=== PATIENT | female | born 1970 | race Caucasian/White ===

== ENCOUNTER 2018-05-22 19:35 | Inpatient (IN) | payer OTHER ==
--- NOTE | 2018-05-22 20:33 | ER ---
Nurse's Notes [facility] Name: Sherly Babb Age: 48 yrs Sex: Female : 1970 Arrival Date: 05/22/2018 Time: 19:36 Bed 14 Private MD: Diagnosis: Abdominal tenderness;Vomiting;Fever, unspecified;Obesity, unspecified;Type 2 diabetes mellitus;Hypomagnesemia;Cystitis Presentation: 05/22 20:05 Presenting complaint: Patient states: Family found her in her room and she was in bed tl2 shivering and had a fever of 104. Family gave 1000 mg of Tylenol at 1900. Pt reports abdominal pain and vomiting. Started at 1800 tonight. Transition of care: patient was not received from another setting of care. Onset of symptoms was May 22, 2018 at 18:00. Risk Assessment: Do you want to hurt yourself or someone else? Patient reports no desire to harm self or others. Initial Sepsis Screen: Does the patient meet any 2 criteria? No. Patient's initial sepsis screen is negative. Does the patient have a suspected source of infection? No. Patient's initial sepsis screen is negative. Care prior to arrival: None. 20:05 Method Of Arrival: Wheelchair tl2 20:05 Acuity: BRITTANY 3 tl2 Triage Assessment: 20:08 General: Appears in no apparent distress. uncomfortable, Behavior is cooperative, tl2 appropriate for age, drowsy. General: Reports fever for feeling ill for. Pain: Complains of pain in abdomen. Neuro: Level of Consciousness is awake, alert, obeys commands, Reports dizziness. GI: Reports lower abdominal pain, upper abdominal pain, nausea, vomiting. 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 - Irregular menses tl2 Historical: - Allergies: 20:08 Morphine; tl2 - Home Meds: 20:08 amitriptyline 25 mg Oral tab 1 tab nightly [Active]; lisinopril 20 mg Oral tab 1 tab tl2 BID [Active]; metformin 1,000 mg Oral tab 1 tab 2 times per day [Active]; Prozac 40 mg Oral cap 1 cap once daily [Active]; Victoza 2-Alessandro 0.6 mg/0.1 mL (18 mg/3 mL) subcutaneous pnij 0.2 mL once daily [Active]; gabapentin oral oral [Active]; - PMHx: 20:08 Migraines; Hypertension; Diabetes - NIDDM; Depression; Anxiety; small bowel obstruction;tl2 - PSHx: 20:08 Cholecystectomy; ; Tubal ligation; Hernia repair; tl2 - Immunization history:: Adult Immunizations up to date. - Social history:: Smoking status: Patient/guardian denies using tobacco. - Ebola Screening: : No symptoms or risks identified at this time. - Family history:: not pertinent. Screenin:58 Abuse screen: Denies threats or abuse. Denies injuries from another. Nutritional ao screening: No deficits noted. Tuberculosis screening: No symptoms or risk factors identified. Fall Risk None identified. Assessment: 20:20 General: Appears in no apparent distress. comfortable, Behavior is calm, cooperative, ao appropriate for age. Pain: Complains of pain in abdomen Pain currently is 8 out of 10 on a pain scale. Neuro: Level of Consciousness is awake, alert, obeys commands, Oriented to person, place, time, situation, Appropriate for age Moves all extremities. Full function Speech is normal. Cardiovascular: Heart tones S1 S2 Capillary refill < 3 seconds Patient's skin is warm and dry. Respiratory: Airway is patent Respiratory effort is even, unlabored, Respiratory pattern is regular, symmetrical, Breath sounds are diminished. GI: Abdomen is round obese, Bowel sounds present X 4 quads. Abd is soft and non tender Abd is soft. : No signs and/or symptoms were reported regarding the genitourinary system. EENT: No signs and/or symptoms were reported regarding the EENT system. Derm: No signs and/or symptoms reported regarding the dermatologic system. Musculoskeletal: 21:30 Reassessment: Patient appears in no apparent distress at this time. Patient and/or ao family updated on plan of care and expected duration. Pain level reassessed. Patient is alert, oriented x 3, equal unlabored respirations, skin warm/dry/pink. Patient to be admitted to the hospital. Patient aware of admission and agree with the POC. waiting on CT scan at this moment. Patient was done with contrasts at [address] was notified. 22:30 Reassessment: Patient appears in no apparent distress at this time. Patient and/or ao family updated on plan of care and expected duration. Pain level reassessed. Patient is alert, oriented x 3, equal unlabored respirations, skin warm/dry/pink. Waiting on CT scan. 23:38 Reassessment: Patient appears in no apparent distress at this time. Patient and/or ao family updated on plan of care and expected duration. Pain level reassessed. Patient is alert, oriented x 3, equal unlabored respirations, skin warm/dry/pink. Waiting on DR orders. 05/23 00:11 Reassessment: Received an verbal order from Dr Owusu to medicate patient with what ao she was previous medicated. Patient had Fentanyl 50 Mcg. 00:15 Reassessment: DR Bazan at bedside assessing patient. ao 00:26 Reassessment: Patient appears in no apparent distress at this time. Patient and/or ao family updated on plan of care and expected duration. Pain level reassessed. Patient is alert, oriented x 3, equal unlabored respirations, skin warm/dry/pink. Waiting for admitting Dr orders. Patient has been medicated with fentanyl IV. 01:20 Reassessment: Report given to BORIS Neal. ao Vital Signs: 05/22 20:08 BP 92 / 78; Pulse 121; Resp 20; Temp 99.7(O); Pulse Ox 97% on R/A; Weight 154.22 kg; tl2 Height 5 ft. 8 in. (172.72 cm); Pain 9/10; 21:30 BP 106 / 63; Pulse 99; Resp 23; Pulse Ox 99% on R/A; ao 22:30 BP 114 / 60; Pulse 94; Resp 20; Pulse Ox 96% on R/A; ao 23:42 BP 100 / 61; Pulse 88; Resp 18; Pulse Ox 96% on R/A; Pain 0/10; ao 05/23 00:26 BP 98 / 64; Pulse 80; Resp 14; Pulse Ox 98% on R/A; Pain 0/10; ao 01:20 BP 114 / 64; Pulse 87; Resp 18; Pulse Ox 86% on R/A; Pain 0/10; ao 05/22 20:08 Body Mass Index 51.70 (154.22 kg, 172.72 cm) tl2 ED Course: 05/22 19:36 Patient arrived in ED. es 20:06 Triage completed. tl2 20:08 Arm band placed on right wrist. tl2 20:13 Bryant Owusu MD is Attending Physician. [facility] 20:16 Rizvi, Bryson, RN is Primary Nurse. ao 20:30 Inserted saline lock: 22 gauge in right wrist, using aseptic technique. Blood collected.ao 20:31 Yusuf Valencia MD is Hospitalizing Provider. eloisa 20:45 X-ray completed. Portable x-ray completed in exam room. Patient tolerated procedure sw well. 21:58 Patient has correct armband on for positive identification. Pulse ox on. NIBP on. ao 22:52 Note: iv not working in right ac, only access available was hand iv, nurse notified, ct vr tech started new iv in left wrist for ct w contrast study. 22:55 Inserted saline lock: 22 gauge in left forearm, using aseptic technique. ao 05/23 01:21 No provider procedures requiring assistance completed. Patient admitted, IV remains in ao place. Administered Medications: 05/22 21:14 Drug: NS 0.9% 1000 ml Route: IV; Rate: 1 bolus; Site: left antecubital; ao 21:30 Follow up: IV Status: Completed infusion; IV Intake: 1000ml ao 21:14 Drug: Pepcid 20 mg Route: IVP; Site: right hand; ao 21:30 Follow up: Response: No adverse reaction ao 21:14 Drug: Zofran 4 mg Route: IVP; Site: right hand; ao 21:30 Follow up: Response: No adverse reaction ao 21:15 Drug: fentaNYL (PF) 50 mcg Route: IVP; Site: right antecubital; ao 21:30 Follow up: Response: No adverse reaction ao 21:16 Drug: Cipro 400 mg Volume: 200 ml; Route: IVPB; Infused Over: 60 mins; Site: right ao antecubital; 21:55 Follow up: IV Status: Completed infusion ao 21:16 Drug: Flagyl 500 mg Volume: 100 ml; Route: IVPB; Rate: 200 ml/hr; Infused Over: 30 ao mins; Site: right antecubital; 21:45 Follow up: IV Status: Completed infusion; IV Intake: 50ml ao 22:23 Drug: Magnesium Sulfate 2 grams Route: IVPB; Infused Over: 2 hrs; Site: right wrist; ao 23:51 Follow up: IV Status: Completed infusion ao 22:30 Drug: NS 0.9% 1000 ml Route: IV; Rate: 1 bolus; Site: right hand; ao 23:51 Follow up: IV Status: Completed infusion ao 22:49 Drug: Rocephin - (cefTRIAXone) 1 grams Route: IVPB; Infused Over: 30 mins; Site: left ao wrist; 23:51 Follow up: IV Status: Completed infusion; IV Intake: 10ml ao 23:19 Drug: Insulin Regular Human 10 units {Co-Signature: [email or web address] (Brian Batista RN).} Route: ao Sub-Q; Site: right upper arm; 05/23 00:00 Follow up: Response: No adverse reaction; Blood sugar is lowered ao 05/22 23:22 Drug: Zofran 2 mg Route: IVP; Site: left hand; ao 23:52 Follow up: Response: No adverse reaction ao 05/23 00:22 Drug: fentaNYL (PF) 50 mcg Route: IVP; Site: right wrist; ao 01:20 Follow up: Response: No adverse reaction; Pain is decreased ao Point of Care Testing: Blood Glucose: 01:27 Blood Glucose: 300 mg/dL; ao 01:27 Receiving nurse was notified ao Ranges: Intake: 05/22 21:30 IV: 1000ml; Total: 1000ml. ao 21:45 IV: 50ml; Total: 1050ml. ao 23:51 IV: 10ml; Total: 1060ml. ao Outcome: 20:32 Decision to Hospitalize by Provider. [facility] 05/23 01:21 Admitted to Med/surg accompanied by nurse, room 202, Other Bed side report given to kirk Neal RN Condition: stable Instructed on the need for admit. 02:04 Patient left the ED. ao Signatures: Bryant Owusu MD MD cha Salyer, Edna es Davis, Victoria vr Warren, Shannon sw Ortiz, Alex, RN RN Soila Ham RN RN tl2 Brian Batista RN sr5 Corrections: (The following items were deleted from the chart) 05/22 23:42 22:30 BP 100 / 61; Pulse 88bpm; Resp 18bpm; Pulse Ox 96% RA; Pain 0/10; ao ao
--- NOTE | 2018-05-22 20:33 | EDPHYS ---
Physician Documentation [facility] Name: Sehrly Babb Age: 48 yrs Sex: Female : 1970 Arrival Date: 05/22/2018 Time: 19:36 Bed 14 Private MD: ED Physician Bryant Owusu HPI: 05/22 20:27 This 48 yrs old Female presents to ER via Wheelchair with complaints of eloisa Fever, Abdominal Pain. 20:27 The patient reports fever, that was measured at 102 degrees Fahrenheit. Onset: The eloisa symptoms/episode began/occurred today. Modifying factors: there are no obvious modifying factors. Associated signs and symptoms: Pertinent positives:. Severity of symptoms: in the emergency department the symptoms are unchanged. The patient has not experienced similar symptoms in the past. 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 - Irregular menses tl2 Historical: - Allergies: 20:08 Morphine; tl2 - Home Meds: 20:08 amitriptyline 25 mg Oral tab 1 tab nightly [Active]; lisinopril 20 mg Oral tab 1 tab tl2 BID [Active]; metformin 1,000 mg Oral tab 1 tab 2 times per day [Active]; Prozac 40 mg Oral cap 1 cap once daily [Active]; Victoza 2-Alessandro 0.6 mg/0.1 mL (18 mg/3 mL) subcutaneous pnij 0.2 mL once daily [Active]; gabapentin oral oral [Active]; - PMHx: 20:08 Migraines; Hypertension; Diabetes - NIDDM; Depression; Anxiety; small bowel obstruction;tl2 - PSHx: 20:08 Cholecystectomy; ; Tubal ligation; Hernia repair; tl2 - Immunization history:: Adult Immunizations up to date. - Social history:: Smoking status: Patient/guardian denies using tobacco. - Ebola Screening: : No symptoms or risks identified at this time. - Family history:: not pertinent. ROS: 20:27 Constitutional: Negative for fever, chills, and weight loss, Eyes: Negative for injury, eloisa pain, redness, and discharge, ENT: Negative for injury, pain, and discharge, Neck: Negative for injury, pain, and swelling, Cardiovascular: Negative for chest pain, palpitations, and edema, Respiratory: Negative for shortness of breath, cough, wheezing, and pleuritic chest pain, Back: Negative for injury and pain, : Negative for injury, bleeding, discharge, and swelling, MS/Extremity: Negative for injury and deformity, Skin: Negative for injury, rash, and discoloration, Neuro: Negative for headache, weakness, numbness, tingling, and seizure, Psych: Negative for depression, anxiety, suicide ideation, homicidal ideation, and hallucinations, Allergy/Immunology: Negative for hives, rash, and allergies, Endocrine: Negative for neck swelling, polydipsia, polyuria, polyphagia, and marked weight changes, Hematologic/Lymphatic: Negative for swollen nodes, abnormal bleeding, and unusual bruising. 20:27 Abdomen/GI: Positive for abdominal pain, nausea and vomiting, of the umbilical area, right upper quadrant, left upper quadrant, right lower quadrant and left lower quadrant. Exam: 20:27 Constitutional: This is a well developed, well nourished patient who is awake, alert, eloisa and in no acute distress. Head/Face: Normocephalic, atraumatic. Eyes: Pupils equal round and reactive to light, extra-ocular motions intact. Lids and lashes normal. Conjunctiva and sclera are non-icteric and not injected. Cornea within normal limits. Periorbital areas with no swelling, redness, or edema. ENT: Nares patent. No nasal discharge, no septal abnormalities noted. Tympanic membranes are normal and external auditory canals are clear. Oropharynx with no redness, swelling, or masses, exudates, or evidence of obstruction, uvula midline. Mucous membranes moist. Neck: Trachea midline, no thyromegaly or masses palpated, and no cervical lymphadenopathy. Supple, full range of motion without nuchal rigidity, or vertebral point tenderness. No Meningismus. Chest/axilla: Normal chest wall appearance and motion. Nontender with no deformity. No lesions are appreciated. Respiratory: Lungs have equal breath sounds bilaterally, clear to auscultation and percussion. No rales, rhonchi or wheezes noted. No increased work of breathing, no retractions or nasal flaring. Back: No spinal tenderness. No costovertebral tenderness. Full range of motion. Skin: Warm, dry with normal turgor. Normal color with no rashes, no lesions, and no evidence of cellulitis. MS/ Extremity: Pulses equal, no cyanosis. Neurovascular intact. Full, normal range of motion. Neuro: Awake and alert, GCS 15, oriented to person, place, time, and situation. Cranial nerves II-XII grossly intact. Motor strength 5/5 in all extremities. Sensory grossly intact. Cerebellar exam normal. Normal gait. Psych: Awake, alert, with orientation to person, place and time. Behavior, mood, and affect are within normal limits. 20:27 Cardiovascular: Rate: tachycardic, Rhythm: regular, Pulses: Pulses are 4+ in bilateral radial, brachial, femoral, popliteal, posterior tibial and and dorsalis pedis arteries.. Heart sounds: normal, Edema: is not appreciated, JVD: is not appreciated. Vital Signs: 20:08 BP 92 / 78; Pulse 121; Resp 20; Temp 99.7(O); Pulse Ox 97% on R/A; Weight 154.22 kg; tl2 Height 5 ft. 8 in. (172.72 cm); Pain 9/10; 21:30 BP 106 / 63; Pulse 99; Resp 23; Pulse Ox 99% on R/A; ao 22:30 BP 114 / 60; Pulse 94; Resp 20; Pulse Ox 96% on R/A; ao 23:42 BP 100 / 61; Pulse 88; Resp 18; Pulse Ox 96% on R/A; Pain 0/10; ao 05/23 00:26 BP 98 / 64; Pulse 80; Resp 14; Pulse Ox 98% on R/A; Pain 0/10; ao 01:20 BP 114 / 64; Pulse 87; Resp 18; Pulse Ox 86% on R/A; Pain 0/10; ao 05/22 20:08 Body Mass Index 51.70 (154.22 kg, 172.72 cm) tl2 MDM: 05/22 20:13 Patient medically screened. [facility] 20:30 Data reviewed: vital signs, nurses notes, lab test result(s), EKG, radiologic studies, [facility] CT scan, plain films. 05/22 19:39 Order name: Urine Culture [facility] 05/22 19:39 Order name: Urine Microscopic Only [facility] 05/22 19:39 Order name: Urine Culture [facility] [place] 05/22 19:39 Order name: Urine Microscopic Only; Complete Time: 21:42 [facility] 05/22 20:26 Order name: Basic Metabolic Panel; Complete Time: 21:42 [facility] 05/22 20:26 Order name: CBC with Diff; Complete Time: 23:12 [facility] 05/22 20:26 Order name: Ckmb; Complete Time: 21:42 [facility] 05/22 20:26 Order name: CPK; Complete Time: 21:42 [facility] 05/22 20:26 Order name: LFT's; Complete Time: 21:42 [facility] 05/22 20:26 Order name: Magnesium; Complete Time: 21:42 [facility] 05/22 20:26 Order name: NT PRO-BNP; Complete Time: 21:42 [facility] 05/22 20:26 Order name: PT-INR; Complete Time: 21:42 [facility] 05/22 20:26 Order name: Ptt, Activated; Complete Time: 21:42 [facility] 05/22 20:26 Order name: Troponin (emerg Dept Use Only); Complete Time: 21:42 [facility] 05/22 20:26 Order name: XRAY Chest (1 view) [facility] 05/22 20:26 Order name: Lipase; Complete Time: 21:42 [facility] 05/22 20:33 Order name: CT Abd/Pelvis - W/Contrast [facility] 05/22 21:20 Order name: Urine Dipstick--Ancillary (enter results) [facility] 05/22 21:20 Order name: Urine --Ancillary (enter results) [facility] 05/22 21:33 Order name: Urine --Ancillary; Complete Time: 21:42 [facility] 05/22 21:33 Order name: Urine Dipstick-Ancillary; Complete Time: 21:42 [facility] 05/22 21:37 Order name: RAD; Complete Time: 21:42 [facility] 05/22 21:53 Order name: Manual Differential; Complete Time: 23:12 [facility] [place] 05/22 19:39 Order name: Urine Dipstick-Ancillary (obtain specimen); Complete Time: 21:47 snw 05/22 20:26 Order name: EKG; Complete Time: 20:27 [facility] 05/22 20:26 Order name: Cardiac monitoring; Complete Time: 21:01 [facility] 05/22 20:26 Order name: EKG - Nurse/Tech; Complete Time: 21:00 [facility] 05/22 20:26 Order name: IV Saline Lock; Complete Time: 21:22 [facility] 05/22 20:26 Order name: Labs collected and sent; Complete Time: 21:22 [facility] 05/22 20:26 Order name: O2 Per Protocol; Complete Time: 21:01 [facility] 05/22 20:26 Order name: O2 Sat Monitoring; Complete Time: : [facility] 05/23 00:00 Order name: NPO; Complete Time: 00:00 [facility] Administered Medications: 21:14 Drug: NS 0.9% 1000 ml Route: IV; Rate: 1 bolus; Site: left antecubital; ao 21:30 Follow up: IV Status: Completed infusion; IV Intake: 1000ml ao 21:14 Drug: Pepcid 20 mg Route: IVP; Site: right hand; ao 21:30 Follow up: Response: No adverse reaction ao 21:14 Drug: Zofran 4 mg Route: IVP; Site: right hand; ao 21:30 Follow up: Response: No adverse reaction ao 21:15 Drug: fentaNYL (PF) 50 mcg Route: IVP; Site: right antecubital; ao 21:30 Follow up: Response: No adverse reaction ao 21:16 Drug: Cipro 400 mg Volume: 200 ml; Route: IVPB; Infused Over: 60 mins; Site: right ao antecubital; 21:55 Follow up: IV Status: Completed infusion ao 21:16 Drug: Flagyl 500 mg Volume: 100 ml; Route: IVPB; Rate: 200 ml/hr; Infused Over: 30 ao mins; Site: right antecubital; 21:45 Follow up: IV Status: Completed infusion; IV Intake: 50ml ao 22:23 Drug: Magnesium Sulfate 2 grams Route: IVPB; Infused Over: 2 hrs; Site: right wrist; ao 23:51 Follow up: IV Status: Completed infusion ao 22:30 Drug: NS 0.9% 1000 ml Route: IV; Rate: 1 bolus; Site: right hand; ao 23:51 Follow up: IV Status: Completed infusion ao 22:49 Drug: Rocephin - (cefTRIAXone) 1 grams Route: IVPB; Infused Over: 30 mins; Site: left ao wrist; 23:51 Follow up: IV Status: Completed infusion; IV Intake: 10ml ao 23:19 Drug: Insulin Regular Human 10 units {Co-Signature: [email or web address] (Brian Batista RN).} Route: ao Sub-Q; Site: right upper arm; 05/23 00:00 Follow up: Response: No adverse reaction; Blood sugar is lowered ao 05/22 23:22 Drug: Zofran 2 mg Route: IVP; Site: left hand; ao 23:52 Follow up: Response: No adverse reaction ao 05/23 00:22 Drug: fentaNYL (PF) 50 mcg Route: IVP; Site: right wrist; ao 01:20 Follow up: Response: No adverse reaction; Pain is decreased ao Point of Care Testing: Blood Glucose: 01:27 Blood Glucose: 300 mg/dL; ao 01:27 Receiving nurse was notified ao Ranges: Critical Glucose Levels:Adult <50 mg/dl or >400 mg/dl <40 mg/dl or >180 mg/dl Disposition: 05/22/18 20:32 Hospitalization ordered by Yusuf Valencia for Inpatient Admission. Preliminary diagnosis are Abdominal tenderness, Vomiting, Fever, unspecified, Obesity, unspecified, Type 2 diabetes mellitus, Hypomagnesemia, Cystitis. - Bed requested for Telemetry/MedSurg (Inpatient). - Status is Inpatient Admission. ao - Condition is Fair. - Problem is new. - Symptoms have improved. UTI on Admission? Yes Signatures: Dispatcher [facility] Onelia Fairchild RN RN kl Anderson, Corey, MD MD cha Therrien, Shelly, ACTION INSTALLER-C ACTION INSTALLER-Csnw Bryson Rizvi RN RN ao Knox, Taylor, RN RN tl2 Brian Batista RN sr5 Corrections: (The following items were deleted from the chart) 05/22 21:44 20:32 Hospitalization Ordered by Yusuf Valencia MD for Inpatient Admission. Preliminary [facility] diagnosis is Abdominal tenderness; Vomiting; Fever, unspecified; Obesity, unspecified; Type 2 diabetes mellitus. Bed requested for Telemetry/MedSurg (Inpatient). Status is Inpatient Admission. Condition is Fair. Problem is new. Symptoms have improved. UTI on Admission? No. eloisa 05/23 01:12 05/22 21:44 05/22/2018 20:32 Hospitalization Ordered by Yusuf Valencia MD for Inpatient kl Admission. Preliminary diagnosis is Abdominal tenderness; Vomiting; Fever, unspecified; Obesity, unspecified; Type 2 diabetes mellitus; Hypomagnesemia; Cystitis. Bed requested for Telemetry/MedSurg (Inpatient). Status is Inpatient Admission. Condition is Fair. Problem is new. Symptoms have improved. UTI on Admission? Yes. [facility] 05/23 02:04 01:12 05/22/2018 20:32 Hospitalization Ordered by Yusuf Valencia MD for Inpatient ao Admission. Preliminary diagnosis is Abdominal tenderness; Vomiting; Fever, unspecified; Obesity, unspecified; Type 2 diabetes mellitus; Hypomagnesemia; Cystitis. Bed requested for Telemetry/MedSurg (Inpatient). Status is Inpatient Admission. Condition is Fair. Problem is new. Symptoms have improved. UTI on Admission? Yes. kl
[2018-05-22] MEDS ORDERED: ONDANSETRON 4 MG/2 ML VIAL ONE ×2 (20:48→23:23)
[2018-05-22] MEDS ORDERED: FENTANYL CITR 100 MCG/2 ML ONE (20:48)
[2018-05-22] MEDS ORDERED: FAMOTIDINE 20 MG/2 ML VIAL IV ONE (20:48)
[2018-05-22] MEDS ORDERED: NA CHLORIDE 0.9% 1,000 ML ONE ×2 (20:49→22:30)
[2018-05-22] MEDS ORDERED: METRONIDAZOLE 500mg IVPB 500 MG/100 ML BAG IV ONE (20:49)
[2018-05-22] MEDS ORDERED: CIPROFLOXACIN 400mg IV 400 MG/200 ML BAG IV ONE (20:49)
[2018-05-22 21:06] LABS: Absolute Lymphocytes (CBC) 0.4 K/uL (0.7-4.9); Absolute Monocytes 0.6 K/uL (0.1-1.3); Absolute Neutrophil 7.6 K/uL (1.8-8.0); Basophils % 0.3 % (0-1.3); Eosinophils % 0.7 % (0-4.4); Hematocrit 39.4 % (36.0-45.0); Lymphocytes % 4.7 % (15.3-44.8); MCH 29.4 pg (27.0-35.0); MCV 88.1 fL (80-100); MPV 8.4 fL (7.6-11.3); Monocytes % 7.4 % (3.3-12.3); RBC Red Blood Cell Count 4.47 M/uL (3.86-4.86)
[2018-05-22 21:13] LABS: Protime INR 1.21
[2018-05-22 21:24] LABS: ALT/SGPT 16 U/L (12-78); AST/SGOT 12 U/L (15-37); Albumin 2.6 g/dL (3.4-5.0); Alkaline Phosphatase 69 U/L (45-117); BUN Blood Urea Nitrogen 8 mg/dL (7-18); Bicarbonate 28 mmol/L (21-32); Bilirubin Direct 0.2 mg/dL (0-0.2); Bilirubin Total 0.4 mg/dL (0.2-1.0); CKMB Creatine Kinase MB < 1.0 ng/mL (0.3-3.6); Creatine Phosphokinase 42 U/L (26-192); Glucose Level 324 mg/dL (74-106); Lipase 71 U/L (73-393); Magnesium 1.5 mg/dL (1.8-2.4); NT PRO-BNP 170 pg/mL (<125); Potassium 3.7 mmol/L (3.5-5.1); Protein, Total 7.4 g/dL (6.4-8.2); Sodium Level 137 mmol/L (136-145)
[2018-05-22 21:33] LABS: Urine Blood 2+ (NEG); Urine Glucose NEGATIVE (NEG); Urine Protein 2+ (NEG); Urine Specific Gravity 1.025 (1.005-1.030); Urine pH 5.5 (5.0-7.0)
[2018-05-22 21:36] LABS: Urine Bacteria <20 /HPF (<20); Urine Culture Reflex Order NOT NEEDED; Urine Mucus 1+ /HPF (NONE SEEN); Urine RBC <5 /HPF (NONE SEEN)
--- NOTE | 2018-05-22 21:37 | RAD REPORT ---
EXAM DESCRIPTION: RAD - Chest Single View - 05/22/2018 8:45 pm CLINICAL HISTORY: ABDOMINAL DISTENTION Chest pain. COMPARISON: Chest Single View dated 09/01/2016; CHEST SINGLE VIEW dated 03/11/2012 FINDINGS: Portable technique limits examination quality. The lungs are grossly clear. The heart is normal in size. No displaced fractures. IMPRESSION: No acute intrathoracic process suspected.
[2018-05-22 21:53] LABS: Blood Morphology Comment NOT SEEN (NOT SEEN); Platelet Estimate ADEQ
[2018-05-22 22:10] LABS: Urine White Blood Cell Casts OK
[2018-05-22] MEDS ORDERED: CEFTRIAXONE/SWI 1gm 1 GM/10 ML SYR ONE (22:30)
[2018-05-22] MEDS ORDERED: Magnesium Sulfate 2gm IVPB 2 G/50 ML BAG IV ONE (22:30)
[2018-05-22] MEDS ORDERED: INSULIN -REGULAR HUMAN 50 UNIT/0.5 ML ML ONE (23:23)
--- NOTE | 2018-05-23 01:15 | P.HP ---
Certification for Inpatient Patient admitted to: Inpatient With expected LOS: >2 Midnights Practitioner: I am a practitioner with admitting privileges, knowledge of patient current condition, hospital course, and medical plan of care. Services: Services provided to patient in accordance with Admission requirements found in Title 42 Section 412.3 of the Code of Federal Regulations Patient History Date of Service: 05/22/18 Reason for admission: UTI, right ventral hernia History of Present Illness: Ms Babb is a 48-year-old woman with history of and diabetes mellitus types 2, hypertension, morbid obesity status post lap band, she also had history of right ventral hernia repair. Today she start with diffuse abdominal pain, associated with nausea, vomiting and fever. Family member found her of her room shivering, her temp was 104 F. Last time patient had bowel movement was 2 days ago, she is passing gas. Lab work shows normal WBC count, lactate and procalcitonin are pending. CT abdomen and pelvis remarkable for right ventral hernia with fluid collection. No sign of bowel obstruction. Allergies morphine Allergy (Unverified 06/16/15 14:33) Unknown No Known Allergies Allergy (Uncoded 12/08/15 00:41) Unknown Home medications list reviewed: Yes Home Medications: Amitriptyline [Elavil*] 10 mg PO BEDTIME 03/11/12 Cyclobenzaprine [Flexeril*] 10 mg PO BEDTIME PRN PRN 03/11/12 Eletriptan HBr [Relpax] 40 mg PO DAILYPRN PRN 03/11/12 Fluoxetine HCl [Prozac] 40 mg PO DAILY 03/11/12 Liraglutide [Victoza 2-Alessandro] 1.5 mg SQ DAILY 03/11/12 Lisinopril [Prinivil] 20 mg PO BID 03/11/12 Metformin HCl [Glucophage XR OR ER] 1,000 mg PO BID 03/11/12 Nystatin Powder [Mycostatin (Powder)*] 15 appl TOP DAILY 03/11/12 PROMETHAZINE TAB *er disp* [Ebyfvynso60plVBS(4/BOX)*forerdispense] 25 mg PO BIDP PRN 03/11/12 Pioglitazone HCl [Actos] 30 mg PO DAILY 03/11/12 Mag Hydroxide 8% [Milk Of Magnesia*] 1 mg PO UD PRN #0 ucup 03/12/12 Ciprofloxacin HCl [Cipro*] 500 mg PO BID #20 tab 07/20/13 Promethazine Tab [Phenergan -Tab] 25 mg PO Q6HP PRN #15 tab 07/20/13 Hydrocodone 7.5/APAP 325 [[place] 7.5/325 mg*] 1 tab PO Q12HP PRN #30 tab - Past Medical/Surgical History Diabetic: Yes -: NIDDM -: HTN -: Obesity -: X3 -: TUBAL LIGATION -: CHOLECYSTECTOMY -: HERNIA RX -: LAP BAND - Family History Family History: Reviewed- Non-Contributory - Social History Smoking Status: Never smoker Alcohol use: No CD- Drugs: No Caffeine use: Yes Place of Residence: Home Review of Systems 10-point ROS is otherwise unremarkable Physical Examination - Physical Exam General: Alert, In no apparent distress HEENT: Atraumatic, PERRLA, Mucous membr. moist/pink, EOMI, Sclerae nonicteric Neck: Supple, 2+ carotid pulse no bruit, No LAD, Without JVD or thyroid abnormality Respiratory: Normal air movement, Diminished Cardiovascular: Regular rate/rhythm, Normal S1 S2 Gastrointestinal: Hypoactive, Other (Prior ventral hernia ), Distended, Tenderness Musculoskeletal: No tenderness Integumentary: No rashes Neurological: Normal speech, Normal strength at 5/5 x4 extr, Normal tone, Normal affect Lymphatics: No axilla or inguinal lymphadenopathy - Studies Laboratory Data (last 24 hrs) 05/22/18 20:30: PT 14.3 H, INR 1.21, APTT 29.1 05/22/18 20:30: WBC 8.7, Hgb 13.2, Hct 39.4, Plt Count 278 05/22/18 20:30: Sodium 137, Potassium 3.7, BUN 8, Creatinine 0.90, Glucose 324 H , Magnesium 1.5 L, Total Bilirubin 0.4, AST 12 L, ALT 16, Alkaline Phosphatase 69, Lipase 71 L Assessment and Plan - Problems (Diagnosis) (1) UTI (urinary tract infection) Current Visit: Yes Status: Acute Qualifiers: Urinary tract infection type: acute cystitis Hematuria presence: without hematuria Qualified Code(s): N30.00 - Acute cystitis without hematuria (2) Ventral hernia Current Visit: Yes Status: Acute Qualifiers: Obstruction and gangrene presence: without obstruction or gangrene Qualified Code(s): K43.9 - Ventral hernia without obstruction or gangrene (3) Morbid obesity Current Visit: Yes Status: Acute (4) Diabetes mellitus Current Visit: Yes Status: Acute Qualifiers: Diabetes mellitus type: type 2 Diabetes mellitus jail insulin use: without jail use Diabetes mellitus complication status: with unspecified complications Qualified Code(s): E11.8 - Type 2 diabetes mellitus with unspecified complications - Plan The patient will be admitted to the hospital due to fever in context of UTI, and possible right and chart hernia complication. The patient was evaluated by Dr. Bazan who recommend to continue empiric treatment with antibiotics, keep her NPO, IV fluids, and evaluate the progress of her symptoms in the morning. - Advance Directives Does patient have a Living Will: No Does patient have a Durable POA for Healthcare: No - Code Status/Comfort Care Code Status Assessed: Yes Code Status: Full Code
[2018-05-23] MEDS ORDERED: ACETAMINOPHEN 500 MG TAB PO PRN (01:38)
[2018-05-23] MEDS: NA CHLORIDE 0.9% 1,000 ML IV SCH ×3 (02:05→20:14)
[2018-05-23] MEDS: METRONIDAZOLE 500mg IVPB 500 MG/100 ML BAG IV SCH ×3 (02:05→16:48)
[2018-05-23] MEDS ORDERED: TRAMADOL HCL 50 MG TAB PO PRN (02:31)
[2018-05-23] MEDS: ONDANSETRON 4 MG/2 ML VIAL IV PRN ×4 (04:22→20:36)
[2018-05-23] MEDS ORDERED: PROMETHAZINE 25 MG/ML VIAL IV ONE (05:01)
[2018-05-23 05:17] LABS: Magnesium 1.9 mg/dL (1.8-2.4); Potassium 3.1 mmol/L (3.5-5.1)
[2018-05-23] MEDS: INSULIN -REGULAR HUMAN 50 UNIT/0.5 ML ML SQ SCH ×4 (06:48→20:14)
[2018-05-23] MEDS: KCL 20 MEQ/100 mL IVPB 20 MEQ/100 ML BAG IV SCH ×4 (07:23→23:00)
[2018-05-23] MEDS ORDERED: HYDRALAZINE HCL 20 MG/ML VIAL IV PRN (07:39)
[2018-05-23] MEDS ORDERED: SODIUM CHLORIDE 0.9% 10ML INJ IV PRN (07:39)
--- NOTE | 2018-05-23 07:45 | P.PN ---
Subjective Date of Service: 05/23/18 Primary Care Provider: Jennyfer Long NP Chief Complaint: UTI, right ventral hernia Subjective: Other (Patient still with abdominal pain.) Physical Examination - Vital Signs Temperature: 98.0 F Blood Pressure: 124/70 Pulse: 79 Respirations: 18 Pulse Ox (%): 95 - Physical Exam General: Alert, Oriented x3, Cooperative, Mild distress HEENT: Atraumatic Neck: Supple Respiratory: Clear to auscultation bilaterally, Normal air movement Cardiovascular: Normal pulses, Regular rate/rhythm Gastrointestinal: Hypoactive (Throughout), Non-distended, No masses, No rebound , No guarding, Tenderness (Tender to the right quadrant near the periumbilical region.) Musculoskeletal: No erythema, No tenderness, No warmth Integumentary: No tenderness/swelling, No erythema, No warmth, No cyanosis Neurological: Normal speech, Normal strength at 5/5 x4 extr, Normal tone, Normal affect - Studies Laboratory Data (last 24 hrs) 05/22/18 20:30: PT 14.3 H, INR 1.21, APTT 29.1 05/22/18 20:30: WBC 8.7, Hgb 13.2, Hct 39.4, Plt Count 278 05/22/18 20:30: Sodium 137, Potassium 3.7, BUN 8, Creatinine 0.90, Glucose 324 H , Magnesium 1.5 L, Total Bilirubin 0.4, AST 12 L, ALT 16, Alkaline Phosphatase 69, Lipase 71 L Medications List Reviewed: Yes Assessment & Plan - Problems (Diagnosis) (1) Abdominal pain Current Visit: Yes Status: Acute Plan: Abdominal pain secondary to right ventral hernia with fluid collection. Suspect infectious cause. Will review CT scan. Will continue with IV antibiotic therapy and IV fluids. Surgery has evaluated patient. Patient may require surgical intervention if pain continues. Await further recommendations. Qualifiers: Abdominal location: right lower quadrant Qualified Code(s): R10.31 - Right lower quadrant pain (2) Hypertension Current Visit: Yes Status: Chronic Plan: Patient with history of hypertension. Will provide medication IV if elevated. Qualifiers: Hypertension type: essential hypertension Qualified Code(s): I10 - Essential (primary) hypertension (3) Ventral hernia Current Visit: Yes Status: Acute Plan: Right ventral hernia with fluid collection noted. Await CT findings. Patient evaluated by surgery. Patient will need to be reassessed. If continues with pain patient will likely need intervention. Continue IV antibiotic therapy. Qualifiers: Obstruction and gangrene presence: without obstruction or gangrene Qualified Code(s): K43.9 - Ventral hernia without obstruction or gangrene (4) Morbid obesity Current Visit: Yes Status: Chronic Plan: Will need to address lifestyle modification education at discharge. Patient with history of lap band. (5) Diabetes mellitus Current Visit: Yes Status: Chronic Plan: Continue sliding scale. Will monitor closely. Will check A1c. Qualifiers: Diabetes mellitus type: type 2 Diabetes mellitus half-way insulin use: without oysterman use Diabetes mellitus complication status: with unspecified complications Qualified Code(s): E11.8 - Type 2 diabetes mellitus with unspecified complications (6) Hypokalemia Current Visit: Yes Status: Acute Plan: Will monitor and replace appropriately. Replacement protocol in place. (7) Abdominal fluid collection Current Visit: Yes Status: Acute Plan: Await final results of CT. Yarn Dumper reported CT showed right ventral hernia with fluid collection. Continue as above. Patient will likely need surgical intervention if pain continues. Continue as above. (8) GERD (gastroesophageal reflux disease) Current Visit: Yes Status: Suspected Plan: Will provide PPI. Qualifiers: Esophagitis presence: esophagitis presence not specified Qualified Code(s) : K21.9 - Gastro-esophageal reflux disease without esophagitis (9) Diabetic neuropathy Current Visit: Yes Status: Chronic Plan: Will hold her medication at this time. Qualifiers: Diabetes mellitus type: type 2 Diabetes mellitus complication detail: diabetic polyneuropathy Qualified Code(s): E11.42 - Type 2 diabetes mellitus with diabetic polyneuropathy Discharge Plan: Home Plan to discharge in: Greater than 2 days Time Spent Managing Pts Care (In Minutes): 55
[2018-05-23] MEDS: FENTANYL CITR 100 MCG/2 ML IV PRN ×4 (07:54→20:36)
[2018-05-23] MEDS ORDERED: PNEUMOCOCCAL VACCINE 0.5 ML IMVAC ONE (08:00)
[2018-05-23] MEDS: CIPROFLOXACIN 400mg IV 400 MG/200 ML BAG IV SCH ×2 (08:01→20:12)
[2018-05-23] MEDS: PANTOPRAZOLE 40 MG INJ IVP SCH (08:02)
--- NOTE | 2018-05-23 08:31 | EKG ---
Test Date: 2018-05-22 Test Time: 20:52:40 Candle Wrapper: CORKY MEASUREMENT RESULTS: Intervals: Rate: 116 GA: 152 QRSD: 100 QT: 334 QTc: 464 [place]: P: 31 GA: 152 QRS: -26 T: 4 INTERPRETIVE STATEMENTS: Sinus tachycardia Possible Left atrial enlargement Incomplete right bundle branch block cannot rule out Anterolateral infarct, age undetermined Abnormal ECG Compared to ECG 09/01/2016 20:16:42 Incomplete right bundle-branch block now present possible myocardial infarct finding now present Sinus rhythm no longer present Electronically Signed On 05-23-18 08:30:34 CDT by Jerad Rodriguez
[2018-05-23 09:03] VITALS: O2SAT 97
--- NOTE | 2018-05-23 10:02 | RAD REPORT ---
EXAM DESCRIPTION: CT - Abdomen Pelvis W Contrast - 05/22/2018 10:40 pm CLINICAL HISTORY: Abdominal pain. Vomiting COMPARISON: 2016 TECHNIQUE: Computed axial tomography of the abdomen and pelvis was obtained. 100 cc Isovue-300 is ad ministered intravenously. Oral contrast was given. Preliminary report was generated by virtual radiologic and reviewed prior to this dictation All CT scans are performed using dose optimization technique as appropriate and may include automated exposure control or mA/KV adjustment according to patient size. FINDINGS: A gastric band is in place. The esophagus is patulous and contains contrast indicative of reflux. The liver, spleen, pancreas, and adrenals appear unremarkable. Right renal cyst is unchanged. Mild ma lrotation of the right kidney is noted. The left kidney is unremarkable. A right ventral hernia within the upper abdomen contains nondilated colon. The neck measures 6 centim eters. An 8 x 3 centimeter fluid collection has developed within a ventral mesh within the anterior pelvis There is no evidence of diverticulitis IMPRESSION: Right ventral hernia containing nondilated colon 8 x 3 centimeter fluid collection within a ventral mesh within the anterior pelvis may be a chronic h ematoma or seroma
[2018-05-23] MEDS: ENOXAPARIN 40 MG/0.4 ML SQ SCH (16:48)
--- NOTE | 2018-05-23 18:15 | CON ---
Date of Consultation: 05/22/2018 This patient was seen in the ER. Date of consult 05/22/2018 at 11:30 at night. History Of Present Illness: This is the case of a 48-year-old patient, morbidly obese, with multiple medical problems. She had history of ventral hernias in the past. She says about 10 years ago, les s and that, somebody went there and put a large piece of mesh because she had a large hernia. About 3 years ago, the right side of abdomen became a large hernia, and she has been dealing with that for the last 3 years on and off with chronic abdominal pain. She has been gaining some weight, even thou gh she has also a Lap-Band placed before to trying to control her weight to be able to fix this herni a since lose the right abdomen. She has not been able to lose any weight, but last night she came wi th some malaise, she felt a fever, and she decided to come to the ER now. She has not been followed by the primary doctors or the surgeons. She denies any dysuria, hematuria, hematochezia, or melena. Denies any recent traveling out of the country. Denies any family member sick at home. The patient states some burning sensation on urination. Past Medical History: Shows morbid obesity, [id number] diabetes, and hypertension. Past Surgical History: Include a Lap-Band, a large midline hernia surgery with a large piece of mesh placed in, 3 C-sections, cholecystectomy, tubal ligation. Family History: Noncontributory. Social History: She does not smoke. She does not drink alcohol. Allergies: MORPHINE. Review of Systems: Constitutional: The patient denies any current fever, but she states before she thought she felt dory e fever. Respiratory: Denies any shortness of breath. Gastrointestinal: Denies any melena, any hematochezia. The patient states passing flatus. Chronic abdominal pain. Genitourinary: The patient states some burning sensation on urination. No hematuria. No vaginal di scharge. Physical Examination: General: The patient is awake, morbidly obese. HEENT: Pupils are equal and reactive, anicteric. Neck: Supple. Chest: Clear. Abdomen: Soft and depressible. No guarding or rebound. The patient has a large gigantic hernia on the right side. The patient stated that left that was fixed through a midline incision. There is no peritonitis. No guarding or rebound. There is no redness over the area of the skin either. No francisco lulitis present. Pelvic/Rectal: Deferred. Extremities: Good capillary refill. Laboratory Data: Blood work shows WBC count of 8.7 with a hemoglobin of 13.2. INR is 1.21. Sodium is 137, chloride is 100, glucose 324, and magnesium is 1.5 cm. Albumin is 2.6, lipase 71. UA shows a urine wbc count of more than 50. Diagnostic Data: Cat scan of the abdomen and pelvis read by Dr. Carlos as right ventral hernia con taining nondilated colon. An 8.3 cm fluid collection within the previous ventral mesh, the patient h ad done several years ago, that could be a chronic hematoma or seroma per radiologist. The patient h as a gastric band in place. Assessment: A 48-year-old patient, with on and off history of 10 years of abdominal pain, ventral he rnias in the past requiring a large amount of repair with hernias with mesh as per patient. We do no t have the documentation on that 1. She stated was done in this institution. I noticed year patient had cholecystectomy done several years ago, but I do not see the surgical intervention itself. The patient is status several years after that hernia repair she develop a large hernia in the right side now that she has been living with since then. There has been chronic abdominal pain and apparently what she states no one has been able to fix that yet. She was asked to lose some weight, but even th ough she has a Lap-Band, she has not been able to do so. She has a fever and that is what she came t o the hospital. She has been eating well, is passing flatus. When she comes to us, it is difficult to say the etiology of that is fever. We noticed that when we compare a CT scan with the years ago, there is a fluid collection in the anterior abdominal wall, although the hernia has been there before and that is what the radiologist believed it could be hematoma or seroma, with a fever involved from that one even though she has a urine infection we still cannot rule out as also that part of the eff ects, but still we working on that at this moment, trying to make the difference between the 2. We a re giving her antibiotics at this moment. This patient will need abdominal wall reconstruction. She is morbidly obese and she had previous large reconstruction before, may even need a component separa tion therapy and it will be a time-consuming surgery that may require tertiary center to be fixed. O nce again, it will be better if she has no infections in the area because it may require most likely mesh placement, may even require previous mesh removal, and leaving you with a new defect and the pre vious defect that was repaired in the past making an abdominal wall reconstruction case. We going to see in the next 24-48 hours, and see if the fever subsides once we treat the urine infection. If it does not subside and then this have to be done, then we will proceed accordingly. I will keep you u pdated and give you more recommendations as the case develops. MANOJ Voice ID: [id number] Report ID: [id number]
[2018-05-23] MEDS ORDERED: POTASSIUM 25 MEQ EFFERV TAB PO ONE (23:46)
[2018-05-24] MEDS: ONDANSETRON 4 MG/2 ML VIAL IV PRN ×4 (00:42→19:23)
[2018-05-24] MEDS: FENTANYL CITR 100 MCG/2 ML IV PRN ×5 (00:42→19:23)
[2018-05-24] MEDS: METRONIDAZOLE 500mg IVPB 500 MG/100 ML BAG IV SCH ×3 (00:47→16:43)
[2018-05-24 05:16] LABS: Absolute Lymphocytes (CBC) 0.9 K/uL (0.7-4.9); Absolute Monocytes 0.7 K/uL (0.1-1.3); Absolute Neutrophil 3.5 K/uL (1.8-8.0); Basophils % 0.2 % (0-1.3); Eosinophils % 0.2 % (0-4.4); Hematocrit 33.6 % (36.0-45.0); Lymphocytes % 17.4 % (15.3-44.8); MCH 29.6 pg (27.0-35.0); MCV 87.2 fL (80-100); MPV 8.1 fL (7.6-11.3); Monocytes % 12.9 % (3.3-12.3); RBC Red Blood Cell Count 3.85 M/uL (3.86-4.86)
[2018-05-24 05:40] LABS: BUN Blood Urea Nitrogen 4 mg/dL (7-18); Bicarbonate 29 mmol/L (21-32); Glucose Level 149 mg/dL (74-106); Magnesium 1.9 mg/dL (1.8-2.4); Potassium 3.4 mmol/L (3.5-5.1); Sodium Level 138 mmol/L (136-145)
[2018-05-24] MEDS: INSULIN -REGULAR HUMAN 50 UNIT/0.5 ML ML SQ SCH ×4 (07:30→20:25)
--- NOTE | 2018-05-24 07:52 | P.PN ---
Subjective Date of Service: 05/24/18 Primary Care Provider: Jennyfer Long NP Chief Complaint: UTI, right ventral hernia Subjective: Other (Patient feeling better. Patient able to ambulate. She is tolerating her current diet. Less pain noted.) Physical Examination - Vital Signs Temperature: 98.4 F Blood Pressure: 119/75 Pulse: 98 Respirations: 20 Pulse Ox (%): 97 - Physical Exam General: Alert, In no apparent distress, Oriented x3, Cooperative HEENT: Atraumatic Neck: Supple Respiratory: Clear to auscultation bilaterally, Normal air movement Cardiovascular: Normal pulses, Regular rate/rhythm Gastrointestinal: Normal bowel sounds, Soft and benign, Non-distended, No masses , No rebound, No guarding, Tenderness (Less pain to the abdomen noted.) Musculoskeletal: No erythema, No tenderness, No warmth Integumentary: No tenderness/swelling, No erythema, No warmth, No cyanosis Neurological: Normal speech, Normal strength at 5/5 x4 extr, Normal tone, Normal affect - Studies Medications List Reviewed: Yes Assessment & Plan - Problems (Diagnosis) (1) Abdominal pain Current Visit: Yes Status: Acute Plan: Acute on chronic abdominal pain secondary to right ventral hernia with fluid collection. Both appear chronic. Case discussed at length with surgery. Will need to determine whether fever and infection related to UTI only or is there component of her hernia with fluid collection. Urine culture positive for E coli. Sensitive to Cipro. Will continue with current IV antibiotic therapy. Will consider advancing her diet. If infection is only related to UTI then will plan to discharge once she is able to ambulate and pain well controlled. If her abdominal pain is related to a ventral hernia with fluid collection and this worsen then she may need surgical intervention. Patient will need extensive surgery likely at a tertiary care center if all possible if intervention is needed to repair ventral hernia and address fluid collection. Continue to monitor closely. Will discuss with surgery. Qualifiers: Abdominal location: right lower quadrant Qualified Code(s): R10.31 - Right lower quadrant pain (2) Hypertension Current Visit: Yes Status: Chronic Plan: Patient with history of hypertension. Will provide medication IV if elevated. Qualifiers: Hypertension type: essential hypertension Qualified Code(s): I10 - Essential (primary) hypertension (3) Ventral hernia Current Visit: Yes Status: Acute Plan: Right ventral hernia with fluid collection noted. Continue as above. Will monitor closely. This appears chronic. Patient will likely need tertiary care center surgery in the future to further address. Qualifiers: Obstruction and gangrene presence: without obstruction or gangrene Qualified Code(s): K43.9 - Ventral hernia without obstruction or gangrene (4) Morbid obesity Current Visit: Yes Status: Chronic Plan: Will need to address lifestyle modification education at discharge. Patient with history of lap band. (5) Diabetes mellitus Current Visit: Yes Status: Chronic Plan: Continue sliding scale. Will monitor closely. Will check A1c. Qualifiers: Diabetes mellitus type: type 2 Diabetes mellitus chcf insulin use: without chcf use Diabetes mellitus complication status: with unspecified complications Qualified Code(s): E11.8 - Type 2 diabetes mellitus with unspecified complications (6) Hypokalemia Current Visit: Yes Status: Acute Plan: Will monitor and replace appropriately. Replacement protocol in place. (7) Abdominal fluid collection Current Visit: Yes Status: Acute Plan: This appears chronic. Continue as above. (8) GERD (gastroesophageal reflux disease) Current Visit: Yes Status: Suspected Plan: Will provide PPI. Qualifiers: Esophagitis presence: esophagitis presence not specified Qualified Code(s) : K21.9 - Gastro-esophageal reflux disease without esophagitis (9) Diabetic neuropathy Current Visit: Yes Status: Chronic Plan: Will provide medication Qualifiers: Diabetes mellitus type: type 2 Diabetes mellitus complication detail: diabetic polyneuropathy Qualified Code(s): E11.42 - Type 2 diabetes mellitus with diabetic polyneuropathy (10) UTI (urinary tract infection) Current Visit: Yes Status: Acute Plan: Continue with IV antibiotic therapy. Will transition to oral once able to take oral intake well. Qualifiers: Urinary tract infection type: acute cystitis Hematuria presence: without hematuria Qualified Code(s): N30.00 - Acute cystitis without hematuria Discharge Plan: Home Plan to discharge in: 48 Hours Time Spent Managing Pts Care (In Minutes): 55
[2018-05-24] MEDS: NA CHLORIDE 0.9% 1,000 ML IV SCH ×2 (09:04→19:02)
[2018-05-24] MEDS: GABAPENTIN 300 MG CAP PO SCH ×3 (09:05→20:24)
[2018-05-24] MEDS: PANTOPRAZOLE 40 MG INJ IVP SCH (09:05)
[2018-05-24] MEDS: CIPROFLOXACIN 400mg IV 400 MG/200 ML BAG IV SCH ×2 (09:13→20:22)
[2018-05-24] MEDS ORDERED: POTASSIUM 25 MEQ EFFERV TAB PO ONE (10:00)
[2018-05-24] MEDS: ENOXAPARIN 40 MG/0.4 ML SQ SCH (16:43)
[2018-05-24] MEDS ORDERED: AMITRIPTYLINE 10 MG TAB PO SCH (21:00)
[2018-05-25] MEDS: METRONIDAZOLE 500mg IVPB 500 MG/100 ML BAG IV SCH ×2 (00:02→09:02)
[2018-05-25] MEDS: ONDANSETRON 4 MG/2 ML VIAL IV PRN (02:39)
[2018-05-25] MEDS: FENTANYL CITR 100 MCG/2 ML IV PRN ×2 (02:39→09:50)
[2018-05-25] MEDS: NA CHLORIDE 0.9% 1,000 ML IV SCH (02:39)
[2018-05-25 05:16] LABS: Absolute Monocytes 0.7 K/uL (0.1-1.3); Absolute Neutrophil 2.2 K/uL (1.8-8.0); Basophils % 0.5 % (0-1.3); Eosinophils % 2.1 % (0-4.4); Hematocrit 34.7 % (36.0-45.0); Lymphocytes % 24.2 % (15.3-44.8); MCH 29.2 pg (27.0-35.0); MCV 86.8 fL (80-100); MPV 8.5 fL (7.6-11.3); Monocytes % 17.4 % (3.3-12.3)
[2018-05-25 05:37] LABS: BUN Blood Urea Nitrogen 4 mg/dL (7-18); Bicarbonate 30 mmol/L (21-32); Glucose Level 146 mg/dL (74-106); Magnesium 1.8 mg/dL (1.8-2.4); Potassium 4.2 mmol/L (3.5-5.1); Sodium Level 141 mmol/L (136-145)
[2018-05-25] MEDS ORDERED: MAGNESIUM SULFATE 1 gm IVPB 1 GM/100 ML BAG IV ONE (05:41)
[2018-05-25 05:57] VITALS: BMI 39.4
[2018-05-25] MEDS: INSULIN -REGULAR HUMAN 50 UNIT/0.5 ML ML SQ SCH ×2 (07:30→11:30)
[2018-05-25 08:23] LABS: Blood Morphology Comment NOT SEEN (NOT SEEN); Platelet Estimate ADEQ; Urine White Blood Cell Casts OK
[2018-05-25] MEDS: CIPROFLOXACIN 400mg IV 400 MG/200 ML BAG IV SCH (09:02)
[2018-05-25] MEDS: PANTOPRAZOLE 40 MG INJ IVP SCH (09:03)
[2018-05-25] MEDS: GABAPENTIN 300 MG CAP PO SCH (09:03)
[2018-05-25 13:09] VITALS: BP 111/68; TEMP 97
--- NOTE | 2018-05-25 14:55 | P.DS ---
Admission Date: 05/22/18 Discharge Date: 05/25/18 Primary Care Provider: Jennyfer Porter NP Disposition: ROUTINE DISCHARGE Discharge Condition: GOOD Reason for Admission: UTI, right ventral hernia Consultations: Surgery-Dr. Bazan Procedures: CT scan: COMPARISON: 2015 TECHNIQUE: Computed axial tomography of the abdomen and pelvis was obtained. 100 cc Isovue-300 is administered intravenously. Oral contrast was given. Preliminary report was generated by Magazino and reviewed prior to this dictation All CT scans are performed using dose optimization technique as appropriate and may include automated exposure control or mA/KV adjustment according to patient size. FINDINGS: A gastric band is in place. The esophagus is patulous and contains contrast indicative of reflux. The liver, spleen, pancreas, and adrenals appear unremarkable. Right renal cyst is unchanged. Mild malrotation of the right kidney is noted. The left kidney is unremarkable. A right ventral hernia within the upper abdomen contains nondilated colon. The neck measures 6 centimeters. An 8 x 3 centimeter fluid collection has developed within a ventral mesh within the anterior pelvis There is no evidence of diverticulitis IMPRESSION: Right ventral hernia containing nondilated colon 8 x 3 centimeter fluid collection within a ventral mesh within the anterior pelvis may be a chronic hematoma or seroma - Problems (1) Abdominal pain Onset Date: 05/25/18 Status: Acute Qualifiers: Abdominal location: right lower quadrant Qualified Code(s): R10.31 - Right lower quadrant pain (2) Hypertension Onset Date: 05/25/18 Status: Chronic Qualifiers: Hypertension type: essential hypertension Qualified Code(s): I10 - Essential (primary) hypertension (3) Ventral hernia Onset Date: 05/25/18 Status: Acute Qualifiers: Obstruction and gangrene presence: without obstruction or gangrene Qualified Code(s): K43.9 - Ventral hernia without obstruction or gangrene (4) Morbid obesity Onset Date: 05/25/18 Status: Chronic (5) Diabetes mellitus Onset Date: 05/25/18 Status: Chronic Qualifiers: Diabetes mellitus type: type 2 Diabetes mellitus nursing home insulin use: without nursing home use Diabetes mellitus complication status: with unspecified complications Qualified Code(s): E11.8 - Type 2 diabetes mellitus with unspecified complications (6) Hypokalemia Onset Date: 05/25/18 Status: Acute (7) Abdominal fluid collection Onset Date: 05/25/18 Status: Acute (8) GERD (gastroesophageal reflux disease) Onset Date: 05/25/18 Status: Suspected Qualifiers: Esophagitis presence: esophagitis presence not specified Qualified Code(s) : K21.9 - Gastro-esophageal reflux disease without esophagitis (9) Diabetic neuropathy Onset Date: 05/25/18 Status: Chronic Qualifiers: Diabetes mellitus type: type 2 Diabetes mellitus complication detail: diabetic polyneuropathy Qualified Code(s): E11.42 - Type 2 diabetes mellitus with diabetic polyneuropathy (10) UTI (urinary tract infection) Onset Date: 05/25/18 Status: Acute Qualifiers: Urinary tract infection type: acute cystitis Hematuria presence: without hematuria Qualified Code(s): N30.00 - Acute cystitis without hematuria (11) Seroma Status: Chronic Brief History of Present Illness: 48-year-old female presented emergency room with abdominal pain. Patient admitted for further evaluation. Hospital Course: Patient presented with abdominal pain. Patient with history of ventral hernia. CT scan shows right ventral hernia with fluid collection. CT scan revealed a right ventral hernia containing nondilated colon. 8 x 3 cm fluid collection within the ventral mash noted. This appears to be a chronic seroma. Patient seen and evaluated by surgery. No surgical intervention recommended at this time. Patient also found to have a UTI. Urine culture positive for E coli. At discharge she will continue with Cipro 500 mg 1 pill twice daily for 7 days. At discharge Flagyl 500 mg 1 pill 3 times a day for 7 days will also be added due to her abdominal complaints. Recommendations for the patient follow up with surgery in 1 week. Surgery plans to refer her to a colorectal surgeon to further address her complicated hernia and fluid collection. Patient will likely require surgery for the hernia in a tertiary level care center. UTI precautions will be provided. Recommendation on UTI prevention. No heavy lifting, pushing or pulling is recommended. Patient has diabetes. Hemoglobin A1c 9.8. At discharge she will continue with Victoza once daily and metformin 1000 mg 1 pill twice daily. At discharge Amaryl 1 mg 1 pill daily has been added. Better control of diabetes is recommended. Recommendation is to maintain blood sugars less 140 fasting and less than 200 after meals. Further adjustment can be done by her PCP. Patient has hypertension. At discharge she will continue with lisinopril 20 mg 1 pill once daily. Further adjustment can be done by her PCP. Patient has diabetic neuropathy. Patient will continue with Elavil 10 mg at bedtime and Neurontin 300 mg 1 pill 3 times a day. At discharge she will be given a limited supply of tramadol 50 mg 1 pill 3 times a day as needed for pain. Patient likely has GERD. Patient at discharge will continue with Protonix 40 mg 1 pill once daily. Patient may benefit with GI evaluation as an outpatient. This can be further addressed as an outpatient. Vital Signs/Physical Exam: Temp Pulse Resp BP Pulse Ox 97.0 F 89 18 111/68 98 05/25/18 12:00 05/25/18 12:00 05/25/18 12:00 05/25/18 12:00 05/25/18 12:00 General: Alert, In no apparent distress, Oriented x3, Cooperative HEENT: Atraumatic Neck: Supple Respiratory: Clear to auscultation bilaterally, Normal air movement Cardiovascular: Normal pulses, Regular rate/rhythm Gastrointestinal: Normal bowel sounds, Soft and benign, Non-distended, No tenderness, No masses, No rebound, No guarding Musculoskeletal: No erythema, No tenderness, No warmth Integumentary: No tenderness/swelling, No erythema, No warmth, No cyanosis Neurological: Normal speech, Normal strength at 5/5 x4 extr, Normal tone, Normal affect Laboratory Data at Discharge: WBC 3.9 K/uL (4.3-10.9) L D 05/25/18 04:36 Hgb 11.7 g/dL (12.0-15.0) L 05/25/18 04:36 Hct 34.7 % (36.0-45.0) L 05/25/18 04:36 Plt Count 243 K/uL (152-406) 05/25/18 04:36 PT 14.3 SECONDS (9.5-12.5) H 05/22/18 20:30 INR 1.21 05/22/18 20:30 APTT 29.1 SECONDS (24.3-36.9) 05/22/18 20:30 Sodium 141 mmol/L (136-145) 05/25/18 04:36 Potassium 4.2 mmol/L (3.5-5.1) 05/25/18 04:36 BUN 4 mg/dL (7-18) L 05/25/18 04:36 Creatinine 0.60 mg/dL (0.55-1.3) 05/25/18 04:36 Glucose 146 mg/dL (74-106) H 05/25/18 04:36 Magnesium 1.8 mg/dL (1.8-2.4) 05/25/18 04:36 Total Bilirubin 0.4 mg/dL (0.2-1.0) 05/22/18 20:30 AST 12 U/L (15-37) L 05/22/18 20:30 ALT 16 U/L (12-78) 05/22/18 20:30 Alkaline Phosphatase 69 U/L (45-117) 05/22/18 20:30 Lipase 71 U/L (73-393) L 05/22/18 20:30 Home Medications: Amitriptyline [Elavil*] 10 mg PO BEDTIME 03/11/12 Liraglutide [Victoza 2-Alessandro] 1.9 mg SQ DAILY 03/11/12 Lisinopril [Prinivil] 20 mg PO DAILY 03/11/12 Metformin HCl [Glucophage XR OR ER] 1,000 mg PO BID 03/11/12 Gabapentin [Neurontin*] 300 mg PO TID 05/23/18 Melatonin 10 mg PO BEDTIME 05/23/18 Ciprofloxacin HCl [Cipro 500 MG Tablet] 500 mg PO BID #14 tab 05/25/18 Glimepiride [Amaryl] 1 mg PO DAILY #30 tablet 05/25/18 Pantoprazole [Protonix Tab] 40 mg PO DAILY #30 tab 05/25/18 metroNIDAZOLE [Flagyl] 500 mg PO Q8H #21 tablet 05/25/18 traMADol HCL [Ultram*] 50 mg PO TID PRN #10 tab 05/25/18 New Medications: Ciprofloxacin HCl [Cipro 500 MG Tablet] 500 mg PO BID #14 tab Glimepiride [Amaryl] 1 mg PO DAILY #30 tablet metroNIDAZOLE [Flagyl] 500 mg PO Q8H #21 tablet Pantoprazole [Protonix Tab] 40 mg PO DAILY #30 tab traMADol HCL [Ultram*] 50 mg PO TID PRN #10 tab PRN Reason: Pain Patient Discharge Instructions: 1. Patient will need to follow up with a PCP in 1 week to follow up this hospitalization. 2. Patient presented with abdominal pain. Patient with history of ventral hernia. CT scan shows right ventral hernia with fluid collection. This appears chronic. Patient seen and evaluated by surgery. No surgical intervention recommended at this time. Patient also found to have a UTI. Urine culture positive for E coli. At discharge she will continue with Cipro 500 mg 1 pill twice daily for 7 days. At discharge Flagyl 500 mg 1 pill 3 times a day for 7 days will also be added due to her abdominal complaints. Recommendations for the patient follow up with surgery in 1 week. Surgery plans to refer her to a colorectal surgeon to further address her complicated hernia and fluid collection. Patient will likely require surgery for the hernia in a tertiary level care center. UTI precautions will be provided. Recommendation on UTI prevention. No heavy lifting, pushing or pulling is recommended. 3. Patient has diabetes. Hemoglobin A1c 9.8. At discharge she will continue with Victoza once daily and metformin 1000 mg 1 pill twice daily. At discharge Amaryl 1 mg 1 pill daily has been added. Better control of diabetes is recommended. Recommendation is to maintain blood sugars less 140 fasting and less than 200 after meals. Further adjustment can be done by her PCP. 4. Patient has hypertension. At discharge she will continue with lisinopril 20 mg 1 pill once daily. Further adjustment can be done by her PCP. 5. Patient has diabetic neuropathy. Patient will continue with Elavil 10 mg at bedtime and Neurontin 300 mg 1 pill 3 times a day. At discharge she will be given a limited supply of tramadol 50 mg 1 pill 3 times a day as needed for pain. 6. Patient likely has GERD. Patient at discharge will continue with Protonix 40 mg 1 pill once daily. Patient may benefit with GI evaluation as an outpatient. This can be further addressed as an outpatient. Diet: ADA Activity: No lifting more than 10 lbs Followup: LAILA PORTER [Primary Care Provider] - Time spent managing pt's care (in minutes): 55
== END 2018-05-25 14:03 | disposition home or self-care (01) | DRG 394 ==
LOC: ER 19:35 → ERHOLD 20:34 → 2ND 05-23 01:20
PROVIDERS: ADMIT Internal Medicine; ATTEND Family Medicine
DX: K43.9 Ventral hernia without obstruction or gangrene (principal); N30.00 Acute cystitis without hematuria; K91.872 Postprocedural seroma of a digestive system organ or structure following a digestive system procedure; Z68.43 Body mass index [BMI] 50.0-59.9, adult; I10 Essential (primary) hypertension; E66.01 Morbid (severe) obesity due to excess calories; E87.6 Hypokalemia; K21.9 Gastro-esophageal reflux disease without esophagitis; E11.42 Type 2 diabetes mellitus with diabetic polyneuropathy; B96.20 Unspecified Escherichia coli [E. coli] as the cause of diseases classified elsewhere; Z79.84 Long term (current) use of oral hypoglycemic drugs; Z98.84 Bariatric surgery status; Z88.5 Allergy status to narcotic agent; E83.42 Hypomagnesemia
CPT/HCPCS: 36415; 71045; 74177; 80048; 80076; 81003; 81015; 81025; 82550; 82553; 82962; 83036; 83605; 83690; 83735; 83880; 84132; 84145; 84484; 85025; 85610; 85730; 87077; 87086; 87088; 87186; 93005; 96372; 99285; C9113; J0696; J0744; J1650; J2405; J2550; J3010; J3475; J7030; Q9967

== ENCOUNTER 2020-05-29 13:28 | Emergency (ER) | payer OTHER ==
[2012-03-12 12:12] VITALS: BP 120/68
--- OUTSIDE RECORDS SUMMARY | 2020-05-29 13:29 | XMS REPORT | Continuity of Care Document ---
:1970 Author Organization [facility] t Address [address] [place] [address] Dr. Tang [address] [place] [id number] Care Team Providers Name Role Phone Unavailable Unavailable Unavailable Problems This patient has no known problems. Allergies, Adverse Reactions, Alerts This patient has no known allergies or adverse reactions. Medications This patient has no known medications. Procedures This patient has no known procedures. Results This patient has no known results.
--- NOTE | 2020-05-29 15:15 | EDPHYS ---
Physician Documentation [facility] Name: Sherly Babb Age: 50 yrs Sex: Female : 1970 Arrival Date: 05/29/2020 Time: 13:31 Bed 14 Private MD: ED Physician Jose Gallagher HPI: 05/29 15:10 This 50 yrs old Female presents to ER via Ambulatory with complaints of rn Urinary Frequency, Pain With Urination. 15:10 The patient presents with urinary symptoms, dysuria, frequency. rn 15:11 Onset: The symptoms/episode began/occurred 2 day(s) ago. Modifying factors: The rn symptoms are alleviated by nothing, the symptoms are aggravated by urinating. Severity of symptoms: At their worst the symptoms were mild, in the emergency department the symptoms are unchanged. The patient has experienced similar episodes in the past. The patient has not recently seen a physician. Historical: - Allergies: 13:49 Morphine; iw - Home Meds: 13:49 lisinopril 20 mg Oral tab 1 tab BID [Active]; gabapentin 800 mg oral tab 3 times per iw day [Active]; Prozac 40 mg Oral cap 1 cap once daily [Active]; metformin 1,000 mg Oral tab 1 tab 2 times per day [Active]; amitriptyline 25 mg Oral tab 1 tab nightly [Active]; - PMHx: 13:49 Anxiety; Depression; Diabetes - NIDDM; Hyperlipidemia; Hypertension; Migraines; SMALL iw BOWEL OBSTRUCTION; - PSHx: 13:49 Cholecystectomy; ; Tubal ligation; Hernia repair; iw - Immunization history:: Adult Immunizations. - Social history:: Smoking status: Patient denies any tobacco usage or history of. - Family history:: not pertinent. - Hospitalizations: : No recent hospitalization is reported. ROS: 15:11 Constitutional: Negative for fever, chills, and weight loss, Eyes: Negative for injury, rn pain, redness, and discharge, Cardiovascular: Negative for chest pain, palpitations, and edema, Respiratory: Negative for shortness of breath, cough, wheezing, and pleuritic chest pain, Abdomen/GI: Negative for abdominal pain, nausea, vomiting, diarrhea, and constipation, Back: + low back pain : + dysuria and increased frequency MS/Extremity: Negative for injury and deformity, Skin: Negative for injury, rash, and discoloration, Neuro: Negative for headache, weakness, numbness, tingling, and seizure. Exam: 15:11 Constitutional: This is a well developed, well nourished patient who is awake, alert, rn and in no acute distress. Abdomen/GI: soft, non-tender Skin: Warm, dry Vital Signs: 13:47 BP 124 / 71; Pulse 94; Resp 16; Temp 97.1; Pulse Ox 99% on R/A; Weight 164.2 kg; Height iw 5 ft. 8 in. (172.72 cm); Pain 9/10; 15:51 BP 145 / 90; Pulse 90; Resp 18; Pulse Ox 96% on R/A; jr10 13:47 Body Mass Index 55.04 (164.20 kg, 172.72 cm) iw MDM: 14:57 Patient medically screened. rn 15:14 Differential diagnosis: urinary tract infection. Data reviewed: vital signs, nurses rn notes, lab test result(s), and as a result, I will discharge patient. Counseling: I had a detailed discussion with the patient and/or guardian regarding: the historical points, exam findings, and any diagnostic results supporting the discharge/admit diagnosis, lab results, the need for outpatient follow up, to return to the emergency department if symptoms worsen or persist or if there are any questions or concerns that arise at home. Special discussion: I discussed with the patient/guardian in detail that at this point there is no indication for admission to the hospital. It is understood, however, that if the symptoms persist or worsen the patient needs to return immediately for re-evaluation. 05/29 13:45 Order name: Urine Culture [facility] 05/29 13:45 Order name: Urine Microscopic Only [facility] 05/29 13:45 Order name: Urine Dipstick-Ancillary (obtain specimen); Complete Time: 15:14 [facility] 05/29 15:14 Order name: Urine Dipstick--Ancillary (enter results) bd Administered Medications: 15:35 Drug: Bactrim (160 mg-800 mg (DS) 1 tablet Route: PO; jr10 15:35 Drug: Pyridium 200 mg Route: PO; jr10 Disposition: 05/29/20 15:14 Discharged to Home. Impression: Urinary tract infection, site not specified. - Condition is Stable. - Discharge Instructions: Urinary Tract Infection, Adult. - Prescriptions for Pyridium 200 mg Oral Tablet - take 1 tablet by ORAL route every 8 hours for 3 days; 9 tablet. Bactrim DS 800- 160 mg Oral Tablet - take 1 tablet by ORAL route every 12 hours for 7 days; 14 tablet. - Work release form, Medication Reconciliation Form, Thank You Letter, Antibiotic Education, Prescription Opioid Use form. - Follow up: Private Physician; When: As needed; Reason: Recheck today's complaints, Re-evaluation by your physician. - Problem is new. - Symptoms are unchanged. Signatures: Dispatcher [employer] EDMS Jane Peralta, PARTS ORDER AND STOCK CLERK-C PARTS ORDER AND STOCK CLERK-Csnw Tamiko Rocha, RN RN Jose Dawkins MD MD rn Rivera, Jessica, RN RN jr10 Corrections: (The following items were deleted from the chart) 15:51 15:14 05/29/2020 15:14 Discharged to Home. Impression: Urinary tract infection, site jr10 not specified. Condition is Stable. Forms are Medication Reconciliation Form, Thank You Letter, Antibiotic Education, Prescription Opioid Use. Follow up: Private Physician; When: As needed; Reason: Recheck today's complaints, Re-evaluation by your physician. Problem is new. Symptoms are unchanged. rn
--- NOTE | 2020-05-29 15:15 | ER ---
Nurse's Notes [facility] Name: Sherly Babb Age: 50 yrs Sex: Female : 1970 Arrival Date: 05/29/2020 Time: : Bed 14 Private MD: Diagnosis: Urinary tract infection, site not specified Presentation: 05/29 13:47 Chief complaint: Patient states: all weekend has been having frequent urination, pain iw started yesterday, c/o low back pain, no fever. Coronavirus screen: At this time, the client does not indicate any symptoms associated with coronavirus-19. Ebola Screen: Patient negative for fever greater than or equal to 101.5 degrees Fahrenheit, and additional compatible Ebola Virus Disease symptoms Patient denies exposure to infectious person. Patient denies travel to an Ebola-affected area in the 21 days before illness onset. No symptoms or risks identified at this time. Initial Sepsis Screen: Does the patient meet any 2 criteria? No. Patient's initial sepsis screen is negative. Does the patient have a suspected source of infection? No. Patient's initial sepsis screen is negative. Risk Assessment: Do you want to hurt yourself or someone else? Patient reports no desire to harm self or others. Onset of symptoms was May 27, 2020. 13:47 Method Of Arrival: Ambulatory iw 13:47 Acuity: BRITTANY 3 iw Historical: - Allergies: 13:49 Morphine; iw - Home Meds: 13:49 lisinopril 20 mg Oral tab 1 tab BID [Active]; gabapentin 800 mg oral tab 3 times per iw day [Active]; Prozac 40 mg Oral cap 1 cap once daily [Active]; metformin 1,000 mg Oral tab 1 tab 2 times per day [Active]; amitriptyline 25 mg Oral tab 1 tab nightly [Active]; - PMHx: 13:49 Anxiety; Depression; Diabetes - NIDDM; Hyperlipidemia; Hypertension; Migraines; SMALL iw BOWEL OBSTRUCTION; - PSHx: 13:49 Cholecystectomy; ; Tubal ligation; Hernia repair; iw - Immunization history:: Adult Immunizations. - Social history:: Smoking status: Patient denies any tobacco usage or history of. - Family history:: not pertinent. - Hospitalizations: : No recent hospitalization is reported. Screenin:15 Abuse screen: Denies threats or abuse. Denies injuries from another. Nutritional jr10 screening: No deficits noted. Tuberculosis screening: No symptoms or risk factors identified. Fall Risk None identified. Assessment: 15:15 General: Appears in no apparent distress. Behavior is calm, cooperative, appropriate jr10 for age. Pain: Denies pain. Respiratory: Airway is patent Respiratory effort is even, unlabored, Respiratory pattern is regular, symmetrical. : Urine is cloudy, Reports burning with urination, discharge, from vagina that is yellow, 3 weeks ago, reports d/c has since resolved pain in lower back since 3 days ago with urination, urgency, since 3 days ago urinary frequency, since 3 days ago Denies inability to void, incontinence. Vital Signs: 13:47 BP 124 / 71; Pulse 94; Resp 16; Temp 97.1; Pulse Ox 99% on R/A; Weight 164.2 kg; Height iw 5 ft. 8 in. (172.72 cm); Pain 9/10; 15:51 BP 145 / 90; Pulse 90; Resp 18; Pulse Ox 96% on R/A; jr10 13:47 Body Mass Index 55.04 (164.20 kg, 172.72 cm) iw ED Course: 13:31 Patient arrived in ED. as 13:48 Triage completed. iw 13:49 Arm band placed on. iw 14:57 Jose Gallagher MD is Attending Physician. rn 14:57 Zora Lara, BORIS is Primary Nurse. jr10 15:15 Patient has correct armband on for positive identification. Bed in low position. Call jr10 light in reach. Side rails up X 1. Cardiac monitoring not applicable on this patient. 15:50 No provider procedures requiring assistance completed. Patient did not have IV access jr10 during this emergency room visit. Administered Medications: 15:35 Drug: Bactrim (160 mg-800 mg (DS) 1 tablet Route: PO; jr10 15:35 Drug: Pyridium 200 mg Route: PO; jr10 Outcome: 15:14 Discharge ordered by . rn 15:50 Discharged to home ambulatory. jr10 15:50 Condition: good 15:50 Discharge instructions given to patient, Instructed on discharge instructions, follow up and referral plans. Demonstrated understanding of instructions, follow-up care, medications, Prescriptions given X 2. 15:51 Patient left the ED. jr10 Signatures: Shereen Bazan Irene, RN RN iw Jose Gallagher MD MD rn Zora Lara RN RN jr10
[2020-05-29 15:23] LABS: Urine Blood 1+ (NEG); Urine Glucose 3+ (NEG); Urine Protein NEGATIVE (NEG); Urine Specific Gravity 1.025 (1.005-1.030); Urine pH 5.5 (5.0-7.0)
[2020-05-29 15:32] LABS: Urine Bacteria 20-50 /HPF (<20); Urine Culture Reflex Order NOT NEEDED; Urine Mucus 1+ /HPF (NONE SEEN)
[2020-05-29] MEDS ORDERED: PHENAZOPYRIDINE 100MG TAB PO ONE ×2 (15:32→15:49)
[2020-05-29] MEDS ORDERED: SMZ./TMP. 800/160 MG TABLET ONE (15:32)
== END 2020-05-29 15:51 | disposition home or self-care (01) ==
LOC: ER 13:28
DX: N39.0 Urinary tract infection, site not specified (principal); I10 Essential (primary) hypertension; E11.9 Type 2 diabetes mellitus without complications; F41.8 Other specified anxiety disorders
CPT/HCPCS: 81003; 81015; 87077; 87086; 87088; 87186; 99283

== ENCOUNTER 2020-08-08 20:04 | Emergency (ER) | payer OTHER, SELFPAY ==
--- OUTSIDE RECORDS SUMMARY | 2020-08-08 20:05 | XMS REPORT | Continuity of Care Document ---
:1970 Author Organization [facility] t Address [address] [place] [address] Dr. Tang [address] [place] [id number] Care Team Providers Name Role Phone Unavailable Unavailable Unavailable Problems This patient has no known problems. Allergies, Adverse Reactions, Alerts This patient has no known allergies or adverse reactions. Medications This patient has no known medications. Procedures This patient has no known procedures. Results This patient has no known results.
[2020-08-08] MEDS ORDERED: MEPERIDINE HCL 25 MG/ML SYR ONE (20:32)
--- NOTE | 2020-08-08 20:47 | RAD REPORT ---
EXAM DESCRIPTION: CT - Thorax Wo Con - 08/08/2020 8:29 pm CLINICAL HISTORY: Chest pain status post fall COMPARISON: none TECHNIQUE: Computed axial tomography of the chest was obtained. Contrast was not requested. All CT scans are performed using dose optimization technique as appropriate and may include automated exposure control or mA/KV adjustment according to patient size. FINDINGS: The evaluation of mediastinum, patricia and vessels is limited secondary to lack of IV contras t administration. A pulmonary contusion is not present. No mediastinal hematoma. A pleural effusion is not present. No pericardial effusion A gastric lap band is present. The esophagus is dilated A sternal fracture is not seen IMPRESSION: No acute traumatic injury visualized The esophagus is dilated. This may be secondary to the gastric band being to tight. An esophagram may be helpful for further evaluation if clinically indicated
--- NOTE | 2020-08-08 21:09 | RAD REPORT ---
EXAM DESCRIPTION: Marley Single View08/08/2020 9:02 pm CLINICAL HISTORY: Chest pain COMPARISON: 2017 FINDINGS: The lungs appear clear of acute infiltrate. The heart is borderline enlarged IMPRESSION: No acute abnormalities displayed
--- NOTE | 2020-08-08 21:11 | RAD REPORT ---
EXAM DESCRIPTION: RAD - Pelvis - 08/08/2020 8:59 pm CLINICAL HISTORY: Pelvic pain status post injury FINDINGS: No fracture or dislocation is seen. If the patient continues to have symptoms to suggest an occult fracture then MRI would be recommended
--- NOTE | 2020-08-08 21:12 | RAD REPORT ---
EXAM DESCRIPTION: RAD - Femur Right - 08/08/2020 9:03 pm CLINICAL HISTORY: Right leg pain FINDINGS: No fracture is seen. No dislocation noted
--- NOTE | 2020-08-08 21:29 | EDPHYS ---
Physician Documentation [facility] Name: Sherly Babb Age: 50 yrs Sex: Female : 1970 Arrival Date: 08/08/2020 Time: 20:05 Bed 6 Private MD: Rishabh Brown E ED Physician Jose Gallagher HPI: 08/08 20:21 This 50 yrs old Female presents to ER via Unassigned with complaints of Fall rn Injury, Leg Pain. 20:21 Details of fall: The patient fell from an upright position, while walking. Onset: The rn symptoms/episode began/occurred just prior to arrival. Associated injuries: The patient sustained injury to the chest, right leg. Severity of symptoms: At their worst the symptoms were moderate, in the emergency department the symptoms are unchanged. The patient has not experienced similar symptoms in the past. Reports walking in socks, turned on tile floor, fell forward, chest hit chair, then fell to ground, reports isolated chest/sternal pain and right proximal thigh pain. No head injury/LOC, no neck or back pain. No abd pain. . 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 not obtained rr5 Historical: - Allergies: 21:09 Morphine; rr5 - Home Meds: 21:08 amitriptyline 25 mg Oral tab 1 tab nightly [Active]; gabapentin 800 mg Oral tab 3 times rr5 per day [Active]; metformin 1,000 mg Oral tab 1 tab 2 times per day [Active]; lisinopril 20 mg Oral tab 1 tab BID [Active]; Prozac 40 mg Oral cap 1 cap once daily [Active]; Victoza 2-Alessandro 0.6 mg/0.1 mL (18 mg/3 mL) subcutaneous pnij 0.2 mL once daily [Active]; - PMHx: 21:09 Anxiety; Depression; Diabetes - NIDDM; Hyperlipidemia; Hypertension; Migraines; SMALL rr5 BOWEL OBSTRUCTION; - PSHx: 21:09 ; Hernia repair; Cholecystectomy; rr5 - Immunization history:: Adult Immunizations not up to date. - Immunization history: Last tetanus immunization: unknown. - Family history:: not pertinent. - Social history:: Smoking status: unknown. - Hospitalizations: : No recent hospitalization is reported. ROS: 20:21 Constitutional: Negative for fever, chills, and weight loss, Eyes: Negative for injury, rn pain, redness, and discharge, Neck: Negative for injury, pain, and swelling, Cardiovascular: Negative for palpitations, and edema, Respiratory: Negative for shortness of breath, cough, wheezing, and pleuritic chest pain, Abdomen/GI: Negative for abdominal pain, nausea, vomiting, diarrhea, and constipation, Back: Negative for injury and pain, MS/Extremity: + right leg pain Skin: Negative for injury, rash, and discoloration, Neuro: Negative for headache, weakness, numbness, tingling, and seizure. Exam: 20:21 Constitutional: This is a well developed, well nourished patient who is awake, alert, rn appears in pain Head/Face: Normocephalic, atraumatic. Eyes: Pupils equal round and reactive to light, extra-ocular motions intact. Lids and lashes normal. Conjunctiva and sclera are non-icteric and not injected. Cornea within normal limits. Periorbital areas with no swelling, redness, or edema. Neck: NO midline tenderness Chest/axilla: Normal chest wall appearance and motion. No crepitus, + anterior sternal tenderness Cardiovascular: Regular rate and rhythm. No pulse deficits. Respiratory: No increased work of breathing, no retractions or nasal flaring. Abdomen/GI: soft, non-tender, no ecchymosis Back: No spinal tenderness. No costovertebral tenderness. Full range of motion. MS/ Extremity: Pulses equal, no cyanosis. Neurovascular intact. Able to slowly flex and extend right hip, + mild tenderness proximal right femur without gross deformity. Neuro: Awake and alert, GCS 15, oriented to person, place, time, and situation. Cranial nerves II-XII grossly intact. Motor strength 5/5 in all extremities. Sensory grossly intact. Vital Signs: 21:08 BP 126 / 85; Pulse 90; Resp 16; Pulse Ox 99% ; Pain 10/10; rr5 21:09 BP 131 / 81; Pulse 98; Resp 19; Temp 98; Pulse Ox 96% ; Weight 163.29 kg; Height 5 ft. rr5 8 in. (172.72 cm); Pain 10/10; 21:50 BP 122 / 75; Pulse 85; Resp 17; Pulse Ox 98% on R/A; rr5 21:09 Body Mass Index 54.74 (163.29 kg, 172.72 cm) rr5 [place] Coma Score: 21:08 Eye Response: spontaneous(4). Verbal Response: oriented(5). Motor Response: obeys rr5 commands(6). Total: 15. 21:08 Eye Response: spontaneous(4). Verbal Response: oriented(5). Motor Response: obeys rr5 commands(6). Total: 15. 21:50 Eye Response: spontaneous(4). Verbal Response: oriented(5). Motor Response: obeys rr5 commands(6). Total: 15. Trauma Score (Adult): 21:08 Eye Response: spontaneous(1); Verbal Response: oriented(1); Motor Response: obeys rr5 commands(2); Systolic BP: > 89 mm Hg(4); Respiratory Rate: 10 to 29 per min(4); Denys Score: 15; Trauma Score: 12 21:08 Eye Response: spontaneous(1); Verbal Response: oriented(1); Motor Response: obeys rr5 commands(2); Systolic BP: > 89 mm Hg(4); Respiratory Rate: 10 to 29 per min(4); Denys Score: 15; Trauma Score: 12 21:50 Eye Response: spontaneous(1); Verbal Response: oriented(1); Motor Response: obeys rr5 commands(2); Systolic BP: > 89 mm Hg(4); Respiratory Rate: 10 to 29 per min(4); Denys Score: 15; Trauma Score: 12 MDM: 20:08 Patient medically screened. rn 21:25 Differential diagnosis: contusion, fracture, multiple trauma, sprain, strain. Data rn reviewed: vital signs, nurses notes, radiologic studies, CT scan, plain films, and as a result, I will discharge patient. Counseling: I had a detailed discussion with the patient and/or guardian regarding: the historical points, exam findings, and any diagnostic results supporting the discharge/admit diagnosis, radiology results, the need for outpatient follow up, to return to the emergency department if symptoms worsen or persist or if there are any questions or concerns that arise at home. Response to treatment: the patient's symptoms have mildly improved after treatment, and as a result, I will discharge patient. Special discussion: I discussed with the patient/guardian in detail that at this point there is no indication for admission to the hospital. It is understood, however, that if the symptoms persist or worsen the patient needs to return immediately for re-evaluation. ED course: No acute findings on CT chest/xray pelvis/femur. Will dc home with return precautions. . 08/08 20:09 Order name: XRAY Femur RIGHT; Complete Time: 21:23 rn 08/08 20: Order name: XRAY Pelvis; Complete Time: 21: rn 08/08 20: Order name: XRAY Chest (1 view); Complete Time: 21: rn 08/08 20: Order name: CT Chest Wo Con; Complete Time: 21: rn 08/08 20: Order name: IV Start; Complete Time: : rn Administered Medications: : Drug: Demerol - Meperidine 12.5 mg {Note: rass 0.} Route: IVP; Site: right antecubital; rr5 21:50 Follow up: Response: No adverse reaction; Pain is decreased; RASS: Alert and Calm (0) rr5 Disposition: 08/08/20 21:28 Discharged to Home. Impression: Contusion of right hip, Contusion of chest wall. - Condition is Stable. - Discharge Instructions: Contusion, Chest Contusion, Adult. - Medication Reconciliation Form, Thank You Letter, Antibiotic Education, Prescription Opioid Use form. - Follow up: Private Physician; When: As needed; Reason: Recheck today's complaints, Re-evaluation by your physician. - Problem is new. - Symptoms have improved. Signatures: Dispatcher [employer] EDMS Jose Gallagher MD MD rn Roque, Raymond RN RN rr5 Angela Macdonald RN RN ca1 Corrections: (The following items were deleted from the chart) 21:55 21:28 08/08/2020 21:28 Discharged to Home. Impression: Contusion of right hip; ca1 Contusion of chest wall. Condition is Stable. Forms are Medication Reconciliation Form, Thank You Letter, Antibiotic Education, Prescription Opioid Use. Follow up: Private Physician; When: As needed; Reason: Recheck today's complaints, Re-evaluation by your physician. Problem is new. Symptoms have improved. rn
--- NOTE | 2020-08-08 21:29 | ER ---
Nurse's Notes [facility] Name: Sherly Babb Age: 50 yrs Sex: Female : 1970 Arrival Date: 08/08/2020 Time: 20:05 Bed 6 Private MD: Rishabh Brown E Diagnosis: Contusion of right hip;Contusion of chest wall Presentation: 08/08 21:08 Care prior to arrival: None. Mechanism of Injury: Fall from standing position. Trauma rr5 event details: Injury occurred in the [facility], Injury occurred: at home. Injury occurred: August 08, 2020. 21:09 Chief complaint: Patient states: fell down from standing position wearing a socks hit rr5 my chest on my comfy chair. denies hitting her head. LOC. Coronavirus screen: Client denies travel out of the [place] in the last 14 days. At this time, the client does not indicate any symptoms associated with coronavirus-19. Ebola Screen: Patient negative for fever greater than or equal to 101.5 degrees Fahrenheit, and additional compatible Ebola Virus Disease symptoms Patient denies exposure to infectious person. Patient denies travel to an Ebola-affected area in the 21 days before illness onset. Initial Sepsis Screen: Does the patient meet any 2 criteria? No. Patient's initial sepsis screen is negative. Does the patient have a suspected source of infection? No. Patient's initial sepsis screen is negative. Risk Assessment: Do you want to hurt yourself or someone else? Patient reports no desire to harm self or others. Onset of symptoms was August 08, 2020. 21:09 Method Of Arrival: Stretcher rr5 21:09 Acuity: BRITTANY 3 rr5 Triage Assessment: 21:08 General: Appears in no apparent distress. uncomfortable, Behavior is calm, cooperative. rr5 21:08 Pain: Complains of pain in chest. 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 information not obtained rr5 Trauma Activation: Not Applicable Physician: ED Physician; Name: ; Notified At: ; Arrived At: Physician: General Surgeon; Name: ; Notified At: ; Arrived At: Physician: Radiology; Name: ; Notified At: ; Arrived At: Physician: Respiratory; Name: ; Notified At: ; Arrived At: Physician: Lab; Name: ; Notified At: ; Arrived At: Historical: - Allergies: 21:09 Morphine; rr5 - Home Meds: 21:08 amitriptyline 25 mg Oral tab 1 tab nightly [Active]; gabapentin 800 mg Oral tab 3 times rr5 per day [Active]; metformin 1,000 mg Oral tab 1 tab 2 times per day [Active]; lisinopril 20 mg Oral tab 1 tab BID [Active]; Prozac 40 mg Oral cap 1 cap once daily [Active]; Victoza 2-Alessandro 0.6 mg/0.1 mL (18 mg/3 mL) subcutaneous pnij 0.2 mL once daily [Active]; - PMHx: 21:09 Anxiety; Depression; Diabetes - NIDDM; Hyperlipidemia; Hypertension; Migraines; SMALL rr5 BOWEL OBSTRUCTION; - PSHx: 21:09 ; Hernia repair; Cholecystectomy; rr5 - Immunization history:: Adult Immunizations not up to date. - Immunization history: Last tetanus immunization: unknown. - Family history:: not pertinent. - Social history:: Smoking status: unknown. - Hospitalizations: : No recent hospitalization is reported. Screenin:09 Abuse screen: Denies threats or abuse. Denies injuries from another. Nutritional rr5 screening: No deficits noted. Tuberculosis screening: No symptoms or risk factors identified. Fall Risk Fall in past 12 months (25 points). IV access (20 points). Total Smith Fall Scale indicates No Risk (0-24 pts). Primary Survey: 21:08 NO uncontrolled hemorrhage observed. A: The patient is alert. Airway: patent, No rr5 supplemental oxygen in use on arrival. Oral cavity: clear, gag reflex present, Trachea midline. Breathing/Chest: Respiratory pattern: regular, Respiratory effort: spontaneous, unlabored, Breath sounds: clear, Chest inspection: symmetrical rise and fall of the chest. Circulation: Pulses: palpable right radial artery and left radial artery. Disability Alert. 21:08 Exposure/Environment: There is no evidence of uncontrolled external bleeding. No rr5 obvious injuries are noted at this time. A warming method has been applied: A warm blanket has been provided to the patient. 21:08 NO uncontrolled hemorrhage observed. A: The patient is alert. Airway: patent, No rr5 supplemental oxygen in use on arrival. Oral cavity: clear, gag reflex present, Trachea midline. Breathing/Chest: Respiratory pattern: regular. Circulation: Pulses: palpable right radial artery and left radial artery. Disability Alert. Exposure/Environment: There is no evidence of uncontrolled external bleeding. No obvious injuries are noted at this time. A warming method has been applied: A warm blanket has been provided to the patient. 21:50 Reassessment Airway Airway Patent Breathing/Chest Respiratory pattern Regular rr5 Respiratory effort Spontaneous Unlabored Chest inspection Symmetrical Circulation Pulses Palpable Disability Alert. 21:50 Reassessment Airway Airway Breathing/Chest Respiratory pattern Regular Circulation rr5 Pulses Palpable Disability Alert. Secondary Survey: 21:08 Gastrointestinal: Abdomen is obese. rr5 21:08 HEENT: Head No injury/deformity Face No injury/deformity. : No signs and/or symptoms rr5 were reported regarding the genitourinary system. Musculoskeletal: Reports pain in chest. Assessment: 21:08 Reassessment: back from CT and xray. rr5 21:08 General: Appears in no apparent distress. uncomfortable, obese, Behavior is calm, rr5 cooperative, appropriate for age, received patient while she is on CT and xray. Pain: Complains of pain in chest Pain currently is 10 out of 10 on a pain scale. Quality of pain is described as aching, Pain began suddenly, Is intermittent. Neuro: Level of Consciousness is awake, alert, obeys commands, Oriented to person, place, time. Cardiovascular: Reports chest pain, Capillary refill < 3 seconds Patient's skin is warm and dry. Respiratory: Airway is patent Respiratory effort is even, unlabored, Respiratory pattern is regular, symmetrical. GI: No signs and/or symptoms were reported involving the gastrointestinal system. : No signs and/or symptoms were reported regarding the genitourinary system. EENT: No signs and/or symptoms were reported regarding the EENT system. Derm: Skin is intact, is healthy with good turgor, Skin temperature is warm. Musculoskeletal: Circulation, motion, and sensation intact. Capillary refill < 3 seconds. 21:55 Reassessment: Patient appears in no apparent distress at this time. Patient is alert, rr5 oriented x 3, equal unlabored respirations, skin warm/dry/pink. discharge instruction given and explained without complaints made Patient states symptoms have improved. Vital Signs: 21:08 BP 126 / 85; Pulse 90; Resp 16; Pulse Ox 99% ; Pain 10/10; rr5 21:09 BP 131 / 81; Pulse 98; Resp 19; Temp 98; Pulse Ox 96% ; Weight 163.29 kg; Height 5 ft. rr5 8 in. (172.72 cm); Pain 10/10; 21:50 BP 122 / 75; Pulse 85; Resp 17; Pulse Ox 98% on R/A; rr5 21:09 Body Mass Index 54.74 (163.29 kg, 172.72 cm) rr5 [place] Coma Score: 21:08 Eye Response: spontaneous(4). Verbal Response: oriented(5). Motor Response: obeys rr5 commands(6). Total: 15. 21:08 Eye Response: spontaneous(4). Verbal Response: oriented(5). Motor Response: obeys rr5 commands(6). Total: 15. 21:50 Eye Response: spontaneous(4). Verbal Response: oriented(5). Motor Response: obeys rr5 commands(6). Total: 15. Trauma Score (Adult): 21:08 Eye Response: spontaneous(1); Verbal Response: oriented(1); Motor Response: obeys rr5 commands(2); Systolic BP: > 89 mm Hg(4); Respiratory Rate: 10 to 29 per min(4); Denys Score: 15; Trauma Score: 12 21:08 Eye Response: spontaneous(1); Verbal Response: oriented(1); Motor Response: obeys rr5 commands(2); Systolic BP: > 89 mm Hg(4); Respiratory Rate: 10 to 29 per min(4); Denys Score: 15; Trauma Score: 12 21:50 Eye Response: spontaneous(1); Verbal Response: oriented(1); Motor Response: obeys rr5 commands(2); Systolic BP: > 89 mm Hg(4); Respiratory Rate: 10 to 29 per min(4); Denys Score: 15; Trauma Score: 12 ED Course: 20:05 Patient arrived in ED. am2 20:05 Rishabh Brown MD is Private Physician. am2 20:08 Jose Gallagher MD is Attending Physician. rn 20:15 Carlos Lion RN is Primary Nurse. rr5 20:29 CT Chest Wo Con In Process Unspecified. EDMS 20:59 XRAY Femur RIGHT In Process Unspecified. EDMS 20:59 XRAY Pelvis In Process Unspecified. EDMS 20:59 XRAY Chest (1 view) In Process Unspecified. EDMS 21:08 Patient has correct armband on for positive identification. Bed in low position. Call rr5 light in reach. 21:08 Arm band placed on right wrist. rr5 21:09 Patient maintains SpO2 saturation greater than 95% on room air. rr5 21:10 Triage completed. rr5 21:10 Thermoregulation: warm blanket given to patient. rr5 21:25 Inserted saline lock: 20 gauge in right antecubital area, using aseptic technique. rr5 21:50 No provider procedures requiring assistance completed. IV discontinued, intact, rr5 bleeding controlled, No redness/swelling at site. Pressure dressing applied. Administered Medications: 21:26 Drug: Demerol - Meperidine 12.5 mg {Note: rass 0.} Route: IVP; Site: right antecubital; rr5 21:50 Follow up: Response: No adverse reaction; Pain is decreased; RASS: Alert and Calm (0) rr5 Intake: 21:50 PO: 0ml; Total: 0ml. rr5 Outcome: 21:28 Discharge ordered by . rn 21:54 Discharged to home via wheelchair. rr5 21:54 Condition: stable 21:54 Discharge instructions given to patient, Instructed on discharge instructions, follow up and referral plans. Demonstrated understanding of instructions, follow-up care. 21:54 Patient's length of stay was not longer than 2 hours. rr5 21:55 Patient left the ED. ca1 Signatures: Dispatcher [employer] EDMS Jose Gallagher MD MD rn Moreno, Amanda am2 Carlos Lion RN RN rr5 Angela Macdonald RN RN ca1 Corrections: (The following items were deleted from the chart) 08/09 02:08/08 20:15 General: Appears in no apparent distress. uncomfortable, obese, Behavior is rr5 calm, cooperative, appropriate for age, received patient while she is on CT and xray. rr5 08/09 02:08/08 20:15 Pain: Complains of pain in chest Pain currently is 10 out of 10 on a pain rr5 scale. Quality of pain is described as aching, Pain began suddenly, Is intermittent, rr5 08/09 02:08/08 20:15 Neuro: Level of Consciousness is awake, alert, obeys commands, Oriented to rr5 person, place, time, rr5 08/09 02:08/08 20:15 Cardiovascular: Reports chest pain, Capillary refill < 3 seconds Patient's rr5 skin is warm and dry. rr5 08/09 02:08/08 20:15 Respiratory: Airway is patent Respiratory effort is even, unlabored, rr5 Respiratory pattern is regular, symmetrical, rr5 08/09 02:08/08 20:15 GI: No signs and/or symptoms were reported involving the gastrointestinal rr5 system. rr5 08/09 02:08/08 20:15 EENT: No signs and/or symptoms were reported regarding the EENT system. rr5 rr5 08/09 02:08/08 20:15 : No signs and/or symptoms were reported regarding the genitourinary rr5 system. rr5 08/09 02:08/08 20:15 Derm: Skin is intact, is healthy with good turgor, Skin temperature is warm rr5 rr5 08/09 20:15 Musculoskeletal: Circulation, motion, and sensation intact. Capillary rr5 refill < 3 seconds, rr5 08/09 02:08/08 21:08 Reassessment: Patient appears in no apparent distress at this time. Patient rr5 is alert, oriented x 3, equal unlabored respirations, skin warm/dry/pink. rr5
[2020-08-08] MEDS ORDERED: ONDANSETRON 4 MG/2 ML VIAL ONE (21:31)
[2020-08-09 04:28] VITALS: BP 131/81; TEMP 98; O2SAT 96
== END 2020-08-08 21:55 | disposition home or self-care (01) ==
LOC: ER 20:04
DX: S20.219A Contusion of unspecified front wall of thorax, initial encounter (principal); S70.01XA Contusion of right hip, initial encounter; W01.190A Fall on same level from slipping, tripping and stumbling with subsequent striking against furniture, initial encounter; Y93.01 Activity, walking, marching and hiking; Y92.9 Unspecified place or not applicable; Z88.5 Allergy status to narcotic agent; I10 Essential (primary) hypertension; E11.9 Type 2 diabetes mellitus without complications; E78.5 Hyperlipidemia, unspecified; F41.8 Other specified anxiety disorders
CPT/HCPCS: 71045; 71250; 72170; 96374; 99284; J2175; J2405

== ENCOUNTER 2021-08-07 00:53 | Emergency (ER) | payer OTHER ==
[2021-08-07] MEDS ORDERED: METOCLOPRAMIDE 10 MG/2mL INJ ONE (01:18)
[2021-08-07] MEDS ORDERED: INSULIN -REGULAR HUMAN 50 UNIT/0.5 ML ML ONE ×2 (01:19→02:45)
[2021-08-07 01:39] LABS: Arterial Blood Carboxyhemoglob 1.8 % (0-1.5); Blood Gas Oxyhemoglobin 92.9 % (94-97); Blood O2 Saturation 95.5 % (92-98.5)
[2021-08-07 01:39] LABS: Absolute Lymphocytes (CBC) 2.3 K/uL (0.7-4.9); Basophils % 0.5 % (0-1.3); Hematocrit 38.9 % (36.0-45.0); Lymphocytes % 29.5 % (15.3-44.8); MPV 8.1 fL (7.6-11.3); RBC Red Blood Cell Count 4.51 M/uL (3.86-4.86)
[2021-08-07 01:47] LABS: Urine Blood Negative (Negative); Urine Glucose 2+ (Negative); Urine Protein Negative (Negative); Urine pH 5.5 (5.0-7.0)
[2021-08-07 01:49] LABS: Albumin 2.8 g/dL (3.4-5.0); Bilirubin Total 0.3 mg/dL (0.2-1.0); Potassium 4.1 mmol/L (3.5-5.1); Protein, Total 7.1 g/dL (6.4-8.2)
--- NOTE | 2021-08-07 02:11 | EDPHYS ---
Physician Documentation [facility] Name: Sherly Babb Age: 51 yrs Sex: Female : 1970 Arrival Date: 08/07/2021 Time: 00:57 Bed 15 Private MD: ED Physician Jose Gallagher HPI: 08/07 02:05 This 51 yrs old Female presents to ER via EMS with complaints of nausea, hlp. jmm 02:05 The patient presents to the emergency department with nausea. Onset: The jmm symptoms/episode began/occurred gradually, 3 day(s) ago. Possible causes: hyperglycemia. The symptoms are aggravated by nothing. The symptoms are alleviated by nothing. Associated signs and symptoms: Pertinent negatives: vomiting. The patient has experienced similar episodes in the past. 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 LMP N/A - Post-menopause dc2 Historical: - Allergies: 01:00 Morphine; dc2 - Home Meds: 01:00 gabapentin 800 mg Oral tab 3 times per day [Active]; metformin 1,000 mg Oral tab 1 tab dc2 2 times per day [Active]; atorvastatin 10 mg oral tab 1 tab once daily [Active]; tramadol 50 mg Oral tab 1 tab every 4-6 hours for neuropathic pain, pain [Active]; hydroxyzine pamoate 50 mg Oral cap 1 cap for anxiety [Active]; trazodone 50 mg Oral tab 1 tab once daily [Active]; glipizide 5 mg Oral tab 1 tab once daily for type 2 diabetes mellitus [Active]; 01:00 Zestoretic 10-12.5 mg oral tab once daily [Active]; dc2 - PMHx: 01:00 Anxiety; Depression; Diabetes - NIDDM; Hyperlipidemia; Hypertension; Migraines; SMALL dc2 BOWEL OBSTRUCTION; - Immunization history:: Adult Immunizations up to date, Client reports receiving the 2nd dose of the Covid vaccine. - Social history:: Smoking status: Patient/guardian denies using alcohol, street drugs, IV drugs, tobacco products. ROS: 02:05 Constitutional: Negative for fever, chills, and weight loss, Cardiovascular: Negative jmm for chest pain, palpitations, and edema, Respiratory: Negative for shortness of breath, cough, wheezing, and pleuritic chest pain. 02:05 Abdomen/GI: Positive for nausea. 02:05 Neuro: Positive for headache. 02:05 All other systems are negative. Exam: 02:05 Constitutional: This is a well developed, well nourished patient who is awake, alert, jmm and in no acute distress. Head/Face: atraumatic. Eyes: EOMI, no conjunctival erythema appreciated ENT: Moist Mucus Membranes Neck: Trachea midline, Supple Chest/axilla: Normal chest wall appearance and motion. Cardiovascular: Regular rate and rhythm. No edema appreciated Respiratory: Normal respirations, no respiratory distress appreciated 02:05 Back: Normal ROM Skin: General appearance color normal MS/ Extremity: Moves all extremities, no obvious deformities appreciated, no edema noted to the lower extremities Neuro: Awake and alert, normal gait Psych: Behavior is normal, Mood is normal, Patient is cooperative and pleasant 02:05 Abdomen/GI: Inspection: obese Bowel sounds: normal, Palpation: abdomen is soft and non-tender, in all quadrants. Vital Signs: 00:58 BP 123 / 76; Pulse 98; Resp 20; Temp 97.4; Pulse Ox 100% on R/A; Weight 154.22 kg; Pain dc2 8/10; 01:00 BP 123 / 76; Pulse 98; Resp 18; Temp 97.4; Pulse Ox 100% on R/A; Pain 8/10; dc2 02:11 BP 134 / 71; Pulse 7; Resp 18; Pulse Ox 99% ; Pain 4/10; dc2 02:45 BP 113 / 64; Pulse 69; Resp 18; Temp 97.9; Pulse Ox 100% on R/A; Pain 2/10; dc2 MDM: 01:13 Patient medically screened. [facility] 02:08 Data reviewed: vital signs, nurses notes. Counseling: I had a detailed discussion with dick the patient and/or guardian regarding: the historical points, exam findings, and any diagnostic results supporting the discharge/admit diagnosis. 02:09 ED course: Patient is alert and non toxic in appearance in the ED. Patient states jmm feeling much better. I do not suspect DKA. Patient advised to resume home medication and otherwise given strict return precautions. Patient understood and agrees with the plan of care. . 08/07 00:58 Order name: CBC with Diff; Complete Time: 01:47 [facility] 08/07 00:58 Order name: CMP; Complete Time: 01:49 [facility] 08/07 00:58 Order name: ABG; Complete Time: 01:47 m 08/07 01:46 Order name: Urine Dipstick-Ancillary; Complete Time: 01:48 EDMS 08/07 01:47 Order name: Urine --Ancillary (enter results); Complete Time: 21:44 2 08/07 02:54 Order name: Glucose, Ancillary Testing; Complete Time: 21:44 EDMS 08/07 00:58 Order name: Saline Lock; Complete Time: 01:16 [facility] 08/07 00:58 Order name: Urine Dipstick-Ancillary (obtain specimen); Complete Time: 01:47 [facility] Administered Medications: 01:24 Drug: Insulin Regular Human 10 units {Co-Signature: cc4 (Tricia Navarro RN).} Route: dc2 IVP; Site: left hand; 02:43 Follow up: Response: Blood sugar is lowered dc2 01:24 Drug: Reglan (metoCLOPramide) 20 mg Route: IVP; Site: left hand; dc2 02:15 Follow up: Response: Pain is decreased dc2 02:42 Drug: Insulin Regular Human 10 units {Co-Signature: cc4 (Tricia Navarro RN).} Route: dc2 IVP; Site: left hand; 02:50 Follow up: Response: Medication administered at discharge. dc2 Disposition: 02:25 Co-signature as Attending Physician, Jose Gallagher MD I agree with the assessment and rn plan of care. Attestation: The patient's history, exam findings, diagnostics, and a summary of any interventions or procedures was reviewed in detail with Surinder HILARIO. Disposition Summary: 08/07/21 02:10 Discharge Ordered Location: Home [facility] Condition: Stable [facility] Diagnosis - Hyperglycemia, unspecified jmm Followup: jmm - With: Private Physician - When: 2 - 3 days - Reason: Recheck today's complaints, Continuance of care, Re-evaluation by your physician Discharge Instructions: - Discharge Summary Sheet jm - Hyperglycemia [facility] Forms: - Medication Reconciliation Form [facility] - Thank You Letter jmm - Antibiotic Education jmm - Prescription Opioid Use jmm - Work release form bb Signatures: Dispatcher MedHo Surinder Arenas PA PA jmm Nieto, Roman, MD MD rn TrentSaadia RN RN dc2 Tricia Ramon RN cc4
--- NOTE | 2021-08-07 02:11 | ER ---
Nurse's Notes [facility] Name: Sherly Babb Age: 51 yrs Sex: Female : 1970 Arrival Date: 08/07/2021 Time: 00:57 Bed 15 Private MD: Diagnosis: Hyperglycemia, unspecified Presentation: 08/07 00:58 Chief complaint: Patient states: Haven't been feeling well for the past few days , co dc2 headache and nausea and hasn't take Metformin today. Accucheck in EMS 426. Coronavirus screen: Vaccine status: Patient reports receiving the 2nd dose of the covid vaccine. Client denies travel out of the [place] in the last 14 days. At this time, the client does not indicate any symptoms associated with coronavirus-19. Ebola Screen: Patient negative for fever greater than or equal to 101.5 degrees Fahrenheit, and additional compatible Ebola Virus Disease symptoms Patient denies exposure to infectious person. Patient denies travel to an Ebola-affected area in the 21 days before illness onset. No symptoms or risks identified at this time. Initial Sepsis Screen: Does the patient meet any 2 criteria? No. Patient's initial sepsis screen is negative. Does the patient have a suspected source of infection? No. Patient's initial sepsis screen is negative. Risk Assessment: Do you want to hurt yourself or someone else? Patient reports no desire to harm self or others. Onset of symptoms was August 04, 2021. Care prior to arrival: Medication(s) given: Normal saline infusion, 1000 mL, Glucose check: 426. 00:58 Acuity: BRITTANY 3 dc2 00:58 Method Of Arrival: EMS dc2 Triage Assessment: 01:00 Pain: Complains of pain in headache. 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 LMP N/A - Post-menopause dc2 Historical: - Allergies: 01:00 Morphine; dc2 - Home Meds: 01:00 gabapentin 800 mg Oral tab 3 times per day [Active]; metformin 1,000 mg Oral tab 1 tab dc2 2 times per day [Active]; atorvastatin 10 mg oral tab 1 tab once daily [Active]; tramadol 50 mg Oral tab 1 tab every 4-6 hours for neuropathic pain, pain [Active]; hydroxyzine pamoate 50 mg Oral cap 1 cap for anxiety [Active]; trazodone 50 mg Oral tab 1 tab once daily [Active]; glipizide 5 mg Oral tab 1 tab once daily for type 2 diabetes mellitus [Active]; 01:00 Zestoretic 10-12.5 mg oral tab once daily [Active]; dc2 - PMHx: 01:00 Anxiety; Depression; Diabetes - NIDDM; Hyperlipidemia; Hypertension; Migraines; SMALL dc2 BOWEL OBSTRUCTION; - Immunization history:: Adult Immunizations up to date, Client reports receiving the 2nd dose of the Covid vaccine. - Social history:: Smoking status: Patient/guardian denies using alcohol, street drugs, IV drugs, tobacco products. Screenin:00 Abuse screen: Denies threats or abuse. Denies injuries from another. Nutritional dc2 screening: No deficits noted. Tuberculosis screening: No symptoms or risk factors identified. Never had TB. Fall Risk None identified. No fall in past 12 months (0 pts). Secondary diagnosis (15 points) No IV (0 pts). Ambulatory Aid- None/Bed Rest/Nurse Assist (0 pts). Gait- Normal/Bed Rest/Wheelchair (0 pts) Mental Status- Oriented to own ability (0 pts). Total Smith Fall Scale indicates No Risk (0-24 pts). Assessment: 01:00 General: Appears in no apparent distress. uncomfortable, obese, well groomed, well dc2 developed, Behavior is calm, cooperative. 01:15 Reassessment: Pt up and ambulate to bathroom, hat placed in toilet to be able to dc2 collect urine sample. Pain: Complains of pain in head. Neuro: No deficits noted. Level of Consciousness is awake, alert, obeys commands, confused, Oriented to person, place, time. Respiratory: No deficits noted. Breath sounds are clear bilaterally. Denies shortness of breath pain with cough. GI: No deficits noted. No signs and/or symptoms were reported involving the gastrointestinal system. Abdomen is non-distended, obese, Bowel sounds present X 4 quads. Patient currently denies abdominal pain, diarrhea, nausea, pain, vomiting. : No signs and/or symptoms were reported regarding the genitourinary system. Derm: No deficits noted. No signs and/or symptoms reported regarding the dermatologic system. Skin is intact, is healthy with good turgor. Musculoskeletal: No deficits noted. No signs and/or symptoms reported regarding the musculoskeletal system. Circulation, motion, and sensation intact. Swelling present in bilateral lower legs and feet, right swelling > left. States does get swollen from time to time. Vital Signs: 00:58 BP 123 / 76; Pulse 98; Resp 20; Temp 97.4; Pulse Ox 100% on R/A; Weight 154.22 kg; Pain dc2 8/10; 01:00 BP 123 / 76; Pulse 98; Resp 18; Temp 97.4; Pulse Ox 100% on R/A; Pain 8/10; dc2 02:11 BP 134 / 71; Pulse 7; Resp 18; Pulse Ox 99% ; Pain 4/10; dc2 02:45 BP 113 / 64; Pulse 69; Resp 18; Temp 97.9; Pulse Ox 100% on R/A; Pain 2/10; dc2 ED Course: 00:57 Patient arrived in ED. dc2 00:57 Saadia Newman RN is Primary Nurse. dc2 00:57 Surinder Bowman PA is PHCP. [facility] 00:57 Jose Gallagher MD is Attending Physician. [facility] 01:00 Arm band placed on right wrist. dc2 01:03 Triage completed. dc2 01:10 Patient has correct armband on for positive identification. Placed in gown. Bed in low dc2 position. Call light in reach. Side rails up X 1. site monitor on. Pulse ox on. NIBP on. Door closed. Lights dimmed. Head of bed elevated. 01:16 CMP Sent. dc2 01:16 CBC with Diff Sent. dc2 01:16 ABG Sent. dc2 01:26 Assist provider with bone marrow aspiration. dc2 01:47 Urine Dipstick-Ancillary Sent. dc2 02:45 IV discontinued, intact, bleeding controlled, No redness/swelling at site. Pressure dc2 dressing applied. Administered Medications: 01:24 Drug: Insulin Regular Human 10 units {Co-Signature: cc4 (Tricia Navarro RN).} Route: dc2 IVP; Site: left hand; 02:43 Follow up: Response: Blood sugar is lowered dc2 01:24 Drug: Reglan (metoCLOPramide) 20 mg Route: IVP; Site: left hand; dc2 02:15 Follow up: Response: Pain is decreased dc2 02:42 Drug: Insulin Regular Human 10 units {Co-Signature: cc4 (Tricia Navarro RN).} Route: dc2 IVP; Site: left hand; 02:50 Follow up: Response: Medication administered at discharge. dc2 Outcome: 02:10 Discharge ordered by . dick 02:50 Discharged to home ambulatory. dc2 02:50 Condition: stable 02:50 Condition: stable 02:50 Discharge instructions given to patient, Instructed on discharge instructions, follow up and referral plans. Demonstrated understanding of instructions, follow-up care. 03:16 Patient left the ED. dc2 Signatures: Surinder Bowman PA PA jmm Charters, Denise, RN RN dc2 Tricia Navarro RN cc4 Corrections: (The following items were deleted from the chart) 01:04 00:58 Method Of Arrival: Carried dc2 dc2 03:13 03:11 BP 134 / 71; Pulse 77bpm; Resp 18bpm; Pulse Ox 99%; Temp 98.0F; Pain 6/10; dc2 dc2
[2021-08-07 03:43] VITALS: BP 113/64; TEMP 97.9; O2SAT 100
--- OUTSIDE RECORDS SUMMARY | 2021-08-11 17:36 | XMS REPORT | Continuity of Care Document ---
:1970 Author Organization [facility] t Address [address] [place] [address] Care Team Providers Name Role Phone Humphrey WASHINGTON Primary Care Physician Humphrey WASHINGTON Attending Clinician HUMPHREY Attending Clinician Unavailable LUIS Attending Clinician Unavailable Mal Vila MD Attending Clinician Doctor Unassigned, Name Attending Clinician Unavailable 2, Lab Attending Clinician Unavailable Tonya BARNES Attending Clinician Unavailable Payers Payer Name Policy Type Policy Number Effective Date Expiration Date S porsche [employer] [id number] 2020 00:00:00 [employer] CHOICE POS [id number] 2020 00:00:00 II Problems Condition Condition Condition Status Onset Resolution Last Treating Co mments Source Name Details Category Date Date Treatment Clinician Date Vitamin D Vitamin D Disease Active Uni vers deficiency deficiency 9-17 it y of 00:00: [place] 00 Medical Branch Adjustment Adjustment Disease Active U nivers insomnia insomnia 9-17 ity of 00:00: [place] 00 Medical Branch 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 00:00: [place] depression depression 00 De dical Branch Adjustment Adjustment Disease Active U nivers insomnia insomnia 9-17 ity of 00:00: [place] 00 Medical Branch Current Current Disease Active [facility] moderate moderate 6-18 ity of episode of [place] 00 Medical depressive depressive Br anch disorder, disorder, unspecifie unspecifie d whether d whether recurrent recurrent Dyslipidem Dyslipidem Disease Active U nivers ia ia 6-18 ity of 00:00: Medical Branch Insomnia, Insomnia, Disease Active Uni vers unspecifie unspecifie 3-18 it y of d type d type 00:00: Medical Branch Anxiety, Anxiety, Disease Active Unive rs generalize generalize 3-18 it y of d d 00:00: Medical Branch Erythema Erythema Disease Active Unive rs intertrigo intertrigo 3-18 it y of 00:00: Medical [place] Disease Active [facility] albicans albicans 318 it[place] 00:[place] Need for Need for Disease Active Unive rs immunizati immunizati 3-18 it y of on against on against [place] influenza [address] [facility] Branch Breast Breast Disease Active [facility] cancer cancer 318 it[place] of screening screening 00:[place] 00 [place] mammogram mammogram Bran ch Essential Essential Disease Active Uni vers hypertensi hypertensi 27 it y of on on 00:00: Medical Branch Depression Depression Disease Active U gregory , , 3-27 ity of unspecifie unspecifie 00:[place] d d 00 Medical depression depression Br anch type type Type 2 Type 2 Disease Active [facility] diabetes diabetes 12-23 ity of mellitus mellitus 00:00: [place] with with 00 Medical diabetic diabetic Branch polyneurop polyneurop athy, athy, without without long-term long-term current current use of use of insulin insulin Mild Mild Disease Active [facility] intermitte intermitte 3 it y of nt asthma nt asthma 00:[place] without without 00 Medical complicati complicati Br anch on on Type 2 Type 2 Disease Active [facility] diabetes diabetes 12-23 ity of mellitus mellitus 00:00: [place] without without 00 Medical complicati complicati Br anch on, on, without without long-term long-term current current use of use of insulin insulin Morbid Morbid Disease Active [facility] obesity obesity 8-14 ity of with BMI with BMI 00:00: [place] of of 00 Medical 60.0-69.9, 60.0-69.9, Br anch adult adult Allergies, Adverse Reactions, Alerts Allergy Allergy Status Severity Reaction(s) Onset Inactive Treating Comm ents Source Name Type Date Date Clinician NO KNOWN Drug Active [facility] ALLERGIE Class ity of S [place] [facility] Social History Social Habit Start Date Stop Date Quantity Comments Source Exposure to Not sure [facility] SARS-CoV-2 (event) Medica l Branch Alcohol intake 2021-06-21 2021-06-21 0 /d [facility] 00:00:00 00:00:00 Medical Branch Sex [birth year] [facility] 00:00:00 00:00:00 Medical Branch Smoking Status Start Date Stop Date Source Never smoker [facility] Medical Branch Medications Ordered Filled Start Stop Current Ordering Indication Dosage Frequency Signature Comments Components Source Medication Medication Date Date Medication? Clinician (SIG) Name Name nystatin 2020-09 Yes [id number] Apply to [facility] (NYSTOP) 1-12 area(s) ity of 100,000 00:00: daily. [place] unit/gram 00 Medical powder Branch GLIPIZIDE 2020-09 Yes TAKE ONE Univ ers XL 10 mg 24 0-04 TABLET BY ity of hr tablet 00:00: MOUTH [place] 00 DAILY WITH Medical BREAKFAST Branch GLIPIZIDE 2020-09 Yes TAKE ONE Univ ers XL 10 mg 24 0-04 TABLET BY ity of hr tablet 00:00: MOUTH [place] 00 DAILY WITH Medical BREAKFAST Branch hydrOXYzine Yes [id number] 50mg Take 1 Univers 50 mg 9-17 tablet by ity of tablet 00:00: mouth [place] 00 every 8 Medical (eight) Branch hours as needed for Anxiety. ergocalcife Yes [id number] Take 1 Univers rol, 9-17 capsule by ity of vitamin d2, 00:00: mouth [place] 1,250 mcg 00 weekly. Medical (50,000 Branch unit) capsule atorvastati Yes [id number] 10mg Take 1 Univers n 10 mg 9-17 tablet by ity of tablet 00:00: mouth at [place] 00 bedtime. Medical Branch metformin Yes [id number] 1000mg Take 2 Univers ER 500 mg 9-17 tablets by ity of 24 hr 00:00: mouth 2 [place] tablet 00 (two) Medical times Branch daily. Melatonin 5 Yes [id number] 5mg Take 1 [facility] mg tablet 9-17 tablet by ity o f 00:00: mouth [place] 00 daily. Medical Branch gabapentin Yes [id number] 800mg Take 1 [facility] 800 mg 9-17 tablet by ity of tablet 00:00: mouth 3 [place] 00 (three) Medical times Branch daily. FLUoxetine Yes [id number] 40mg Take 1 [facility] 40 mg 9-17 capsule by ity of capsule 00:00: mouth [place] 00 daily. Medical Branch albuterol Yes [id number] 2{puff} Inhale 2 Univers 90 9-17 Puffs ity of mcg/actuati 00:00: every 6 [place] on inhaler 00 (six) Medical hours as Branch needed for Wheezing or Shortness of Breath. traZODone Yes [id number] 50mg Take 1 U nivers 50 mg 9-17 tablet by ity of tablet 00:00: mouth at [place] 00 bedtime. Medical Branch traMADoL 50 Yes [id number] 50mg Take 1 Univ ers mg tablet 9-17 tablet by ity o f 00:00: mouth [place] 00 every 8 Medical (eight) Branch hours as needed for Pain (scale 7-10). Indication s: chronic pain hydrOXYzine Yes [id number] 50mg Take 1 [facility] 50 mg 9-17 tablet by ity of tablet 00:00: mouth [place] 00 every 8 Medical (eight) Branch hours as needed for Anxiety. ergocalcife Yes [id number] Take 1 Univers rol, 9-17 capsule by ity of vitamin d2, 00:00: mouth [place] 1,250 mcg 00 weekly. Medical (50,000 Branch unit) capsule atorvastati Yes [id number] 10mg Take 1 Univers n 10 mg 9-17 tablet by ity of tablet 00:00: mouth at [place] 00 bedtime. Medical Branch metformin Yes [id number] 1000mg Take 2 Univers ER 500 mg 9-17 tablets by ity of 24 hr 00:00: mouth 2 [place] tablet 00 (two) Medical times Branch daily. Melatonin 5 Yes [id number] 5mg Take 1 Univers mg tablet 9-17 tablet by ity o f 00:00: mouth [place] 00 daily. Medical Branch gabapentin Yes [id number] 800mg Take 1 [facility] 800 mg 9-17 tablet by ity of tablet 00:00: mouth 3 [place] 00 (three) Medical times Branch daily. FLUoxetine Yes [id number] 40mg Take 1 [facility] 40 mg 9-17 capsule by ity of capsule 00:00: mouth [place] 00 daily. Medical Branch albuterol Yes [id number] 2{puff} Inhale 2 Univers 90 9-17 Puffs ity of mcg/actuati 00:00: every 6 [place] on inhaler 00 (six) Medical hours as Branch needed for Wheezing or Shortness of Breath. traZODone Yes [id number] 50mg Take 1 U nivers 50 mg 9-17 tablet by ity of tablet 00:00: mouth at [place] 00 bedtime. Medical Branch traMADoL 50 Yes [id number] 50mg Take 1 Univ ers mg tablet 9-17 tablet by ity o f 00:00: mouth [place] 00 every 8 Medical (eight) Branch hours as needed for Pain (scale 7-10). Indication s: chronic pain hydrOXYzine Yes [id number] 50mg Take 1 [facility] 50 mg 9-17 tablet by ity of tablet 00:00: mouth [place] 00 every 8 Medical (eight) Branch hours as needed for Anxiety. ergocalcife Yes [id number] Take 1 [facility] rol, 9-17 capsule by ity of vitamin d2, 00:00: mouth [place] 1,250 mcg 00 weekly. Medical (50,000 Branch unit) capsule atorvastati Yes [id number] 10mg Take 1 Univers n 10 mg 9-17 tablet by ity of tablet 00:00: mouth at [place] 00 bedtime. Medical Branch metformin Yes [id number] 1000mg Take 2 Univers ER 500 mg 9-17 tablets by ity of 24 hr 00:00: mouth 2 [place] tablet 00 (two) Medical times Branch daily. Melatonin 5 Yes [id number] 5mg Take 1 [facility] mg tablet 9-17 tablet by ity o f 00:00: mouth [place] 00 daily. Medical Branch gabapentin Yes [id number] 800mg Take 1 [facility] 800 mg 9-17 tablet by ity of tablet 00:00: mouth 3 [place] 00 (three) Medical times Branch daily. FLUoxetine Yes [id number] 40mg Take 1 [facility] 40 mg 9-17 capsule by ity of capsule 00:00: mouth [place] 00 daily. Medical Branch albuterol Yes [id number] 2{puff} Inhale 2 Univers 90 9-17 Puffs ity of mcg/actuati 00:00: every 6 [place] on inhaler 00 (six) Medical hours as Branch needed for Wheezing or Shortness of Breath. traZODone Yes [id number] 50mg Take 1 U nivers 50 mg 9-17 tablet by ity of tablet 00:00: mouth at [place] 00 bedtime. Medical Branch traMADoL 50 Yes [id number] 50mg Take 1 Univ ers mg tablet 9-17 tablet by ity o f 00:00: mouth [place] 00 every 8 Medical (eight) Branch hours as needed for Pain (scale 7-10). Indication s: chronic pain hydrOXYzine Yes [id number] 50mg Take 1 [facility] 50 mg 9-17 tablet by ity of tablet 00:00: mouth [place] 00 every 8 Medical (eight) Branch hours as needed for Anxiety. ergocalcife Yes [id number] Take 1 Univers rol, 9-17 capsule by ity of vitamin d2, 00:00: mouth [place] 1,250 mcg 00 weekly. Medical (50,000 Branch unit) capsule atorvastati Yes [id number] 10mg Take 1 Univers n 10 mg 9-17 tablet by ity of tablet 00:00: mouth at [place] 00 bedtime. Medical Branch metformin Yes [id number] 1000mg Take 2 Univers ER 500 mg 9-17 tablets by ity of 24 hr 00:00: mouth 2 [place] tablet 00 (two) Medical times Branch daily. Melatonin 5 Yes [id number] 5mg Take 1 [facility] mg tablet 9-17 tablet by ity o f 00:00: mouth [place] 00 daily. Medical Branch gabapentin Yes [id number] 800mg Take 1 Univers 800 mg 9-17 tablet by ity of tablet 00:00: mouth 3 [place] 00 (three) Medical times Branch daily. FLUoxetine Yes [id number] 40mg Take 1 Univers 40 mg 9-17 capsule by ity of capsule 00:00: mouth [place] 00 daily. Medical Branch albuterol Yes [id number] 2{puff} Inhale 2 Univers 90 9-17 Puffs ity of mcg/actuati 00:00: every 6 [place] on inhaler 00 (six) Medical hours as Branch needed for Wheezing or Shortness of Breath. traZODone Yes [id number] 50mg Take 1 U nivers 50 mg 9-17 tablet by ity of tablet 00:00: mouth at [place] 00 bedtime. Medical Branch traMADoL 50 Yes [id number] 50mg Take 1 Univ ers mg tablet 9-17 tablet by ity o f 00:00: mouth [place] 00 every 8 Medical (eight) Branch hours as needed for Pain (scale 7-10). Indication s: chronic pain hydrOXYzine Yes [id number] 50mg Take 1 Univers 50 mg 9-17 tablet by ity of tablet 00:00: mouth [place] 00 every 8 Medical (eight) Branch hours as needed for Anxiety. ergocalcife Yes [id number] Take 1 [facility] rol, 9-17 capsule by ity of vitamin d2, 00:00: mouth [place] 1,250 mcg 00 weekly. Medical (50,000 Branch unit) capsule atorvastati Yes [id number] 10mg Take 1 Univers n 10 mg 9-17 tablet by ity of tablet 00:00: mouth at [place] 00 bedtime. Medical Branch metformin Yes [id number] 1000mg Take 2 Univers ER 500 mg 9-17 tablets by ity of 24 hr 00:00: mouth 2 [place] tablet 00 (two) Medical times Branch daily. Melatonin 5 Yes [id number] 5mg Take 1 Univers mg tablet 9-17 tablet by ity o f 00:00: mouth [place] 00 daily. Medical Branch gabapentin Yes [id number] 800mg Take 1 [facility] 800 mg 9-17 tablet by ity of tablet 00:00: mouth 3 [place] 00 (three) Medical times Branch daily. FLUoxetine Yes [id number] 40mg Take 1 Univers 40 mg 9-17 capsule by ity of capsule 00:00: mouth [place] 00 daily. Medical Branch albuterol Yes [id number] 2{puff} Inhale 2 Univers 90 9-17 Puffs ity of mcg/actuati 00:00: every 6 [place] on inhaler 00 (six) Medical hours as Branch needed for Wheezing or Shortness of Breath. traZODone Yes [id number] 50mg Take 1 U nivers 50 mg 9-17 tablet by ity of tablet 00:00: mouth at [place] 00 bedtime. Medical Branch traMADoL 50 Yes [id number] 50mg Take 1 Univ ers mg tablet 9-17 tablet by ity o f 00:00: mouth [place] 00 every 8 Medical (eight) Branch hours as needed for Pain (scale 7-10). Indication s: chronic pain hydrOXYzine Yes [id number] 50mg Take 1 Univers 50 mg 9-17 tablet by ity of tablet 00:00: mouth [place] 00 every 8 Medical (eight) Branch hours as needed for Anxiety. ergocalcife Yes [id number] Take 1 Univers rol, 9-17 capsule by ity of vitamin d2, 00:00: mouth [place] 1,250 mcg 00 weekly. Medical (50,000 Branch unit) capsule atorvastati Yes [id number] 10mg Take 1 Univers n 10 mg 9-17 tablet by ity of tablet 00:00: mouth at [place] 00 bedtime. Medical Branch metformin Yes [id number] 1000mg Take 2 Univers ER 500 mg 9-17 tablets by ity of 24 hr 00:00: mouth 2 [place] tablet 00 (two) Medical times Branch daily. Melatonin 5 Yes [id number] 5mg Take 1 Univers mg tablet 9-17 tablet by ity o f 00:00: mouth [place] 00 daily. Medical Branch gabapentin Yes [id number] 800mg Take 1 [facility] 800 mg 9-17 tablet by ity of tablet 00:00: mouth 3 [place] 00 (three) Medical times Branch daily. FLUoxetine Yes [id number] 40mg Take 1 [facility] 40 mg 9-17 capsule by ity of capsule 00:00: mouth [place] 00 daily. Medical Branch albuterol Yes [id number] 2{puff} Inhale 2 Univers 90 9-17 Puffs ity of mcg/actuati 00:00: every 6 [place] on inhaler 00 (six) Medical hours as Branch needed for Wheezing or Shortness of Breath. traZODone Yes [id number] 50mg Take 1 U nivers 50 mg 9-17 tablet by ity of tablet 00:00: mouth at [place] 00 bedtime. Medical Branch traMADoL 50 Yes [id number] 50mg Take 1 Univ ers mg tablet 9-17 tablet by ity o f 00:00: mouth [place] 00 every 8 Medical (eight) Branch hours as needed for Pain (scale 7-10). Indication s: chronic pain losartan-hy Yes [id number] 1{tbl} Take 1 Univers drochloroth 6-18 tablet by ity of iazide 00:00: mouth [place] 100-12.5 mg 00 daily. Medica l per tablet Branch traMADoL 50 Yes [id number] 50mg Take 1 Univ ers mg tablet 6-18 tablet by ity o f 00:00: mouth [place] 00 every 8 Medical (eight) Branch hours as needed for Pain (scale 7-10). Indication s: chronic pain losartan-hy Yes [id number] 1{tbl} Take 1 Univers drochloroth 6-18 tablet by ity of iazide 00:00: mouth [place] 100-12.5 mg 00 daily. Medica l per tablet Branch ALPRAZolam Yes [id number] 1mg Take 1 Univers 1 mg tablet 6-18 tablet by ity of 00:00: mouth 2 [place] 00 (two) Medical times Branch daily as needed (Anxiety/P anic Disorder). fluconazole Yes [id number] Take 1 Tab Univers 150 mg 6-18 PO x 1 for ity of tablet 00:00: [place] 00 infection. Medical Refill 10 Branch losartan-hy Yes [id number] 1{tbl} Take 1 Univers drochloroth 6-18 tablet by ity of iazide 00:00: mouth [place] 100-12.5 mg 00 daily. Medica l per tablet Branch traMADoL 50 Yes [id number] 50mg Take 1 Univ ers mg tablet 6-18 tablet by ity o f 00:00: mouth [place] 00 every 8 Medical (eight) Branch hours as needed for Pain (scale 7-10). Indication s: chronic pain losartan-hy Yes [id number] 1{tbl} Take 1 Univers drochloroth 6-18 tablet by ity of iazide 00:00: mouth [place] 100-12.5 mg 00 daily. Medica l per tablet Branch traMADoL 50 Yes [id number] 50mg Take 1 Univ ers mg tablet 6-18 tablet by ity o f 00:00: mouth [place] 00 every 8 Medical (eight) Branch hours as needed for Pain (scale 7-10). Indication s: chronic pain losartan-hy Yes [id number] 1{tbl} Take 1 Univers drochloroth 6-18 tablet by ity of iazide 00:00: mouth [place] 100-12.5 mg 00 daily. Medica l per tablet Branch losartan-hy Yes [id number] 1{tbl} Take 1 Univers drochloroth 6-18 tablet by ity of iazide 00:00: mouth [place] 100-12.5 mg 00 daily. Medica l per tablet Branch losartan-hy Yes [id number] 1{tbl} Take 1 Univers drochloroth 6-18 tablet by ity of iazide 00:00: mouth [place] 100-12.5 mg 00 daily. Medica l per tablet Branch losartan-hy Yes [id number] 1{tbl} Take 1 Univers drochloroth 6-18 tablet by ity of iazide 00:00: mouth [place] 100-12.5 mg 00 daily. Medica l per tablet Branch losartan-hy Yes [id number] 1{tbl} Take 1 Univers drochloroth 6-18 tablet by ity of iazide 00:00: mouth [place] 100-12.5 mg 00 daily. Medica l per tablet Branch ALPRAZolam 2020- No [id number] 1mg Take 1 Univers 1 mg tablet 6-18 09-17 tablet by it y of 00:00: 00:00 mouth 2 [place] 00 :00 (two) Medical times Branch daily as needed (Anxiety/P anic Disorder). fluconazole 2020- No [id number] Take 1 Tab Univers 150 mg 03-16 PO x 1 for ity of tablet 00:00: 00:00 [place] 00 :00 infection. Medical Refill 10 Branch traMADoL 50 2020- No [id number] 50mg Take 1 Uni vers mg tablet 03-16 tablet by ity of 00:00: 00:00 mouth [place] 00 :00 every 8 Medical (eight) Branch hours as needed for Pain (scale 7-10). Indication s: chronic pain nystatin 0 Yes [id number] Apply to Univers (NYSTOP) 5-04 area(s) ity of 100,000 00:00: daily. [place] unit/gram 00 Medical powder Branch nystatin 0 Yes [id number] Apply to Univers (NYSTOP) 5-04 area(s) ity of 100,000 00:00: daily. [place] unit/gram 00 Medical powder Branch nystatin 0 Yes [id number] Apply to Univers (NYSTOP) 5-04 area(s) ity of 100,000 00:00: daily. [place] unit/gram 00 Medical powder Branch nystatin 0 Yes [id number] Apply to Univers (NYSTOP) 5-04 area(s) ity of 100,000 00:00: daily. [place] unit/gram 00 Medical powder Branch nystatin 0 Yes [id number] Apply to Univers (NYSTOP) 5-04 area(s) ity of 100,000 00:00: daily. [place] unit/gram 00 Medical powder Branch nystatin 2020-0 Yes [id number] Apply to Univers (NYSTOP) 5-04 area(s) ity of 100,000 00:00: daily. [place] unit/gram 00 Medical powder Branch nystatin 0 Yes [id number] Apply to Univers (NYSTOP) 5-04 area(s) ity of 100,000 00:00: daily. [place] unit/gram 00 Medical powder Branch nystatin 0 Yes [id number] Apply to Univers (NYSTOP) 5-04 area(s) ity of 100,000 00:00: daily. [place] unit/gram 00 Medical powder Branch nystatin 2020-0 Yes [id number] Apply to Univers (NYSTOP) 5-04 area(s) ity of 100,000 00:00: daily. [place] unit/gram 00 Medical powder Branch nystatin 0 Yes [id number] Apply to Univers (NYSTOP) 5-04 area(s) ity of 100,000 00:00: daily. [place] unit/gram 00 Medical powder Branch nystatin 0 202- No [id number] Apply to Univers (NYSTOP) 5-04 11-12 area(s) ity of 100,000 00:00: 00:00 daily. [place] unit/gram 00 :00 Medical powder Branch glipiZIDE 0 Yes 10mg Take 1 Univer s XL 10 mg 24 3-31 tablet by ity of hr tablet 00:00: mouth [place] 00 daily with Medical breakfast. Branch calcium Yes [id number] 500mg Take 1 Uni vers carbonate 3-31 tablet by ity o f (CALCIUM 00:00: mouth [place] 500) 500 mg 00 daily. Medica l calcium Branch (1,250 mg) tablet glipiZIDE Yes 10mg Take 1 Univer s XL 10 mg 24 3-31 tablet by ity of hr tablet 00:00: mouth [place] 00 daily with Medical breakfast. Branch calcium Yes [id number] 500mg Take 1 Uni vers carbonate 3-31 tablet by ity o f (CALCIUM 00:00: mouth [place] 500) 500 mg 00 daily. Medica l calcium Branch (1,250 mg) tablet glipiZIDE Yes 10mg Take 1 Univer s XL 10 mg 24 3-31 tablet by ity of hr tablet 00:00: mouth [place] 00 daily with Medical breakfast. Branch gabapentin 0 Yes [id number] 800mg Take 1 [facility] 800 mg 3-31 tablet by ity of tablet 00:00: mouth 3 [place] 00 (three) Medical times Branch daily. atorvastati 0 Yes [id number] 10mg Take 1 Univers n 10 mg 3-31 tablet by ity of tablet 00:00: mouth at [place] 00 bedtime. Medical Branch metformin 2020-0 Yes [id number] 1000mg Take 2 Univers ER 500 mg 3-31 tablets by ity of 24 hr 00:00: mouth 2 [place] tablet 00 (two) Medical times Branch daily. Cholecalcif 0 Yes [id number] 5000U Take 1 Univers jayde, 3-31 tablet by ity of Vitamin D3, 00:00: mouth [place] (VITAMIN 00 daily. Medical D3) 125 mcg Branch (5,000 unit) tablet calcium Yes [id number] 500mg Take 1 Uni vers carbonate 3-31 tablet by ity o f (CALCIUM 00:00: mouth [place] 500) 500 mg 00 daily. Medica l calcium Branch (1,250 mg) tablet glipiZIDE Yes 10mg Take 1 Univer s XL 10 mg 24 3-31 tablet by ity of hr tablet 00:00: mouth [place] 00 daily with Medical breakfast. Branch gabapentin Yes [id number] 800mg Take 1 [facility] 800 mg 3-31 tablet by ity of tablet 00:00: mouth 3 [place] 00 (three) Medical times Branch daily. atorvastati Yes [id number] 10mg Take 1 Univers n 10 mg 3-31 tablet by ity of tablet 00:00: mouth at [place] 00 bedtime. Medical Branch metformin Yes [id number] 1000mg Take 2 Univers ER 500 mg 3-31 tablets by ity of 24 hr 00:00: mouth 2 [place] tablet 00 (two) Medical times Branch daily. Cholecalcif Yes [id number] 5000U Take 1 [facility] jayde, 3-31 tablet by ity of Vitamin D3, 00:00: mouth [place] (VITAMIN 00 daily. Medical D3) 125 mcg Branch (5,000 unit) tablet calcium Yes [id number] 500mg Take 1 Uni vers carbonate 3-31 tablet by ity o f (CALCIUM 00:00: mouth [place] 500) 500 mg 00 daily. Medica l calcium Branch (1,250 mg) tablet glipiZIDE Yes 10mg Take 1 Univer s XL 10 mg 24 3-31 tablet by ity of hr tablet 00:00: mouth [place] 00 daily with Medical breakfast. Branch gabapentin 2020- Yes [id number] 800mg Take 1 [facility] 800 mg 3-31 tablet by ity of tablet 00:00: mouth 3 [place] 00 (three) Medical times Branch daily. atorvastati Yes [id number] 10mg Take 1 Univers n 10 mg 3-31 tablet by ity of tablet 00:00: mouth at [place] 00 bedtime. Medical Branch metformin 2020- Yes [id number] 1000mg Take 2 Univers ER 500 mg 3-31 tablets by ity of 24 hr 00:00: mouth 2 [place] tablet 00 (two) Medical times Branch daily. Cholecalcif 2020-0 Yes [id number] 5000U Take 1 Univers jayde, 3-31 tablet by ity of Vitamin D3, 00:00: mouth [place] (VITAMIN 00 daily. Medical D3) 125 mcg Branch (5,000 unit) tablet calcium 2020-0 Yes [id number] 500mg Take 1 Uni vers carbonate 3-31 tablet by ity o f (CALCIUM 00:00: mouth [place] 500) 500 mg 00 daily. Medica l calcium Branch (1,250 mg) tablet glipiZIDE 2020-0 Yes 10mg Take 1 Univer s XL 10 mg 24 3-31 tablet by ity of hr tablet 00:00: mouth [place] 00 daily with Medical breakfast. Branch gabapentin 2020-0 Yes [id number] 800mg Take 1 [facility] 800 mg 3-31 tablet by ity of tablet 00:00: mouth 3 [place] 00 (three) Medical times Branch daily. atorvastati Yes [id number] 10mg Take 1 Univers n 10 mg 3-31 tablet by ity of tablet 00:00: mouth at [place] 00 bedtime. Medical Branch metformin 2020-0 Yes [id number] 1000mg Take 2 Univers ER 500 mg 3-31 tablets by ity of 24 hr 00:00: mouth 2 [place] tablet 00 (two) Medical times Branch daily. Cholecalcif 0 Yes [id number] 5000U Take 1 [facility] jayde, 3-31 tablet by ity of Vitamin D3, 00:00: mouth [place] (VITAMIN 00 daily. Medical D3) 125 mcg Branch (5,000 unit) tablet calcium 2020- Yes [id number] 500mg Take 1 Uni vers carbonate 3-31 tablet by ity o f (CALCIUM 00:00: mouth [place] 500) 500 mg 00 daily. Medica l calcium Branch (1,250 mg) tablet glipiZIDE 2020-0 Yes 10mg Take 1 Univer s XL 10 mg 24 3-31 tablet by ity of hr tablet 00:00: mouth [place] 00 daily with Medical breakfast. Branch gabapentin 2020-0 Yes [id number] 800mg Take 1 [facility] 800 mg 3-31 tablet by ity of tablet 00:00: mouth 3 [place] 00 (three) Medical times Branch daily. atorvastati 2020-0 Yes [id number] 10mg Take 1 Univers n 10 mg 3-31 tablet by ity of tablet 00:00: mouth at [place] 00 bedtime. Medical Branch metformin 2020-0 Yes [id number] 1000mg Take 2 Univers ER 500 mg 3-31 tablets by ity of 24 hr 00:00: mouth 2 [place] tablet 00 (two) Medical times Branch daily. Cholecalcif 2020-0 Yes [id number] 5000U Take 1 [facility] jayde, 3-31 tablet by ity of Vitamin D3, 00:00: mouth [place] (VITAMIN 00 daily. Medical D3) 125 mcg Branch (5,000 unit) tablet calcium 2020-0 Yes [id number] 500mg Take 1 Uni vers carbonate 3-31 tablet by ity o f (CALCIUM 00:00: mouth [place] 500) 500 mg 00 daily. Medica l calcium Branch (1,250 mg) tablet glipiZIDE 0 Yes 10mg Take 1 Univer s XL 10 mg 24 3-31 tablet by ity of hr tablet 00:00: mouth [place] 00 daily with Medical breakfast. Branch gabapentin 0 Yes [id number] 800mg Take 1 [facility] 800 mg 3-31 tablet by ity of tablet 00:00: mouth 3 [place] 00 (three) Medical times Branch daily. atorvastati 0 Yes [id number] 10mg Take 1 Univers n 10 mg 3-31 tablet by [facility] of tablet 00:00: mouth at [place] 00 bedtime. Medical Branch metformin 2020-0 Yes [id number] 1000mg Take 2 [facility] ER 500 mg 3-31 tablets by ity of 24 hr 00:00: mouth 2 [place] tablet 00 (two) Medical times Branch daily. Cholecalcif 2020-0 Yes [id number] 5000U Take 1 [facility] jayde, 3-31 tablet by ity of Vitamin D3, 00:00: mouth [place] (VITAMIN 00 daily. Medical D3) 125 mcg Branch (5,000 unit) tablet calcium 2020-0 Yes [id number] 500mg Take 1 [facility] vers carbonate 3-31 tablet by ity o f (CALCIUM 00:00: mouth [place] 500) 500 mg 00 daily. Medica l calcium Branch (1,250 mg) tablet glipiZIDE 2020-0 Yes 10mg Take 1 [facility] XL 10 mg 24 3-31 tablet by ity of hr tablet 00:00: mouth [place] 00 daily with Medical breakfast. Branch calcium Yes [id number] 500mg Take 1 [facility] vers carbonate 3-31 tablet by ity o f (CALCIUM 00:00: mouth [place] 500) 500 mg 00 daily. Medica l calcium Branch (1,250 mg) tablet glipiZIDE Yes 10mg Take 1 [facility] XL 10 mg 24 3-31 tablet by ity of hr tablet 00:00: mouth [place] 00 daily with Medical breakfast. Branch calcium Yes [id number] 500mg Take 1 [facility] vers carbonate 3-31 tablet by ity o f (CALCIUM 00:00: mouth [place] 500) 500 mg 00 daily. Medica l calcium Branch (1,250 mg) tablet glipiZIDE Yes 10mg Take 1 [facility] XL 10 mg 24 3-31 tablet by ity of hr tablet 00:00: mouth [place] 00 daily with Medical breakfast. Branch calcium Yes [id number] 500mg Take 1 [facility] vers carbonate 3-31 tablet by ity o f (CALCIUM 00:00: mouth [place] 500) 500 mg 00 daily. Medica l calcium Branch (1,250 mg) tablet glipiZIDE Yes 10mg Take 1 [facility] XL 10 mg 24 3-31 tablet by ity of hr tablet 00:00: mouth [place] 00 daily with Medical breakfast. Branch calcium Yes [id number] 500mg Take 1 [facility] vers carbonate 3-31 tablet by ity o f (CALCIUM 00:00: mouth [place] 500) 500 mg 00 daily. Medica l calcium Branch (1,250 mg) tablet calcium Yes [id number] 500mg Take 1 [facility] vers carbonate 3-31 tablet by ity o f (CALCIUM 00:00: mouth [place] 500) 500 mg 00 daily. Medica l calcium Branch (1,250 mg) tablet calcium Yes [id number] 500mg Take 1 [facility] vers carbonate 3-31 tablet by ity o f (CALCIUM 00:00: mouth [place] 500) 500 mg 00 daily. Medica l calcium Branch (1,250 mg) tablet glipiZIDE 2020- No 10mg Take 1 [facility] XL 10 mg 24 3-31 10-04 tablet by it y of hr tablet 00:00: 00:00 mouth [place] 00 :00 daily with Medical breakfast. Branch gabapentin 2020- No [id number] 800mg Take 1 [facility] 800 mg 12-27 tablet by ity of tablet 00:00: 00:00 mouth 3 [place] 00 :00 (three) Medical times Branch daily. atorvastati 2020- No [id number] 10mg Take 1 [facility] n 10 mg 12-27 tablet by ity of tablet 00:00: 00:00 mouth at [place] 00 :00 bedtime. Medical Branch metformin 2020- No [id number] 1000mg Take 2 [facility] ER 500 mg 12-27 tablets by ity of 24 hr 00:00: 00:00 mouth 2 [place] tablet 00 :00 (two) Medical times Branch daily. Cholecalcif 2020- No [id number] 5000U Take 1 [facility] jayde, 12-27 tablet by [facility] of Vitamin D3, 00:00: 00:00 [place] (VITAMIN 00 :00 daily. Medical D3) 125 mcg Branch (5,000 unit) tablet traMADoL 50 2020- No [id number] 50mg Take 50 mg [facility] mg tablet 12-18 by mouth 3 ity of 14:23: 00:00 (three) [place] 07 :00 times Medical daily. Branch traMADoL 50 2020- No [id number] 50mg Take 50 mg [facility] mg tablet 12-18 by mouth 3 ity of 14:23: 00:00 (three) [place] 07 :00 times Medical daily. Branch traMADoL 50 Yes [id number] 50mg Take 1 [facility] ers mg tablet 3-22 tablet by ity o f 00:00: mouth [place] 00 every 8 Medical (eight) Branch hours as needed for Pain (scale 7-10). Indication s: chronic pain ALPRAZolam Yes [id number] 1mg Take 1 [facility] n[facility] 1 mg tablet 3-22 tablet by ity of 00:00: mouth 2 [place] 00 (two) Medical times Branch daily as needed (Anxiety/P anic Disorder). fluconazole Yes [id number] Take 1 Tab [facility] 150 mg 3-22 PO x 1 for ity of tablet 00:00: [place] 00 infection. Medical Refill 10 Branch traMADoL 50 Yes [id number] 50mg Take 1 [facility] ers mg tablet 3-22 tablet by ity o f 00:00: mouth [place] 00 every 8 Medical (eight) Branch hours as needed for Pain (scale 7-10). Indication s: chronic pain ALPRAZolam Yes [id number] 1mg Take 1 [facility] n[facility] 1 mg tablet 3-22 tablet by ity of 00:00: mouth 2 [place] 00 (two) Medical times Branch daily as needed (Anxiety/P anic Disorder). fluconazole Yes [id number] Take 1 Tab [facility] 150 mg 3-22 PO x 1 for ity of tablet 00:00: [place] 00 infection. Medical Refill 10 Branch traMADoL 50 Yes [id number] 50mg Take 1 [facility] ers mg tablet 3-22 tablet by ity o f 00:00: mouth [place] 00 every 8 Medical (eight) Branch hours as needed for Pain (scale 7-10). Indication s: chronic pain ALPRAZolam Yes [id number] 1mg Take 1 [facility] nivers 1 mg tablet 3-22 tablet by ity of 00:00: mouth 2 00 (two) Medical times Branch daily as needed (Anxiety/P anic Disorder). fluconazole Yes [id number] Take 1 Tab [facility] 150 mg 3-22 PO x 1 for ity of tablet 00:00: [place] 00 infection. Medical Refill 10 Branch traMADoL 50 0 Yes [id number] 50mg Take 1 [facility] ers mg tablet 3-22 tablet by ity o f 00:00: mouth [place] 00 every 8 Medical (eight) Branch hours as needed for Pain (scale 7-10). Indication s: chronic pain ALPRAZolam Yes [id number] 1mg Take 1 [facility] n[facility] 1 mg tablet 3-22 tablet by ity of 00:00: mouth 2 [place] 00 (two) Medical times Branch daily as needed (Anxiety/P anic Disorder). fluconazole Yes [id number] Take 1 Tab [facility] 150 mg 3-22 PO x 1 for ity of tablet 00:00: [place] 00 infection. Medical Refill 10 Branch traMADoL 50 0 Yes [id number] 50mg Take 1 [facility] ers mg tablet 3-22 tablet by ity o f 00:00: mouth [place] 00 every 8 Medical (eight) Branch hours as needed for Pain (scale 7-10). Indication s: chronic pain ALPRAZolam 0 Yes [id number] 1mg Take 1 [facility] n[facility] 1 mg tablet 3-22 tablet by ity of 00:00: mouth 2 (two) Medical times Branch daily as needed (Anxiety/P anic Disorder). fluconazole 0 Yes [id number] Take 1 Tab [facility] 150 mg 3-22 PO x 1 for ity of tablet 00:00: [place] 00 infection. Medical Refill 10 Branch traMADoL 50 0 Yes [id number] 50mg Take 1 [facility] ers mg tablet 3-22 tablet by ity o f 00:00: mouth [place] 00 every 8 Medical (eight) Branch hours as needed for Pain (scale 7-10). Indication s: chronic pain ALPRAZolam Yes [id number] 1mg Take 1 [facility] n[facility] 1 mg tablet 3-22 tablet by ity of 00:00: mouth 2 (two) Medical times Branch daily as needed (Anxiety/P anic Disorder). fluconazole Yes [id number] Take 1 Tab [facility] 150 mg 3-22 PO x 1 for ity of tablet 00:00: [place] 00 infection. Medical Refill 10 Branch traMADoL 50 0 Yes [id number] 50mg Take 1 [facility] ers mg tablet 3-22 tablet by ity o f 00:00: mouth [place] 00 every 8 Medical (eight) Branch hours as needed for Pain (scale 7-10). Indication s: chronic pain ALPRAZolam Yes [id number] 1mg Take 1 [facility] n[facility] 1 mg tablet 3-22 tablet by ity of 00:00: mouth 2 (two) Medical times Branch daily as needed (Anxiety/P anic Disorder). fluconazole Yes [id number] Take 1 Tab [facility] 150 mg 3-22 PO x 1 for ity of tablet 00:00: [place] 00 infection. Medical Refill 10 Branch traMADoL 50 0 2020- No [id number] 50mg Take 1 [facility] vers mg tablet 3-22 06-18 tablet by ity of 00:00: 00:00 mouth [place] 00 :00 every 8 Medical (eight) Branch hours as needed for Pain (scale 7-10). Indication s: chronic pain ALPRAZolam 0 2020- No [id number] 1mg Take 1 [facility] 1 mg tablet 3-22 06-18 tablet by it y of 00:00: 00:00 mouth 2 [place] 00 :00 (two) Medical times Branch daily as needed (Anxiety/P anic Disorder). fluconazole 2020- No [id number] Take 1 Tab [facility] 150 mg 12-18-18 PO x 1 for ity of tablet 00:00: 00:00 [place] 00 :00 infection. Medical Refill 10 Branch traMADoL 50 2020- No [id number] 50mg Take 1 [facility] vers mg tablet 12-1818 tablet by ity of 00:00: 00:00 mouth [place] 00 :00 every 8 Medical (eight) Branch hours as needed for Pain (scale 7-10). Indication s: chronic pain ALPRAZolam 2020- No [id number] 1mg Take 1 [facility] 1 mg tablet 12-18 tablet by it y of 00:00: 00:00 mouth 2 [place] 00 :00 (two) Medical times Branch daily as needed (Anxiety/P anic Disorder). fluconazole 2020- No [id number] Take 1 Tab [facility] 150 mg 12-18-18 PO x 1 for ity of tablet 00:00: 00:00 [place] 00 :00 infection. Medical Refill 10 Branch Melatonin 5 2020- No Take by [facility] n[facility] mg Tab 3-18 -18 mouth ity of 20:30: 00:00 daily. [place] 15 :00 Medical Branch Melatonin 5 2020- No Take by [facility] n[facility] mg Tab 3-18 -18 mouth ity of 20:30: 00:00 daily. [place] 15 :00 Medical Branch traMADoL 50 Yes 50mg Take 50 mg [facility] mg tablet -18 by mouth 3 ity of 19:49: (three) [place] 11 times Medical daily. Branch amitriptyli Yes [id number] 25mg Take 1 [facility] ne 25 mg 3-18 tablet by ity of tablet 00:00: mouth at [place] 00 bedtime. Medical Branch FLUoxetine Yes [id number] 40mg Take 1 [facility] nivers 40 mg 3-18 capsule by ity of capsule 00:00: mouth [place] 00 daily. Medical Branch amitriptyli Yes [id number] 25mg Take 1 [facility] ne 25 mg 3-18 tablet by ity of tablet 00:00: mouth at [place] 00 bedtime. Medical Branch Melatonin 5 0 Yes [id number] 5mg Take 1 [facility] mg tablet 3-18 tablet by ity o f 00:00: mouth [place] 00 daily. Medical Branch metformin Yes [id number] 1000mg Take 2 [facility] ER 500 mg 3-18 tablets by ity of 24 hr 00:00: mouth [place] tablet 00 daily with Medical breakfast. Branch fluconazole 0 Yes [id number] TAKE 1 [facility] 150 mg 3-18 TABLET BY ity of tablet 00:00: MOUTH [place] 00 NEEDED FOR Medical RASH Branch nystatin Yes [id number] Apply to [facility] (NYSTOP) 3-18 area(s) ity of 100,000 00:00: daily. [place] unit/gram 00 Medical powder Branch FLUoxetine Yes [id number] 40mg Take 1 [facility] nivers 40 mg 3-18 capsule by ity of capsule 00:00: mouth [place] 00 daily. Medical Branch amitriptyli Yes [id number] 25mg Take 1 [facility] ne 25 mg 3-18 tablet by ity of tablet 00:00: mouth at [place] 00 bedtime. Medical Branch Melatonin 5 Yes [id number] 5mg Take 1 [facility] mg tablet 3-18 tablet by ity o f 00:00: mouth [place] 00 daily. Medical Branch metformin Yes [id number] 1000mg Take 2 [facility] ER 500 mg 3-18 tablets by ity of 24 hr 00:00: mouth [place] tablet 00 daily with Medical breakfast. Branch nystatin Yes [id number] Apply to [facility] (NYSTOP) 3-18 area(s) ity of 100,000 00:00: daily. [place] unit/gram 00 Medical powder Branch FLUoxetine Yes [id number] 40mg Take 1 [facility] nivers 40 mg 3-18 capsule by ity of capsule 00:00: mouth [place] 00 daily. Medical Branch amitriptyli Yes [id number] 25mg Take 1 [facility] ne 25 mg 3-18 tablet by ity of tablet 00:00: mouth at [place] 00 bedtime. Medical Branch Melatonin 5 Yes [id number] 5mg Take 1 [facility] mg tablet 3-18 tablet by ity o f 00:00: mouth [place] 00 daily. Medical Branch metformin Yes [id number] 1000mg Take 2 [facility] ER 500 mg 3-18 tablets by ity of 24 hr 00:00: mouth [place] tablet 00 daily with Medical breakfast. Branch nystatin Yes [id number] Apply to [facility] (NYSTOP) 3-18 area(s) ity of 100,000 00:00: daily. [place] unit/gram 00 Medical powder Branch FLUoxetine Yes [id number] 40mg Take 1 [facility] nivers 40 mg 3-18 capsule by ity of capsule 00:00: mouth [place] 00 daily. Medical Branch amitriptyli Yes [id number] 25mg Take 1 [facility] ne 25 mg 3-18 tablet by ity of tablet 00:00: mouth at [place] 00 bedtime. Medical Branch Melatonin 5 0 Yes [id number] 5mg Take 1 [facility] mg tablet 3-18 tablet by ity o f 00:00: mouth [place] 00 daily. Medical Branch metformin Yes [id number] 1000mg Take 2 [facility] ER 500 mg 3-18 tablets by ity of 24 hr 00:00: mouth [place] tablet 00 daily with Medical breakfast. Branch nystatin Yes [id number] Apply to [facility] (NYSTOP) 3-18 area(s) ity of 100,000 00:00: daily. [place] unit/gram 00 Medical powder Branch FLUoxetine Yes [id number] 40mg Take 1 [facility] nivers 40 mg 3-18 capsule by ity of capsule 00:00: mouth [place] 00 daily. Medical Branch amitriptyli Yes [id number] 25mg Take 1 [facility] ne 25 mg 3-18 tablet by ity of tablet 00:00: mouth at [place] 00 bedtime. Medical Branch Melatonin 5 2020-0 Yes [id number] 5mg Take 1 [facility] mg tablet 3-18 tablet by ity o f 00:00: mouth [place] 00 daily. Medical Branch metformin Yes [id number] 1000mg Take 2 [facility] ER 500 mg 3-18 tablets by ity of 24 hr 00:00: mouth [place] tablet 00 daily with Medical breakfast. Branch nystatin Yes [id number] Apply to [facility] (NYSTOP) 3-18 area(s) ity of 100,000 00:00: daily. [place] unit/gram 00 Medical powder Branch FLUoxetine Yes [id number] 40mg Take 1 [facility] nivers 40 mg 3-18 capsule by ity of capsule 00:00: mouth [place] 00 daily. Medical Branch amitriptyli Yes [id number] 25mg Take 1 [facility] ne 25 mg 3-18 tablet by ity of tablet 00:00: mouth at [place] 00 bedtime. Medical Branch Melatonin 5 Yes [id number] 5mg Take 1 [facility] mg tablet 3-18 tablet by ity o f 00:00: mouth [place] 00 daily. Medical Branch metformin Yes [id number] 1000mg Take 2 [facility] ER 500 mg 3-18 tablets by ity of 24 hr 00:00: mouth [place] tablet 00 daily with Medical breakfast. Branch nystatin Yes [id number] Apply to [facility] (NYSTOP) 3-18 area(s) ity of 100,000 00:00: daily. [place] unit/gram 00 Medical powder Branch FLUoxetine Yes [id number] 40mg Take 1 [facility] nivers 40 mg 3-18 capsule by ity of capsule 00:00: mouth [place] 00 daily. Medical Branch amitriptyli Yes [id number] 25mg Take 1 [facility] ne 25 mg 3-18 tablet by ity of tablet 00:00: mouth at [place] 00 bedtime. Medical Branch Melatonin 5 Yes [id number] 5mg Take 1 [facility] mg tablet 3-18 tablet by ity o f 00:00: mouth [place] 00 daily. Medical Branch metformin 2020-0 Yes [id number] 1000mg Take 2 [facility] ER 500 mg 3-18 tablets by ity of 24 hr 00:00: mouth [place] tablet 00 daily with Medical breakfast. Branch nystatin Yes [id number] Apply to [facility] (NYSTOP) 3-18 area(s) ity of 100,000 00:00: daily. [place] unit/gram 00 Medical powder Branch FLUoxetine Yes [id number] 40mg Take 1 [facility] nivers 40 mg 3-18 capsule by ity of capsule 00:00: mouth [place] 00 daily. Medical Branch amitriptyli Yes [id number] 25mg Take 1 [facility] ne 25 mg 3-18 tablet by ity of tablet 00:00: mouth at [place] 00 bedtime. Medical Branch Melatonin 5 0 Yes [id number] 5mg Take 1 [facility] mg tablet 3-18 tablet by ity o f 00:00: mouth [place] 00 daily. Medical Branch metformin 0 Yes [id number] 1000mg Take 2 [facility] ER 500 mg 3-18 tablets by ity of 24 hr 00:00: mouth [place] tablet 00 daily with Medical breakfast. Branch nystatin Yes [id number] Apply to [facility] (NYSTOP) 3-18 area(s) ity of 100,000 00:00: daily. [place] unit/gram 00 Medical powder Branch FLUoxetine Yes [id number] 40mg Take 1 [facility] nivers 40 mg 3-18 capsule by ity of capsule 00:00: mouth [place] 00 daily. Medical Branch amitriptyli Yes [id number] 25mg Take 1 [facility] ne 25 mg 3-18 tablet by ity of tablet 00:00: mouth at [place] 00 bedtime. Medical Branch Melatonin 5 Yes [id number] 5mg Take 1 [facility] mg tablet 3-18 tablet by ity o f 00:00: mouth [place] 00 daily. Medical Branch nystatin Yes [id number] Apply to [facility] (NYSTOP) 3-18 area(s) ity of 100,000 00:00: daily. [place] unit/gram 00 Medical powder Branch FLUoxetine Yes [id number] 40mg Take 1 [facility] nivers 40 mg 3-18 capsule by ity of capsule 00:00: mouth [place] 00 daily. Medical Branch amitriptyli Yes [id number] 25mg Take 1 [facility] ne 25 mg 3-18 tablet by ity of tablet 00:00: mouth at [place] 00 bedtime. Medical Branch Melatonin 5 Yes [id number] 5mg Take 1 [facility] mg tablet 3-18 tablet by ity o f 00:00: mouth [place] 00 daily. Medical Branch nystatin Yes [id number] Apply to [facility] (NYSTOP) 3-18 area(s) ity of 100,000 00:00: daily. [place] unit/gram 00 Medical powder Branch FLUoxetine Yes [id number] 40mg Take 1 [facility] nivers 40 mg 3-18 capsule by ity of capsule 00:00: mouth [place] 00 daily. Medical Branch amitriptyli Yes [id number] 25mg Take 1 [facility] ne 25 mg 3-18 tablet by ity of tablet 00:00: mouth at [place] 00 bedtime. Medical Branch Melatonin 5 Yes [id number] 5mg Take 1 [facility] mg tablet 3-18 tablet by ity o f 00:00: mouth [place] 00 daily. Medical Branch nystatin Yes [id number] Apply to [facility] (NYSTOP) 3-18 area(s) ity of 100,000 00:00: daily. [place] unit/gram 00 Medical powder Branch FLUoxetine Yes [id number] 40mg Take 1 [facility] nivers 40 mg 3-18 capsule by ity of capsule 00:00: mouth [place] 00 daily. Medical Branch amitriptyli Yes [id number] 25mg Take 1 [facility] ne 25 mg 3-18 tablet by ity of tablet 00:00: mouth at [place] 00 bedtime. Medical Branch Melatonin 5 Yes [id number] 5mg Take 1 [facility] mg tablet 3-18 tablet by ity o f 00:00: mouth [place] 00 daily. Medical Branch FLUoxetine Yes [id number] 40mg Take 1 [facility] nivers 40 mg 3-18 capsule by ity of capsule 00:00: mouth [place] 00 daily. Medical Branch amitriptyli Yes [id number] 25mg Take 1 [facility] ne 25 mg 3-18 tablet by ity of tablet 00:00: mouth at [place] 00 bedtime. Medical Branch Melatonin 5 Yes [id number] 5mg Take 1 [facility] mg tablet 3-18 tablet by ity o f 00:00: mouth [place] 00 daily. Medical Branch FLUoxetine Yes [id number] 40mg Take 1 [facility] nivers 40 mg 3-18 capsule by ity of capsule 00:00: mouth [place] 00 daily. Medical Branch amitriptyli Yes [id number] 25mg Take 1 [facility] ne 25 mg 3-18 tablet by ity of tablet 00:00: mouth at [place] 00 bedtime. Medical Branch Melatonin 5 Yes [id number] 5mg Take 1 [facility] mg tablet 3-18 tablet by ity o f 00:00: mouth [place] 00 daily. Medical Branch amitriptyli Yes [id number] 25mg Take 1 [facility] ne 25 mg 3-18 tablet by ity of tablet 00:00: mouth at [place] 00 bedtime. Medical Branch FLUoxetine 2020- No [id number] 40mg Take 1 [facility] 40 mg 12-14 capsule by ity of capsule 00:00: 00:00 mouth [place] 00 :00 daily. Medical Branch amitriptyli 2020- No [id number] 25mg Take 1 [facility] ne 25 mg 12-14 tablet by ity o f tablet 00:00: 00:00 mouth at [place] 00 :00 bedtime. Medical Branch Melatonin 5 2020- No [id number] 5mg Take 1 [facility] mg tablet 12-14 tablet by ity of 00:00: 00:00 mouth [place] 00 :00 daily. Medical Branch nystatin 2020- No [id number] Apply to [facility] (NYSTOP) 12-14 area(s) ity of 100,000 00:00: 00:00 daily. [place] unit/gram 00 :00 Medical powder Branch metformin 2020- No [id number] 1000mg Take 2 [facility] ER 500 mg 12-14- tablets by ity of 24 hr 00:00: 00:00 mouth [place] tablet 00 :00 daily with Medical breakfast. Branch metformin 2020- No [id number] 1000mg Take 2 [facility] ER 500 mg 12-14- tablets by ity of 24 hr 00:00: 00:00 mouth [place] tablet 00 :00 daily with Medical breakfast. Branch fluconazole 2020- No [id number] TAKE 1 [facility] 150 mg -14 12- TABLET BY ity of tablet 00:00: 00:00 MOUTH [place] 00 :00 NEEDED FOR Medical RASH Branch fluconazole 2020- No [id number] TAKE 1 [facility] 150 mg -18 - TABLET BY ity of tablet 00:00: 00:00 MOUTH [place] 00 :00 NEEDED FOR Medical RASH Branch ALPRAZolam Yes 1mg Take 1 mg [facility] 1 mg tablet 02-01 by mouth 2 it y of 00:00: (two) [place] 00 times Medical daily. Branch ALPRAZolam 2020- No [id number] 1mg Take 1 mg [facility] 1 mg tablet 02-01 by mouth 2 i ty of 00:00: 00:00 (two) [place] 00 :00 times Medical daily. Branch ALPRAZolam 2020-0 2020- No [id number] 1mg Take 1 mg [facility] 1 mg tablet 02-01 by mouth 2 i ty of 00:00: 00:00 (two) [place] 00 :00 times Medical daily. Branch gabapentin 2020-0 Yes 800mg Take 800 [facility] 800 mg 3-11 mg by ity of tablet 00:00: mouth 3 (three) Medical times Branch daily. gabapentin 2020-0 Yes [id number] 800mg Take 800 [facility] 800 mg 3-11 mg by ity of tablet 00:00: mouth 3 (three) Medical times Branch daily. gabapentin 2020-0 Yes [id number] 800mg Take 800 [facility] 800 mg 3-11 mg by ity of tablet 00:00: mouth (three) Medical times Branch daily. gabapentin 2020-0 Yes [id number] 800mg Take 800 [facility] 800 mg 3-11 mg by ity of tablet 00:00: mouth (three) Medical times Branch daily. gabapentin 2020-0 Yes [id number] 800mg Take 800 [facility] 800 mg 3-11 mg by ity of tablet 00:00: mouth (three) Medical times Branch daily. gabapentin 2020-0 Yes [id number] 800mg Take 800 [facility] 800 mg 3-11 mg by ity of tablet 00:00: mouth 3 (three) Medical times Branch daily. gabapentin 2020-0 Yes [id number] 800mg Take 800 [facility] 800 mg 3-11 mg by ity of tablet 00:00: mouth (three) Medical times Branch daily. gabapentin 2020-0 Yes [id number] 800mg Take 800 [facility] 800 mg 3-11 mg by ity of tablet 00:00: mouth 3 (three) Medical times Branch daily. gabapentin 2020-0 2020- No [id number] 800mg Take 800 [facility] 800 mg 3-11 03-31 mg by ity of tablet 00:00: 00:00 mouth 3 00 : (three) Medical times Branch daily. gabapentin 2020-0 2020- No [id number] 800mg Take 800 [facility] 800 mg 3-11 03-31 mg by ity of tablet 00:00: 00:00 mouth 3 [place] 00 : (three) Medical times Branch daily. losartan-hy 2019-0 Yes Take by [facility] drochloroth 4-18 mouth ity of iazide 00:00: daily. [place] 100-12.5 mg 00 Medical per tablet Branch losartan-hy 2019-0 Yes [id number] Take by [facility] drochloroth 4-18 mouth ity of iazide 00:00: daily. [place] 100-12.5 mg 00 Medical per tablet Branch losartan-hy 2019-0 Yes [id number] Take by [facility] drochloroth 4-18 mouth ity of iazide 00:00: daily. [place] 100-12.5 mg 00 Medical per tablet Branch losartan-hy 2019-0 Yes [id number] Take by [facility] drochloroth 4-18 mouth ity of iazide 00:00: daily. [place] 100-12.5 mg 00 Medical per tablet Branch losartan-hy 2019-0 Yes [id number] Take by [facility] drochloroth 4-18 mouth ity of iazide 00:00: daily. [place] 100-12.5 mg 00 Medical per tablet Branch losartan-hy 2019-0 Yes [id number] Take by [facility] drochloroth 4-18 mouth ity of iazide 00:00: daily. [place] 100-12.5 mg 00 Medical per tablet Branch losartan-hy 2019-0 Yes [id number] Take by [facility] drochloroth 4-18 mouth ity of iazide 00:00: daily. [place] 100-12.5 mg 00 Medical per tablet Branch losartan-hy 2019-0 Yes [id number] Take by [facility] drochloroth 4-18 mouth ity of iazide 00:00: daily. [place] 100-12.5 mg 00 Medical per tablet Branch losartan-hy 2019-0 Yes [id number] Take by [facility] drochloroth 4-18 mouth ity of iazide 00:00: daily. [place] 100-12.5 mg 00 Medical per tablet Branch losartan-hy 2019-0 Yes [id number] Take by [facility] drochloroth 4-18 mouth ity of iazide 00:00: daily. [place] 100-12.5 mg 00 Medical per tablet Branch losartan-hy 2019-0 Yes [id number] Take by [facility] drochloroth 4-18 mouth ity of iazide 00:00: daily. [place] 100-12.5 mg 00 Medical per tablet Branch losartan-hy 2019-0 Yes [id number] Take by [facility] drochloroth 4-18 mouth ity of iazide 00:00: daily. [place] 100-12.5 mg 00 Medical per tablet Branch losartan-hy 2018-0 2020- No [id number] Take by [facility] drochloroth 4-18 06-18 mouth ity of iazide 00:00: 00:00 daily. [place] 100-12.5 mg 00 :00 Medical per tablet Branch losartan-hy 2018-2020- No [id number] Take by [facility] drochloroth 4-18 06-18 mouth ity of iazide 00:00: 00:00 daily. [place] 100-12.5 mg 00 :00 Medical per tablet Branch albuterol Yes [id number] 2{puff} Inhale 2 [facility] 90 5-14 Puffs ity of mcg/actuati 00:00: every 6 [place] as on inhaler 00 (six) Medical hours as Branch needed for Wheezing or Shortness of Breath. albuterol Yes [id number] 2{puff} Inhale 2 [facility] 90 5-14 Puffs ity of mcg/actuati 00:00: every 6 [place] as on inhaler 00 (six) Medical hours as Branch needed for Wheezing or Shortness of Breath. albuterol Yes [id number] 2{puff} Inhale 2 [facility] 90 5-14 Puffs ity of mcg/actuati 00:00: every 6 [place] as on inhaler 00 (six) Medical hours as Branch needed for Wheezing or Shortness of Breath. albuterol Yes [id number] 2{puff} Inhale 2 [facility] 90 5-14 Puffs ity of mcg/actuati 00:00: every 6 [place] as on inhaler 00 (six) Medical hours as Branch needed for Wheezing or Shortness of Breath. albuterol Yes [id number] 2{puff} Inhale 2 [facility] 90 5-14 Puffs ity of mcg/actuati 00:00: every 6 [place] as on inhaler 00 (six) Medical hours as Branch needed for Wheezing or Shortness of Breath. albuterol Yes [id number] 2{puff} Inhale 2 [facility] 90 5-14 Puffs ity of mcg/actuati 00:00: every 6 [place] as on inhaler 00 (six) Medical hours as Branch needed for Wheezing or Shortness of Breath. albuterol Yes [id number] 2{puff} Inhale 2 [facility] 90 5-14 Puffs ity of mcg/actuati 00:00: every 6 [place] on inhaler 00 (six) Medical hours as Branch needed for Wheezing or Shortness of Breath. albuterol Yes [id number] 2{puff} Inhale 2 [facility] 90 5-14 Puffs ity of mcg/actuati 00:00: every 6 [place] on inhaler 00 (six) Medical hours as Branch needed for Wheezing or Shortness of Breath. albuterol Yes [id number] 2{puff} Inhale 2 [facility] 90 5-14 Puffs ity of mcg/actuati 00:00: every 6 [place] as on inhaler 00 (six) Medical hours as Branch needed for Wheezing or Shortness of Breath. albuterol Yes [id number] 2{puff} Inhale 2 [facility] 90 5-14 Puffs ity of mcg/actuati 00:00: every 6 [place] as on inhaler 00 (six) Medical hours as Branch needed for Wheezing or Shortness of Breath. albuterol Yes [id number] 2{puff} Inhale 2 [facility] 90 5-14 Puffs ity of mcg/actuati 00:00: every 6 [place] as on inhaler 00 (six) Medical hours as Branch needed for Wheezing or Shortness of Breath. albuterol Yes [id number] 2{puff} Inhale 2 Univers 90 5-14 Puffs ity of mcg/actuati 00:00: every 6 [place] on inhaler 00 (six) Medical hours as Branch needed for Wheezing or Shortness of Breath. albuterol Yes [id number] 2{puff} Inhale 2 Univers 90 5-14 Puffs ity of mcg/actuati 00:00: every 6 [place] on inhaler 00 (six) Medical hours as Branch needed for Wheezing or Shortness of Breath. albuterol Yes [id number] 2{puff} Inhale 2 Univers 90 5-14 Puffs ity of mcg/actuati 00:00: every 6 [place] on inhaler 00 (six) Medical hours as Branch needed for Wheezing or Shortness of Breath. albuterol Yes [id number] 2{puff} Inhale 2 Univers 90 5-14 Puffs ity of mcg/actuati 00:00: every 6 [place] on inhaler 00 (six) Medical hours as Branch needed for Wheezing or Shortness of Breath. albuterol Yes [id number] 2{puff} Inhale 2 Univers 90 5-14 Puffs ity of mcg/actuati 00:00: every 6 [place] on inhaler 00 (six) Medical hours as Branch needed for Wheezing or Shortness of Breath. albuterol 2020- No [id number] 2{puff} Inhale 2 Univers 90 5-14 09-17 Puffs ity of mcg/actuati 00:00: 00:00 [place] 6 [place] inhaler 00 :00 (six) Medical hours as Branch needed for Wheezing or Shortness of Breath. LORATADINE 0 Yes TAKE 1 Unive rs 10 mg 3-19 TABLET BY ity of tablet 00:00: MOUTH [place] 00 EVERY DAY Medical Branch LORATADINE 0 Yes TAKE 1 Unive rs 10 mg 3-19 TABLET BY ity of tablet 00:00: MOUTH [place] 00 EVERY DAY Medical Branch LORATADINE 0 Yes TAKE 1 Unive rs 10 mg 3-19 TABLET BY ity of tablet 00:00: MOUTH [place] 00 EVERY DAY Medical Branch LORATADINE 0 Yes TAKE 1 Unive rs 10 mg 3-19 TABLET BY ity of tablet 00:00: MOUTH [place] 00 EVERY DAY Medical Branch LORATADINE 0 Yes TAKE 1 Unive rs 10 mg 3-19 TABLET BY ity of tablet 00:00: MOUTH [place] 00 EVERY DAY Medical Branch LORATADINE 0 Yes TAKE 1 Unive rs 10 mg 3-19 TABLET BY ity of tablet 00:00: MOUTH [place] 00 EVERY DAY Medical Branch LORATADINE 0 Yes TAKE 1 Unive rs 10 mg 3-19 TABLET BY ity of tablet 00:00: MOUTH [place] 00 EVERY DAY Medical Branch LORATADINE 0 Yes TAKE 1 Unive rs 10 mg 3-19 TABLET BY ity of tablet 00:00: MOUTH [place] 00 EVERY DAY Medical Branch LORATADINE 0 Yes TAKE 1 Unive rs 10 mg 3-19 TABLET BY ity of tablet 00:00: MOUTH [place] 00 EVERY DAY Medical Branch LORATADINE 0 Yes TAKE 1 Unive rs 10 mg 3-19 TABLET BY ity of tablet 00:00: MOUTH [place] 00 EVERY DAY Medical Branch LORATADINE 0 Yes TAKE 1 Unive rs 10 mg 3-19 TABLET BY ity of tablet 00:00: MOUTH [place] 00 EVERY DAY Medical Branch LORATADINE 0 Yes TAKE 1 Unive rs 10 mg 3-19 TABLET BY ity of tablet 00:00: MOUTH [place] 00 EVERY DAY Medical Branch LORATADINE 0 Yes TAKE 1 Unive rs 10 mg 3-19 TABLET BY ity of tablet 00:00: MOUTH [place] 00 EVERY DAY Medical Branch LORATADINE 0 Yes TAKE 1 Unive rs 10 mg 3-19 TABLET BY ity of tablet 00:00: MOUTH [place] 00 EVERY DAY Medical Branch LORATADINE 0 Yes TAKE 1 Unive rs 10 mg 3-19 TABLET BY ity of tablet 00:00: MOUTH [place] 00 EVERY DAY Medical Branch LORATADINE 0 Yes TAKE 1 Unive rs 10 mg 3-19 TABLET BY ity of tablet 00:00: MOUTH [place] 00 EVERY DAY Medical Branch LORATADINE 0 2021- No TAKE 1 Univ ers 10 mg 3-19 09-17 TABLET BY ity of tablet 00:00: 00:00 MOUTH [place] 00 :00 EVERY DAY Medical Branch MELOXICAM 0 Yes TAKE 1 Univer s 15 mg 3-12 TABLET BY ity of tablet 00:00: MOUTH [place] 00 DAILY Medical Branch MELOXICAM 0 Yes TAKE 1 Univer s 15 mg 3-12 TABLET BY ity of tablet 00:00: MOUTH 00 DAILY Medical Branch MELOXICAM 2017-0 2021- No TAKE 1 Unive rs 15 mg 3-12 03-18 TABLET BY ity of tablet 00:00: 00:00 MOUTH [place] 00 :00 DAILY Medical Branch MELOXICAM 2018-0 1- No TAKE 1 Unive rs 15 mg 3-12 03-18 TABLET BY ity of tablet 00:00: 00:00 MOUTH [place] 00 :00 DAILY Medical Branch FLUOXETINE 2018-0 Yes [id number] TAKE 1 U nivers 40 mg 2-25 CAPSULE BY ity of capsule 00:00: MOUTH [place] 00 DAILY Medical Branch FLUOXETINE 2018-0 Yes [id number] TAKE 1 U nivers 40 mg 2-25 CAPSULE BY ity of capsule 00:00: MOUTH [place] 00 DAILY Medical Branch FLUOXETINE 2018-0 2021- No [id number] TAKE 1 Univers 40 mg 2-25 -18 CAPSULE BY ity of capsule 00:00: 00:00 MOUTH [place] 00 :00 DAILY Medical Branch FLUOXETINE 2017-2020- No [id number] TAKE 1 [facility] 40 mg 2-25 -18 CAPSULE BY ity of capsule 00:00: 00:00 MOUTH [place] 00 :00 DAILY Medical Branch nystatin Yes [id number] Apply to Univers (NYSTOP) 1-24 area(s) ity of 100,000 00:00: daily. [place] unit/gram 00 Medical powder Branch liraglutide Yes [id number] 0.3 ml Univers 0.6 mg/0.1 -24 under skin ity of mL (18 mg/3 00:00: daily [place] mL) 00 Medical injection Branch nystatin Yes [id number] Apply to Univers (NYSTOP) 1-24 area(s) ity of 100,000 00:00: daily. [place] unit/gram 00 Medical powder Branch liraglutide Yes [id number] 0.3 ml Univers 0.6 mg/0.1 -24 under skin ity of mL (18 mg/3 00:00: daily [place] mL) 00 Medical injection Branch nystatin 2020- No [id number] Apply to Univers (NYSTOP) 1-24 03-18 area(s) ity of 100,000 00:00: 00:00 daily. [place] unit/gram 00 :00 Medical powder Branch liraglutide 2020- No [id number] 0.3 ml Univers 0.6 mg/0.1 -24 -18 under skin it y of mL (18 mg/3 00:00: 00:00 [place] mL) 00 :00 Medical injection Branch nystatin 2020- No [id number] Apply to Univers (NYSTOP) 1-24 03-18 area(s) ity of 100,000 00:00: 00:00 daily. [place] unit/gram 00 :00 Medical powder Branch liraglutide 2020- No [id number] 0.3 ml Univers 0.6 mg/0.1 -24 03-18 under skin it y of mL (18 mg/3 00:00: 00:00 [place] mL) 00 :00 Medical injection Branch GABAPENTIN Yes [id number] TAKE 1 [facility] 300 mg 1-16 CAPSULE BY ity of capsule 00:00: MOUTH [place] 00 THREE Medical TIMES Branch DAILY AMITRIPTYLI 2018-0 Yes [id number] TAKE 1 Univers [place] 25 mg 1-16 TABLET BY ity of tablet 00:00: MOUTH AT [place] 00 BEDTIME Medical Branch GABAPENTIN 2018-0 Yes [id number] TAKE 1 [facility] 300 mg 1-16 CAPSULE BY ity of capsule 00:00: MOUTH [place] 00 THREE Medical TIMES Branch DAILY AMITRIPTYLI 2018-0 Yes [id number] TAKE 1 Univers [place] 25 mg 1-16 TABLET BY ity of tablet 00:00: MOUTH AT [place] 00 BEDTIME Medical Branch GABAPENTIN 2017-0 2021- No [id number] TAKE 1 [facility] 300 mg 1-16 03-18 CAPSULE BY ity of capsule 00:00: 00:00 MOUTH [place] 00 :00 THREE Medical TIMES Branch DAILY AMITRIPTYLI 2018-0 2021- No [id number] TAKE 1 Univers [place] 25 mg 1-16 03-18 TABLET BY ity o f tablet 00:00: 00:00 MOUTH AT [place] 00 :00 BEDTIME Medical Branch GABAPENTIN 2018-0 2021- No [id number] TAKE 1 [facility] 300 mg 1-16 03-18 CAPSULE BY ity of capsule 00:00: 00:00 MOUTH [place] 00 :00 THREE Medical TIMES Branch DAILY AMITRIPTYLI 2018-0 2021- No [id number] TAKE 1 [facility] [place] 25 mg 1-16 03-18 TABLET BY ity o f tablet 00:00: 00:00 MOUTH AT [place] 00 :00 BEDTIME Medical Branch FLUCONAZOLE 2017-0 Yes [id number] TAKE 1 Univers 150 mg 7-05 TABLET BY ity of tablet 00:00: MOUTH [place] 00 NEEDED FOR Medical RASH Branch FLUCONAZOLE 2017-0 Yes [id number] TAKE 1 [facility] 150 mg 7-05 TABLET BY ity of tablet 00:00: MOUTH [place] 00 NEEDED FOR Medical RASH Branch FLUCONAZOLE 2017-0 2021- No [id number] TAKE 1 [facility] 150 mg 7-05 03-18 TABLET BY ity of tablet 00:00: 00:00 MOUTH [place] 00 :00 NEEDED FOR Medical RASH Branch FLUCONAZOLE 2017-0 2021- No [id number] TAKE 1 [facility] 150 mg 7-05 03-18 TABLET BY ity of tablet 00:00: 00:00 MOUTH [place] 00 :00 NEEDED FOR Medical RASH Branch Melatonin 5 2017-0 Yes Take by Un mary mg Tab 4-12 mouth ity of 16:29: daily. [place] [address] Medical Branch Melatonin 5 2017-0 Yes Take by Un mary mg Tab 4-12 mouth ity of 16:29: daily. [place] [address] Medical Branch Immunizations Ordered Filled Immunization Date Status Comments [facility] e Immunization Name Name SARS-COV-2 COVID-19 2020-11-29 Completed Unive rsity of PFIZER VACCINE 00:00:00 [facility] Branch SARS-COV-2 COVID-19 2020-11-29 Completed Unive rsity of PFIZER VACCINE 00:00:00 [facility] Branch SARS-COV-2 COVID-19 2020-11-29 Completed Unive rsity of PFIZER VACCINE 00:00:00 [facility] [place] [facility] SARS-COV-2 COVID-19 2020-11-29 Completed Unive rsity of PFIZER VACCINE 00:00:00 [facility] [place] [facility] SARS-COV-2 COVID-19 2020-11-29 Completed Unive rsity of PFIZER VACCINE 00:00:00 [facility] [place] [facility] SARS-COV-2 COVID-19 2020-11-29 Completed Unive rsity of PFIZER VACCINE 00:00:00 [facility] [place] [facility] SARS-COV-2 COVID-19 2020-11-29 Completed Unive rsity of PFIZER VACCINE 00:00:00 [facility] [place] [facility] SARS-COV-2 COVID-19 2020-11-29 Completed Unive rsity of PFIZER VACCINE 00:00:00 [facility] [place] [facility] SARS-COV-2 COVID-19 2020-11-29 Completed Unive rsity of PFIZER VACCINE 00:00:00 [facility] [place] [facility] SARS-COV-2 COVID-19 2020-11-29 Completed Unive rsity of PFIZER VACCINE 00:00:00 [facility] [place] [facility] SARS-COV-2 COVID-19 2020-11-29 Completed Unive rsity of PFIZER VACCINE 00:00:00 [facility] [place] [facility] SARS-COV-2 COVID-19 2020-11-29 Completed Unive rsity of PFIZER VACCINE 00:00:00 [facility] [place] [facility] SARS-COV-2 COVID-19 2020-11-29 Completed Unive rsity of PFIZER VACCINE 00:00:00 [place] [facility] SARS-COV-2 COVID-19 2020-11-29 Completed Unive rsity of PFIZER VACCINE 00:00:00 [facility] Branch SARS-COV-2 COVID-19 2020-11-29 Completed Unive rsity of PFIZER VACCINE 00:00:00 [facility] Branch SARS-COV-2 COVID-19 2020-11-29 Completed Unive rsity of PFIZER VACCINE 00:00:00 [facility] Branch SARS-COV-2 COVID-19 2020-11-29 Completed Unive rsity of PFIZER VACCINE 00:00:00 [facility] Branch SARS-COV-2 COVID-19 2020-11-29 Completed Unive rsity of PFIZER VACCINE 00:00:00 [facility] Branch SARS-COV-2 COVID-19 2020-11-29 Completed Unive rsity of PFIZER VACCINE 00:00:00 [facility] SARS-COV-2 COVID-19 2020-11-29 Completed Unive rsity of PFIZER VACCINE 00:00:00 [facility] SARS-COV-2 COVID-19 2020-11-29 Completed Unive rsity of PFIZER VACCINE 00:00:00 [facility] SARS-COV-2 COVID-19 2020-11-29 Completed Unive rsity of PFIZER VACCINE 00:00:00 [facility] Branch SARS-COV-2 COVID-19 2020-11-29 Completed Unive rsity of PFIZER VACCINE 00:00:00 [facility] [place] [facility] SARS-COV-2 COVID-19 2020-11-29 Completed Unive rsity of PFIZER VACCINE 00:00:00 [facility] Branch SARS-COV-2 COVID-19 2020-11-08 Completed Unive rsity of PFIZER VACCINE 00:00:00 [facility] SARS-COV-2 COVID-19 2020-11-08 Completed Unive rsity of PFIZER VACCINE 00:00:00 [facility] Branch SARS-COV-2 COVID-19 2020-11-08 Completed Unive rsity of PFIZER VACCINE 00:00:00 [facility] [place] [facility] SARS-COV-2 COVID-19 2020-11-08 Completed Unive rsity of PFIZER VACCINE 00:00:00 [facility] [place] [facility] SARS-COV-2 COVID-19 2020-11-08 Completed Unive rsity of PFIZER VACCINE 00:00:00 [facility] Branch SARS-COV-2 COVID-19 2020-11-08 Completed Unive rsity of PFIZER VACCINE 00:00:[address] [place] [facility] Branch SARS-COV-2 COVID-19 2020-11-08 Completed Unive rsity of PFIZER VACCINE 00:00:00 [facility] SARS-COV-2 COVID-19 2020-11-08 Completed Unive rsity of PFIZER VACCINE 00:00:00 [facility] SARS-COV-2 COVID-19 2020-11-08 Completed Unive rsity of PFIZER VACCINE 00:00:00 [facility] SARS-COV-2 COVID-19 2020-11-08 Completed Unive rsity of PFIZER VACCINE 00:00:00 [facility] SARS-COV-2 COVID-19 2020-11-08 Completed Unive rsity of PFIZER VACCINE 00:00:00 [facility] SARS-COV-2 COVID-19 2020-11-08 Completed Unive rsity of PFIZER VACCINE 00:00:00 [facility] SARS-COV-2 COVID-19 2020-11-08 Completed Unive rsity of PFIZER VACCINE 00:00:00 [facility] Branch SARS-COV-2 COVID-19 2020-11-08 Completed Unive rsity of PFIZER VACCINE 00:00:00 [facility] Branch SARS-COV-2 COVID-19 2020-11-08 Completed Unive rsity of PFIZER VACCINE 00:00:00 [facility] Branch SARS-COV-2 COVID-19 2020-11-08 Completed Unive rsity of PFIZER VACCINE 00:00:00 [facility] SARS-COV-2 COVID-19 2020-11-08 Completed Unive rsity of PFIZER VACCINE 00:00:00 [facility] Branch SARS-COV-2 COVID-19 2020-11-08 Completed Unive rsity of PFIZER VACCINE 00:00:00 [facility] Branch SARS-COV-2 COVID-19 2020-11-08 Completed Unive rsity of PFIZER VACCINE 00:00:00 [facility] SARS-COV-2 COVID-19 2020-11-08 Completed Unive rsity of PFIZER VACCINE 00:00:00 [facility] SARS-COV-2 COVID-19 2020-11-08 Completed Unive rsity of PFIZER VACCINE 00:00:00 [facility] [place] [facility] SARS-COV-2 COVID-19 2020-11-08 Completed Unive rsity of PFIZER VACCINE 00:00:00 [facility] [place] [facility] SARS-COV-2 COVID-19 2020-11-08 Completed Unive rsity of PFIZER VACCINE 00:00:00 [facility] [place] [facility] SARS-COV-2 COVID-19 2020-11-08 Completed Unive rsity of PFIZER VACCINE 00:00:00 [facility] [place] [facility] Vital Signs Vital Name Observation Time Observation Value Comments Source Systolic blood 2020-12-14 19:47:00 140 mm[Hg] Univer sity of pressure [facility] Diastolic blood 2020-12-14 19:47:00 98 mm[Hg] Unive rsity of pressure [facility] Heart rate 2020-12-14 19:47:00 80 /min [facility] Body temperature 2020-12-14 19:47:00 36.22 [facility] Res[facility] rate 2020-12-14 19:47:00 20 /min [facility] Body weight 2020-12-14 19:47:00 158.759 kg [facility] BMI 2020-12-14 19:47:00 53.22 kg/m2 [facility] Oxygen saturation in 2020-12-14 19:47:00 97 /min [facility] blood by [facility] Pulse oximetry [place] Procedures Procedure Date / Time Performed Performing Clinician [facility] e PAIN MANAGEMENT 2021-06-15 05:01:00 [facility] Unassigned, [facility]FORMED Name Medical [facility] CONSENT Encounters Start End Encounter Admission Attending Care Care Encounter Source Date/Time Date/Time Type Type Clinicians Facility Department ID 2021-08-10 2021-08-10 STEPHY Cardoso [id number] Univers 00:00:00 00:00:00 Jamin HUGHES [id number] i [facility] [id number] Dariusz reese PROFESSIO [phone] De dical NAL [address] [place] [address] 2021-07-13 2021-07-13 Outpatient [facility] [id number] Univers 10:00:00 10:00:00 JAMIN [id number] [place] [facility] 2021-07-13 2021-07-13 [facility] [id number] Univers 10:00:00 10:00:00 JAMIN [facility] 2021-07-12 2021-07-12 [facility] [id number] Univers 14:00:00 14:00:00 DORI [id number] [facility] 2021-07-12 2021-07-12 [facility] [id number] Univers 14:00:00 14:00:00 DORI [facility] 2021-07-01 2021-07-[address] [facility] [id number] Univers 00:00:00 00:00:00 Jamin Hughes [id number] i [id number] Profess[place] [phone] De dical nal 044 [facility] 2021-06-22 2021-06-22 [facility] [id number] Univers 00:00:00 00:00:00 Pacheco Hughes [id number] i ty [place] [id number] [phone] De dical nal 188 [facility] 2021-06-15 2021-06-[address] [facility] 1.2.840.114 [id number] Univers 07:46:12 13:56:22 ne Visit Jamin Hughes [id number] [place] [id number] [phone] De dical nal 044 [facility] 2021-06-15 2021-06-15 Outpatient [facility] [id number] Univers 09:40:00 09:40:00 JAMIN [id number] [facility] 2021-06-15 2021-06-15 [facility] [id number] Univers 09:40:00 09:40:00 JAMIN [facility] 2021-06-15 2021-06-15 Orders Doctor DOWD [id number] Univers 00:00:00 00:00:00 Only Unassigned, NIGEL [id number] ity [facility] [id number] [place] as [phone] [address] 2021-06-14 2021-06-14 [facility] [id number] Univers 11:20:00 11:20:00 JAMIN [id number] [facility] 2021-06-14 2021-06-14 [facility] [id number] Univers 11:20:00 11:20:00 JAMIN [facility] 2021-06-11 2021-06-11 [facility] [id number] Univers 00:00:00 00:00:00 Jamin Hughes [id number] i ty [facility] [id number] Dariusz Hedrick [phone] De dical [address] 2021-05-02 2021-05-02 [facility] [id number] Univers 15:40:00 15:40:00 JAMIN [id number] [facility] 2021-05-02 2021-05-02 [facility] [id number] Univers 00:00:00 00:00:00 JAMIN [facility] 2021-04-13 2021-04-13 [facility] [id number] Univers 11:00:00 11:00:00 JAMIN [id number] [facility] 2021-03-30 2021-03-30 [facility] [id number] Univers 10:00:00 10:00:00 JAMIN [id number] [facility] 2021-03-302021-03-30 Outpatient [facility] [id number] Univers 10:00:00 10:00:00 JAMIN gasper [facility] 2021-03-29 2021-03-29 Outpatient R [facility] [id number] Univers 11:20:00 11:20:00 JAMIN [id number] [facility] 2021-03-29 2021-03-29 Outpatient [facility] [id number] Univers 00:00:00 00:00:00 JAMIN [facility] 2021-03-21 2021-03-21 Outpatient [facility] [id number] Univers 15:00:00 15:00:00 JAMIN [id number] [facility] 2021-03-21 2021-03-21 Outpatient [facility] [id number] Univers 15:00:00 15:00:00 JAMIN [facility] 2021-03-16 2021-03-16 [facility]ici [facility] [id number] Univers 09:10:41 11:21:47 ne Visit Jamin Hughes [id number] [facility] [id number] Dariusz Hedrick [phone] De dical [address] 2021-03-16 2021-03-16 Outpatient R [facility] [id number] Univers 11:00:00 11:00:00 JAMIN [id number] [facility] 2021-03-16 2021-03-16 Outpatient [facility] [id number] Univers 11:00:00 11:00:00 JAMIN [facility] 2021-03-16 2021-03-16 Outpatient [facility] [id number] Univers 09:00:00 09:00:00 JAMIN [facility] 2021-03-10 2021-03-10 [facility] [id number] Univers 00:00:00 00:00:00 Jamin [place] [id number] i [id number] [phone] De dical nal [address] [place] [address] 2021-03-08 2021-03-08 [place] [id number] Univers 14:00:00 14:00:00 JAMIN [id number] [facility] 2021-03-08 2021-03-08 [facility] [id number] Univers 00:00:00 00:00:00 JAMIN [facility] 2021-02-01 2021-02-01 Outpatient [place] [id number] Univers 12:00:00 12:00:00 JAMIN [id number] [facility] 2021-01-29 2021-01-29 [facility] [id number] Univers 00:00:00 00:00:00 Jamin Hughes [id number] [id number] [phone] De dical [place]al [address] [place] [address] 2021-01-27 2021-01-27 [facility] [id number] Univers 00:00:00 00:00:00 Jamin [place] [id number] i [id number] [phone] De dical [place]al [address] [place] [address] 2021-01-05 2021-01-05 [id number] Univers 10:20:00 10:20:00 JAMIN [id number] [facility] 2021-01-05 2021-01-05 [facility] [id number] Univers 00:00:00 00:00:00 JAMIN castrejon [facility] 2021-01-03 2021-01-03 Outpatient [place] [id number] Univers 15:40:00 15:40:00 JAMIN [id number] [facility] 2020-12-27 2020-12-[address] [facility] [id number] Univers 09:07:50 11:51:59 Visit Jamin Hughes [id number] i [id number] [phone] De dical [address] 2020-12-27 2020-12-27 Outpatient R [facility] [id number] Univers 09:40:00 09:40:00 JAMIN [id number] [facility] 2020-12-27 2020-12-27 Outpatient R [facility] [id number] Univers 09:40:00 09:40:00 JAMIN [facility] 2020-12-21 2020-12-21 Outpatient [facility] [id number] Univers 11:00:00 11:00:00 JAMIN [id number] [facility] 2020-12-18 2020-12-[address] [facility] [id number] Univers 00:00:00 00:00:00 Secure Msg Jamin [place] [id number] [id number] [phone] De dical [address] 2020-12-15 2020-12-[address] [facility] [id number] Univers 00:00:00 00:00:00 Jamin Hughes 350.1.13.10 [id number] [phone] De dical [facility] 231 [facility] 2020-12-15 2020-12-[address] [facility] [id number] Univers 00:00:00 00:00:00 Secure Msg Jamin Hughes [id number] [id number] [phone] Me dical nal 044 [facility] 2020-12-15 2020-12-15 [facility] [id number] Univers 00:00:00 00:00:00 Secure Msg Jamin [place]anto [id number] [id number] [phone] De dical nal 044 [facility] 2020-12-14 2020-12-14 [employer] 2, [facility] 1.2.840.114 [id number] Univers 15:53:26 16:08:26 Visit Jamin Yin [place] [id number] [id number] [phone] De dical nal 353 [facility] 2020-12-14 2020-12-[address] [facility] [id number] Univers 14:29:06 15:50:03 Visit Jamin Hughes [id number] i [id number] [phone] De dical nal [address] [place] [address] 2020-12-14 2020-12-14 [facility] [id number] Univers 14:20:00 14:20:00 JAMIN [id number] [facility] 2020-12-14 2020-12-14 [facility] [id number] Univers 14:20:00 14:20:00 JAMIN [facility] 2020-12-14 2020-12-[address] [facility] [id number] Univers 00:00:00 00:00:00 Jamin Hughes [id number] i [id number] [phone] De dical nal [address] [place] [address] 2020-11-29 2020-11-29 Outpatient [facility] [id number] Univers 09:20:00 09:20:00 ARRON [id number] [facility] 2020-11-29 2020-11-29 [facility] [id number] Univers 09:20:00 09:20:00 ARRON [facility] 2020-11-29 2020-11-29 [facility] [id number] Univers 08:00:00 08:40:00 Visit Jamin Santo [id number] i Benedicto [id number] Dariusz reese Professio [id number] De dical nal [address] [place] [address] 2020-11-29 2020-11-29 [facility] [id number] Univers 08:00:00 08:00:00 [place] [facility] 2020-11-08 2020-11-08 Outpatient [facility] [id number] Univers 09:20:00 09:20:00 [facility] [id number] [facility] 2020-11-08 2020-11-08 Outpatient L[facility] [id number] Univers 09:20:00 09:20:00 [facility] Results This patient has no known results.
== END 2021-08-07 03:16 | disposition home or self-care (01) ==
LOC: ER 00:53
DX: E11.65 Type 2 diabetes mellitus with hyperglycemia (principal); E78.5 Hyperlipidemia, unspecified; I10 Essential (primary) hypertension; F41.8 Other specified anxiety disorders
CPT/HCPCS: 85025; 36415; 81025; 82947; 81003; 80053; 82805; 96375; 96374; 99285; J2765

== ENCOUNTER 2022-02-17 05:30 | Emergency (ER) | payer OTHER ==
--- OUTSIDE RECORDS SUMMARY | 2022-02-17 05:37 | XMS REPORT | Continuity of Care Document ---
:1970 Author Organization [facility] t Address [address] [place] [address] Care Team Providers Name Role Phone Humphrey WASHINGTON Primary Care Physician HUMPHREY Attending Clinician Unavailable Humphrey WASHINGTON Attending Clinician LUIS Attending Clinician Unavailable Mal Vila MD Attending Clinician Doctor Unassigned, Name Attending Clinician Unavailable 2, Lab Attending Clinician Unavailable Tonya BARNES Attending Clinician Unavailable Payers Payer Name Policy Type Policy Number Effective Date Expiration Date S porsche [employer] GENERIC [id number] 2020 00:00:00 [employer] CHOICE POS [id number] 2020 00:00:00 II Problems Condition Condition Condition Status Onset Resolution Last Treating Co mments Source Name Details Category Date Date Treatment Clinician Date Vitamin D Vitamin D Disease Active Uni vers deficiency deficiency 9-17 it y of 00:00: [place] 00 Medical Branch Adjustment Adjustment Disease Active U nivers insomnia insomnia 9-17 ity of 00:00: 00 Medical Branch 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 00:00: [place] depression depression 00 Me dical Branch Adjustment Adjustment Disease Active U nivers insomnia insomnia 9-17 ity of 00:00: [place] 00 Medical Branch Current Current Disease Active Univers moderate moderate 6-18 ity of episode [place] 00 Medical depressive depressive Br anch disorder, disorder, unspecifie unspecifie d whether d whether recurrent recurrent Dyslipidem Dyslipidem Disease Active U lambertoers ia ia 6-18 ity of 00:00: Medical Branch Insomnia, Insomnia, Disease Active Uni vers unspecifie unspecifie 3-18 it y of d type d type 00:00: Medical Branch Anxiety, Anxiety, Disease Active Unive rs generalize generalize 3-18 it y of d d 00:00: Medical Branch Erythema Erythema Disease Active Unive rs intertrigo intertrigo 3-18 it y of 00:00: Medical [facility] [place] Disease Active [facility] albicans albicans 3-18 [place] [facility] Need for Need for Disease Active Unive rs immunizati immunizati 3-18 it y of on against on against [place] influenza 00 [facility] Breast Breast Disease Active [facility] [place] [facility] cancer cancer 3-18 it[place] of screening screening [place] 00 [place] mammogram mammogram Bran ch Essential Essential Disease Active Uni vers hypertensi hypertensi 3-27 it y of on on 00:00: Medical Branch Depression Depression Disease Active U gregory , , 3-27 ity of unspecifie unspecifie [place] d 00 Medical depression depression Br anch type type Type 2 Type 2 Disease Active Univers diabetes diabetes 327 ity of mellitus mellitus 00:00: [place] with with 00 Medical diabetic diabetic Branch polyneurop polyneurop athy, athy, without without long-term long-term current current use of use of insulin insulin Mild Mild Disease Active [facility] intermitte intermitte 3-27 it y of nt asthma nt asthma 00:[place] without without 00 Medical complicati complicati Br anch on on Type 2 Type 2 Disease Active [facility] diabetes diabetes 327 ity of mellitus mellitus 00:00: [place] without without 00 Medical complicati complicati Br anch on, on, without without long-term long-term current current use of use of insulin insulin Morbid Morbid Disease Active [facility] [place] [facility] obesity obesity 8-14 ity of with BMI with BMI 00:00: [place] of 00 Medical 60.0-69.9, 60.0-69.9, Br anch adult adult Allergies, Adverse Reactions, Alerts Allergy Allergy Status Severity Reaction(s) Onset Inactive Treating Comm ents Source Name Type Date Date Clinician NO KNOWN Drug Active [facility] [place] [facility] ALLERGIE Class ity of [facility] [place] [facility] Social History Social Habit Start Date Stop Date Quantity Comments Source Exposure to Not sure [facility] SARS-CoV-2 (event) Medica l Branch Alcohol intake 2021-06-21 2021-06-21 0 /d [facility] 00:00:00 00:00:00 Medical Branch Sex [birth year] [facility] 00:00:00 00:00:00 Medical Branch Smoking Status Start Date Stop Date Source Never smoker [facility] Branch Medications Ordered Filled Start Stop Current Ordering Indication Dosage Frequency Signature Comments Components Source Medication Medication Date Date Medication? Clinician (SIG) Name Name nystatin 2020-09 Yes [id number] Apply to Univers (NYSTOP) 1-12 area(s) ity of 100,000 00:00: daily. [place] unit/gram 00 Medical powder Branch nystatin 2020-09 Yes [id number] Apply to Univers (NYSTOP) 1-12 area(s) ity of 100,000 00:00: daily. [place] unit/gram 00 Medical powder Branch nystatin 2020-09 Yes [id number] Apply to Univers (NYSTOP) 1-12 area(s) ity of 100,000 00:00: daily. [place] unit/gram 00 Medical powder Branch nystatin 2020-09 Yes [id number] Apply to Univers (NYSTOP) 1-12 area(s) ity of 100,000 00:00: daily. [place] unit/gram 00 Medical powder Branch GLIPIZIDE 2020-09 Yes TAKE ONE Univ ers XL 10 mg 24 0-04 TABLET BY ity of hr tablet 00:00: MOUTH DAILY WITH Medical BREAKFAST Branch GLIPIZIDE 2020-09 Yes TAKE ONE Univ ers XL 10 mg 24 0-04 TABLET BY ity of hr tablet 00:00: MOUTH DAILY WITH Medical BREAKFAST Branch GLIPIZIDE 2021-1 Yes TAKE ONE Univ ers XL 10 [...] DAILY WITH Medical BREAKFAST Branch hydrOXYzine Yes [id number] 50mg Take 1 [facility] 50 mg 9-17 tablet by ity of tablet 00:00: mouth [place] 00 every 8 Medical (eight) Branch hours as needed for Anxiety. ergocalcife Yes [id number] Take 1 Univers rol, 9-17 capsule by ity of vitamin d2, 00:00: mouth [place] 1,250 mcg 00 weekly. Medical (50,000 Branch unit) capsule atorvastati Yes [id number] 10mg Take 1 Univers n 10 mg 9-17 tablet by ity of tablet 00:00: mouth at [place] 00 bedtime. Medical Branch metformin Yes [id number] 1000mg Take 2 Univers ER 500 mg 9-17 tablets by ity of 24 hr 00:00: mouth 2 [place] tablet 00 (two) Medical times Branch daily. Melatonin 5 Yes [id number] 5mg Take 1 Univers mg tablet 9-17 tablet by ity o f 00:00: mouth [place] 00 daily. Medical Branch gabapentin Yes [id number] 800mg Take 1 [facility] 800 mg 9-17 tablet by ity of tablet 00:00: mouth 3 [place] 00 (three) Medical times Branch daily. FLUoxetine Yes [id number] 40mg Take 1 [facility] 40 mg 9-17 capsule by ity of capsule 00:00: mouth [place] 00 daily. Medical Branch albuterol Yes [id number] 2{puff} Inhale 2 Univers 90 9-17 Puffs ity of mcg/actuati 00:00: every 6 [place] on inhaler 00 (six) Medical hours as Branch needed for Wheezing or Shortness of Breath. traZODone Yes [id number] 50mg Take 1 U nivers 50 mg 9-17 tablet by ity of tablet 00:00: mouth at [place] 00 bedtime. Medical Branch traMADoL 50 Yes [id number] 50mg Take 1 Univ ers mg tablet 9-17 tablet by ity o f 00:00: mouth [place] 00 every 8 Medical (eight) Branch hours as needed for Pain (scale 7-10). Indication s: chronic pain hydrOXYzine Yes [id number] 50mg Take 1 Univers 50 mg 9-17 tablet by ity of tablet 00:00: mouth [place] 00 every 8 Medical (eight) Branch hours as needed for Anxiety. ergocalcife Yes [id number] Take 1 [facility] rol, 9-17 capsule by ity of vitamin d2, 00:00: mouth [place] 1,250 mcg 00 weekly. Medical (50,000 Branch unit) capsule atorvastati Yes [id number] 10mg Take 1 Univers n 10 mg 9-17 tablet by ity of tablet 00:00: mouth at [place] 00 bedtime. Medical Branch metformin Yes [id number] 1000mg Take 2 Univers ER 500 mg 9-17 tablets by ity of 24 hr 00:00: mouth 2 [place] tablet 00 (two) Medical times Branch daily. Melatonin 5 Yes [id number] 5mg Take 1 Univers mg tablet 9-17 tablet by ity o f 00:00: mouth [place] 00 daily. Medical Branch gabapentin Yes [id number] 800mg Take 1 [facility] 800 mg 9-17 tablet by ity of tablet 00:00: mouth 3 [place] 00 (three) Medical times Branch daily. FLUoxetine Yes [id number] 40mg Take 1 [facility] 40 mg 9-17 capsule by ity of capsule 00:00: mouth [place] 00 daily. Medical Branch albuterol Yes [id number] 2{puff} Inhale 2 Univers 90 9-17 Puffs ity of mcg/actuati 00:00: every 6 [place] on inhaler 00 (six) Medical hours as Branch needed for Wheezing or Shortness of Breath. traZODone Yes [id number] 50mg Take 1 U nivers 50 mg 9-17 tablet by ity of tablet 00:00: mouth at [place] 00 bedtime. Medical Branch traMADoL 50 Yes [id number] 50mg Take 1 Univ ers mg tablet 9-17 tablet by ity o f 00:00: mouth [place] 00 every 8 Medical (eight) Branch hours as needed for Pain (scale 7-10). Indication s: chronic pain hydrOXYzine Yes [id number] 50mg Take 1 Univers 50 mg 9-17 tablet by ity of tablet 00:00: mouth [place] 00 every 8 Medical (eight) Branch hours as needed for Anxiety. ergocalcife Yes [id number] Take 1 Univers rol, 9-17 capsule by ity of vitamin d2, 00:00: mouth [place] 1,250 mcg 00 weekly. Medical (50,000 Branch unit) capsule atorvastati Yes [id number] 10mg Take 1 Univers n 10 mg 9-17 tablet by ity of tablet 00:00: mouth at [place] 00 bedtime. Medical Branch metformin Yes [id number] 1000mg Take 2 Univers ER 500 mg 9-17 tablets by ity of 24 hr 00:00: mouth 2 [place] tablet 00 (two) Medical times Branch daily. Melatonin 5 Yes [id number] 5mg Take 1 Univers mg tablet 9-17 tablet by ity o f 00:00: mouth [place] 00 daily. Medical Branch gabapentin Yes [id number] 800mg Take 1 [facility] 800 mg 9-17 tablet by ity of tablet 00:00: mouth 3 [place] 00 (three) Medical times Branch daily. FLUoxetine Yes [id number] 40mg Take 1 [facility] 40 mg 9-17 capsule by ity of capsule 00:00: mouth [place] 00 daily. Medical Branch albuterol Yes [id number] 2{puff} Inhale 2 Univers 90 9-17 Puffs ity of mcg/actuati 00:00: every 6 [place] as on inhaler 00 (six) Medical hours as Branch needed for Wheezing or Shortness of Breath. traZODone Yes [id number] 50mg Take 1 U nivers 50 mg 9-17 tablet by ity of tablet 00:00: mouth at [place] 00 bedtime. Medical Branch traMADoL 50 Yes [id number] 50mg Take 1 Univ ers mg tablet 9-17 tablet by ity o f 00:00: mouth [place] 00 every 8 Medical (eight) Branch hours as needed for Pain (scale 7-10). Indication s: chronic pain hydrOXYzine Yes [id number] 50mg Take 1 Univers 50 mg 9-17 tablet by ity of tablet 00:00: mouth [place] 00 every 8 Medical (eight) Branch hours as needed for Anxiety. ergocalcife Yes [id number] Take 1 Univers rol, 9-17 capsule by ity of vitamin d2, 00:00: mouth [place] 1,250 mcg 00 weekly. Medical (50,000 Branch unit) capsule atorvastati Yes [id number] 10mg Take 1 Univers n 10 mg 9-17 tablet by ity of tablet 00:00: mouth at [place] 00 bedtime. Medical Branch metformin Yes [id number] 1000mg Take 2 Univers ER 500 mg 9-17 tablets by ity of 24 hr 00:00: mouth 2 [place] tablet 00 (two) Medical times Branch daily. Melatonin 5 Yes [id number] 5mg Take 1 Univers mg tablet 9-17 tablet by ity o f 00:00: mouth [place] 00 daily. Medical Branch gabapentin Yes [id number] 800mg Take 1 Univers 800 mg 9-17 tablet by ity of tablet 00:00: mouth 3 [place] 00 (three) Medical times Branch daily. FLUoxetine Yes [id number] 40mg Take 1 Univers 40 mg 9-17 capsule by ity of capsule 00:00: mouth [place] 00 daily. Medical Branch albuterol Yes [id number] 2{puff} Inhale 2 Univers 90 9-17 Puffs ity of mcg/actuati 00:00: every 6 [place] on inhaler 00 (six) Medical hours as Branch needed for Wheezing or Shortness of Breath. traZODone Yes [id number] 50mg Take 1 U nivers 50 mg 9-17 tablet by ity of tablet 00:00: mouth at [place] 00 bedtime. Medical Branch traMADoL 50 Yes [id number] 50mg Take 1 Univ ers mg tablet 9-17 tablet by ity o f 00:00: mouth [place] 00 every 8 Medical (eight) Branch hours as needed for Pain (scale 7-10). Indication s: chronic pain hydrOXYzine Yes [id number] 50mg Take 1 Univers 50 mg 9-17 tablet by ity of tablet 00:00: mouth [place] 00 every 8 Medical (eight) Branch hours as needed for Anxiety. ergocalcife Yes [id number] Take 1 Univers rol, 9-17 capsule by ity of vitamin d2, 00:00: mouth [place] 1,250 mcg 00 weekly. Medical (50,000 Branch unit) capsule atorvastati Yes [id number] 10mg Take 1 Univers n 10 mg 9-17 tablet by ity of tablet 00:00: mouth at [place] 00 bedtime. Medical Branch metformin Yes [id number] 1000mg Take 2 Univers ER 500 mg 9-17 tablets by ity of 24 hr 00:00: mouth 2 [place] tablet 00 (two) Medical times Branch daily. Melatonin 5 Yes [id number] 5mg Take 1 Univers mg tablet 9-17 tablet by ity o f 00:00: mouth [place] 00 daily. Medical Branch gabapentin Yes [id number] 800mg Take 1 Univers 800 mg 9-17 tablet by ity of tablet 00:00: mouth 3 [place] 00 (three) Medical times Branch daily. FLUoxetine Yes [id number] 40mg Take 1 Univers 40 mg 9-17 capsule by ity of capsule 00:00: mouth [place] 00 daily. Medical Branch albuterol Yes [id number] 2{puff} Inhale 2 Univers 90 9-17 Puffs ity of mcg/actuati 00:00: every 6 [place] on inhaler 00 (six) Medical hours as Branch needed for Wheezing or Shortness of Breath. traZODone Yes [id number] 50mg Take 1 U nivers 50 mg 9-17 tablet by ity of tablet 00:00: mouth at [place] 00 bedtime. Medical Branch traMADoL 50 Yes [id number] 50mg Take 1 Univ ers mg tablet 9-17 tablet by ity o f 00:00: mouth [place] 00 every 8 Medical (eight) Branch hours as needed for Pain (scale 7-10). Indication s: chronic pain hydrOXYzine Yes [id number] 50mg Take 1 Univers 50 mg 9-17 tablet by ity of tablet 00:00: mouth [place] 00 every 8 Medical (eight) Branch hours as needed for Anxiety. ergocalcife Yes [id number] Take 1 Univers rol, 9-17 capsule by ity of vitamin d2, 00:00: mouth [place] 1,250 mcg 00 weekly. Medical (50,000 Branch unit) capsule atorvastati Yes [id number] 10mg Take 1 Univers n 10 mg 9-17 tablet by ity of tablet 00:00: mouth at [place] 00 bedtime. Medical Branch metformin Yes [id number] 1000mg Take 2 Univers ER 500 mg 9-17 tablets by ity of 24 hr 00:00: mouth 2 [place] tablet 00 (two) Medical times Branch daily. Melatonin 5 Yes [id number] 5mg Take 1 Univers mg tablet 9-17 tablet by ity o f 00:00: mouth [place] 00 daily. Medical Branch gabapentin Yes [id number] 800mg Take 1 Univers 800 mg 9-17 tablet by ity of tablet 00:00: mouth 3 [place] 00 (three) Medical times Branch daily. FLUoxetine Yes [id number] 40mg Take 1 Univers 40 mg 9-17 capsule by ity of capsule 00:00: mouth [place] 00 daily. Medical Branch albuterol Yes [id number] 2{puff} Inhale 2 Univers 90 9-17 Puffs ity of mcg/actuati 00:00: every 6 [place] as on inhaler 00 (six) Medical hours as Branch needed for Wheezing or Shortness of Breath. traZODone Yes [id number] 50mg Take 1 U nivers 50 mg 9-17 tablet by ity of tablet 00:00: mouth at [place] 00 bedtime. Medical Branch traMADoL 50 Yes [id number] 50mg Take 1 Univ ers mg tablet 9-17 tablet by ity o f 00:00: mouth [place] 00 every 8 Medical (eight) Branch hours as needed for Pain (scale 7-10). Indication s: chronic pain hydrOXYzine Yes [id number] 50mg Take 1 Univers 50 mg 9-17 tablet by ity of tablet 00:00: mouth [place] 00 every 8 Medical (eight) Branch hours as needed for Anxiety. ergocalcife Yes [id number] Take 1 Univers rol, 9-17 capsule by ity of vitamin d2, 00:00: mouth [place] 1,250 mcg 00 weekly. Medical (50,000 Branch unit) capsule atorvastati Yes [id number] 10mg Take 1 Univers n 10 mg 9-17 tablet by ity of tablet 00:00: mouth at [place] 00 bedtime. Medical Branch metformin Yes [id number] 1000mg Take 2 Univers ER 500 mg 9-17 tablets by ity of 24 hr 00:00: mouth 2 [place] tablet 00 (two) Medical times Branch daily. Melatonin 5 Yes [id number] 5mg Take 1 Univers mg tablet 9-17 tablet by ity o f 00:00: mouth [place] 00 daily. Medical Branch gabapentin Yes [id number] 800mg Take 1 [facility] 800 mg 9-17 tablet by ity of tablet 00:00: mouth 3 [place] 00 (three) Medical times Branch daily. FLUoxetine Yes [id number] 40mg Take 1 Univers 40 mg 9-17 capsule by ity of capsule 00:00: mouth [place] 00 daily. Medical Branch albuterol Yes [id number] 2{puff} Inhale 2 Univers 90 9-17 Puffs ity of mcg/actuati 00:00: every 6 [place] as on inhaler 00 (six) Medical hours as Branch needed for Wheezing or Shortness of Breath. traZODone Yes [id number] 50mg Take 1 U nivers 50 mg 9-17 tablet by ity of tablet 00:00: mouth at [place] 00 bedtime. Medical Branch traMADoL 50 Yes [id number] 50mg Take 1 Univ ers mg tablet 9-17 tablet by ity o f 00:00: mouth [place] 00 every 8 Medical (eight) Branch hours as needed for Pain (scale 7-10). Indication s: chronic pain hydrOXYzine Yes [id number] 50mg Take 1 Univers 50 mg 9-17 tablet by ity of tablet 00:00: mouth [place] 00 every 8 Medical (eight) Branch hours as needed for Anxiety. ergocalcife Yes [id number] Take 1 Univers rol, 9-17 capsule by ity of vitamin d2, 00:00: mouth [place] 1,250 mcg 00 weekly. Medical (50,000 Branch unit) capsule atorvastati Yes [id number] 10mg Take 1 Univers n 10 mg 9-17 tablet by ity of tablet 00:00: mouth at [place] 00 bedtime. Medical Branch metformin Yes [id number] 1000mg Take 2 Univers ER 500 mg 9-17 tablets by ity of 24 hr 00:00: mouth 2 [place] tablet 00 (two) Medical times Branch daily. Melatonin 5 Yes [id number] 5mg Take 1 [facility] mg tablet 9-17 tablet by ity o f 00:00: mouth [place] 00 daily. Medical Branch gabapentin Yes [id number] 800mg Take 1 [facility] 800 mg 9-17 tablet by ity of tablet 00:00: mouth 3 [place] 00 (three) Medical times Branch daily. FLUoxetine Yes [id number] 40mg Take 1 [facility] 40 mg 9-17 capsule by ity of capsule 00:00: mouth [place] 00 daily. Medical Branch albuterol Yes [id number] 2{puff} Inhale 2 Univers 90 9-17 Puffs ity of mcg/actuati 00:00: every 6 [place] as on inhaler 00 (six) Medical hours as Branch needed for Wheezing or Shortness of Breath. traZODone Yes [id number] 50mg Take 1 U nivers 50 mg 9-17 tablet by ity of tablet 00:00: mouth at [place] 00 bedtime. Medical Branch traMADoL 50 Yes [id number] 50mg Take 1 Univ ers mg tablet 9-17 tablet by ity o f 00:00: mouth [place] 00 every 8 Medical (eight) Branch hours as needed for Pain (scale 7-10). Indication s: chronic pain hydrOXYzine Yes [id number] 50mg Take 1 [facility] 50 mg 9-17 tablet by ity of tablet 00:00: mouth [place] 00 every 8 Medical (eight) Branch hours as needed for Anxiety. ergocalcife Yes [id number] 12617H Take 1 [facility] rol, 9-17 capsule by ity of vitamin d2, 00:00: mouth [place] 1,250 mcg 00 weekly. Medical (50,000 Branch unit) capsule atorvastati Yes [id number] 10mg Take 1 Univers n 10 mg 9-17 tablet by ity of tablet 00:00: mouth at [place] 00 bedtime. Medical Branch metformin Yes [id number] 1000mg Take 2 Univers ER 500 mg 9-17 tablets by ity of 24 hr 00:00: mouth 2 [place] tablet 00 (two) Medical times Branch daily. Melatonin 5 Yes [id number] 5mg Take 1 [facility] mg tablet 9-17 tablet by ity o f 00:00: mouth [place] 00 daily. Medical Branch gabapentin Yes [id number] 800mg Take 1 [facility] 800 mg 9-17 tablet by ity of tablet 00:00: mouth 3 [place] 00 (three) Medical times Branch daily. FLUoxetine Yes [id number] 40mg Take 1 [facility] 40 mg 9-17 capsule by ity of capsule 00:00: mouth [place] 00 daily. Medical Branch albuterol Yes [id number] 2{puff} Inhale 2 [facility] 90 9-17 Puffs ity of mcg/actuati 00:00: every 6 [place] as on inhaler 00 (six) Medical hours as Branch needed for Wheezing or Shortness of Breath. traZODone Yes [id number] 50mg Take 1 U nivers 50 mg 9-17 tablet by ity of tablet 00:00: mouth at [place] 00 bedtime. Medical Branch traMADoL 50 Yes [id number] 50mg Take 1 Univ ers mg tablet 9-17 tablet by ity o f 00:00: mouth [place] 00 every 8 Medical (eight) Branch hours as needed for Pain (scale 7-10). Indication s: chronic pain losartan-hy Yes [id number] 1{tbl} Take 1 Univers drochloroth 6-18 tablet by ity of iazide 00:00: mouth [place] 100-12.5 mg 00 daily. Medica l per tablet Branch traMADoL 50 Yes [id number] 50mg Take 1 Univ ers mg tablet 6-18 tablet by ity o f 00:00: mouth [place] 00 every 8 Medical (eight) Branch hours as needed for Pain (scale 7-10). Indication s: chronic pain losartan-hy Yes [id number] 1{tbl} Take 1 Univers drochloroth 6-18 tablet by ity of iazide 00:00: mouth [place] 100-12.5 mg 00 daily. Medica l per tablet Branch ALPRAZolam Yes [id number] 1mg Take 1 Univers 1 mg tablet 6-18 tablet by ity of 00:00: mouth 2 [place] 00 (two) Medical times Branch daily as needed (Anxiety/P anic Disorder). fluconazole Yes [id number] Take 1 Tab Univers 150 mg 6-18 PO x 1 for ity of tablet 00:00: [place] 00 infection. Medical Refill 10 Branch losartan-hy Yes [id number] 1{tbl} Take 1 Univers drochloroth 6-18 tablet by ity of iazide 00:00: mouth [place] 100-12.5 mg 00 daily. Medica l per tablet Branch traMADoL 50 Yes [id number] 50mg Take 1 Univ ers mg tablet 6-18 tablet by ity o f 00:00: mouth [place] 00 every 8 Medical (eight) Branch hours as needed for Pain (scale 7-10). Indication s: chronic pain losartan-hy Yes [id number] 1{tbl} Take 1 Univers drochloroth 6-18 tablet by ity of iazide 00:00: mouth [place] 100-12.5 mg 00 daily. Medica l per tablet Branch traMADoL 50 Yes [id number] 50mg Take 1 Univ ers mg tablet 6-18 tablet by ity o f 00:00: mouth [place] 00 every 8 Medical (eight) Branch hours as needed for Pain (scale 7-10). Indication s: chronic pain losartan-hy Yes [id number] 1{tbl} Take 1 [facility] drochloroth 6-18 tablet by ity of iazide 00:00: mouth [place] 100-12.5 mg 00 daily. Medica l per tablet Branch losartan-hy Yes [id number] 1{tbl} Take 1 Univers drochloroth 6-18 tablet by ity of iazide 00:00: mouth [place] 100-12.5 mg 00 daily. Medica l per tablet Branch losartan-hy Yes [id number] 1{tbl} Take 1 [facility] drochloroth 6-18 tablet by ity of iazide 00:00: mouth [place] 100-12.5 mg 00 daily. Medica l per tablet Branch losartan-hy Yes [id number] 1{tbl} Take 1 [facility] drochloroth 6-18 tablet by ity of iazide 00:00: mouth [place] 100-12.5 mg 00 daily. Medica l per tablet Branch losartan- Yes [id number] 1{tbl} Take 1 [facility] drochloroth 6-18 tablet by ity of iazide 00:00: mouth [place] 100-12.5 mg 00 daily. Medica l per tablet Branch losartan- Yes [id number] 1{tbl} Take 1 [facility] drochloroth 6-18 tablet by ity of iazide 00:00: mouth [place] 100-12.5 mg 00 daily. Medica l per tablet Branch losartan- Yes [id number] 1{tbl} Take 1 Univers drochloroth 6-18 tablet by ity of iazide 00:00: mouth [place] 100-12.5 mg 00 daily. Medica l per tablet Branch losartan- Yes [id number] 1{tbl} Take 1 [facility] drochloroth 6-18 tablet by ity of iazide 00:00: mouth [place] 100-12.5 mg 00 daily. Medica l per tablet Branch ALPRAZolam 2020- No [id number] 1mg Take 1 Univers 1 mg tablet 03-16 tablet by it y of 00:00: 00:00 mouth 2 [place] 00 :00 (two) Medical times Branch daily as needed (Anxiety/P anic Disorder). fluconazole 2020- No [id number] Take 1 Tab [facility] 150 mg 03-16 [...] (scale 7-10). Indication s: chronic pain nystatin Yes [id number] Apply to Univers (NYSTOP) 5-04 area(s) ity of 100,000 00:00: daily. [place] unit/gram 00 Medical powder Branch nystatin Yes [id number] Apply to Univers (NYSTOP) 5-04 area(s) ity of 100,000 00:00: daily. [place] unit/gram 00 Medical powder Branch nystatin 2020-0 Yes [id number] Apply to Univers (NYSTOP) 5-04 area(s) ity of 100,000 00:00: daily. [place] unit/gram 00 Medical powder Branch nystatin 2020-0 Yes [id number] Apply to Univers (NYSTOP) 5-04 area(s) ity of 100,000 00:00: daily. [place] unit/gram 00 Medical powder Branch nystatin 2020-0 Yes [id number] Apply to Univers (NYSTOP) 5-04 area(s) ity of 100,000 00:00: daily. [place] unit/gram 00 Medical powder Branch nystatin 2020-0 Yes [id number] Apply to Univers (NYSTOP) 5-04 area(s) ity of 100,000 00:00: daily. [place] unit/gram 00 Medical powder Branch nystatin 2020-0 Yes [id number] Apply to Univers (NYSTOP) 5-04 area(s) ity of 100,000 00:00: daily. [place] unit/gram 00 Medical powder Branch nystatin 2020-0 Yes [id number] Apply to Univers (NYSTOP) 5-04 area(s) ity of 100,000 00:00: daily. [place] unit/gram 00 Medical powder Branch nystatin 2020-0 Yes [id number] Apply to Univers (NYSTOP) 5-04 area(s) ity of 100,000 00:00: daily. [place] unit/gram 00 Medical powder Branch nystatin 2020-0 Yes [id number] Apply to Univers (NYSTOP) 5-04 area(s) ity of 100,000 00:00: daily. [place] unit/gram 00 Medical powder Branch nystatin 2020-0 2021- No [id number] Apply to Univers (NYSTOP) 5-04 11-12 area(s) ity of 100,000 00:00: 00:00 daily. [place] unit/gram 00 :00 Medical powder Branch glipiZIDE 2020-0 Yes 10mg Take 1 Univer s XL 10 mg 24 3-31 tablet by ity of hr tablet 00:00: mouth [place] 00 daily with Medical breakfast. Branch calcium 2020-0 Yes [id number] 500mg Take 1 Uni vers carbonate 3-31 tablet by ity o f (CALCIUM 00:00: mouth [place] 500) 500 mg 00 daily. Medica l calcium Branch (1,250 mg) tablet glipiZIDE Yes 10mg Take 1 [facility] XL 10 mg 24 3-31 tablet by ity of hr tablet 00:00: mouth [place] 00 daily with Medical breakfast. Branch calcium Yes [id number] 500mg Take 1 [facility] vers carbonate 3-31 tablet by ity o f (CALCIUM 00:00: mouth [place] 500) 500 mg 00 daily. Medica l calcium Branch (1,250 mg) tablet glipiZIDE Yes 10mg Take 1 [facility] XL 10 mg 24 3-31 tablet by ity of hr tablet 00:00: mouth [place] 00 daily with Medical breakfast. Branch gabapentin Yes [id number] 800mg Take 1 [facility] 800 mg 3-31 tablet by ity of tablet 00:00: mouth 3 [place] 00 (three) Medical times Branch daily. atorvastati Yes [id number] 10mg Take 1 [facility] n 10 mg 3-31 tablet by ity of tablet 00:00: mouth at [place] 00 bedtime. Medical Branch metformin Yes [id number] 1000mg Take 2 [facility] ER 500 mg 3-31 tablets by ity of 24 hr 00:00: mouth 2 [place] tablet 00 (two) Medical times Branch daily. Cholecalcif Yes [id number] 5000U Take 1 [facility] jayde, 3-31 tablet by ity of Vitamin D3, 00:00: mouth [place] (VITAMIN 00 daily. Medical D3) 125 mcg Branch (5,000 unit) tablet calcium Yes [id number] 500mg Take 1 [facility] vers carbonate 3-31 tablet by ity o f (CALCIUM 00:00: mouth [place] 500) 500 mg 00 daily. Medica l calcium Branch (1,250 mg) tablet glipiZIDE Yes 10mg Take 1 [facility] XL 10 mg 24 3-31 tablet by ity of hr tablet 00:00: mouth [place] 00 daily with Medical breakfast. Branch gabapentin Yes [id number] 800mg Take 1 [facility] 800 mg 3-31 tablet by ity of tablet 00:00: mouth 3 [place] 00 (three) Medical times Branch daily. atorvastati Yes [id number] 10mg Take 1 [facility] n 10 mg 3-31 tablet by ity of tablet 00:00: mouth at [place] 00 bedtime. Medical Branch metformin 2020-0 Yes [id number] 1000mg Take 2 [facility] ER 500 mg 3-31 tablets by ity of 24 hr 00:00: mouth 2 [place] tablet 00 (two) Medical times Branch daily. Cholecalcif 2020-0 Yes [id number] 5000U Take 1 [facility] jayde, 3-31 tablet by ity of Vitamin D3, 00:00: mouth [place] (VITAMIN 00 daily. Medical D3) 125 mcg Branch (5,000 unit) tablet calcium 2020-0 Yes [id number] 500mg Take 1 [facility] vers carbonate 3-31 tablet by ity o f (CALCIUM 00:00: mouth [place] 500) 500 mg 00 daily. Medica l calcium Branch (1,250 mg) tablet glipiZIDE 2020-0 Yes 10mg Take 1 [facility] XL 10 mg 24 3-31 tablet by ity of hr tablet 00:00: mouth [place] 00 daily with Medical breakfast. Branch gabapentin 2020-0 Yes [id number] 800mg Take 1 [facility] 800 mg 3-31 tablet by ity of tablet 00:00: mouth 3 [place] 00 (three) Medical times Branch daily. atorvastati 2020-0 Yes [id number] 10mg Take 1 [facility] n 10 mg 3-31 tablet by ity of tablet 00:00: mouth at [place] 00 bedtime. Medical Branch metformin 2020-0 Yes [id number] 1000mg Take 2 [facility] ER 500 mg 3-31 tablets by ity of 24 hr 00:00: mouth 2 [place] tablet 00 (two) Medical times Branch daily. Cholecalcif 2020-0 Yes [id number] 5000U Take 1 [facility] jayde, 3-31 tablet by ity of Vitamin D3, 00:00: mouth [place] (VITAMIN 00 daily. Medical D3) 125 mcg Branch (5,000 unit) tablet calcium 2020-0 Yes [id number] 500mg Take 1 [facility] vers carbonate 3-31 tablet by ity o f (CALCIUM 00:00: mouth [place] 500) 500 mg 00 daily. Medica l calcium Branch (1,250 mg) tablet glipiZIDE 2020-0 Yes 10mg Take 1 [facility] XL 10 mg 24 3-31 tablet by ity of hr tablet 00:00: mouth [place] 00 daily with Medical breakfast. Branch gabapentin 2020-0 Yes [id number] 800mg Take 1 [facility] 800 mg 3-31 tablet by ity of tablet 00:00: mouth 3 [place] 00 (three) Medical times Branch daily. atorvastati Yes [id number] 10mg Take 1 [facility] n 10 mg 3-31 tablet by ity of tablet 00:00: mouth at [place] 00 bedtime. Medical Branch metformin Yes [id number] 1000mg Take 2 [facility] ER 500 mg 3-31 tablets by ity of 24 hr 00:00: mouth 2 [place] tablet 00 (two) Medical times Branch daily. Cholecalcif Yes [id number] 5000U Take 1 [facility] jayde, 3-31 tablet by ity of Vitamin D3, 00:00: mouth [place] (VITAMIN 00 daily. Medical D3) 125 mcg Branch (5,000 unit) tablet calcium Yes [id number] 500mg Take 1 [facility] vers carbonate 3-31 tablet by ity o f (CALCIUM 00:00: mouth [place] 500) 500 mg 00 daily. Medica l calcium Branch (1,250 mg) tablet glipiZIDE Yes 10mg Take 1 [facility] XL 10 mg 24 3-31 tablet by ity of hr tablet 00:00: mouth [place] 00 daily with Medical breakfast. Branch gabapentin Yes [id number] 800mg Take 1 [facility] 800 mg 3-31 tablet by ity of tablet 00:00: mouth 3 [place] 00 (three) Medical times Branch daily. atorvastati Yes [id number] 10mg Take 1 [facility] n 10 mg 3-31 tablet by ity of tablet 00:00: mouth at [place] 00 bedtime. Medical Branch metformin Yes [id number] 1000mg Take 2 [facility] ER 500 mg 3-31 tablets by ity of 24 hr 00:00: mouth 2 [place] tablet 00 (two) Medical times Branch daily. Cholecalcif Yes [id number] 5000U Take 1 [facility] jayde, 3-31 tablet by ity of Vitamin D3, 00:00: mouth [place] (VITAMIN 00 daily. Medical D3) 125 mcg Branch (5,000 unit) tablet calcium Yes [id number] 500mg Take 1 [facility] vers carbonate 3-31 tablet by ity o f (CALCIUM 00:00: mouth [place] 500) 500 mg 00 daily. Medica l calcium Branch (1,250 mg) tablet glipiZIDE Yes 10mg Take 1 [facility] XL 10 mg 24 3-31 tablet by ity of hr tablet 00:00: mouth [place] 00 daily with Medical breakfast. Branch gabapentin Yes [id number] 800mg Take 1 [facility] 800 mg 3-31 tablet by ity of tablet 00:00: mouth 3 [place] 00 (three) Medical times Branch daily. atorvastati Yes [id number] 10mg Take 1 [facility] n 10 mg 3-31 tablet by ity of tablet 00:00: mouth at [place] 00 bedtime. Medical Branch metformin Yes [id number] 1000mg Take 2 [facility] ER 500 mg 3-31 tablets by ity of 24 hr 00:00: mouth 2 [place] tablet 00 (two) Medical times Branch daily. Cholecalcif Yes [id number] 5000U Take 1 [facility] jayde, 3-31 tablet by ity of Vitamin D3, 00:00: mouth [place] (VITAMIN 00 daily. Medical D3) 125 mcg Branch (5,000 unit) tablet calcium Yes [id number] 500mg Take 1 [facility] vers carbonate 3-31 tablet by ity o f (CALCIUM 00:00: mouth [place] 500) 500 mg 00 daily. Medica l calcium Branch (1,250 mg) tablet glipiZIDE Yes 10mg Take 1 [facility] XL 10 mg 24 3-31 tablet by ity of hr tablet 00:00: mouth [place] 00 daily with Medical breakfast. Branch calcium Yes [id number] 500mg Take 1 [facility] vers carbonate 3-31 tablet by ity o f (CALCIUM 00:00: mouth [place] 500) 500 mg 00 daily. Medica l calcium Branch (1,250 mg) tablet glipiZIDE Yes 10mg Take 1 [facility] XL 10 mg 24 3-31 tablet by ity of hr tablet 00:00: mouth [place] 00 daily with Medical breakfast. Branch calcium Yes [id number] 500mg Take 1 [facility] vers carbonate 3-31 tablet by ity o f (CALCIUM 00:00: mouth [place] 500) 500 mg 00 daily. Medica l calcium Branch (1,250 mg) tablet glipiZIDE Yes 10mg Take 1 [facility] XL 10 mg 24 3-31 tablet by ity of hr tablet 00:00: mouth [place] 00 daily with Medical breakfast. Branch calcium Yes [id number] 500mg Take 1 [facility] vers carbonate 3-31 tablet by ity o f (CALCIUM 00:00: mouth [place] 500) 500 mg 00 daily. Medica l calcium Branch (1,250 mg) tablet glipiZIDE Yes 10mg Take 1 [facility] XL 10 mg 24 3-31 tablet by ity of hr tablet 00:00: mouth [place] 00 daily with Medical breakfast. Branch calcium Yes [id number] 500mg Take 1 [facility] vers carbonate 3-31 tablet by ity o f (CALCIUM 00:00: mouth [place] 500) 500 mg 00 daily. Medica l calcium Branch (1,250 mg) tablet calcium Yes [id number] 500mg Take 1 [facility] vers carbonate 3-31 tablet by ity o f (CALCIUM 00:00: mouth [place] 500) 500 mg 00 daily. Medica l calcium Branch (1,250 mg) tablet calcium Yes [id number] 500mg Take 1 [facility] vers carbonate 3-31 tablet by ity o f (CALCIUM 00:00: mouth [place] 500) 500 mg 00 daily. Medica l calcium Branch (1,250 mg) tablet calcium Yes [id number] 500mg Take 1 [facility] vers carbonate 3-31 tablet by ity o f (CALCIUM 00:00: mouth [place] 500) 500 mg 00 daily. Medica l calcium Branch (1,250 mg) tablet calcium Yes [id number] 500mg Take 1 [facility] vers carbonate 3-31 tablet by ity o f (CALCIUM 00:00: mouth [place] 500) 500 mg 00 daily. Medica l calcium Branch (1,250 mg) tablet calcium Yes [id number] 500mg Take 1 [facility] vers carbonate 3-31 tablet by ity o f (CALCIUM 00:00: mouth [place] 500) 500 mg 00 daily. Medica l calcium Branch (1,250 mg) tablet glipiZIDE 2020- No 10mg Take 1 [facility] XL 10 mg 24 3-31 10-04 tablet by it y of hr tablet 00:00: 00:00 mouth [place] 00 :00 daily with Medical breakfast. Branch gabapentin 2020- No [id number] 800mg Take 1 [facility] 800 mg 3-31 09-17 tablet by ity of tablet 00:00: 00:00 mouth 3 [place] 00 :00 (three) Medical times Branch daily. atorvastati 2020- No [id number] 10mg Take 1 [facility] n 10 mg 12-27 tablet by ity of tablet 00:00: 00:00 mouth at [place] 00 :00 bedtime. Medical Branch metformin 2020- No [id number] 1000mg Take 2 [facility] ER 500 mg 12-27 tablets by ity of 24 hr 00:00: 00:00 mouth 2 [place] tablet 00 :00 (two) Medical times Branch daily. Cholecalcif 2020- No [id number] 5000U Take 1 [facility] jayde, 12-27 tablet by ity of Vitamin D3, 00:00: 00:00 mouth [place] (VIT[place]IN 00 :00 daily. Medical D3) 125 mcg Branch (5,000 unit) tablet traMADoL 50 2020- No [id number] 50mg Take 50 mg [facility] mg tablet 12-18 by mouth 3 ity of 14:23: 00:00 (three) [place] 07 :00 times Medical daily. Branch traMADoL 50 2020- No [id number] 50mg Take 50 mg [facility] mg tablet 12-18 by mouth 3 ity of 14:23: 00:00 (three) [place] 07 :00 times Medical daily. Branch traMADoL 50 Yes [id number] 50mg Take 1 [facility] ers mg tablet 3-22 tablet by ity o f 00:00: mouth every 8 Medical (eight) Branch hours as needed for Pain (scale 7-10). Indication s: chronic pain ALPRAZolam Yes [id number] 1mg Take 1 [facility] nivers 1 mg tablet 3-22 tablet by ity of 00:00: mouth 2 [place] 00 (two) Medical times Branch daily as needed (Anxiety/P anic Disorder). fluconazole Yes [id number] Take 1 Tab [facility] 150 mg 3-22 PO x 1 for ity of tablet 00:00: [place] 00 infection. Medical Refill 10 Branch traMADoL 50 Yes [id number] 50mg Take 1 [facility] ers mg tablet 3-22 tablet by ity o f 00:00: mouth [place] 00 every 8 Medical (eight) Branch hours as needed for Pain (scale 7-10). Indication s: chronic pain ALPRAZolam 0 Yes [id number] 1mg Take 1 [facility] nivers 1 mg tablet 3-22 tablet by ity of 00:00: mouth 2 [place] (two) Medical times Branch daily as needed (Anxiety/P anic Disorder). fluconazole 0 Yes [id number] Take 1 Tab [facility] 150 mg 3-22 PO x 1 for ity of tablet 00:00: [place] 00 infection. Medical Refill 10 Branch traMADoL 50 0 Yes [id number] 50mg Take 1 [facility] ers mg tablet 3-22 tablet by ity o f 00:00: mouth [place] 00 every 8 Medical (eight) Branch hours as needed for Pain (scale 7-10). Indication s: chronic pain ALPRAZolam Yes [id number] 1mg Take 1 [facility] nivers 1 mg tablet 3-22 tablet by ity of 00:00: mouth 2 [place] 00 (two) Medical times Branch daily as needed (Anxiety/P anic Disorder). fluconazole Yes [id number] Take 1 Tab [facility] 150 mg 3-22 PO x 1 for ity of tablet 00:00: [place] 00 infection. Medical Refill 10 Branch traMADoL 50 Yes [id number] 50mg Take 1 [facility] ers mg tablet 3-22 tablet by ity o f 00:00: mouth [place] 00 every 8 Medical (eight) Branch hours as needed for Pain (scale 7-10). Indication s: chronic pain ALPRAZolam Yes [id number] 1mg Take 1 [facility] n[facility] 1 mg tablet 3-22 tablet by ity of 00:00: mouth 2 [place] 00 (two) Medical times Branch daily as needed (Anxiety/P anic Disorder). fluconazole Yes [id number] Take 1 Tab [facility] 150 mg 3-22 PO x 1 for ity of tablet 00:00: [place] 00 infection. Medical Refill 10 Branch traMADoL 50 0 Yes [id number] 50mg Take 1 [facility] ers mg tablet 3-22 tablet by ity o f 00:00: mouth [place] 00 every 8 Medical (eight) Branch hours as needed for Pain (scale 7-10). Indication s: chronic pain ALPRAZolam Yes [id number] 1mg Take 1 [facility] nivers 1 mg tablet 3-22 tablet by ity of 00:00: mouth 2 (two) Medical times Branch daily as needed (Anxiety/P anic Disorder). fluconazole 0 Yes [id number] Take 1 Tab [facility] 150 mg 3-22 PO x 1 for ity of tablet 00:00: [place] 00 infection. Medical Refill 10 Branch traMADoL 50 0 Yes [id number] 50mg Take 1 [facility] ers mg tablet 3-22 tablet by ity o f 00:00: mouth [place] 00 every 8 Medical (eight) Branch hours as needed for Pain (scale 7-10). Indication s: chronic pain ALPRAZolam 0 Yes [id number] 1mg Take 1 [facility] nivers 1 mg tablet 3-22 tablet by ity of 00:00: mouth (two) Medical times Branch daily as needed (Anxiety/P anic Disorder). fluconazole Yes [id number] Take 1 Tab [facility] 150 mg 3-22 PO x 1 for ity of tablet 00:00: [place] 00 infection. Medical Refill 10 Branch traMADoL 50 Yes [id number] 50mg Take 1 [facility] ers mg tablet 3-22 tablet by ity o f 00:00: mouth every 8 Medical (eight) Branch hours as needed for Pain (scale 7-10). Indication s: chronic pain ALPRAZolam Yes [id number] 1mg Take 1 [facility] nivers 1 mg tablet 3-22 tablet by ity of 00:00: mouth (two) Medical times Branch daily as needed (Anxiety/P anic Disorder). fluconazole Yes [id number] Take 1 Tab [facility] 150 mg 3-22 [...] s: chronic pain ALPRAZolam 0 2020- No [id number] 1mg Take 1 [facility] 1 mg tablet 3-22 06-18 tablet by it y of 00:00: 00:00 mouth 2 [place] 00 :00 (two) Medical times Branch daily as needed (Anxiety/P anic Disorder). fluconazole 2020- No [id number] Take 1 Tab [facility] 150 mg 12-18-18 PO x 1 for ity of tablet 00:00: 00:00 [place] 00 :00 infection. Medical Refill 10 Branch traMADoL 50 2020- No [id number] 50mg Take 1 [facility] vers mg tablet 12-18-18 tablet by ity of 00:00: 00:00 mouth [place] 00 :00 every 8 Medical (eight) Branch hours as needed for Pain (scale 7-10). Indication s: chronic pain ALPRAZolam 2020- No [id number] 1mg Take 1 [facility] 1 mg tablet 12-18-18 tablet by it y of 00:00: 00:00 mouth 2 [place] 00 :00 (two) Medical times Branch daily as needed (Anxiety/P anic Disorder). fluconazole 2020- No [id number] Take 1 Tab [facility] 150 mg 12-18-18 PO x 1 for ity of tablet 00:00: 00:00 [place] 00 :00 infection. Medical Refill 10 Branch Melatonin 5 2020- No Take by [facility] nivers mg Tab 3-18 03-18 mouth ity of 20:30: 00:00 daily. [place] 15 :00 Medical Branch Melatonin 5 2020- No Take by U nivers mg Tab 3-18 03-18 mouth ity of 20:30: 00:00 daily. [place] 15 :00 Medical Branch traMADoL 50 Yes 50mg Take 50 mg [facility] mg tablet 3-18 by mouth 3 ity of 19:49: (three) [place] 11 times Medical daily. Branch amitriptyli Yes [id number] 25mg Take 1 [facility] ne 25 mg 3-18 tablet by ity of tablet 00:00: mouth at [place] 00 bedtime. Medical Branch FLUoxetine Yes [id number] 40mg Take 1 [facility] nivers 40 mg 3-18 capsule by ity of capsule 00:00: mouth [place] 00 daily. Medical Branch amitriptyli Yes [id number] 25mg Take 1 [facility] ne 25 mg 3-18 tablet by ity of tablet 00:00: mouth at [place] 00 bedtime. Medical Branch Melatonin 5 Yes [id number] 5mg Take 1 [facility] mg tablet 3-18 tablet by ity o f 00:00: mouth [place] 00 daily. Medical Branch metformin Yes [id number] 1000mg Take 2 [facility] ER 500 mg 3-18 tablets by ity of 24 hr 00:00: mouth [place] tablet 00 daily with Medical breakfast. Branch fluconazole 2020- Yes [id number] TAKE 1 [facility] 150 mg 3-18 TABLET BY ity of tablet 00:00: MOUTH [place] 00 NEEDED FOR Medical RASH Branch nystatin Yes [id number] Apply to [facility] (NYSTOP) 3-18 area(s) ity of 100,000 00:00: daily. [place] unit/gram 00 Medical powder Branch FLUoxetine Yes [id number] 40mg Take 1 [facility] nivers 40 mg 3-18 capsule by ity of capsule 00:00: mouth [place] 00 daily. Medical Branch amitriptyli Yes [id number] 25mg Take 1 [facility] ne 25 mg 3-18 tablet by ity of tablet 00:00: mouth at [place] 00 bedtime. Medical Branch Melatonin 5 Yes [id number] 5mg Take 1 [facility] mg tablet 3-18 tablet by ity o f 00:00: mouth [place] 00 daily. Medical Branch metformin Yes [id number] 1000mg Take 2 [facility] ER 500 mg 3-18 tablets by ity of 24 hr 00:00: mouth [place] tablet 00 daily with Medical breakfast. Branch nystatin Yes [id number] Apply to [facility] (NYSTOP) 3-18 area(s) ity of 100,000 00:00: daily. [place] unit/gram 00 Medical powder Branch FLUoxetine Yes [id number] 40mg Take 1 [facility] nivers 40 mg 3-18 capsule by ity of capsule 00:00: mouth [place] 00 daily. Medical Branch amitriptyli Yes [id number] 25mg Take 1 [facility] ne 25 mg 3-18 tablet by ity of tablet 00:00: mouth at [place] 00 bedtime. Medical Branch Melatonin 5 Yes [id number] 5mg Take 1 [facility] mg tablet 3-18 tablet by ity o f 00:00: mouth [place] 00 daily. Medical Branch metformin Yes [id number] 1000mg Take 2 [facility] ER 500 mg 3-18 tablets by ity of 24 hr 00:00: mouth [place] tablet 00 daily with Medical breakfast. Branch nystatin Yes [id number] Apply to [facility] (NYSTOP) 3-18 area(s) ity of 100,000 00:00: daily. [place] unit/gram 00 Medical powder Branch FLUoxetine Yes [id number] 40mg Take 1 [facility] nivers 40 mg 3-18 capsule by ity of capsule 00:00: mouth [place] 00 daily. Medical Branch amitriptyli Yes [id number] 25mg Take 1 [facility] ne 25 mg 3-18 tablet by ity of tablet 00:00: mouth at [place] 00 bedtime. Medical Branch Melatonin 5 Yes [id number] 5mg Take 1 [facility] mg tablet 3-18 tablet by ity o f 00:00: mouth [place] 00 daily. Medical Branch metformin Yes [id number] 1000mg Take 2 [facility] ER 500 mg 3-18 tablets by ity of 24 hr 00:00: mouth [place] tablet 00 daily with Medical breakfast. Branch nystatin Yes [id number] Apply to [facility] (NYSTOP) 3-18 area(s) ity of 100,000 00:00: daily. [place] unit/gram 00 Medical powder Branch FLUoxetine Yes [id number] 40mg Take 1 [facility] nivers 40 mg 3-18 capsule by ity of capsule 00:00: mouth [place] 00 daily. Medical Branch amitriptyli Yes [id number] 25mg Take 1 [facility] ne 25 mg 3-18 tablet by ity of tablet 00:00: mouth at [place] 00 bedtime. Medical Branch Melatonin 5 Yes [id number] 5mg Take 1 [facility] mg tablet 3-18 tablet by ity o f 00:00: mouth [place] 00 daily. Medical Branch metformin Yes [id number] 1000mg Take 2 [facility] ER 500 mg 3-18 tablets by ity of 24 hr 00:00: mouth [place] tablet 00 daily with Medical breakfast. Branch nystatin Yes [id number] Apply to [facility] (NYSTOP) 3-18 area(s) ity of 100,000 00:00: daily. [place] unit/gram 00 Medical powder Branch FLUoxetine Yes [id number] 40mg Take 1 [facility] nivers 40 mg 3-18 capsule by ity of capsule 00:00: mouth [place] 00 daily. Medical Branch amitriptyli Yes [id number] 25mg Take 1 [facility] ne 25 mg 3-18 tablet by ity of tablet 00:00: mouth at [place] 00 bedtime. Medical Branch Melatonin 5 0 Yes [id number] 5mg Take 1 [facility] mg tablet 3-18 tablet by ity o f 00:00: mouth [place] 00 daily. Medical Branch metformin Yes [id number] 1000mg Take 2 [facility] ER 500 mg 3-18 tablets by ity of 24 hr 00:00: mouth [place] tablet 00 daily with Medical breakfast. Branch nystatin Yes [id number] Apply to [facility] (NYSTOP) 3-18 area(s) ity of 100,000 00:00: daily. [place] unit/gram 00 Medical powder Branch FLUoxetine Yes [id number] 40mg Take 1 [facility] nivers 40 mg 3-18 capsule by ity of capsule 00:00: mouth [place] 00 daily. Medical Branch amitriptyli Yes [id number] 25mg Take 1 [facility] ne 25 mg 3-18 tablet by ity of tablet 00:00: mouth at [place] 00 bedtime. Medical Branch Melatonin 5 0 Yes [id number] 5mg Take 1 [facility] mg tablet 3-18 tablet by ity o f 00:00: mouth [place] 00 daily. Medical Branch metformin Yes [id number] 1000mg Take 2 [facility] ER 500 mg 3-18 tablets by ity of 24 hr 00:00: mouth [place] tablet 00 daily with Medical breakfast. Branch nystatin Yes [id number] Apply to [facility] (NYSTOP) 3-18 area(s) ity of 100,000 00:00: daily. [place] unit/gram 00 Medical powder Branch FLUoxetine Yes [id number] 40mg Take 1 [facility] nivers 40 mg 3-18 capsule by ity of capsule 00:00: mouth [place] 00 daily. Medical Branch amitriptyli Yes [id number] 25mg Take 1 [facility] ne 25 mg 3-18 tablet by ity of tablet 00:00: mouth at [place] 00 bedtime. Medical Branch Melatonin 5 2020- Yes [id number] 5mg Take 1 [facility] mg tablet 3-18 tablet by ity o f 00:00: mouth [place] 00 daily. Medical Branch metformin Yes [id number] 1000mg Take 2 [facility] ER 500 mg 3-18 tablets by ity of 24 hr 00:00: mouth [place] tablet 00 daily with Medical breakfast. Branch nystatin Yes [id number] Apply to [facility] (NYSTOP) 3-18 area(s) ity of 100,000 00:00: daily. [place] unit/gram 00 Medical powder Branch FLUoxetine Yes [id number] 40mg Take 1 [facility] nivers 40 mg 3-18 capsule by ity of capsule 00:00: mouth [place] 00 daily. Medical Branch amitriptyli Yes [id number] 25mg Take 1 [facility] ne 25 mg 3-18 tablet by ity of tablet 00:00: mouth at [place] 00 bedtime. Medical Branch Melatonin 5 Yes [id number] 5mg Take 1 [facility] mg tablet 3-18 tablet by ity o f 00:00: mouth [place] 00 daily. Medical Branch nystatin Yes [id number] Apply to [facility] (NYSTOP) 3-18 area(s) ity of 100,000 00:00: daily. [place] unit/gram 00 Medical powder Branch FLUoxetine Yes [id number] 40mg Take 1 [facility] nivers 40 mg 3-18 capsule by ity of capsule 00:00: mouth [place] 00 daily. Medical Branch amitriptyli Yes [id number] 25mg Take 1 [facility] ne 25 mg 3-18 tablet by ity of tablet 00:00: mouth at [place] 00 bedtime. Medical Branch Melatonin 5 0 Yes [id number] 5mg Take 1 [facility] mg tablet 3-18 tablet by ity o f 00:00: mouth [place] 00 daily. Medical Branch nystatin Yes [id number] Apply to [facility] (NYSTOP) 3-18 area(s) ity of 100,000 00:00: daily. [place] unit/gram 00 Medical powder Branch FLUoxetine Yes [id number] 40mg Take 1 [facility] nivers 40 mg 3-18 capsule by ity of capsule 00:00: mouth [place] 00 daily. Medical Branch amitriptyli Yes [id number] 25mg Take 1 [facility] ne 25 mg 3-18 tablet by ity of tablet 00:00: mouth at [place] 00 bedtime. Medical Branch Melatonin 5 Yes [id number] 5mg Take 1 [facility] mg tablet 3-18 tablet by ity o f 00:00: mouth [place] 00 daily. Medical Branch nystatin Yes [id number] Apply to [facility] (NYSTOP) 3-18 area(s) ity of 100,000 00:00: daily. [place] unit/gram 00 Medical powder Branch FLUoxetine Yes [id number] 40mg Take 1 [facility] nivers 40 mg 3-18 capsule by ity of capsule 00:00: mouth [place] 00 daily. Medical Branch amitriptyli Yes [id number] 25mg Take 1 [facility] ne 25 mg 3-18 tablet by ity of tablet 00:00: mouth at [place] 00 bedtime. Medical Branch Melatonin 5 Yes [id number] 5mg Take 1 [facility] mg tablet 3-18 tablet by ity o f 00:00: mouth [place] 00 daily. Medical Branch FLUoxetine Yes [id number] 40mg Take 1 [facility] nivers 40 mg 3-18 capsule by ity of capsule 00:00: mouth [place] 00 daily. Medical Branch amitriptyli Yes [id number] 25mg Take 1 [facility] ne 25 mg 3-18 tablet by ity of tablet 00:00: mouth at [place] 00 bedtime. Medical Branch Melatonin 5 Yes [id number] 5mg Take 1 [facility] mg tablet 3-18 tablet by ity o f 00:00: mouth [place] 00 daily. Medical Branch FLUoxetine Yes [id number] 40mg Take 1 [facility] nivers 40 mg 3-18 capsule by ity of capsule 00:00: mouth [place] 00 daily. Medical Branch amitriptyli Yes [id number] 25mg Take 1 [facility] ne 25 mg 3-18 tablet by ity of tablet 00:00: mouth at [place] 00 bedtime. Medical Branch Melatonin 5 Yes [id number] 5mg Take 1 [facility] mg tablet 3-18 tablet by ity o f 00:00: mouth [place] 00 daily. Medical Branch amitriptyli Yes [id number] 25mg Take 1 [facility] ne 25 mg 3-18 tablet by ity of tablet 00:00: mouth at [place] 00 bedtime. Medical Branch FLUoxetine 2020-0 2020- No [id number] 40mg Take 1 [facility] 40 mg 12-14 capsule by ity of capsule 00:00: 00:00 mouth [place] 00 :00 daily. Medical Branch amitriptyli 2020- No [id number] 25mg Take 1 [facility] ne 25 mg 12-14 tablet by ity o f tablet 00:00: 00:00 mouth at [place] 00 :00 bedtime. Medical Branch Melatonin 5 2020- No [id number] 5mg Take 1 [facility] mg tablet 12-14 tablet by ity of 00:00: 00:00 mouth [place] 00 :00 daily. Medical Branch nystatin 2020- No [id number] Apply to [facility] (NYSTOP) 12-14 area(s) ity of 100,000 00:00: 00:00 daily. [place] unit/gram 00 :00 Medical powder Branch metformin 2020- No [id number] 1000mg Take 2 [facility] ER 500 mg 12-14- tablets by ity of 24 hr 00:00: 00:00 mouth [place] tablet 00 :00 daily with Medical breakfast. Branch metformin 2020- No [id number] 1000mg Take 2 [facility] ER 500 mg 12-14- tablets by ity of 24 hr 00:00: 00:00 mouth [place] tablet 00 :00 daily with Medical breakfast. Branch fluconazole 2020- No [id number] TAKE 1 [facility] 150 mg -14 12-22 TABLET BY ity of tablet 00:00: 00:00 MOUTH [place] 00 :00 NEEDED FOR Medical RASH Branch fluconazole No [id number] TAKE 1 [facility] 150 mg 3-18 -22 TABLET BY ity of tablet 00:00: 00:00 MOUTH [place] 00 :00 NEEDED FOR Medical RASH Branch ALPRAZolam Yes 1mg Take 1 mg [facility] 1 mg tablet 02-01 by mouth 2 it y of 00:00: (two) [place] 00 times Medical daily. Branch ALPRAZolam 2020- No [id number] 1mg Take 1 mg [facility] 1 mg tablet 02-01 by mouth 2 i ty of 00:00: 00:00 (two) [place] 00 :00 times Medical daily. Branch ALPRAZolam 2020- No [id number] 1mg Take 1 mg [facility] 1 mg tablet 02-01 by mouth 2 i ty of 00:00: 00:00 (two) [place] 00 :00 times Medical daily. Branch gabapentin 2020-0 Yes 800mg Take 800 [facility] 800 mg 3-11 mg by ity of tablet 00:00: mouth 3 00 (three) Medical times Branch daily. gabapentin 2020-0 Yes [id number] 800mg Take 800 [facility] 800 mg 3-11 mg by ity of tablet 00:00: mouth 3 00 (three) Medical times Branch daily. gabapentin 2020-0 Yes [id number] 800mg Take 800 [facility] 800 mg 3-11 mg by ity of tablet 00:00: mouth 3 [place] (three) Medical times Branch daily. gabapentin 2020-0 Yes [id number] 800mg Take 800 [facility] 800 mg 3-11 mg by ity of tablet 00:00: mouth 3 00 (three) Medical times Branch daily. gabapentin 2020-0 Yes [id number] 800mg Take 800 [facility] 800 mg 3-11 mg by ity of tablet 00:00: mouth 3 [place] (three) Medical times Branch daily. gabapentin 2020-0 Yes [id number] 800mg Take 800 [facility] 800 mg 3-11 mg by ity of tablet 00:00: mouth 3 [place] (three) Medical times Branch daily. gabapentin 2020-0 Yes [id number] 800mg Take 800 [facility] 800 mg 3-11 mg by ity of tablet 00:00: mouth 3 [place] 00 (three) Medical times Branch daily. gabapentin 2020-0 Yes [id number] 800mg Take 800 [facility] 800 mg 3-11 mg by ity of tablet 00:00: mouth 3 [place] 00 (three) Medical times Branch daily. gabapentin 2020-0 2020- No [id number] 800mg Take 800 [facility] 800 mg 3-11 03-31 mg by ity of tablet 00:00: 00:00 mouth 3 [place] 00 :00 (three) Medical times Branch daily. gabapentin 2020-0 2020- No [id number] 800mg Take 800 [facility] 800 mg 3-11 03-31 mg by ity of tablet 00:00: 00:00 mouth 3 [place] 00 :00 (three) Medical times Branch daily. losartan-hy 2019-0 Yes Take by Un mary drochloroth 4-18 mouth ity of iazide 00:00: daily. [place] 100-12.5 mg 00 Medical per tablet Branch losartan-hy 2019-0 Yes [id number] Take by Univers drochloroth 4-18 mouth ity of iazide 00:00: daily. [place] 100-12.5 mg 00 Medical per tablet Branch losartan-hy 2019-0 Yes [id number] Take by Univers drochloroth 4-18 mouth ity of iazide 00:00: daily. [place] 100-12.5 mg 00 Medical per tablet Branch losartan-hy 2019-0 Yes [id number] Take by Univers drochloroth 4-18 mouth ity of iazide 00:00: daily. [place] 100-12.5 mg 00 Medical per tablet Branch losartan-hy 2018-0 Yes [id number] Take by Univers drochloroth 4-18 mouth ity of iazide 00:00: daily. [place] 100-12.5 mg 00 Medical per tablet Branch losartan-hy 2018-0 Yes [id number] Take by Univers drochloroth 4-18 mouth ity of iazide 00:00: daily. [place] 100-12.5 mg 00 Medical per tablet Branch losartan-hy 2018-0 Yes [id number] Take by Univers drochloroth 4-18 mouth ity of iazide 00:00: daily. [place] 100-12.5 mg 00 Medical per tablet Branch losartan-hy 2018-0 Yes [id number] Take by Univers drochloroth 4-18 mouth ity of iazide 00:00: daily. [place] 100-12.5 mg 00 Medical per tablet Branch losartan-hy 2018-0 Yes [id number] Take by Univers drochloroth 4-18 mouth ity of iazide 00:00: daily. [place] 100-12.5 mg 00 Medical per tablet Branch losartan-hy 2019-0 Yes [id number] Take by Univers drochloroth 4-18 mouth ity of iazide 00:00: daily. [place] 100-12.5 mg 00 Medical per tablet Branch losartan-hy 2019-0 Yes [id number] Take by Univers drochloroth 4-18 mouth ity of iazide 00:00: daily. [place] 100-12.5 mg 00 Medical per tablet Branch losartan-hy 2019-0 Yes [id number] Take by Univers drochloroth 4-18 mouth ity of iazide 00:00: daily. [place] 100-12.5 mg 00 Medical per tablet Branch losartan-hy 2019-0 2020- No [id number] Take by [facility] [place] [facility] drochloroth 4-18 06-18 mouth ity of iazide 00:00: 00:00 daily. [place] 100-12.5 mg 00 :00 Medical per tablet Branch losartan-hy 2020- No [id number] Take by [facility] [place] [facility] drochloroth 4-18 06-18 mouth ity of iazide 00:00: 00:00 daily. [place] 100-12.5 mg 00 :00 Medical per tablet Branch albuterol Yes [id number] 2{puff} Inhale 2 Univers 90 5-14 Puffs ity of mcg/actuati 00:00: every 6 [place] as on inhaler 00 (six) Medical hours as Branch needed for Wheezing or Shortness of Breath. albuterol Yes [id number] 2{puff} Inhale 2 [facility] 90 5-14 Puffs ity of mcg/actuati 00:00: every 6 [place] as on inhaler 00 (six) Medical hours as Branch needed for Wheezing or Shortness of Breath. albuterol Yes [id number] 2{puff} Inhale 2 [facility] 90 5-14 Puffs ity of mcg/actuati 00:00: every 6 [place] as on inhaler 00 (six) Medical hours as Branch needed for Wheezing or Shortness of Breath. albuterol Yes [id number] 2{puff} Inhale 2 [facility] 90 5-14 Puffs ity of mcg/actuati 00:00: every 6 [place] as on inhaler 00 (six) Medical hours as Branch needed for Wheezing or Shortness of Breath. albuterol Yes [id number] 2{puff} Inhale 2 [facility] 90 5-14 Puffs ity of mcg/actuati 00:00: every 6 [place] as on inhaler 00 (six) Medical hours as Branch needed for Wheezing or Shortness of Breath. albuterol Yes [id number] 2{puff} Inhale 2 [facility] 90 5-14 Puffs ity of mcg/actuati 00:00: every 6 [place] as on inhaler 00 (six) Medical hours as Branch needed for Wheezing or Shortness of Breath. albuterol Yes [id number] 2{puff} Inhale 2 [facility] 90 5-14 Puffs ity of mcg/actuati 00:00: every 6 [place] as on inhaler 00 (six) Medical hours as Branch needed for Wheezing or Shortness of Breath. albuterol 2017- Yes [id number] 2{puff} Inhale 2 [facility] 90 5-14 Puffs ity of mcg/actuati 00:00: every 6 [place] as on inhaler 00 (six) Medical hours as Branch needed for Wheezing or Shortness of Breath. albuterol 2017- Yes [id number] 2{puff} Inhale 2 [facility] 90 5-14 Puffs ity of mcg/actuati 00:00: every 6 [place] as on inhaler 00 (six) Medical hours as Branch needed for Wheezing or Shortness of Breath. albuterol 2017- Yes [id number] 2{puff} Inhale 2 [facility] 90 5-14 Puffs ity of mcg/actuati 00:00: every 6 [place] as on inhaler 00 (six) Medical hours as Branch needed for Wheezing or Shortness of Breath. albuterol 2017- Yes [id number] 2{puff} Inhale 2 [facility] 90 5-14 Puffs ity of mcg/actuati 00:00: every 6 [place] as on inhaler 00 (six) Medical hours as Branch needed for Wheezing or Shortness of Breath. albuterol 2017- Yes [id number] 2{puff} Inhale 2 [facility] 90 5-14 Puffs ity of mcg/actuati 00:00: every 6 [place] as on inhaler 00 (six) Medical hours as Branch needed for Wheezing or Shortness of Breath. albuterol 2017- Yes [id number] 2{puff} Inhale 2 [facility] 90 5-14 Puffs ity of mcg/actuati 00:00: every 6 [place] as on inhaler 00 (six) Medical hours as Branch needed for Wheezing or Shortness of Breath. albuterol 2017-0 Yes [id number] 2{puff} Inhale 2 [facility] 90 5-14 Puffs ity of mcg/actuati 00:00: every 6 [place] as on inhaler 00 (six) Medical hours as Branch needed for Wheezing or Shortness of Breath. albuterol 2017-0 Yes [id number] 2{puff} Inhale 2 [facility] 90 5-14 Puffs ity of mcg/actuati 00:00: every 6 [place] as on inhaler 00 (six) Medical hours as Branch needed for Wheezing or Shortness of Breath. albuterol Yes [id number] 2{puff} Inhale 2 [facility] 90 5-14 Puffs ity of mcg/actuati 00:00: every 6 [place] as on inhaler 00 (six) Medical hours as Branch needed for Wheezing or Shortness of Breath. albuterol 2021- No [id number] 2{puff} Inhale 2 [facility] 90 5-14 09-17 [...] [place] 00 EVERY DAY Medical Branch LORATADINE 2017-0 Yes TAKE 1 Unive rs 10 mg 3-19 TABLET BY ity of tablet 00:00: MOUTH [place] 00 EVERY DAY Medical Branch LORATADINE 0 Yes TAKE 1 Unive rs 10 mg 3-19 TABLET BY ity of tablet 00:00: MOUTH [place] 00 EVERY DAY Medical Branch LORATADINE 2017-0 Yes TAKE 1 Unive rs 10 mg 3-19 TABLET BY ity of tablet 00:00: MOUTH [place] 00 EVERY DAY Medical Branch LORATADINE 2017-0 Yes TAKE 1 Unive rs 10 mg 3-19 TABLET BY ity of tablet 00:00: MOUTH [place] 00 EVERY DAY Medical Branch LORATADINE 2017-0 Yes TAKE 1 Unive rs 10 mg 3-19 TABLET BY ity of tablet 00:00: MOUTH [place] 00 EVERY DAY Medical Branch LORATADINE 2017-0 Yes TAKE 1 Unive rs 10 mg 3-19 TABLET BY ity of tablet 00:00: MOUTH [place] 00 EVERY DAY Medical Branch LORATADINE 2017-0 Yes TAKE 1 Unive rs 10 mg 3-19 TABLET BY ity of tablet 00:00: MOUTH [place] 00 EVERY DAY Medical Branch LORATADINE 2017-0 Yes TAKE 1 Unive rs 10 mg 3-19 TABLET BY ity of tablet 00:00: MOUTH [place] 00 EVERY DAY Medical Branch LORATADINE 2017-0 Yes TAKE 1 Unive rs 10 mg 3-19 TABLET BY ity of tablet 00:00: MOUTH [place] 00 EVERY DAY Medical Branch LORATADINE [id number] Yes TAKE 1 Unive rs 10 mg [...] TABLET BY ity of tablet 00:00: MOUTH [place] 00 EVERY DAY Medical Branch LORATADINE 0 Yes TAKE 1 Unive rs 10 mg 3-19 TABLET BY ity of tablet 00:00: MOUTH [place] 00 EVERY DAY Medical Branch LORATADINE 0 [...] MOUTH [place] 00 DAILY Medical Branch MELOXICAM 2017-0 2021- No TAKE 1 Unive rs 15 mg 3-12 03-18 TABLET BY ity of tablet 00:00: 00:00 MOUTH [place] 00 :00 DAILY Medical Branch MELOXICAM 2018-0 1- No TAKE 1 Unive rs 15 mg 3-12 03-18 TABLET BY ity of tablet 00:00: 00:00 MOUTH [place] 00 :00 DAILY Medical Branch FLUOXETINE 2018-0 Yes [id number] TAKE 1 U nivers 40 mg 2-25 CAPSULE BY ity of capsule 00:00: MOUTH [place] 00 DAILY Medical Branch FLUOXETINE 2018-0 Yes [id number] TAKE 1 U nivers 40 mg 2-25 CAPSULE BY ity of capsule 00:00: MOUTH [place] 00 DAILY Medical Branch FLUOXETINE 2018-0 2021- No [id number] TAKE 1 Univers 40 mg 2-25 03-18 CAPSULE BY ity of capsule 00:00: 00:00 MOUTH [place] 00 :00 DAILY Medical Branch FLUOXETINE 2020- No [id number] TAKE 1 [facility] 40 mg 2-25 03-18 CAPSULE BY ity of capsule 00:00: 00:00 MOUTH [place] 00 :00 DAILY Medical Branch nystatin Yes [id number] Apply to Univers (NYSTOP) 1-24 area(s) ity of 100,000 00:00: daily. [place] unit/gram 00 Medical powder Branch liraglutide Yes [id number] 0.3 ml Univers 0.6 mg/0.1 1-24 under skin ity of mL (18 mg/3 00:00: daily [place] mL) 00 Medical injection Branch nystatin Yes [id number] Apply to Univers (NYSTOP) 1-24 area(s) ity of 100,000 00:00: daily. [place] unit/gram 00 Medical powder Branch liraglutide Yes [id number] 0.3 ml Univers 0.6 mg/0.1 1-24 under skin ity of mL (18 mg/3 00:00: daily [place] mL) 00 Medical injection Branch nystatin 2020- No [id number] Apply to Univers (NYSTOP) 1-24 03-18 area(s) ity of 100,000 00:00: 00:00 daily. [place] unit/gram 00 :00 Medical powder Branch liraglutide 2020- No [id number] 0.3 ml Univers 0.6 mg/0.1 -24 -18 under skin it y of mL (18 mg/3 00:00: 00:00 [place] mL[place] 00 :00 Medical injection Branch nystatin 2020- No [id number] Apply to Univers (NYSTOP) 1-24 03-18 area(s) ity of 100,000 00:00: 00:00 daily. [place] unit/gram 00 :00 Medical powder Branch liraglutide 2020- No [id number] 0.3 ml Univers 0.6 mg/0.1 -24 -18 under skin it y of mL (18 mg/3 00:00: 00:00 [place] mL[place] 00 :00 Medical injection Branch GABAPENTIN Yes [id number] TAKE 1 [facility] 300 mg 1-16 CAPSULE BY ity of capsule 00:00: MOUTH [place] 00 THREE Medical TIMES Branch DAILY AMITRIPTYLI 0 Yes [id number] TAKE 1 Univers NE 25 mg 1-16 TABLET BY ity of tablet 00:00: MOUTH AT [place] 00 BEDTIME Medical Branch GABAPENTIN 2018-0 Yes [id number] TAKE 1 [facility] 300 mg 1-16 CAPSULE BY ity of capsule 00:00: MOUTH [place] 00 THREE Medical TIMES Branch DAILY AMITRIPTYLI 0 Yes [id number] TAKE 1 Univers NE 25 mg 1-16 TABLET BY ity of tablet 00:00: MOUTH AT [place] 00 BEDTIME Medical Branch GABAPENTIN 2017-0 2021- No [id number] TAKE 1 [facility] 300 mg 1-16 03-18 CAPSULE BY ity of capsule 00:00: 00:00 MOUTH [place] 00 :00 THREE Medical TIMES Branch DAILY AMITRIPTYLI 2017-0 2020- No [id number] TAKE 1 Univers NE 25 mg 1-16 03-18 TABLET BY ity o f tablet 00:00: 00:00 MOUTH AT [place] 00 :00 BEDTIME Medical Branch GABAPENTIN 2017-0 2020- No [id number] TAKE 1 [facility] 300 mg 1-16 03-18 CAPSULE BY ity of capsule 00:00: 00:00 MOUTH [place] 00 :00 THREE Medical TIMES Branch DAILY AMITRIPTYLI 2017-0 1- No [id number] TAKE 1 Univers NE 25 mg 1-16 03-18 TABLET BY ity o f tablet 00:00: 00:00 MOUTH AT [place] 00 :00 BEDTIME Medical Branch FLUCONAZOLE 2016-0 Yes [id number] TAKE 1 [facility] 150 mg 7-05 TABLET BY ity of tablet 00:00: MOUTH [place] 00 NEEDED FOR Medical RASH Branch FLUCONAZOLE 2016- Yes [id number] TAKE 1 [facility] 150 mg 7-05 TABLET BY ity of tablet 00:00: MOUTH [place] 00 NEEDED FOR Medical RASH Branch FLUCONAZOLE 2016-0 2021- No [id number] TAKE 1 [facility] 150 mg 7-05 03-18 TABLET BY ity of tablet 00:00: 00:00 MOUTH [place] 00 :00 NEEDED FOR Medical RASH Branch FLUCONAZOLE 2016-0 2021- No [id number] TAKE 1 [facility] 150 mg 7-05 03-18 TABLET BY ity of tablet 00:00: 00:00 MOUTH [place] 00 :00 NEEDED FOR Medical RASH Branch Melatonin 5 Yes Take by Un mary mg Tab 4-12 mouth ity of 16:29: daily. [address] Melatonin 5 2017-0 Yes Take by Un mary mg Tab 4-12 mouth ity of 16:29: daily. [address] Immunizations Ordered Filled Immunization Date Status Comments [facility] e Immunization Name Name SARS-COV-2 COVID-19 2020-11-29 Completed Unive rsity of PFIZER VACCINE 00:00:00 [facility] [place] SARS-COV-2 COVID-19 2020-11-29 Completed Unive rsity of PFIZER VACCINE 00:00:00 [facility] [place] SARS-COV-2 COVID-19 2020-11-29 Completed Unive rsity of PFIZER VACCINE 00:00:00 [facility] [place] SARS-COV-2 COVID-19 2020-11-29 Completed Unive rsity of PFIZER VACCINE 00:00:00 [facility] [place] SARS-COV-2 COVID-19 2020-11-29 Completed Unive rsity of PFIZER VACCINE 00:00:00 [facility] [place] SARS-COV-2 COVID-19 2020-11-29 Completed Unive rsity of PFIZER VACCINE 00:00:00 [facility] [place] SARS-COV-2 COVID-19 2020-11-29 Completed Unive rsity of PFIZER VACCINE 00:00:00 [facility] [place] SARS-COV-2 COVID-19 2020-11-29 Completed Unive rsity of PFIZER VACCINE 00:00:00 [facility] [place] SARS-COV-2 COVID-19 2020-11-29 Completed Unive rsity of PFIZER VACCINE 00:00:00 [facility] [place] SARS-COV-2 COVID-19 2020-11-29 Completed Unive rsity of PFIZER VACCINE 00:00:00 [facility] [place] SARS-COV-2 COVID-19 2020-11-29 Completed Unive rsity of PFIZER VACCINE 00:00:00 [facility] [place] SARS-COV-2 COVID-19 2020-11-29 Completed Unive rsity of PFIZER VACCINE 00:00:00 [facility] [place] SARS-COV-2 COVID-19 2020-11-29 Completed Unive rsity of PFIZER VACCINE 00:00:00 [facility] [place] SARS-COV-2 COVID-19 2020-11-29 Completed Unive rsity of PFIZER VACCINE 00:00:00 [place] [facility] SARS-COV-2 COVID-19 2020-11-29 Completed Unive rsity of PFIZER VACCINE 00:00:00 [facility] Branch SARS-COV-2 COVID-19 2020-11-29 Completed Unive rsity of PFIZER VACCINE 00:00:00 [facility] Branch SARS-COV-2 COVID-19 2020-11-29 Completed Unive rsity of PFIZER VACCINE 00:00:00 [facility] Branch SARS-COV-2 COVID-19 2020-11-29 Completed Unive rsity of PFIZER VACCINE 00:00:00 [facility] Branch SARS-COV-2 COVID-19 2020-11-29 Completed Unive rsity of PFIZER VACCINE 00:00:00 [facility] Branch SARS-COV-2 COVID-19 2020-11-29 Completed Unive rsity of PFIZER VACCINE 00:00:00 [facility] Branch SARS-COV-2 COVID-19 2020-11-29 Completed Unive rsity of PFIZER VACCINE 00:00:00 [facility] Branch SARS-COV-2 COVID-19 2020-11-29 Completed Unive rsity of PFIZER VACCINE 00:00:00 [facility] Branch SARS-COV-2 COVID-19 2020-11-29 Completed Unive rsity of PFIZER VACCINE 00:00:00 [facility] Branch SARS-COV-2 COVID-19 2020-11-29 Completed Unive rsity of PFIZER VACCINE 00:00:00 [facility] Branch SARS-COV-2 COVID-19 2020-11-29 Completed Unive rsity of PFIZER VACCINE 00:00:00 [facility] Branch SARS-COV-2 COVID-19 2020-11-29 Completed Unive rsity of PFIZER VACCINE 00:00:00 [facility] Branch SARS-COV-2 COVID-19 2020-11-29 Completed Unive rsity of PFIZER VACCINE 00:00:00 [facility] Branch SARS-COV-2 COVID-19 2020-11-08 Completed Unive rsity of PFIZER VACCINE 00:00:00 [facility] [place] SARS-COV-2 COVID-19 2020-11-08 Completed Unive rsity of PFIZER VACCINE 00:00:00 [facility] Branch SARS-COV-2 COVID-19 2020-11-08 Completed Unive rsity of PFIZER VACCINE 00:00:00 [facility] Branch SARS-COV-2 COVID-19 2020-11-08 Completed Unive rsity of PFIZER VACCINE 00:00:[address] [place] [facility] Branch SARS-COV-2 COVID-19 2020-11-08 Completed Unive rsity of PFIZER VACCINE 00:00:00 [facility] Branch SARS-COV-2 COVID-19 2020-11-08 Completed Unive rsity of PFIZER VACCINE 00:00:[address] [place] [facility] Branch SARS-COV-2 COVID-19 2020-11-08 Completed Unive rsity of PFIZER VACCINE 00:00:00 [facility] Branch SARS-COV-2 COVID-19 2020-11-08 Completed Unive rsity of PFIZER VACCINE 00:00:00 [facility] Branch SARS-COV-2 COVID-19 2020-11-08 Completed Unive rsity of PFIZER VACCINE 00:00:00 [facility] Branch SARS-COV-2 COVID-19 2020-11-08 Completed Unive rsity of PFIZER VACCINE 00:00:00 [facility] Branch SARS-COV-2 COVID-19 2020-11-08 Completed Unive rsity of PFIZER VACCINE 00:00:00 [facility] Branch SARS-COV-2 COVID-19 2020-11-08 Completed Unive rsity of PFIZER VACCINE 00:00:00 [facility] Branch SARS-COV-2 COVID-19 2020-11-08 Completed Unive rsity of PFIZER VACCINE 00:00:00 [facility] Branch SARS-COV-2 COVID-19 2020-11-08 Completed Unive rsity of PFIZER VACCINE 00:00:00 [facility] Branch SARS-COV-2 COVID-19 2020-11-08 Completed Unive rsity of PFIZER VACCINE 00:00:00 [facility] Branch SARS-COV-2 COVID-19 2020-11-08 Completed Unive rsity of PFIZER VACCINE 00:00:00 [facility] Branch SARS-COV-2 COVID-19 2020-11-08 Completed Unive rsity of PFIZER VACCINE 00:00:00 [facility] Branch SARS-COV-2 COVID-19 2020-11-08 Completed Unive rsity of PFIZER VACCINE 00:00:00 [facility] Branch SARS-COV-2 COVID-19 2020-11-08 Completed Unive rsity of PFIZER VACCINE 00:00:00 [facility] [place] SARS-COV-2 COVID-19 2020-11-08 Completed Unive rsity of PFIZER VACCINE 00:00:00 [facility] [place] SARS-COV-2 COVID-19 2020-11-08 Completed Unive rsity of PFIZER VACCINE 00:00:00 [facility] [place] SARS-COV-2 COVID-19 2020-11-08 Completed Unive rsity of PFIZER VACCINE 00:00:00 [facility] [place] SARS-COV-2 COVID-19 2020-11-08 Completed Unive rsity of PFIZER VACCINE 00:00:00 [facility] [place] SARS-COV-2 COVID-19 2020-11-08 Completed Unive rsity of PFIZER VACCINE 00:00:00 [facility] [place] SARS-COV-2 COVID-19 2020-11-08 Completed Unive rsity of PFIZER VACCINE 00:00:00 [facility] [place] SARS-COV-2 COVID-19 2020-11-08 Completed Unive rsity of PFIZER VACCINE 00:00:00 [facility] [place] SARS-COV-2 COVID-19 2020-11-08 Completed Unive rsity of PFIZER VACCINE 00:00:00 [facility] [place] Vital Signs Vital Name Observation Time Observation Value Comments Source Systolic blood 2020-12-14 19:47:00 140 mm[Hg] Univer sity of pressure [facility] Diastolic blood 2020-12-14 19:47:00 98 mm[Hg] Unive rsity of pressure [facility] Heart rate 2020-12-14 19:47:00 80 /min [facility] Body temperature 2020-12-14 19:47:00 36.22 [place] Univ ersity of [facility] Respiratory rate 2020-12-14 19:47:00 20 /min Univ ersity of [facility] Body weight 2020-12-14 19:47:00 158.759 kg [facility] BMI 2020-12-14 19:47:00 53.22 kg/m2 [facility] Oxygen saturation in 2020-12-14 19:47:00 97 /min [facility] Arterial blood by [facility] Pulse oximetry Branch Procedures Procedure Date / Time Performed Performing Clinician [facility] e PAIN MANAGEMENT 2021-06-15 05:01:00 Doctor Unassigned, No [facility] AGREEMENT & INFORMED Name [facility] CONSENT Encounters Start End Encounter Admission Attending Care Care Encounter Source Date/Time Date/Time Type Type Clinicians Facility Department ID 2022-02-20 2022-02-20 [id number] Univers 15:40:00 15:40:00 JAMIN [id number] [facility] [place] [facility] 2022-02-20 2022-02-20 [facility] [id number] Univers 15:40:00 15:40:00 JAMIN [facility] [place] [facility] 2022-02-11 2022-02-11 [facility] [id number] Univers 00:00:00 00:00:00 (Out) Jamin BLANCHARD [id number] i ty of [id number] [id number] La dical NAL [address] [place] [address] 2022-02-07 2022-02-07 Outpatient [place] [id number] Univers 15:40:00 15:40:00 JAMIN [id number] [facility] [place] [facility] 2022-02-07 2022-02-07 [facility] [id number] Univers 15:40:00 15:40:00 JAMIN [facility] [place] [facility] 2022-01-31 2022-01-31 [facility] .[id number] Univers 00:00:00 00:00:00 (Out) Jamin BLANCHARD [id number] i ty [facility] [id number] [id number] La dical NAL [address] [place] [address] 2021-12-26 2021-12-26 Outpatient R [place] [id number] Univers 16:20:00 16:20:00 JAMIN [id number] [facility] [place] [facility] 2021-12-26 2021-12-26 [id number] Univers 16:20:00 16:20:00 JAMIN [facility] [place] [facility] 2021-12-18 2021-12-18 [facility] [id number] Univers 14:40:00 14:40:00 JAMIN [id number] [facility] [place] [facility] 2021-12-18 2021-12-18 [facility] [id number] Univers 14:40:00 14:40:00 JAMIN [facility] [place] [facility] 2021-12-11 2021-12-11 [facility] .[id number] Univers 00:00:00 00:00:00 Jamin BLANCHARD [id number] i ty [id number] [id number] [address] 2021-08-10 2021-08-10 [facility] .[id number] Univers 00:00:00 00:00:00 Jamin BLANCHARD [id number] i ty [id number] [id number] [address] 2021-07-13 2021-07-13 [facility] [id number] Univers 10:00:00 10:00:00 JAMIN [id number] [facility] [place] [facility] 2021-07-13 2021-07-13 [facility] [id number] Univers 10:00:00 10:00:00 JAMIN [facility] 2021-07-12 2021-07-12 Outpatient R [facility] [id number] Univers 14:00:00 14:00:00 DORI [id number] [facility] 2021-07-12 2021-07-12 Outpatient R [facility] [id number] Univers 14:00:00 14:00:00 DORI [facility] [place] [facility] 2021-07-01 2021-07-01 [facility] [id number] Univers 00:00:00 00:00:00 Jamin Blanchard [id number] [id number] [phone] [facility] 044 [facility] 2021-06-22 2021-06-22 [facility]phone [facility] [id number] Univers 00:00:00 00:00:00 Noemí Blanch[place] [id number] i ty [id number] [id number] [facility] 188 [facility] 2021-06-15 2021-06-15 [facility] [id number] Univers 07:46:12 13:56:22 ne Visit Jamin Blanchard [id number] it[id number] [id number] [facility] 044 [facility] 2021-06-15 2021-06-15 [facility] [id number] Univers 09:40:00 09:40:00 JAMIN [id number] [facility] [place] [facility] 2021-06-15 2021-06-15 [facility] [id number] Univers 09:40:00 09:40:00 JAMIN ity [facility] 2021-06-15 2021-06-15 Orders Doctor NOEMÍ [id number] Univers 00:00:00 00:00:00 Only Unassigned, NIGEL [id number] ity of [place] [facility] [id number] Te[place] as [id number] [address] 2021-06-14 2021-06-14 [facility] [id number] Univers 11:20:00 11:20:00 JAMIN [id number] [facility] [facility] 2021-06-14 2021-06-14 [facility] [id number] Univers 11:20:00 11:20:00 JAMIN [facility] 2021-06-11 2021-06-11 [facility] 1.2.840.114 [id number] Univers 00:00:00 00:00:00 Jamin Blanchard [id number] i [place] [id number] Dariusz reese Professio [phone] [place] dical [place]al [address] [place] [address] 2021-05-02 2021-05-02 Outpatient R [facility]MPHREY [facility] [id number] 04Q-20 Univers 15:40:00 15:40:00 JAMIN [id number] [facility] 2021-05-02 2021-05-02 Outpatient R [facility]REY [facility] [id number] Univers 00:00:00 00:00:00 JAMIN [facility] 2021-04-13 2021-04-13 Outpatient R HUMPHREY [place] [id number] 04Q-20 Univers 00:00:00 00:00:00 JAMIN [id number] [facility] 2021-03-30 2021-03-30 Outpatient R HUMPHREY [place] [id number] 04Q-20 Univers 10:00:00 10:00:00 JAMIN [id number] [facility] 2021-03-30 2021-03-30 Outpatient R [facility] [id number] Univers 10:00:00 10:00:00 JAMIN [facility] 2021-03-29 2021-03-29 Outpatient R [facility]REY [facility] [id number] [id number] Univers 11:20:00 11:20:00 JAMIN [id number] [facility] 2021-03-29 2021-03-29 [facility] [id number] Univers 00:00:00 00:00:00 JAMIN [facility] 2021-03-21 2021-03-21 Outpatient R HUMPHREY [place] [id number] 04Q-20 Univers 15:00:00 15:00:00 JAMIN [id number] [facility] 2021-03-21 2021-03-21 Outpatient R [facility] [id number] Univers 15:00:00 15:00:00 JAMIN gasper [facility] 2021-03-16 2021-03-16 [facility]ici [facility] 1.2.840.114 [id number] Univers 09:10:41 11:21:47 ne Visit Jamin Blanchard [id number] itgasper [facility] [id number] [phone] [place] dical [place] [address] [place] [address] 2021-03-16 2021-03-16 [facility] [id number] 04Q-20 Univers 11:00:00 11:00:00 JAMIN [id number] [facility] 2021-03-16 2021-03-16 [facility] [id number] Univers 11:00:00 11:00:00 JAMIN gasper [facility] 2021-03-16 2021-03-16 Outpatient R [facility] [id number] Univers 09:00:00 09:00:00 JAMIN gasper [facility] 2021-03-10 2021-03-10 [facility] [id number] Univers 00:00:00 00:00:00 Jamin Blanchard [id number] i [id number] [phone] La dical nal [address] [place] [address] 2021-03-08 2021-03-08 Outpatient R HUMPHREY [facility] [id number] 04Q-20 Univers 14:00:00 14:00:00 JAMIN [id number] [facility] 2021-03-08 2021-03-08 [facility] [id number] Univers 00:00:00 00:00:00 JAMIN castrejon [facility] 2021-02-01 2021-02-01 [facility] [id number] 04Q-20 Univers 00:00:00 00:00:00 JAMIN [id number] [facility] 2021-01-29 2021-01-29 Refill [facility] 1.2.840.114 [id number] Univers 00:00:00 00:00:00 Jamin Blanchard [id number] i [place] [id number] [phone] La dical nal [address] [place] [address] 2021-01-27 2021-01-27 Refill [facility] [id number] Univers 00:00:00 00:00:00 Jamin Blanchard [id number] i [place] [id number] [phone] La dicmn nal [address] [place] [address] 2021-01-05 2021-01-05 Outpatient [facility] [id number] 04Q-20 Univers 10:20:00 10:20:00 JAMIN Rossi409 [facility] 2021-01-05 2021-01-05 [id number] Univers 00:00:00 00:00:00 JAMIN [facility] 2021-01-03 2021-01-03 [facility] [id number] 04Q-20 Univers 15:40:00 15:40:00 JAMIN [id number] [facility] 2020-12-27 2020-12-27 Office [facility] [id number] Univers 09:07:50 11:51:59 Visit Jamin Blanchard [id number] i [facility] [place] [id number] [phone] [place] dical [place]al [address] [place] [address] 2020-12-27 2020-12-27 Outpatient R [facility] [id number] 04Q-20 Univers 09:40:00 09:40:00 JAIMN [id number] [facility] 2020-12-27 2020-12-27 [facility] [id number] Univers 09:40:00 09:40:00 JAMIN castrejon of [facility] 2020-12-21 2020-12-21 [facility] [id number] 04Q-20 Univers 11:00:00 11:00:00 JAMIN [id number] ity [facility] 2020-12-18 2020-12-18 [facility] [id number] Univers 00:00:00 00:00:00 Secure Msg Jamin Blanchard [id number] [id number] [phone] [place] dical nal 044 [facility] 2020-12-15 2020-12-15 Telephone [facility] [id number] Univers 00:00:00 00:00:00 Jamin Blanchard [id number] i [place] [id number] [phone] La dical nal 231 [facility] 2020-12-15 2020-12-15 [facility] 1.2.840.114 [id number] Univers 00:00:00 00:00:00 Secure Msg Jamin Blanchard [id number] [place] [id number] [phone] [place] dical nal 044 [facility] 2020-12-15 2020-12-15 Patient [facility] 1.2.840.114 [id number] Univers 00:00:00 00:00:00 Secure Msg Jamin Blanchard [id number] [place] [id number] [phone] [place] dical nal 044 [facility] 2020-12-14 2020-12-14 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 1.2.840.114 [id number] [facility] 15:53:26 16:08:26 Visit HumphreyJamin [id number] [place] [id number] [phone] La dical nal 353 [facility] 2020-12-14 2020-12-14 Office [facility] 1.2.840.114 [id number] Univers 14:29:06 15:50:03 Visit Jamin Blanchard [id number] i [place] [id number] [phone] [address] 2020-12-14 2020-12-14 [facility] [id number] 04Q-20 Univers 14:20:00 14:20:00 JAMIN [id number] [facility] 2020-12-14 2020-12-14 [facility] [id number] Univers 14:20:00 14:20:00 JAMIN [facility] 2020-12-14 2020-12-14 Telephone [facility] 1.2.840.114 [id number] Univers 00:00:00 00:00:00 Jamin Blanchard [id number] i [place] [id number] [phone] [address] 2020-11-29 2020-11-29 [facility] [id number] Univers 09:20:00 09:25:37 ARRON [facility] 2020-11-29 2020-11-29 [facility] [id number] Univers 09:20:00 09:20:00 ARRON [id number] [facility] 2020-11-29 2020-11-29 Office [facility] 1.2.840.114 [id number] Univers 08:00:00 08:40:00 Visit Jamin Blanchard [id number] i [place] [id number] [phone] [place] dic[address] 2020-11-29 2020-11-29 [facility] [id number] Univers 08:00:00 08:00:00 JAMIN [facility] 2020-11-08 2020-11-08 Outpatient Lc BARNES [facility] [id number] Univers 09:20:00 09:20:00 ARRON [id number] [facility] 2020-11-08 2020-11-08 Outpatient Lc BARNES [facility] [id number] [facility] 09:20:00 09:15:51 ARRON [facility] Results This patient has no known results.
[2022-02-17 06:24] LABS: Absolute Lymphocytes (CBC) 2.5 K/uL (0.7-4.9); Hematocrit 41.4 % (36.0-45.0); MPV 8.3 fL (7.6-11.3); RBC Red Blood Cell Count 4.85 M/uL (3.86-4.86)
[2022-02-17 06:25] LABS: Protime INR 1.12
[2022-02-17 06:25] LABS: Urine Blood Trace-lysed (Negative); Urine Glucose 3+ (Negative); Urine Protein 1+ (Negative); Urine Specific Gravity 1.025 (1.005-1.030); Urine pH 5.5 (5.0-7.0)
[2022-02-17] MEDS ORDERED: NA CHLORIDE 0.9% 1,000 ML ONE (06:41)
[2022-02-17] MEDS ORDERED: CEFTRIAXONE 1000 MG/VIAL ONE (06:41)
[2022-02-17] MEDS ORDERED: NA CHLORIDE 0.9% 50 ML ONE (06:42)
[2022-02-17 06:43] LABS: ALT/SGPT 15 U/L (12-78); AST/SGOT 10 U/L (15-37); Albumin 3.1 g/dL (3.4-5.0); Alkaline Phosphatase 116 U/L (45-117); BUN Blood Urea Nitrogen 14 mg/dL (7-18); Bicarbonate 28 mmol/L (21-32); Bilirubin Direct 0.1 mg/dL (0-0.2); Bilirubin Total 0.4 mg/dL (0.2-1.0); Glomerular Filtration Rate 91 ml/min (=/>90); Glucose Level 373 mg/dL (74-106); Lipase 75 U/L (73-393); Magnesium 1.5 mg/dL (1.8-2.4); NT PRO-BNP 36 pg/mL (<125); Potassium 3.8 mmol/L (3.5-5.1); Protein, Total 7.5 g/dL (6.4-8.2); Sodium Level 135 mmol/L (136-145); Troponin High Sensitivity 5.3 pg/mL (<58.9)
--- NOTE | 2022-02-17 07:13 | EDPHYS ---
Physician Documentation [facility] Name: Sherly Babb Age: 51 yrs Sex: Female : 1970 Arrival Date: 02/17/2022 Time: 05:33 Bed 2 Private MD: [place] HPI: 02/17 06:16 This 51 yrs old Female presents to ER via Ambulatory with complaints of High eloisa Blood Sugar, Blurred Vision. 06:16 The patient or guardian reports hyperglycemia. Onset: The symptoms/episode eloisa began/occurred 2 day(s) ago. Associated signs and symptoms: Pertinent positives: polydipsia. Current symptoms: In the emergency department the patient's symptoms are unchanged from the initial presentation. The patient has experienced similar episodes in the past, multiple times. ROOM MAID: 05:59 LMP N/A - Post-menopause kd3 Historical: - Allergies: 05:58 Morphine; kd3 - PMHx: 05:58 Anxiety; Depression; Diabetes - NIDDM; Hyperlipidemia; Hypertension; Migraines; SMALL kd3 BOWEL OBSTRUCTION; - Immunization history:: Adult Immunizations up to date, Client reports receiving the 2nd dose of the Covid vaccine. - Social history:: Smoking status: unknown. - Family history:: not pertinent. ROS: 06:16 Constitutional: Negative for fever, chills, and weight loss, ENT: Negative for injury, eloisa pain, and discharge, Neck: Negative for injury, pain, and swelling, Cardiovascular: Negative for chest pain, palpitations, and edema, Respiratory: Negative for shortness of breath, cough, wheezing, and pleuritic chest pain, Abdomen/GI: Negative for abdominal pain, nausea, vomiting, diarrhea, and constipation, Back: Negative for injury and pain, : Negative for injury, bleeding, discharge, and swelling, MS/Extremity: Negative for injury and deformity, Skin: Negative for injury, rash, and discoloration, Neuro: Negative for headache, weakness, numbness, tingling, and seizure. 06:16 Eyes: Positive for blurry vision. Exam: 06:16 Constitutional: This is a well developed, well nourished patient who is awake, alert, eloisa and in no acute distress. Head/Face: Normocephalic, atraumatic. Eyes: Pupils equal round and reactive to light, extra-ocular motions intact. Lids and lashes normal. Conjunctiva and sclera are non-icteric and not injected. Cornea within normal limits. Periorbital areas with no swelling, redness, or edema. ENT: Nares patent. No nasal discharge, no septal abnormalities noted. Tympanic membranes are normal and external auditory canals are clear. Oropharynx with no redness, swelling, or masses, exudates, or evidence of obstruction, uvula midline. Mucous membranes moist. Neck: Trachea midline, no thyromegaly or masses palpated, and no cervical lymphadenopathy. Supple, full range of motion without nuchal rigidity, or vertebral point tenderness. No Meningismus. Chest/axilla: Normal chest wall appearance and motion. Nontender with no deformity. No lesions are appreciated. Cardiovascular: Regular rate and rhythm with a normal S1 and S2. No gallops, murmurs, or rubs. Normal PMI, no JVD. No pulse deficits. Respiratory: Lungs have equal breath sounds bilaterally, clear to auscultation and percussion. No rales, rhonchi or wheezes noted. No increased work of breathing, no retractions or nasal flaring. Abdomen/GI: Soft, non-tender, with normal bowel sounds. No distension or tympany. No guarding or rebound. No evidence of tenderness throughout. Back: No spinal tenderness. No costovertebral tenderness. Full range of motion. Skin: Warm, dry with normal turgor. Normal color with no rashes, no lesions, and no evidence of cellulitis. MS/ Extremity: Pulses equal, no cyanosis. Neurovascular intact. Full, normal range of motion. Neuro: Awake and alert, GCS 15, oriented to person, place, time, and situation. Cranial nerves II-XII grossly intact. Motor strength 5/5 in all extremities. Sensory grossly intact. Cerebellar exam normal. Normal gait. Psych: Awake, alert, with orientation to person, place and time. Behavior, mood, and affect are within normal limits. 07:18 ECG was reviewed by the Attending Physician. [facility] Vital Signs: 05:52 BP 140 / 99; Pulse 91; Resp 18; Temp 98.5; Pulse Ox 99% on R/A; Weight 154.22 kg; kd3 Height 5 ft. 8 in. (172.72 cm); Pain 0/10; 08:48 BP 130 / 84; Pulse 81; Resp 17; Pulse Ox 98% ; ll1 05:52 Body Mass Index 51.70 (154.22 kg, 172.72 cm) kd3 MDM: 05:58 Patient medically screened. [facility] 06:18 Differential diagnosis: hyperglycemia. Data reviewed: vital signs, nurses notes, lab eloisa test result(s), EKG, radiologic studies, plain films. Data interpreted: lunchroom monitor: rate is 91 beats/min, rhythm is regular, Pulse oximetry: on room air is 99 %. Test interpretation: by ED physician or midlevel provider: ECG, plain radiologic studies. Counseling: I had a detailed discussion with the patient and/or guardian regarding: the historical points, exam findings, and any diagnostic results supporting the discharge/admit diagnosis, the presence of at least one elevated blood pressure reading (>120/80) during this emergency department visit, lab results, radiology results. 02/17 05:41 Order name: Basic Metabolic Panel; Complete Time: 07:11 [facility] 02/17 05:41 Order name: CBC with Diff; Complete Time: 06:38 [facility] 02/17 05:41 Order name: LFT's; Complete Time: 07:11 [facility] 02/17 05:41 Order name: Magnesium; Complete Time: 07:11 [facility] 02/17 05:41 Order name: NT PRO-BNP; Complete Time: 07:11 [facility] 02/17 05:41 Order name: PT-INR; Complete Time: 06:38 [facility] 02/17 05:41 Order name: Troponin HS; Complete Time: 07:11 [facility] 02/17 05:41 Order name: XRAY Chest (1 view) [facility] 02/17 05:41 Order name: Ketone, Serum; Complete Time: 07:11 [facility] 02/17 05:41 Order name: Lipase; Complete Time: 07:11 [facility] 02/17 06:25 Order name: Urine Dipstick-Ancillary; Complete Time: 06:38 [facility] 02/17 08:46 Order name: Glucose, Ancillary Testing [facility] 02/17 05:41 Order name: EKG; Complete Time: 05:42 [facility] 02/17 05:41 Order name: Cardiac monitoring; Complete Time: 06:57 [facility] 02/17 05:41 Order name: EKG - Nurse/Tech; Complete Time: 07:39 [facility] 02/17 05:41 Order name: IV Saline Lock; Complete Time: 06:20 [facility] 02/17 05:41 Order name: Labs collected and sent; Complete Time: 06:20 [facility] 02/17 05:41 Order name: O2 Per Protocol; Complete Time: 06: [facility] 02/17 05:41 Order name: O2 Sat Monitoring; Complete Time: 06: [facility] 02/17 05:41 Order name: Urine Dipstick-Ancillary (obtain specimen); Complete Time: 06:38 eloisa EC:18 Rate is 83 beats/min. Rhythm is regular. QRS [place] is Normal. VA interval is normal. QRS eloisa interval is normal. No Q waves. T waves are Normal. No ST changes noted. Clinical impression: NSR w/ Non-specific ST/T Changes and No evidence of ischemia. Interpreted by me. Reviewed by me. Administered Medications: 06:45 Drug: NS 0.9% 1000 ml Route: IV; Rate: 1 bolus; Site: right antecubital; ke1 07:39 Follow up: Response: No adverse reaction; IV Status: Completed infusion; IV Intake: ll1 1000ml 06:45 Drug: Rocephin (cefTRIAXone) 1 grams Route: IV; Rate: per protocol; Site: right [facility] antecubital; 07:40 Follow up: Response: No adverse reaction; IV Status: Completed infusion ll1 07:38 Drug: Magnesium Sulfate 1 grams Route: IVPB; Infused Over: 1 hrs; Site: right [facility] antecubital; 08:36 Follow up: Response: No adverse reaction; IV Status: Completed infusion; IV Intake: ll1 100ml 07:38 Drug: Insulin Regular Human 7 units {Co-Signature: vg1 (Dang Wagoner RN).} Route: ll1 IVP; Site: right antecubital; 08:37 Follow up: Response: No adverse reaction ll1 08:36 Drug: LanTUS (insulin glargine) 30 units Route: Sub-Q; Site: right upper abdomen; ll1 09:01 Follow up: Response: No adverse reaction 1 Disposition Summary: 02/17/22 07:12 Discharge Ordered Location: Home eloisa Problem: new eloisa Symptoms: have improved eloisa Condition: Stable eloisa Diagnosis - Type 2 diabetes mellitus with hyperglycemia eloisa - Obesity, unspecified eloisa - Hypomagnesemia eloisa - UTI/ Urinary tract infection, site not specified eloisa Followup: eloisa - With: Private Physician - When: 2 - 3 days - Reason: Recheck today's complaints, Continuance of care, Re-evaluation by your physician Discharge Instructions: - Discharge Summary Sheet eloisa - Type 2 Diabetes Mellitus, Diagnosis, Adult eloisa - Diabetes Mellitus and Sick Day Management eloisa - Hyperglycemia eloisa - Obesity, Adult eloisa - Hypomagnesemia eloisa - Heart-Healthy Eating Plan eloisa - Urinary Tract Infection, Adult eloisa - Urinary Tract Infection, Adult, [id number] [facility] Forms: - Medication Reconciliation Form [facility] - Thank You Letter eloisa - Antibiotic Education eloisa - Prescription Opioid Use [facility] - Work release form ww Prescriptions: - Glipizide 10 mg Oral Tablet - take 1 tablet by ORAL route once daily before a meal; 20 tablet; Refills: 0, [facility] Product Selection Permitted - Bactrim DS 800-160 mg Oral Tablet - take 1 tablet by ORAL route every 12 hours for 7 days; 14 tablet; Refills: 0, [facility] Product Selection Permitted - Lantus Solostar U-100 Insulin 100 unit/mL (3 mL) Subcutaneous insulin pen - inject 30 unit by SUBCUTANEOUS route once daily; 1 Syringe; Refills: 0, Product [facility] Selection Permitted Signatures: Dispatcher [employer] Bryant Gonzalez MD MD cha Lewis, Lynsay RN RN ll1 Glenny Lakhani RN RN kd3 Jordan Smart RN RN ke1 Dang Wagoner RN vg1 Corrections: (The following items were deleted from the chart) 06:58 06:27 Urine Culture+BA.LAB.BRZ ordered. [facility] EDMS
--- NOTE | 2022-02-17 07:13 | ER ---
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 pt states that early this morning, she was "nodding off" at her desk and "felt off". she checked her blood sugar around 0300 and it was 589. pt then checked around 0530 and was 533. she also reports high blood pressure at 179/119. Coronavirus screen: Vaccine status: Patient reports receiving the 2nd dose of the covid vaccine. Ebola Screen: No symptoms or risks identified at this time. Initial Sepsis Screen: Does the patient meet any 2 criteria? Yes Does the patient have a suspected source of infection? No. Patient's initial sepsis screen is negative. Risk Assessment: Do you want to hurt yourself or someone else? Patient reports no desire to harm self or others. Onset of symptoms was February 17, 2022. 05:52 Method Of Arrival: Ambulatory kd3 05:52 Acuity: BRITTANY 3 kd3 Triage Assessment: 05:59 General: Appears in no apparent distress. Behavior is calm, cooperative. Pain: Denies kd3 pain. [employer]: 05:59 LMP N/A - Post-menopause kd3 Historical: - Allergies: 05:58 Morphine; kd3 - PMHx: 05:58 Anxiety; Depression; Diabetes - NIDDM; Hyperlipidemia; Hypertension; Migraines; SMALL kd3 BOWEL OBSTRUCTION; - Immunization history:: Adult Immunizations up to date, Client reports receiving the 2nd dose of the Covid vaccine. - Social history:: Smoking status: unknown. - Family history:: not pertinent. Screenin:00 Abuse screen: Denies threats or abuse. Denies injuries from another. Nutritional kd3 screening: No deficits noted. Tuberculosis screening: No symptoms or risk factors identified. Fall Risk IV access (20 points). Assessment: 07:22 General: Appears in no apparent distress. Behavior is calm, cooperative. Neuro: Level kd3 of Consciousness is awake, alert, obeys commands, Oriented to person, place, time, situation. Cardiovascular: Patient's skin is warm and dry. Respiratory: Airway is patent Trachea midline Respiratory effort is even, unlabored. 08:20 Reassessment: No changes from previously documented assessment. Patient and/or family ll1 updated on plan of care and expected duration. Pain level reassessed. Patient is alert, oriented x 3, equal unlabored respirations, skin warm/dry/pink. 08:50 Reassessment: No changes from previously documented assessment. Patient and/or family ll1 updated on plan of care and expected duration. Pain level reassessed. Patient is alert, oriented x 3, equal unlabored respirations, skin warm/dry/pink. Vital Signs: 05:52 BP 140 / 99; Pulse 91; Resp 18; Temp 98.5; Pulse Ox 99% on R/A; Weight 154.22 kg; kd3 Height 5 ft. 8 in. (172.72 cm); Pain 0/10; 08:48 BP 130 / 84; Pulse 81; Resp 17; Pulse Ox 98% ; ll1 05:52 Body Mass Index 51.70 (154.22 kg, 172.72 cm) kd3 ED Course: 05:33 Patient arrived in ED. kz 05:40 Bryant Owusu MD is Attending Physician. eloisa 05:51 Glenny Lakhani, RN is Primary Nurse. kd3 05:58 Triage completed. kd3 05:59 Arm band placed on right wrist. kd3 06:00 Patient has correct armband on for positive identification. kd3 06:00 No provider procedures requiring assistance completed. kd3 06:32 XRAY Chest (1 view) In Process Unspecified. EDMS 07:05 IV is patent, IV R AC. ll1 08:48 IV discontinued, intact, bleeding controlled, No redness/swelling at site. Pressure ll1 dressing applied. Administered Medications: 06:45 Drug: NS 0.9% 1000 ml Route: IV; Rate: 1 bolus; Site: right antecubital; ke1 07:39 Follow up: Response: No adverse reaction; IV Status: Completed infusion; IV Intake: ll1 1000ml 06:45 Drug: Rocephin (cefTRIAXone) 1 grams Route: IV; Rate: per protocol; Site: right ke1 antecubital; 07:40 Follow up: Response: No adverse reaction; IV Status: Completed infusion ll1 07:38 Drug: Magnesium Sulfate 1 grams Route: IVPB; Infused Over: 1 hrs; Site: right ll1 antecubital; 08:36 Follow up: Response: No adverse reaction; IV Status: Completed infusion; IV Intake: ll1 100ml 07:38 Drug: Insulin Regular Human 7 units {Co-Signature: vg1 (Dang Wagoner RN).} Route: ll1 IVP; Site: right antecubital; 08:37 Follow up: Response: No adverse reaction ll1 08:36 Drug: LanTUS (insulin glargine) 30 units Route: Sub-Q; Site: right upper abdomen; ll1 09:01 Follow up: Response: No adverse reaction ll1 Medication: 09:01 VIS not applicable for this client. ll1 Intake: 07:39 IV: 1000ml; Total: 1000ml. ll1 08:36 IV: 100ml; Total: 1100ml. ll1 Outcome: 07:12 Discharge ordered by MD. amin 08:50 Patient left the ED. ll1 08:50 Discharged to home ambulatory. ll1 08:50 Condition: stable 08:50 Discharge instructions given to patient, Instructed on discharge instructions, follow up and referral plans. medication usage, Demonstrated understanding of instructions, follow-up care, medications, Prescriptions given X 3. Signatures: Dispatcher [employer] EDBryant Klein MD MD cha Lewis, Lynsay, RN RN ll1 Glenny Lakhani RN BORIS shahid3 Jordan Smart RN RN ke1 Zapata, Kelly kz Victoria Garcia RN vg1 Corrections: (The following items were deleted from the chart) 06:58 06:38 Urine Culture+BA.LAB.BRZ drawn and sent. radha JO
[2022-02-17] MEDS ORDERED: INSULIN GLARGINE 100 UNIT/ML SQ ONE ×2 (07:30→08:33)
[2022-02-17] MEDS ORDERED: MAGNESIUM SULFATE 1 gm IVPB 1 GM/100 ML BAG IV ONE (07:31)
[2022-02-17] MEDS ORDERED: INSULIN -REGULAR HUMAN 50 UNIT/0.5 ML ML ONE (07:31)
--- NOTE | 2022-02-17 07:46 | RAD REPORT ---
EXAM DESCRIPTION: RAD - Chest Single View - 02/17/2022 6:31 am CLINICAL HISTORY: COUGH, hypertension COMPARISON: Portable 08/08/2020 TECHNIQUE: AP portable chest image was obtained 02/17/2022 6:31 am . FINDINGS: Lungs are clear. Heart and vasculature are normal. No measurable pleural effusion and no p neumothorax. No acute bony abnormality seen. No acute aortic findings suspected. IMPRESSION: No acute cardiopulmonary process. No significant change from comparison study.
[2022-02-17 08:55] VITALS: BP 140/99; TEMP 98.5; O2SAT 99
--- NOTE | 2022-02-18 11:26 | EKG ---
Test Date: 2022-02-17 Test Time: 07:11:44 [employer] Utility: EMMANUEL MEASUREMENT RESULTS: Intervals: Rate: 83 VT: 194 QRSD: 120 QT: 412 QTc: 484 [place]: P: 41 VT: 194 QRS: 7 T: 25 INTERPRETIVE STATEMENTS: Normal sinus rhythm RSR' or QR pattern in V1 suggests right ventricular conduction delay Possible Lateral infarct, age undetermined Abnormal ECG Compared to ECG 05/22/2018 20:52:40 RSR' in V1 or V2 now present Sinus tachycardia no longer present Incomplete right bundle-branch block no longer present Myocardial infarct finding still present Electronically Signed On 02-18-22 11:23:36 CDT by Sukhjinder Henson
== END 2022-02-17 08:50 | disposition home or self-care (01) ==
LOC: ER 05:30
DX: E11.65 Type 2 diabetes mellitus with hyperglycemia (principal); E83.42 Hypomagnesemia; N39.0 Urinary tract infection, site not specified; E66.9 Obesity, unspecified; F41.8 Other specified anxiety disorders; E78.5 Hyperlipidemia, unspecified; I10 Essential (primary) hypertension
CPT/HCPCS: 96365; 93005; 85025; 80048; 36415; 82010; 83735; 85610; 82947; 80076; 81003; 84484; 83690; 83880; 71045; 96375; 96372; 99283; J1815; J3475; J7030

== ENCOUNTER 2024-04-04 19:39 | Emergency (ER) | payer OTHER ==
--- OUTSIDE RECORDS SUMMARY | 2024-04-04 19:45 | XMS REPORT | Continuity of Care Document ---
Author Name Unknown Address [address] [facility] [address] [place] [address] [facility] thconnect Address [address] 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 Role Phone JAMIN YIN Primary Care Physician UnavailJAMIN Cornejo Attending Clinician Unavailable Jamin Yin MD Attending Clinician [phone] Zora Baugh Attending Clinician [phone] Doctor Unassigned, [place] Attending Clinician [facility] Attending Clinicia n Pob, [facility] Main Attending Clinician UnavailGibson Clement MD Attending Clinician + [phone] DORI SMITH Attending Clinician Unavailable Pacheco Vila MD Attending Clinician 2, [facility] Attending Clinician Unavailable ARRON BARNES Attending Clinician Unavailable Payers Payer Name Policy Type Policy Number Effective Date Expirati on Date Source [employer] [id number] 2020 00:00:00 [employer] CHOICE POS II [id number] 2020 00:00:00 Problems Condition Name Condition Details Condition Category Status Onset Date Resolution Date Last Treatment Date Treating Clinician Comments Source Pharyngiti s due to other organism Pharyngiti s due to other organism Disease Active 0 02-26 00:00: [facility] Severe episode of recurrent major depressive disorder, 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, without psychotic features Disease Active 02-26 00:00: 00 [facility] Migraine equivalent syndrome Migraine equivalent syndrome Disease Active 02-26 00:00: 00 [facility] Influenza A H1N1 infection Influenza A H1N1 infection Disease Active 2021-09 00:00: 00 [facility] Acute cough Acute cough Disease Active 2021-09 00:00: 00 [facility] Non-produc tive cough Non-produc tive cough Disease Active 2021-09 00:00: 00 [facility] Hospital discharge follow-up Hospital discharge follow-up Disease Active 02-20 00:00: 00 [facility] Infective urethritis Infective urethritis Disease Active 02-20 00:00: 00 [facility] Chronic midline low back pain with right-side d sciatica Chronic midline low back pain with right-side d sciatica Disease Active 02-20 00:00: 00 [facility] Hyperglyce marilynn due to diabetes mellitus Hyperglyce marilynn due to diabetes mellitus Disease Active 02-20 00:00: 00 [facility] Pain management contract signed Pain management contract signed Disease Active 5 00:00: 00 [facility] Vitamin D deficiency Vitamin D deficiency Disease Active 06-15 00:00: 00 [facility] Mild recurrent major depression Mild recurrent major depression Disease Active 0 06-15 00:00: 00 [facility] Adjustment insomnia Adjustment insomnia Disease Active 06-15 00:00: 00 [facility] Current moderate episode of major depressive disorder, unspecifie d whether recurrent Current moderate episode of major depressive disorder, unspecifie d whether recurrent Disease Active 0 6-18 00:00: 00 [facility] Dyslipidem ia Dyslipidem ia Disease Active 618 00:00: 00 [facility] Insomnia, unspecifie d type Insomnia, unspecifie d type Disease Active 12-14 00:00: 00 [facility] Anxiety, generalize d Anxiety, generalize d Disease Active 12-14 00:00: 00 [facility] Erythema intertrigo Erythema intertrigo Disease Active 12-14 00:00: 00 [facility] Adelaide albicans infection Adelaide albicans infection Disease Active 12-14 00:00: 00 [facility] Need for immunizati on against influenza Need for immunizati on against influenza Disease Active 12-14 00:00: 00 [facility] Breast cancer screening by mammogram Breast cancer screening by mammogram Disease Active 12-14 00:00: 00 [facility] Anxiety Anxiety Disease Active 12-07 00:00: 00 [facility] Neuropathy Neuropathy Disease Active 02-03 00:00: 00 [facility] Essential hypertensi on Essential hypertensi on Disease Active 12-23 00:00: 00 [facility] Depression , unspecifie d depression type Depression , unspecifie d depression type Disease Active 12-23 00:00: 00 [facility] Type 2 diabetes mellitus with diabetic polyneurop athy, with long-term current use of insulin Type 2 diabetes mellitus with diabetic polyneurop athy, with long-term current use of insulin Disease Active 12-23 00:00: 00 [facility] Mild intermitte nt asthma without complicati on Mild intermitte nt asthma without complicati on Disease Active 12-23 00:00: 00 [facility] Type 2 diabetes mellitus with diabetic polyneurop athy, with long-term current use of insulin Type 2 diabetes mellitus with diabetic polyneurop athy, with long-term current use of insulin Disease Active 12-23 00:00: 00 [facility] Severe obesity (BMI >= 40) Severe obesity (BMI >= 40) Disease Active 05-12 00:00: 00 [facility] Allergies, Adverse Reactions, Alerts Allergy Name Allergy Type Status Severity Reaction(s) Onset Date Inactive Date Treating Clinician Comments Source NO KNOWN ALLERGIE S Drug Class Active [facility] Social History Social Habit Start Date Stop Date Quantity Comments Source Gender identity Univ [facility] to SARS-CoV-2 (event) 2023-02-25 00:00:00 2023-03-07 06:26:00 Not sure [facility] Alcohol intake 2023-02-27 00:00:00 2023-02-27 00:00:00 0 /d [facility] Alcoholic beverage intake 2023-02-27 00:00:00 2023-02-27 00:00:00 0 /d [facility] History SDOH Alcohol Frequency 2023-02-26 00:00:00 2023-02-26 00:00:00 1 [facility] History SDOH Alcohol Std Drinks 2023-02-26 00:00:00 2023-02-26 00:00:00 0 [facility] History SDOH Alcohol Binge 2023-02-26 00:00:00 2023-02-26 00:00:00 1 [facility] History SDOH Social Connections Phone 2023-02-26 00:00:00 2023-02-26 00:00:00 5 [facility] History SDOH Social Connections Get Together 2023-02-26 00:00:00 2023-02-26 00:00:00 2 [facility] History SDOH Social Connections Pentecostal 2023-02-26 00:00:00 2023-02-26 00:00:00 1 [facility] History SDOH Social Connections Membership 2023-02-26 00:00:00 2023-02-26 00:00:00 2 [facility] History SDOH Social Connections Meetings 2023-02-26 00:00:00 2023-02-26 00:00:00 1 [facility] History SDOH Social Connections Living 2023-02-26 00:00:00 2023-02-26 00:00:00 6 [facility] History SDOH Physical Activity DPW 2023-02-26 00:00:00 2023-02-26 00:00:00 2 [facility] History SDOH Physical Activity MPS 2023-02-26 00:00:00 2023-02-26 00:00:00 1 [facility] History SDOH Stress 2023-02-26 00:00:00 2023-02-26 00:00:00 5 [facility] History SDOH Financial 2023-02-26 00:00:00 2023-02-26 00:00:00 2 [facility] History SDOH Food Worry 2023-02-26 00:00:00 2023-02-26 00:00:00 2 [facility] History SDOH Food Scarcity 2023-02-26 00:00:00 2023-02-26 00:00:00 2 [facility] History SDOH Transport Med 2023-02-26 00:00:00 2023-02-26 00:00:00 2 [facility] History SDOH Transport Non-Med 2023-02-26 00:00:00 2023-02-26 00:00:00 2 [facility] History SDOH Housing Unable to Pay 2023-02-26 00:00:00 2023-02-26 00:00:00 1 [facility] History SDOH Housing Places Lived 2023-02-26 00:00:00 2023-02-26 00:00:00 2 [facility] History SDOH Housing Homeless Last Year 2023-02-26 00:00:00 2023-02-26 00:00:00 2 [facility] History of Social function 2023-02-26 00:00:00 2023-02-26 00:00:00 [facility] Sex assigned at 1970 00:00:00 1970 00:00:00 [facility] Smoking Status Start Date Stop Date Source Never smoked tobacco [facility] Medications Ordered Medication Name Filled Medication Name Start Date Stop Date Current Medication? Ordering Clinician Indication Dosage Frequency Signature (SIG) Comments Components Source gabapentin 800 mg tablet 3-12 00:00: 00 Yes [id number] TAKE ONE TABLET BY MOUTH THREE TIMES A DAY (MORNING NOON AND EVENING) [facility] TIZANIDINE 4 mg tablet 12 00:00: 00 Yes [id number] TAKE ONE TABLET BY MOUTH EVERY 8 HOURS NEEDED FOR FOR MUSCLE SPASMS [facility] SERTRALINE 50 mg tablet 312 00:00: 00 Yes [id number] 50mg TAKE 1 TABLET BY MOUTH EVERY MORNING [facility] SERTraline 50 mg tablet 2 00:00: 00 Yes [id number] 50mg TAKE ONE TABLET BY MOUTH EVERY MORNING [facility] tiZANidine 4 mg tablet 2022-09 00:00: 00 12-08 00:00 :00 No [id number] TAKE ONE TABLET BY MOUTH EVERY 8 HOURS NEEDED FOR FOR MUSCLE SPASMS [facility] tiZANidine 4 mg tablet 2022-09 00:00: 00 Yes [id number] TAKE ONE TABLET BY MOUTH EVERY 8 HOURS NEEDED FOR FOR MUSCLE SPASMS [facility] ATORVASTATI N 10 mg tablet 814 00:00: 00 Yes [id number] 10mg TAKE ONE TABLET BY MOUTH AT BEDTIME [facility] dulaglutide (TRULICITY) 0.75 mg/0.5 mL PnIj 03-02 00:00: 00 Yes [id number] .75mg inject 1 Pen under the skin weekly. [facility] bromphenira mine-pseudo ephedrine-D M (BROMFED DM) 2-30-10 mg/5 mL syrup 02-26 00:00: 00 Yes [id number] 10mL Take 10 mL by mouth 4 (four) times daily as needed for Cough. [facility] nystatin/ma alox/diphen hydrAMINE/l idocaine 2 % viscous 1:1:1:1 Susp suspension 02-26 00:00: 00 Yes [id number] 5mL Take 5 mL by mouth 4 (four) times daily as needed (Sore throat). Gargle and spit, do not swallow [facility] traMADoL 50 mg tablet 02-26 00:00: 00 Yes [id number] 50mg Take 1 tablet by mouth every 8 (eight) hours as needed for Pain (scale 4-6). Indication s: chronic pain [facility] losartan-hy drochloroth iazide 100-12.5 mg per tablet 02-26 00:00: 00 Yes [id number] 1{tbl} Take 1 tablet by mouth in the morning. [facility] metformin ER 500 mg 24 hr tablet 02-26 00:00: 00 Yes [id number] 1000mg Take 2 tablets by mouth in the morning and 2 tablets in the evening. [facility] insulin lispro, human, (HUMALOG U-100 INSULIN) 100 unit/mL injection 02-26 00:00: 00 Yes [id number] 10U inject 10 Units under the skin in the morning and 10 Units at noon and 10 Units in the evening. inject before meals. [facility] glipiZIDE XL 10 mg 24 hr tablet 02-26 00:00: 00 Yes [id number] 10mg Take 1 tablet by mouth daily with breakfast. [facility] Insulin Glargine (BASAGLAR KWIKPEN U-100 INSULIN) 100 unit/mL (3 mL) injection 02-26 00:00: 00 Yes [id number] 30U inject 30 Units under the skin in the morning. [facility] fluconazole (DIFLUCAN) 200 mg tablet 02-26 00:00: 00 Yes [id number] 200mg Take 1 tablet by mouth in the morning. [facility] traZODone 100 mg tablet 02-26 00:00: 00 Yes [id number] 100mg Take 1 tablet by mouth at bedtime. [facility] hydrOXYzine 50 mg tablet 02-26 00:00: 00 Yes [id number] 50mg Take 1 tablet by mouth every 8 (eight) hours as needed for Anxiety. [facility] Insulin [place], Disposable, (BD ULTRAFINE III MINI PEN) 31 gauge x 3/16" Ndle 02-26 00:00: 00 Yes [id number] E11.9: Inject insulin with dosage as directed [facility] sumatriptan 100 mg tablet 02-26 00:00: 00 Yes [id number] 100mg Take 1 tablet by mouth as needed for Migraine. [facility] oseltamivir 75 mg capsule 02-26 00:00: 00 Yes [id number] 75mg Take 1 capsule by mouth in the morning and 1 capsule in the evening. [facility] Insulin [place], Disposable, (BD ULTRAFINE III MINI PEN) 31 gauge x 3/16" Ndle 02-26 00:00: 00 Yes [id number] E11.9: Inject insulin with dosage as directed [facility] Insulin Glargine (BASAGLAR KWIKPEN U-100 INSULIN) 100 unit/mL (3 mL) injection 02-26 00:00: 00 Yes [id number] 30U inject 30 Units under the skin in the morning. [facility] gabapentin 800 mg tablet 02-26 00:00: 00 12-08 00:00 :00 No [id number] 800mg Take 1 tablet by mouth in the morning and 1 tablet at noon and 1 tablet in the evening. [facility] SERTraline 50 mg tablet 02-26 00:00: 00 11-02 00:00 :00 No [id number] 50mg Take 1 tablet by mouth in the morning. [facility] aspirin-maribel taminophen- caffeine (EXCEDRIN MIGRAINE) 250-250-65 mg per tablet 02-26 00:00: 00 09-28 00:00 :00 No [id number] 1{tbl} Take 1 tablet by mouth every 6 (six) hours as needed for Pain. [facility] tiZANidine 4 mg tablet 02-26 00:00: 00 08-27 00:00 :00 No [id number] 4mg Take 1 tablet by mouth every 8 (eight) hours as needed (muscle spasms). [facility] atorvastati n 10 mg tablet 02-26 00:00: 00 05-12 00:00 :00 No [id number] 10mg Take 1 tablet by mouth at bedtime. [facility] semaglutide (OZEMPIC) 0.25 mg or 0.5 mg(2 mg/1.5 mL) PnIj 02-26 00:00: 00 03-02 00:00 :00 No [id number] .5mg inject 0.5 mg under the skin weekly for 30 days. Direction: Inject 0.25mg qWeek x 4 Weeks; then Inject 0.5mg qWeek x 4Weeks; then inject 1mg qWeek. [facility] semaglutide (OZEMPIC) 1 mg/dose (4 mg/3 mL) PnIj 02-26 00:00: 00 03-02 00:00 :00 No [id number] 1mg inject 1 mg under the skin weekly. [facility] amoxicillin -clavulanat e (AUGMENTIN) 875-125 mg per tablet 02-26 00:00: 00 02-26 00:00 :00 No [id number] 1{tbl} Take 1 tablet by mouth in the morning and 1 tablet in the evening. [facility] NYAMYC 100,000 unit/gram powder 01-30 00:00: 00 Yes [id number] APPLY TO AFFECTED AREA(S) DAILY [facility] Insulin Glargine (BASAGLAR KWIKPEN U-100 INSULIN) 100 unit/mL (3 mL) injection - 00:00: 00 Yes [id number] 30U inject 30 Units under the skin in the morning. [facility] Insulin Glargine (BASAGLAR KWIKPEN U-100 INSULIN) 100 unit/mL (3 mL) injection 2- 00:00: 00 02-26 00:00 :00 No [id number] 30U inject 30 Units under the skin in the morning. [facility] SERTRALINE 25 mg tablet 1-26 00:00: 00 02-26 00:00 :00 No TAKE ONE TABLET BY MOUTH EVERY MORNING [facility] bromphenira mine-pseudo ephedrine-D M (BROMFED DM) 2-30-10 mg/5 mL syrup 2021-09 00:00: 00 Yes [id number] 10mL Take 10 mL by mouth 4 (four) times daily as needed for Cough. [facility] fluticasone propionate 50 mcg/actuati on nasal spray 2021-09 00:00: 00 Yes [id number] 1{spray } Use 1 [place] in each nostril in the morning. [facility] albuterol 90 mcg/actuati on inhaler 2021-09 00:00: 00 Yes [id number] 2{puff} Inhale 2 Puffs every 6 (six) hours as needed for Wheezing or Shortness of Breath. [facility] ergocalcife rol, vitamin d2, 1,250 mcg (50,000 unit) capsule 2021-09 00:00: 00 Yes [id number] 42803D Take 1 capsule by mouth weekly. [facility] traZODone 100 mg tablet 2021-09 00:00: 00 02-26 00:00 :00 No [id number] 100mg Take 1 tablet by mouth at bedtime. [facility] hydrOXYzine 50 mg tablet 2021-09 00:00: 00 02-26 00:00 :00 No [id number] 50mg Take 1 tablet by mouth every 8 (eight) hours as needed for Anxiety. [facility] tiZANidine 2 mg tablet 2021-09 00:00: 00 02-26 00:00 :00 No [id number] 2mg Take 1 tablet by mouth every 8 (eight) hours as needed (muscle spasms). [facility] traMADoL 50 mg tablet 2021-09 00:00: 00 02-26 00:00 :00 No [id number] 50mg Take 1 tablet by mouth every 8 (eight) hours as needed for Pain (scale 4-6). Indication s: chronic pain [facility] losartan-hy drochloroth iazide 100-12.5 mg per tablet 2021-09 00:00: 00 02-26 00:00 :00 No [id number] 1{tbl} Take 1 tablet by mouth in the morning. [facility] insulin lispro, human, (HUMALOG U-100 INSULIN) 100 unit/mL injection 2021-09 00:00: 00 02-26 00:00 :00 No [id number] 10U inject 10 Units under the skin in the morning and 10 Units at noon and 10 Units in the evening. inject before meals. [facility] glipiZIDE XL 10 mg 24 hr tablet 2021-09 00:00: 00 02-26 00:00 :00 No [id number] 10mg Take 1 tablet by mouth daily with breakfast. [facility] metformin ER 500 mg 24 hr tablet 2021-09 00:00: 00 02-26 00:00 :00 No [id number] 1000mg Take 2 tablets by mouth in the morning and 2 tablets in the evening. [facility] gabapentin 800 mg tablet 2021-09 00:00: 02-26 00:00 :00 No [id number] 800mg Take 1 tablet by mouth in the morning and 1 tablet at noon and 1 tablet in the evening. [facility] SERTraline 50 mg tablet 2021-09 00:00: 00 02-26 00:00 :00 No [id number] 50mg Take 1 tablet by mouth in the morning. [facility] oseltamivir (TAMIFLU) 75 mg capsule 2021-09 00:00: 00 11-19 00:00 :00 No [id number] 75mg Take 1 capsule by mouth in the morning and 1 capsule in the evening. [facility] insulin glargine 100 unit/mL injection 2021-09 00:00: 00 11-19 00:00 :00 No [id number] 30U inject 30 Units under the skin in the morning. [facility] SERTRALINE 25 mg tablet 2021-09 00:00: 00 09-27 00:00 :00 No [id number] TAKE ONE TABLET BY MOUTH EVERY MORNING [facility] ATORVASTATI N 10 mg tablet 2021-0909 00:00: 00 02-26 00:00 :00 No [id number] TAKE ONE TABLET BY MOUTH AT BEDTIME [facility] nystatin (NYSTOP) 100,000 unit/gram powder 2021-09 00:00: 00 01-30 00:00 :00 No [id number] Apply to area(s) daily. [facility] gabapentin 800 mg tablet 2021-09 00:00: 00 09-27 00:00 :00 No [id number] 800mg Take 1 tablet by mouth in the morning and 1 tablet at noon and 1 tablet in the evening. [facility] traMADoL 50 mg tablet 2021-09 00:00: 00 09-27 00:00 :00 No [id number] 50mg Take 1 tablet by mouth every 8 (eight) hours as needed for Pain (scale 4-6). Indication s: chronic pain [facility] SERTraline 25 mg tablet 2021-09 00:00: 00 09-23 00:00 :00 No [id number] 25mg Take 1 tablet by mouth in the morning. [facility] traMADoL 50 mg tablet 03-27 00:00: 00 Yes [id number] 50mg Take 1 tablet by mouth every 8 (eight) hours as needed for Pain (scale 4-6). Indication s: chronic pain [facility] traZODone 100 mg tablet 02-20 00:00: 00 09-27 00:00 :00 No [id number] 100mg Take 1 tablet by mouth at bedtime. [facility] glipiZIDE XL 10 mg 24 hr tablet 02-20 00:00: 00 09-27 00:00 :00 No [id number] 10mg Take 1 tablet by mouth daily with breakfast. [facility] insulin glargine 100 unit/mL injection 02-20 00:00: 00 09-27 00:00 :00 No [id number] 20U inject 20 Units under the skin daily. [facility] insulin lispro, human, (HUMALOG U-100 INSULIN) 100 unit/mL injection 02-20 00:00: 00 09-27 00:00 :00 No [id number] 10U inject 10 Units under the skin 3 (three) times daily before meals. [facility] losartan-hy drochloroth iazide 100-12.5 mg per tablet 02-20 00:00: 00 09-27 00:00 :00 No [id number] 1{tbl} Take 1 tablet by mouth daily. [facility] metformin ER 500 mg 24 hr tablet 02-20 00:00: 00 09-27 00:00 :00 No [id number] 1000mg Take 2 tablets by mouth 2 (two) times daily. [facility] tiZANidine 2 mg tablet 02-20 00:00: 00 09-27 00:00 :00 No [id number] 2mg Take 1 tablet by mouth every 8 (eight) hours as needed (muscle spasms). [facility] hydrOXYzine 50 mg tablet 02-20 00:00: 00 09-27 00:00 :00 No [id number] 50mg Take 1 tablet by mouth every 8 (eight) hours as needed for Anxiety. [facility] atorvastati n 10 mg tablet 02-20 00:00: 00 09-06 00:00 :00 No [id number] 10mg Take 1 tablet by mouth at bedtime. [facility] SERTraline 25 mg tablet 02-20 00:00: 00 08-23 00:00 :00 No [id number] 25mg Take 1 tablet by mouth daily. [facility] gabapentin 800 mg tablet 02-20 00:00: 00 08-23 00:00 :00 No [id number] 800mg Take 1 tablet by mouth 3 (three) times daily. [facility] nystatin (NYSTOP) 100,000 unit/gram powder 2020-09 00:00: 00 08-23 00:00 :00 No [id number] Apply to area(s) daily. [facility] ergocalcife rol, vitamin d2, 1,250 mcg (50,000 unit) capsule 06-15 00:00: 00 09-27 00:00 :00 No [id number] Take 1 capsule by mouth weekly. [facility] albuterol 90 mcg/actuati on inhaler 06-15 00:00: 00 09-27 00:00 :00 No [id number] 2{puff} Inhale 2 Puffs every 6 (six) hours as needed for Wheezing or Shortness of Breath. [facility] hydrOXYzine 50 mg tablet 06-15 00:00: 00 02-20 00:00 :00 No [id number] 50mg Take 1 tablet by mouth every 8 (eight) hours as needed for Anxiety. [facility] atorvastati n 10 mg tablet 06-15 00:00: 00 02-20 00:00 :00 No [id number] 10mg Take 1 tablet by mouth at bedtime. [facility] metformin ER 500 mg 24 hr tablet 06-15 00:00: 00 02-20 00:00 :00 No [id number] 1000mg Take 2 tablets by mouth 2 (two) times daily. [facility] Melatonin 5 mg tablet 06-15 00:00: 00 02-20 00:00 :00 No [id number] 5mg Take 1 tablet by mouth daily. [facility] gabapentin 800 mg tablet 06-15 00:00: 00 02-20 00:00 :00 No [id number] 800mg Take 1 tablet by mouth 3 (three) times daily. [facility] FLUoxetine 40 mg capsule 06-15 00:00: 00 02-20 00:00 :00 No [id number] 40mg Take 1 capsule by mouth daily. [facility] traZODone 50 mg tablet 06-15 00:00: 00 02-20 00:00 :00 No [id number] 50mg Take 1 tablet by mouth at bedtime. [facility] traMADoL 50 mg tablet 06-15 00:00: 00 02-20 00:00 :00 No [id number] 50mg Take 1 tablet by mouth every 8 (eight) hours as needed for Pain (scale 7-10). Indication s: chronic pain [facility] losartan-hy drochloroth iazide 100-12.5 mg per tablet 03-16 00:00: 00 02-20 00:00 :00 No [id number] 1{tbl} Take 1 tablet by mouth daily. [facility] nystatin (NYSTOP) 100,000 unit/gram powder 01-30 00:00: 00 08-10 00:00 :00 No [id number] Apply to area(s) daily. [facility] calcium carbonate (CALCIUM 500) 500 mg calcium (1,250 mg) tablet 12-27 00:00: 00 Yes [id number] 500mg Take 1 tablet by mouth daily. [facility] glipiZIDE XL 10 mg 24 hr tablet 12-27 00:00: 00 07-02 00:00 :00 No 10mg Take 1 tablet by mouth daily with breakfast. [facility] gabapentin 800 mg tablet 12-27 00:00: 00 06-15 00:00 :00 No [id number] 800mg Take 1 tablet by mouth 3 (three) times daily. [facility] atorvastati n 10 mg tablet 12-27 00:00: 00 06-15 00:00 :00 No [id number] 10mg Take 1 tablet by mouth at bedtime. [facility] metformin ER 500 mg 24 hr tablet 12-27 00:00: 00 06-15 00:00 :00 No [id number] 1000mg Take 2 tablets by mouth 2 (two) times daily. [facility] Cholecalcif jayde, Vitamin D3, (VITAMIN D3) 125 mcg (5,000 unit) tablet 12-27 00:00: 00 06-15 00:00 :00 No [id number] 5000U Take 1 tablet by mouth daily. [facility] traMADoL 50 mg tablet 12-18 00:00: 00 03-16 00:00 :00 No [id number] 50mg Take 1 tablet by mouth every 8 (eight) hours as needed for Pain (scale 7-10). Indication s: chronic pain [facility] ALPRAZolam 1 mg tablet 12-18 00:00: 00 03-16 00:00 :00 No [id number] 1mg Take 1 tablet by mouth 2 (two) times daily as needed (Anxiety/P anic Disorder). [facility] fluconazole 150 mg tablet 12-18 00:00: 00 03-16 00:00 :00 No [id number] Take 1 Tab PO x 1 for [place] infection. Refill 10 [facility] FLUoxetine 40 mg capsule 12-14 00:00: 00 06-15 00:00 :00 No [id number] 40mg Take 1 capsule by mouth daily. [facility] amitriptyli ne 25 mg tablet 12-14 00:00: 00 06-15 00:00 :00 No [id number] 25mg Take 1 tablet by mouth at bedtime. [facility] Melatonin 5 mg tablet 12-14 00:00: 00 06-15 00:00 :00 No [id number] 5mg Take 1 tablet by mouth daily. [facility] nystatin (NYSTOP) 100,000 unit/gram powder 12-14 00:00: 00 01-29 00:00 :00 No [id number] Apply to area(s) daily. [facility] losartan-hy drochloroth iazide 100-12.5 mg per tablet 01-14 00:00: 00 03-16 00:00 :00 No [id number] Take by mouth daily. [facility] albuterol 90 mcg/actuati on inhaler 2018-0 5-14 00:00: 00 06-15 00:00 :00 No [id number] 2{puff} Inhale 2 Puffs every 6 (six) hours as needed for Wheezing or Shortness of Breath. [facility] LORATADINE 10 mg tablet 12-15 00:00: 00 06-15 00:00 :00 No TAKE 1 TABLET BY MOUTH EVERY DAY [facility] Immunizations Ordered Immunization Name Filled Immunization Name Date Status Comments Source SARS-COV-2 COVID-19 PFIZER VACCINE 2020-11-29 00:00:00 Completed [facility] SARS-COV-2 COVID-19 PFIZER VACCINE 2020-11-29 00:00:00 Completed [facility] SARS-COV-2 COVID-19 PFIZER VACCINE 2020-11-29 00:00:00 Completed [facility] SARS-COV-2 COVID-19 PFIZER VACCINE 2020-11-29 00:00:00 Completed [facility] SARS-COV-2 COVID-19 PFIZER VACCINE 2020-11-29 00:00:00 Completed [facility] SARS-COV-2 COVID-19 PFIZER VACCINE 2020-11-29 00:00:00 Completed [facility] SARS-COV-2 COVID-19 PFIZER VACCINE 2020-11-29 00:00:00 Completed [facility] SARS-COV-2 COVID-19 PFIZER VACCINE 2020-11-29 00:00:00 Completed [facility] SARS-COV-2 COVID-19 PFIZER VACCINE 2020-11-29 00:00:00 Completed [facility] SARS-COV-2 COVID-19 PFIZER VACCINE 2020-11-29 00:00:00 Completed [facility] SARS-COV-2 COVID-19 PFIZER VACCINE 2020-11-29 00:00:00 Completed [facility] SARS-COV-2 COVID-19 PFIZER VACCINE 2020-11-29 00:00:00 Completed [facility] SARS-COV-2 COVID-19 PFIZER VACCINE 2020-11-29 00:00:00 Completed [facility] SARS-COV-2 COVID-19 PFIZER VACCINE 2020-11-29 00:00:00 Completed [facility] SARS-COV-2 COVID-19 PFIZER VACCINE 2020-11-29 00:00:00 Completed [facility] SARS-COV-2 COVID-19 PFIZER VACCINE 2020-11-29 00:00:00 Completed [facility] SARS-COV-2 COVID-19 PFIZER VACCINE 2020-11-29 00:00:00 Completed [facility] SARS-COV-2 COVID-19 PFIZER VACCINE 2020-11-29 00:00:00 Completed [facility] SARS-COV-2 COVID-19 PFIZER VACCINE 2020-11-29 00:00:00 Completed [facility] SARS-COV-2 COVID-19 PFIZER VACCINE 2020-11-29 00:00:00 Completed [facility] SARS-COV-2 COVID-19 PFIZER VACCINE 2020-11-29 00:00:00 Completed [facility] SARS-COV-2 COVID-19 PFIZER VACCINE 2020-11-29 00:00:00 Completed [facility] SARS-COV-2 COVID-19 PFIZER VACCINE 2020-11-29 00:00:00 Completed [facility] SARS-COV-2 COVID-19 PFIZER VACCINE 2020-11-29 00:00:00 Completed [facility] SARS-COV-2 COVID-19 PFIZER VACCINE 2020-11-29 00:00:00 Completed [facility] SARS-COV-2 COVID-19 PFIZER VACCINE 2020-11-29 00:00:00 Completed [facility] SARS-COV-2 COVID-19 PFIZER VACCINE 2020-11-29 00:00:00 Completed [facility] SARS-COV-2 COVID-19 PFIZER VACCINE 2020-11-29 00:00:00 Completed [facility] SARS-COV-2 COVID-19 PFIZER VACCINE 2020-11-29 00:00:00 Completed [facility] SARS-COV-2 COVID-19 PFIZER VACCINE 2020-11-29 00:00:00 Completed [facility] SARS-COV-2 COVID-19 PFIZER VACCINE 2020-11-29 00:00:00 Completed [facility] SARS-COV-2 COVID-19 PFIZER VACCINE 2020-11-29 00:00:00 Completed [facility] SARS-COV-2 COVID-19 PFIZER VACCINE 2020-11-29 00:00:00 Completed [facility] SARS-COV-2 COVID-19 PFIZER VACCINE 2020-11-29 00:00:00 Completed [facility] SARS-COV-2 COVID-19 PFIZER VACCINE 2020-11-29 00:00:00 Completed [facility] SARS-COV-2 COVID-19 PFIZER VACCINE 2020-11-29 00:00:00 Completed [facility] SARS-COV-2 COVID-19 PFIZER VACCINE 2020-11-08 00:00:00 Completed [facility] SARS-COV-2 COVID-19 PFIZER VACCINE 2020-11-08 00:00:00 Completed [facility] SARS-COV-2 COVID-19 PFIZER VACCINE 2020-11-08 00:00:00 Completed [facility] SARS-COV-2 COVID-19 PFIZER VACCINE 2020-11-08 00:00:00 Completed [facility] SARS-COV-2 COVID-19 PFIZER VACCINE 2020-11-08 00:00:00 Completed [facility] SARS-COV-2 COVID-19 PFIZER VACCINE 2020-11-08 00:00:00 Completed [facility] SARS-COV-2 COVID-19 PFIZER VACCINE 2020-11-08 00:00:00 Completed [facility] SARS-COV-2 COVID-19 PFIZER VACCINE 2020-11-08 00:00:00 Completed [facility] SARS-COV-2 COVID-19 PFIZER VACCINE 2020-11-08 00:00:00 Completed [facility] SARS-COV-2 COVID-19 PFIZER VACCINE 2020-11-08 00:00:00 Completed [facility] SARS-COV-2 COVID-19 PFIZER VACCINE 2020-11-08 00:00:00 Completed [facility] SARS-COV-2 COVID-19 PFIZER VACCINE 2020-11-08 00:00:00 Completed [facility] SARS-COV-2 COVID-19 PFIZER VACCINE 2020-11-08 00:00:00 Completed [facility] SARS-COV-2 COVID-19 PFIZER VACCINE 2020-11-08 00:00:00 Completed [facility] SARS-COV-2 COVID-19 PFIZER VACCINE 2020-11-08 00:00:00 Completed [facility] SARS-COV-2 COVID-19 PFIZER VACCINE 2020-11-08 00:00:00 Completed [facility] SARS-COV-2 COVID-19 PFIZER VACCINE 2020-11-08 00:00:00 Completed [facility] SARS-COV-2 COVID-19 PFIZER VACCINE 2020-11-08 00:00:00 Completed [facility] SARS-COV-2 COVID-19 PFIZER VACCINE 2020-11-08 00:00:00 Completed [facility] SARS-COV-2 COVID-19 PFIZER VACCINE 2020-11-08 00:00:00 Completed [facility] SARS-COV-2 COVID-19 PFIZER VACCINE 2020-11-08 00:00:00 Completed [facility] SARS-COV-2 COVID-19 PFIZER VACCINE 2020-11-08 00:00:00 Completed [facility] SARS-COV-2 COVID-19 PFIZER VACCINE 2020-11-08 00:00:00 Completed [facility] SARS-COV-2 COVID-19 PFIZER VACCINE 2020-11-08 00:00:00 Completed [facility] SARS-COV-2 COVID-19 PFIZER VACCINE 2020-11-08 00:00:00 Completed [facility] SARS-COV-2 COVID-19 PFIZER VACCINE 2020-11-08 00:00:00 Completed [facility] SARS-COV-2 COVID-19 PFIZER VACCINE 2020-11-08 00:00:00 Completed [facility] SARS-COV-2 COVID-19 PFIZER VACCINE 2020-11-08 00:00:00 Completed [facility] SARS-COV-2 COVID-19 PFIZER VACCINE 2020-11-08 00:00:00 Completed [facility] SARS-COV-2 COVID-19 PFIZER VACCINE 2020-11-08 00:00:00 Completed [facility] SARS-COV-2 COVID-19 PFIZER VACCINE 2020-11-08 00:00:00 Completed [facility] SARS-COV-2 COVID-19 PFIZER VACCINE 2020-11-08 00:00:00 Completed [facility] SARS-COV-2 COVID-19 PFIZER VACCINE 2020-11-08 00:00:00 Completed [facility] SARS-COV-2 COVID-19 PFIZER VACCINE 2020-11-08 00:00:00 Completed [facility] SARS-COV-2 COVID-19 PFIZER VACCINE 2020-11-08 00:00:00 Completed [facility] SARS-COV-2 COVID-19 PFIZER VACCINE 2020-11-08 00:00:00 Completed [facility] SARS-COV-2 COVID-19 PFIZER VACCINE Unknown Completed [facility] SARS-COV-2 COVID-19 PFIZER VACCINE Unknown Completed [facility] SARS-COV-2 COVID-19 PFIZER VACCINE Unknown Completed [facility] SARS-COV-2 COVID-19 PFIZER VACCINE Unknown Completed [facility] SARS-COV-2 COVID-19 PFIZER VACCINE Unknown Completed [facility] SARS-COV-2 COVID-19 PFIZER VACCINE Unknown Completed [facility] SARS-COV-2 COVID-19 PFIZER VACCINE Unknown Completed [facility] SARS-COV-2 COVID-19 PFIZER VACCINE Unknown Completed [facility] SARS-COV-2 COVID-19 PFIZER VACCINE Unknown Completed [facility] SARS-COV-2 COVID-19 PFIZER VACCINE Unknown Completed [facility] SARS-COV-2 COVID-19 PFIZER VACCINE Unknown Completed [facility] SARS-COV-2 COVID-19 PFIZER VACCINE Unknown Completed [facility] SARS-COV-2 COVID-19 PFIZER VACCINE Unknown Completed [facility] SARS-COV-2 COVID-19 PFIZER VACCINE Unknown Completed [facility] SARS-COV-2 COVID-19 PFIZER VACCINE Unknown Completed [facility] SARS-COV-2 COVID-19 PFIZER VACCINE Unknown Completed [facility] SARS-COV-2 COVID-19 PFIZER VACCINE Unknown Completed [facility] SARS-COV-2 COVID-19 PFIZER VACCINE Unknown Completed [facility] SARS-COV-2 COVID-19 PFIZER VACCINE Unknown Completed [facility] SARS-COV-2 COVID-19 PFIZER VACCINE Unknown Completed [facility] SARS-COV-2 COVID-19 PFIZER VACCINE Unknown Completed [facility] SARS-COV-2 COVID-19 PFIZER VACCINE Unknown Completed [facility] SARS-COV-2 COVID-19 PFIZER VACCINE Unknown Completed [facility] SARS-COV-2 COVID-19 PFIZER VACCINE Unknown Completed [facility] SARS-COV-2 COVID-19 PFIZER VACCINE Unknown Completed [facility] SARS-COV-2 COVID-19 PFIZER VACCINE Unknown Completed [facility] SARS-COV-2 COVID-19 PFIZER VACCINE Unknown Completed [facility] SARS-COV-2 COVID-19 PFIZER VACCINE Unknown Completed [facility] SARS-COV-2 COVID-19 PFIZER VACCINE Unknown Completed [facility] SARS-COV-2 COVID-19 PFIZER VACCINE Unknown Completed [facility] SARS-COV-2 COVID-19 PFIZER VACCINE Unknown Completed [facility] SARS-COV-2 COVID-19 PFIZER VACCINE Unknown Completed [facility] SARS-COV-2 COVID-19 PFIZER VACCINE Unknown Completed [facility] SARS-COV-2 COVID-19 PFIZER VACCINE Unknown Completed [facility] SARS-COV-2 COVID-19 PFIZER VACCINE Unknown Completed [facility] SARS-COV-2 COVID-19 PFIZER VACCINE Unknown Completed [facility] SARS-COV-2 COVID-19 PFIZER VACCINE Unknown Completed [facility] SARS-COV-2 COVID-19 PFIZER VACCINE Unknown Completed [facility] Vital Signs Vital Name Observation Time Observation Value Comments S ource Systolic blood pressure 2023-02-26 20:05:00 132 mm[Hg] [facility] Diastolic blood pressure 2023-02-26 20:05:00 83 mm[Hg] [facility] Heart rate 2023-02-26 20:05:00 111 /min [facility] Body temperature 2023-02-26 20:05:00 35.94 Caroline [facility] Body height 2023-02-26 20:05:00 172.7 cm [facility] Body weight 2023-02-26 20:05:00 151.91 kg [facility] BMI 2023-02-26 20:05:00 50.92 kg/m2 [facility] Oxygen saturation in Arterial blood by Pulse oximetry 2023-02-26 20:05:00 97 /min [facility] Systolic blood pressure 2022-09-27 22:04:00 147 mm[Hg] [facility] Diastolic blood pressure 2022-09-27 22:04:00 87 mm[Hg] [facility] Heart rate 2022-09-27 21:30:00 98 /min [facility] Body temperature 2022-09-27 21:30:00 36.22 Caroline [facility] Respiratory rate 2022-09-27 21:30:00 18 /min [facility] Body height 2022-09-27 21:30:00 172.7 cm [facility] Body weight 2022-09-27 21:30:00 149.687 kg [facility] BMI 2022-09-27 21:30:00 50.18 kg/m2 [facility] Oxygen saturation in Arterial blood by Pulse oximetry 2022-09-27 21:30:00 96 /min [facility] Procedures Procedure Date / Time Performed Performing Clinician Source DISABILITY/FMLA 2023-03-12 05:01:00 Doctor Unass igned, [place] [facility] POCT GRP A STREP (MOLECULAR) 2023-02-27 13:34:00 Jamin Yin [facility] INSURANCE CORRESPONDENCE 2023-02-27 05:01:00 Doc tor Unassigned, [place] [facility] COVID-19 (MOLECULAR TESTING NUCLEIC ACID AMPLIFICATION) 2023-02-26 20:48:00 Jamin Yin [facility] LAB ONLY COVID INTERPRETATION 2023-02-26 20:48:00 Jamin Yin [facility] POCT FLU A AND B (MOLECULAR) 2023-02-26 13:30:00 Jamin Yin [facility] CBC WITH DIFF 2022-09-27 23:02:00 Jamin Yin [facility] COMP. METABOLIC PANEL (31693) 2022-09-27 23:02:00 Jamin Yin [facility] LIPID PANEL (13850)(TOTAL CHOLESTEROL, TRIGLYCERIDES, HDL) 2022-09-27 23:02:00 Jamin Yin [facility] HCV ANTIBODY 2022-09-27 23:02:00 Jamin Yin [facility] POCT FLU A AND B (MOLECULAR) 2022-09-27 22:04:00 Jamin Yin [facility] POCT GRP A STREP (MOLECULAR) 2022-09-27 22:03:00 [facility] COVID-19 (MOLECULAR TESTING NUCLEIC ACID AMPLIFICATION) 2022-09-27 21:56:00 [facility] LAB ONLY COVID INTERPRETATION 2022-09-27 21:56:00 [facility] Encounters Start Date/Time End Date/Time Encounter Type Admission Type Attending [facility] Facility Care Department Encounter ID Source 2024-02-24 13:28:15 2024-02-24 13:28:15 Outpatient SFA SFA [id number] Mark Gómez 2024-02-24 10:40:00 2024-02-24 10:40:00 Outpatient [facility] [id number] [facility] 2024-02-12 00:00:00 2024-02-12 14:04:04 Jamin Cardoso [facility] 1.2.840.114 350.1.13.10 4.2.7.2.686 [id number] [facility] 2024-01-30 00:00:00 2024-01-30 00:00:00 Refill Zora Thompson [facility] 12.840.114 350.1.13.10 4.2.7.2.686 [id number] [facility] 2024-01-27 09:40:00 2024-01-27 09:40:00 Outpatient [facility] [id number] [facility] 2024-01-26 00:00:00 2024-01-26 00:00:00 Sharron Yin [facility] 1.2.840.114 350.1.13.10 4.2.7.2.686 [id number] [facility] 2024-01-26 00:00:00 2024-01-26 00:00:00 Refill AdriellaverneJamin [facility] 1.2.840.114 350.1.13.10 4.2.7.2.686 [id number] [facility] 2024-01-25 00:00:00 2024-01-25 00:00:00 Refill EstivenrosyJamin [facility] 1.2.840.114 350.1.13.10 4.2.7.2.686 [id number] [facility] 2023-12-26 09:20:00 2023-12-26 09:20:00 Outpatient [facility] [id number] [facility] 2023-12-23 08:40:00 2023-12-23 08:40:00 Outpatient [facility] [id number] [facility] 2023-12-07 00:00:00 2023-12-07 00:00:00 Refill Jamin Yin [facility] 1.2.840.114 350.1.13.10 4.2.7.2.686 [id number] [facility] 2023-11-20 14:40:00 2023-11-20 14:40:00 Outpatient [facility] [id number] [facility] 2023-10-31 00:00:00 2023-10-31 00:00:00 Refill RiddhidebrarosyJamin [facility] 1.2.840.114 350.1.13.10 4.2.7.2.686 [id number] [facility] 2023-10-10 14:40:00 2023-10-10 14:40:00 Outpatient [facility] [id number] [facility] 2023-09-25 00:00:00 2023-09-25 00:00:00 RefJamin Hollingsworth [facility] 1.2.840.114 350.1.13.10 4.2.7.2.686 [id number] [facility] 2023-09-19 11:00:00 2023-09-19 11:00:00 Outpatient [facility] [id number] [facility] 2023-08-24 00:00:00 2023-08-24 00:00:00 RefJamin Hollingsworth [facility] 1.2.840.114 350.1.13.10 4.2.7.2.686 [id number] [facility] 2023-08-14 15:00:00 2023-08-14 15:00:00 Outpatient [facility] [id number] [facility] 2023-07-30 00:00:00 2023-07-30 00:00:00 Jamin Cardoso [facility] 1.2.840.114 350.1.13.10 4.2.7.2.686 [id number] [facility] 2023-07-22 08:40:00 2023-07-22 08:40:00 Outpatient [facility] [id number] [facility] 2023-06-27 08:40:00 2023-06-27 08:40:00 Outpatient [facility] [id number] [facility] 2023-05-11 00:00:00 2023-05-11 00:00:00 Refill Jamin Yin [facility] 1.2.840.114 350.1.13.10 4.2.7.2.686 [id number] [facility] 2023-04-01 00:00:00 2023-04-01 00:00:00 Patient Secure Msg Doctor Unassigned, [place] [facility] 1.2840.114 350.1.13.10 4.2.7.2.686 [id number] [facility] 2023-03-12 00:00:00 2023-03-12 00:00:00 Orders Only Doctor Unassigned, [place] [facility] 1.2840.114 350.1.13.10 4.2.7.2.686 [id number] [facility] 2023-03-10 00:00:00 2023-03-10 00:00:00 Telephone Jamin Yin [facility] 1.2.840.114 350.1.13.10 4.2.7.2.686 [id number] [facility] 2023-03-07 11:20:00 2023-03-07 11:20:00 Outpatient [facility] [id number] [facility] 2023-03-07 00:00:00 2023-03-07 00:00:00 Telephone Jamin Yin [facility] 1.2.840.114 350.1.13.10 4.2.7.2.686 [id number] [facility] 2023-03-06 00:00:00 2023-03-06 00:00:00 Telephone Jamin Yin [facility] 1.2.840.114 350.1.13.10 4.2.7.2.686 [id number] [facility] 2023-03-06 00:00:00 2023-03-06 00:00:00 Patient Secure Msg Doctor Unassigned, [place] [facility] 1.2.840.114 350.1.13.10 4.2.7.2.686 [id number] [facility] 2023-03-05 00:00:00 2023-03-05 00:00:00 Telephone Jamin Yin [facility] 1.2840.114 350.1.13.10 4.2.7.2.686 [id number] [facility] 2023-03-05 00:00:00 2023-03-05 00:00:00 Patient Secure Msg Jamin Yin [facility] 1.2840.114 350.1.13.10 4.2.7.2.686 [id number] [facility] 2023-03-04 00:00:00 2023-03-04 00:00:00 Telephone Jamin Yin [facility] 1.2840.114 350.1.13.10 4.2.7.2.686 [id number] [facility] 2023-03-03 00:00:00 2023-03-03 00:00:00 Telephone Jamin Yin [facility] 1.2840.114 350.1.13.10 4.2.7.2.686 [id number] [facility] 2023-02-27 00:00:00 2023-02-27 00:00:00 Orders Only Doctor Unassigned, [place] [facility] 1.2840.114 350.1.13.10 4.2.7.2.686 [id number] [facility] 2023-02-27 00:00:00 2023-02-27 00:00:00 Telephone Jamin Yin [facility] 1.2.840.114 350.1.13.10 4.2.7.2.686 [id number] [facility] 2023-02-27 00:00:00 2023-02-27 00:00:00 Telephone Jamin Yin [facility] 1.2.840.114 350.1.13.10 4.2.7.2.686 [id number] [facility] 2023-02-26 15:00:00 2023-02-26 16:06:58 Outpatient [facility] [id number] [facility] 2023-02-26 15:00:00 2023-02-26 16:06:58 Office Visit EstivenmonicaJamin galloway [facility] 1.2.840.114 350.1.13.10 4.2.7.2.686 [id number] [facility] 2023-02-26 00:00:00 2023-02-26 00:00:00 Telephone Jamin Yin [facility] 1.2.840.114 350.1.13.10 4.2.7.2.686 [id number] [facility] 2023-01-31 15:40:00 2023-01-31 15:40:00 Outpatient [facility] [id number] [facility] 2023-01-30 00:00:00 2023-01-30 00:00:00 Refill EstivenrosyJamin [facility] 1.2.840.114 350.1.13.10 4.2.7.2.686 [id number] [facility] 2022-11-19 00:00:00 2022-11-19 00:00:00 Telephone Jamin Yin [facility] 1.2.840.114 350.1.13.10 4.2.7.2.686 [id number] [facility] 2022-11-18 00:00:00 2022-11-18 00:00:00 Telephone Jamin Yin [facility] 1.2.840.114 350.1.13.10 4.2.7.2.686 [id number] [facility] 2022-11-15 14:40:00 2022-11-15 14:40:00 Outpatient [facility] [id number] [facility] 2022-11-04 00:00:00 2022-11-04 00:00:00 Patient Secure Msg Doctor Unassigned, Sh[facility] 1.2840.114 350.1.13.10 4.2.7.2.686 [id number] [facility] 2022-11-04 00:00:00 2022-11-04 00:00:00 Patient Secure Msg Doctor Unassigned, Shasta [facility] 1.2.840.114 350.1.13.10 4.2.7.2.686 [id number] [facility] 2022-11-04 00:00:00 2022-11-04 00:00:00 Patient Secure Msg Doctor Unassigned, Shasta [facility] 1.2.840.114 350.1.13.10 4.2.7.2.686 [id number] [facility] 2022-10-15 00:00:00 2022-10-15 00:00:00 Letter (Out) Clinic, [facility] Gastroenter ology [facility] 1.2.840.114 350.1.13.10 4.2.7.2.686 [id number] [facility] 2022-09-27 17:00:00 2022-09-27 17:15:00 Passenger Vessel Chef Visit Pob, Adc Lab Main Riddhisantiago Jamin [facility] 1.2.840.114 350.1.13.10 4.2.7.2.686 [id number] [facility] 2022-09-27 15:20:00 2022-09-27 16:30:39 Outpatient R [facility]JAM[facility] [id number] [facility] 2022-09-27 15:20:00 2022-09-27 16:30:39 Office Visit Jamin Yin [facility] 1.2.840.114 350.1.13.10 4.2.7.2.686 [id number] [id number] [facility] 2022-09-21 00:00:00 2022-09-21 00:00:00 Refill Riddhisantiago Jamin [facility] 1.2.840.114 350.1.13.10 4.2.7.2.686 [id number] [id number] [facility] 2022-09-19 13:20:00 2022-09-19 13:20:00 Outpatient R [facility]IDEBRAROSY [facility] [id number] [facility] 2022-09-17 00:00:00 2022-09-17 00:00:00 Letter (Out) Riddhidebramonicalaverne Jamin [facility] 1.2.840.114 350.1.13.10 4.2.7.2.686 [id number] 044 [id number] [facility] 2022-08-31 00:00:00 2022-08-31 00:00:00 Refill RiddhidebraJamin gallegos [facility] 1.2.840.114 350.1.13.10 4.2.7.2.686 [id number] [facility] 2022-08-23 00:00:00 2022-08-23 00:00:00 Refill Jamin Yin [facility] 1.2.840.114 350.1.13.10 4.2.7.2.686 [id number] [facility] 2022-08-23 00:00:00 2022-08-23 00:00:00 Refill Gibson Mann [facility] 1.2.840.114 350.1.13.10 4.2.7.2.686 [id number] [id number] [facility] 2022-08-01 09:40:00 2022-08-01 09:40:00 Outpatient R [facility] [id number] [facility] 2022-07-30 00:00:00 2022-07-30 00:00:00 Letter (Out) Jamin Yin [facility] 1.2.840.114 350.1.13.10 4.2.7.2.686 [id number] 044 [id number] [facility] 2022-06-12 15:00:00 2022-06-12 15:00:00 Outpatient [facility] [id number] [facility] 2022-03-26 00:00:00 2022-03-26 00:00:00 Patient Secure Msg Jamin Yin [facility] 1.2.840.114 350.1.13.10 4.2.7.2.686 [id number] [facility] 2022-02-28 00:00:00 2022-02-28 00:00:00 Patient Secure Msg Doctor Unassigned, Shasta [facility] 1.2840.114 350.1.13.10 4.2.7.2.686 [id number] [facility] 2022-02-20 17:00:00 2022-02-20 17:15:00 Passenger Vessel Chef Visit Pob, Adc Lab Main Riddhisantiago Jamin [facility] 1.20.114 350.1.13.10 4.2.7.2.686 [id number] [facility] 2022-02-20 17:00:00 2022-02-20 17:00:00 Outpatient [facility] [id number] [facility] 2022-02-20 15:40:00 2022-02-20 16:37:07 Office Visit [facility] 1.20.114 350.1.13.10 4.2.7.2.686 [id number] [facility] 2022-02-20 15:40:00 2022-02-20 16:37:07 Outpatient R RIDDHISANTIAGO [facility] [id number] [facility] 2022-02-20 00:00:00 2022-02-20 00:00:00 Orders Only Doctor Unassigned, Shasta [facility] 1.20.114 350.1.13.10 4.2.7.2.686 [id number] [facility] 2022-02-11 00:00:00 2022-02-11 00:00:00 Letter (Out) Jamin Yin [facility] 1.2840.114 350.1.13.10 4.2.7.2.686 [id number] [facility] 2022-02-07 15:40:00 2022-02-07 15:40:00 Outpatient [facility] [id number] [facility] 2022-01-31 00:00:00 2022-01-31 00:00:00 Letter (Out) [facility] 1.2.840.114 350.1.13.10 4.2.7.2.686 [id number] 044 [id number] [facility] 2021-12-26 16:20:00 2021-12-26 16:20:00 Outpatient R [facility] [id number] [facility] 2021-12-18 14:40:00 2021-12-18 14:40:00 Outpatient R [facility] [id number] [facility] 2021-12-11 00:00:00 2021-12-11 00:00:00 Refill Jamin Yin [facility] 1.2.840.114 350.1.13.10 4.2.7.2.686 [id number] [facility] 2021-08-10 00:00:00 2021-08-10 00:00:00 Refill Jamin Yin [facility] 1.2.840.114 350.1.13.10 4.2.7.2.686 [id number] 044 [id number] [facility] 2021-07-13 10:00:00 2021-07-13 10:00:00 Outpatient R [facility] [id number] [facility] 2021-07-12 14:00:00 2021-07-12 14:00:00 Outpatient R [facility] [id number] [facility] 2021-07-01 00:00:00 2021-07-01 00:00:00 Refill Jamin Yin [facility] 1.2.840.114 350.1.13.10 4.2.7.2.686 [id number] [facility] 2021-06-22 00:00:00 2021-06-22 00:00:00 Telephone Julito Pacheco Resendez [facility] 1.2.840.114 350.1.13.10 4.2.7.2.686 [id number] [facility] 2021-06-19 00:00:00 2021-06-19 00:00:00 Patient Secure Msg Doctor Unassigned, Shasta [facility] 1.2.840.114 350.1.13.10 4.2.7.2.686 [id number] [facility] 2021-06-15 07:46:12 2021-06-15 13:56:22 Telemedici ne Visit Jamin Yin [facility] 1.2.840.114 350.1.13.10 4.2.7.2.686 [id number] [facility] 2021-06-15 09:40:00 2021-06-15 09:40:00 Outpatient R [facility] [id number] [facility] 2021-06-15 00:00:00 2021-06-15 00:00:00 Orders Only Doctor Unassigned, Shasta [facility] 1.2840.114 350.1.13.10 4.2.7.2.686 [id number] [facility] 2021-06-14 11:20:00 2021-06-14 11:20:00 Outpatient R [facility] [id number] [facility] 2021-06-11 00:00:2021-06-11 00:00:00 Refill Jamin Yin [facility] 1.2.840.114 350.1.13.10 4.2.7.2.686 [id number] [id number] [facility] 2021-05-02 00:00:00 2021-05-02 00:00:00 Outpatient R [facility] [id number] [facility] 2021-03-30 10:00:00 2021-03-30 10:00:00 Outpatient R [facility] [id number] [facility] 2021-03-29 00:00:00 2021-03-29 00:00:00 Outpatient R [facility] [id number] [facility] 2021-03-21 15:00:00 2021-03-21 15:00:00 Outpatient R [facility] [id number] [facility] 2021-03-16 09:10:41 2021-03-16 11:21:47 Telemedici ne Visit Humphrey [facility] 1.2.840.114 350.1.13.10 4.2.7.2.686 [id number] [facility] 2021-03-16 11:00:00 2021-03-16 11:00:00 Outpatient R [facility] [id number] [facility] 2021-03-16 09:00:00 2021-03-16 09:00:00 Outpatient R [facility] [id number] [facility] 2021-03-10 00:00:00 2021-03-10 00:00:00 Refill Jamin Yin [facility] 1.2.840.114 350.1.13.10 4.2.7.2.686 [id number] [facility] 2021-03-08 00:00:00 2021-03-08 00:00:00 Outpatient R [facility] [id number] [facility] 2021-01-29 00:00:00 2021-01-29 00:00:00 Refill RiddhidebraJamin gallegos [facility] 1.2840.114 350.1.13.10 4.2.7.2.686 [id number] [facility] 2021-01-27 00:00:00 2021-01-27 00:00:00 Refill Humphrey Jamin [facility] Building 1.2.114 350.1.13.10 4.2.7.2.686 [id number] [facility] 2021-01-23 00:00:00 2021-01-23 00:00:00 Patient Secure Msg Doctor Unassigned, Shasta [facility] 1.20.114 350.1.13.10 4.2.7.2.686 [id number] [facility] 2021-01-17 00:00:00 2021-01-17 00:00:00 Patient Secure Msg Doctor Unassigned, Shasta [facility] 1.20.114 350.1.13.10 4.2.7.2.686 [id number] [facility] 2021-01-05 00:00:00 2021-01-05 00:00:00 Outpatient R [facility] [id number] [facility] 2020-12-27 09:07:50 2020-12-27 11:51:59 Office Visit Jamin Yin [facility] Building 1.284.114 350.1.13.10 4.2.7.2.686 [id number] [id number] [facility] 2020-12-27 09:40:00 2020-12-27 09:40:00 Outpatient R [facility] [id number] [facility] 2020-12-18 00:00:00 2020-12-18 00:00:00 Patient Secure Msg Jamin Yin [facility] 1.2.840.114 350.1.13.10 4.2.7.2.686 [id number] [facility] 2020-12-15 00:00:00 2020-12-15 00:00:00 Telephone Jamin Yin [facility] 1.2.840.114 350.1.13.10 4.2.7.2.686 [id number] [facility] 2020-12-15 00:00:00 2020-12-15 00:00:00 Patient Secure Msg Jamin Yin [facility] 1.2.840.114 350.1.13.10 4.2.7.2.686 [id number] 044 [id number] [facility] 2020-12-15 00:00:00 2020-12-15 00:00:00 Patient Secure Msg Jamin Yin [facility] 1.2.840.114 350.1.13.10 4.2.7.2.686 [id number] [facility] 2020-12-14 15:53:26 2020-12-14 16:08:26 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, 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 Lab Jamin Yin [facility] Building 1.2.840.114 350.1.13.10 4.2.7.2.686 [id number] [facility] 2020-12-14 14:29:06 2020-12-14 15:50:03 [facility] 1.2.840.114 350.1.13.10 4.2.7.2.686 [id number] [facility] 2020-12-14 14:20:00 2020-12-14 14:20:00 Outpatient [facility] [id number] [facility] 2020-12-14 00:00:00 2020-12-14 00:00:00 Telephone Jamin Yin [facility] 1.2.840.114 350.1.13.10 4.2.7.2.686 [id number] 044 [id number] [facility] 2020-11-29 09:20:00 2020-11-29 09:25:37 Outpatient L[facility] [id number] [facility] 2020-11-29 08:00:00 2020-11-29 08:40:00 Office Visit Jamin Yin [facility] 1.2.840.114 350.1.13.10 4.2.7.2.686 [id number] [facility] 2020-11-29 08:00:00 2020-11-29 08:00:00 Outpatient [facility] [id number] [facility] 2020-11-08 09:20:00 2020-11-08 09:15:51 Outpatient [facility] [id number] [facility] Results Test Description Test Time Test Comments Results Result Co mments Source [facility] GRP A STREP (MOLECULAR)2023-02-27 13:34:00* Test Item Value Reference Range Interpretation Comme nts POCT GP A STREP (test code = 07374-4) Negative Negative - Negative [facility] GRP A STREP (MOLECULAR)2023-02-27 13:34:00* Test Item Value Reference Range Interpretation Comme nts POCT GP A STREP (test code = 03944-3) Negative [facility] - [facility]27 13:31:00* Test Item Value Reference Range Interpretation Comme nts POCT INFLUENZA A (test code = 3840) Negative Negative - Negative POCT INFLUENZA B (test code = 3841) Positive Negative - Negative [facility] FLU A AND B (MOLECULAR)2023-02-27 13:31:00* Test Item Value Reference Range Interpretation Comme nts POCT INFLUENZA A (test code = 3840) Negative Negative - Negative POCT INFLUENZA B (test code = 3841) Positive Negative - Negative [facility]2023-02-27 13:31:00* Test Item Value Reference Range Interpretation Comme nts POCT INFLUENZA A (test code = 3840) Negative Negative - Negative POCT INFLUENZA B (test code = 3841) Positive Negative - Negative [facility] [id number] 07:34:38* Test Item Value Reference Range Interpretation Comme nts HCV Ab (test code = 55345-4) Negative HCV Semi-Quantitative (test code = 90493-9) [facility] [id number] 07:34:38* Test Item Value Reference Range Interpretation Comme nts HCV Ab (test code = 32629-8) Negative HCV Semi-Quantitative (test code = 68970-9) [facility] (44317)(TOTAL CHOLESTEROL, TRIGLYCERIDES, HDL)2022-09-28 00:11:58* Test Item Value Reference Range Interpretation Comme nts CHOL (test code = 2358192873) 99 mg/dL 120-200 L HDL (test code = 7417040246) 34 mg/dL See_Comment L [Automated messa ge] The system which generated this result transmitted reference range: >=50. The reference range was not used to interpret this result as normal/abnormal. HDLC RATIO (test code = 6235240445) See_Comment [Automated messa ge] The system which generated this result transmitted reference range: <=4.5. The reference range was not used to interpret this result as normal/abnormal. TRIG (test code = 3153663599) 94 mg/dL 30-170 LDL CHOL (test code = 95366-6) 46 mg/dL See_Comment [Automated [employer]] The system which generated this result transmitted reference range: <=160. The reference range was not used to interpret this result as normal/abnormal. VLDL (test code = 5856224717) 19 mg/dL 5-60 Lab Interpretation (test code = 62843-8) Abnormal [facility]. METABOLIC PANEL (58479)2022-09-28 00:11:58* Test Item Value Reference Range Interpretation Comme nts NA (test code = 9347396842) 141 mmol/L 135-145 K (test code = 1253655138) 4.3 mmol/L 3.5-5.0 CL (test code = 8157202805) 101 mmol/L 98-108 CO2 TOTAL (test code = 1090392526) 30 mmol/L 23-31 AGAP (test code = 5945587678) 2-16 BUN (test code = 7366893204) 13 mg/dL 7-23 GLUCOSE (test code = 8134885145) 159 mg/dL 70-110 H CREATININE (test code = 2505899956) 0.54 mg/dL 0.50-1.04 TOTAL BILI (test code = 0893804732) 0.4 mg/dL 0.1-1.1 CALCIUM (test code = 9368268454) 9.1 mg/dL 8.6-10.6 T PROTEIN (test code = 2907675841) 7.4 g/dL 6.3-8.2 ALBUMIN (test code = 9782895479) 4.0 g/dL 3.5-5.0 ALK PHOS (test code = 0910042223) 90 U/L 34-122 ALTv (test code = 1742-6) 14 U/L 5-35 AST(SGOT) (test code = 9382512123) 17 U/L 13-40 eGFR (test code = 7738112954) mL/min/1.73m2 BOB (test code = BOB) Association of Glomerular Filtration Rate (GFR) and Staging of Kidney Disease* + --+ --+ ------+| GFR (mL/min/1.73 m2) ?| With Kidney Damage ?| ?Without Kidney Damage+ --------+ --------+ +| ?>90 ?| ?Stage one ?| ? Normal ?+ ---+ ---+ -------+| ?60-89 ?| ?Stage two ?| ? Decreased GFR ? + --+ --+ ------+| ?30-59 ?| ?Stage three ?| ? Stage three ? + --+ --+ ------+| ?15-29 ?| ?Stage four ? | ? Stage four ?+ ---+ ---+ -------+| ?<15 (or dialysis) ? ?| ?Stage five ? | ? Stage five ?+ ---+ ---+ -------+ *Each stage assumes the associated GFR level has been in effect for at least three months. ?Stages 1 to 5, with or without kidney disease, indicate chronic kidney disease. Notes: Determination of stages one and two (with eGFR >59mL/min/1.73 m2) requires estimation of kidney damage for at least three months as defined by structural or functional abnormalities of the kidney, manifested by either:Pathological abnormalities or Markers of kidney damage (including abnormalities in the composition of the blood or urine or abnormalities in imaging tests). Lab Interpretation (test code = 49612-8) Abnormal [facility] WITH [id number] 23:16:48* Test Item Value Reference Range Interpretation Comme nts WBC (test code = 6690-2) See_Comment [SENSIMED] The system which generated this result transmitted reference range: 4.30 - 11.10 10*3/?L. The reference range was not used to interpret this result as normal/abnormal. RBC (test code = 789-8) See_Comment [SENSIMED] The system which generated this result transmitted reference range: 3.93 - 5.25 10*6/?L. The reference range was not used to interpret this result as normal/abnormal. HGB (test code = 718-7) 13.8 g/dL 11.6-15.0 HCT (test code = 4544-3) 44.1 % 35.7-45.2 MCV (test code = 787-2) 87.5 fL 80.6-95.5 MCH (test code = 785-6) 27.4 pg 25.9-32.8 MCHC (test code = 786-4) 31.3 g/dL 31.6-35.1 L RDW-SD (test code = 52122-1) 45.9 fL 39.0-49.9 RDW-CV (test code = 788-0) 14.3 % 12.0-15.5 PLT (test code = 777-3) See_Comment [Automated messa ge] The system which generated this result transmitted reference range: 166 - 358 10*3/?L. The reference range was not used to interpret this result as normal/abnormal. MPV (test code = 85234-8) 9.9 fL 9.5-12.9 NRBC/100 WBC (test code = 6391955002) See_Comment [Automated [employer]] The system which generated this result transmitted reference range: 0.0 - 10.0 /100 WBCs. The reference range was not used to interpret this result as normal/abnormal. NRBC x10^3 (test code = 4808916978) See_Comment [Automated messa ge] The system which generated this result transmitted reference range: 10*3/?L. The reference range was not used to interpret this result as normal/abnormal. GRAN MAT (NEUT) % (test code = 770-8) 45.7 % IMM GRAN % (test code = 7971325813) 0.50 % LYMPH % (test code = 736-9) 37.5 % MONO % (test code = 5905-5) 12.0 % EOS % (test code = 713-8) 4.1 % BASO % (test code = 706-2) 0.2 % GRAN MAT x10^3(ANC) (test code = 8018618230) 2.66 10*3/uL 1.88-7.09 IMM GRAN x10^3 (test code = 4227104394) 0.03 10*3/uL 0.00-0.06 LYMPH x10^3 (test code = 731-0) 2.18 10*3/uL 1.32-3.29 MONO x10^3 (test code = 742-7) 0.70 10*3/uL 0.33-0.92 EOS x10^3 (test code = 711-2) 0.24 10*3/uL 0.03-0.39 BASO x10^3 (test code = 704-7) 0.01-0.07 Lab Interpretation (test code = 53727-5) Abnormal [facility] WITH [id number] 23:16:48* Test Item Value Reference Range Interpretation Comme nts WBC (test code = 6690-2) See_Comment [Automated messa ge] The system which generated this result transmitted reference range: 4.30 - 11.10 10*3/?L. The reference range was not used to interpret this result as normal/abnormal. RBC (test code = 789-8) See_Comment [Automated messa ge] The system which generated this result transmitted reference range: 3.93 - 5.25 10*6/?L. The reference range was not used to interpret this result as normal/abnormal. HGB (test code = 718-7) 13.8 g/dL 11.6-15.0 HCT (test code = 4544-3) 44.1 % 35.7-45.2 MCV (test code = 787-2) 87.5 fL 80.6-95.5 MCH (test code = 785-6) 27.4 pg 25.9-32.8 MCHC (test code = 786-4) 31.3 g/dL 31.6-35.1 L RDW-SD (test code = 68957-0) 45.9 fL 39.0-49.9 RDW-CV (test code = 788-0) 14.3 % 12.0-15.5 PLT (test code = 777-3) See_Comment [Automated messa ge] The system which generated this result transmitted reference range: 166 - 358 10*3/?L. The reference range was not used to interpret this result as normal/abnormal. MPV (test code = 00468-7) 9.9 fL 9.5-12.9 NRBC/100 WBC (test code = 7308685396) See_Comment [Automated me ssage] The system which generated this result transmitted reference range: 0.0 - 10.0 /100 WBCs. The reference range was not used to interpret this result as normal/abnormal. NRBC x10^3 (test code = 6839516928) See_Comment [Automated messa ge] The system which generated this result transmitted reference range: 10*3/?L. The reference range was not used to interpret this result as normal/abnormal. GRAN MAT (NEUT) % (test code = 770-8) 45.7 % IMM GRAN % (test code = 2579160074) 0.50 % LYMPH % (test code = 736-9) 37.5 % MONO % (test code = 5905-5) 12.0 % EOS % (test code = 713-8) 4.1 % BASO % (test code = 706-2) 0.2 % GRAN MAT x10^3(ANC) (test code = 1522696561) 2.66 10*3/uL 1.88-7.09 IMM GRAN x10^3 (test code = 2019413310) 0.03 10*3/uL 0.00-0.06 LYMPH x10^3 (test code = 731-0) 2.18 10*3/uL 1.32-3.29 MONO x10^3 (test code = 742-7) 0.70 10*3/uL 0.33-0.92 EOS x10^3 (test code = 711-2) 0.24 10*3/uL 0.03-0.39 BASO x10^3 (test code = 704-7) 0.01-0.07 Lab Interpretation (test code = 05205-5) Abnormal [facility] FLU A AND B (MOLECULAR)2022-09-27 22:04:00* Test Item Value Reference Range Interpretation Comme nts POCT INFLUENZA A (test code = 3840) Positive Negative - Negative POCT INFLUENZA B (test code = 3841) Negative Negative - Negative [facility] FLU A AND B (MOLECULAR)2022-09-27 22:04:00* Test Item Value Reference Range Interpretation Comme nts POCT INFLUENZA A (test code = 3840) Positive Negative - Negative POCT INFLUENZA B (test code = 3841) Negative Negative - Negative [facility] GRP A STREP (MOLECULAR)2022-09-27 22:03:00* Test Item Value Reference Range Interpretation Comme nts POCT GP A STREP (test code = 20973-8) Negative Negative - Negative [facility] GRP A STREP (MOLECULAR)2022-09-27 22:03:00* Test Item Value Reference Range Interpretation Comme nts POCT GP A STREP (test code = 15416-0) Negative Negative - Negative [facility] Notes Date/Time Note Provider Source 2024-02-12 14:03:29 4672-97-27I83:03:29F ormatting of this note might be different from the original.Patient scheduled 02/23 Dr. PICKERINGlectronically signed by Shirlene Rocha at 02/12/2024 2:04 PM HIJ18310-2Nwnilnktq encounter QuoiCW8885-69-25R87:04:04Telephone encounter NoteTXT1.2.840.909006.1.13.104.2.7. 2.527669|[id number] for patient mprz87288-3GgrvJKTXXSMOHCYKvyszbiml C-CDA narrative ltit29045907Ysms [address] Py[id number] 8EDMTWMFWZOFQDENELHLBEN1990-21-38I4 4:04:041.2.840.459496.1.72.3.15|1.2 .840.820924.1.13.104.2.7.2.727879_2 [id number] Shirlene Rocha [facility] 2024-02-12 13:17:38 8085-18-55F05:17:38F ormatting of this note is different from the original.Images from the original note were not included.Requested RenewalstraMADoL 50 mg tabletPossible duplicate: Hover to review recent actions on this medicationSig: Take 1 tablet by mouth every 8 (eight) hours as needed for Pain (scale 4-6). Indications: chronic painDisp: 90 tablet Refills: 2Start: 02/12/2024lass: eRXFor: Neuropathy, Chronic midline low back pain with right-sided sciaticaLast ordered: 11 months ago (02/26/2023) by Jamin Yin, AFRICAontrolled Substance Qjoqtp0302/12/2024 11:51 AMProtocol Details Valid encounter within last 3 monthsThis refill cannot be delegatedPain agreement on filefluconazole (DIFLUCAN) 200 mg tabletSig: Take 1 tablet by mouth in the morning.Disp: 1 tablet Refills: 10Start: 4Class: eRXFor: Adelaide albicans infectionLast ordered: 11 months ago (02/26/2023) by Luis Felipe Laughlin Review Required Vyuvqn9502/12/2024 11:51 AMProtocol Details This refill cannot be delegatedValid encounter within last 12 monthsatorvastatin 10 mg tabletPossible duplicate: Kina to review recent actions on this medicationSig: Take 1 tablet by mouth at bedtime.Disp: 90 tablet Refills: 1Start: 4Class: eRXFor: DyslipidemiaLast ordered: 9 months ago (05/12/2023) by AFRICA Laughlinardiovascular: Antilipid - HMG-CoA Reductase Inhibitors Sscmtl2302/12/2024 11:51 AMProtocol Details Total Cholesterol within 360 daysLDL within 360 daysHDL within 360 daysTriglycerides within 360 daysAST in normal range and within 360 daysALT in normal range and within 360 daysValid encounter within last 12 monthsgabapentin 800 mg tabletPossible duplicate: Kina to review recent actions on this medicationSig: N/ADisp: 90 tablet Refills: 0Start: 4Class: eRXFor: Type 2 diabetes mellitus with diabetic polyneuropathy, with long-term current use of insulinLast ordered: 2 months ago (12/09/2023) by ASPEN GordilloPNeuropathic Pain Nuwavk0102/12/2024 11:51 AMProtocol Details Manual Review: Verify no changes in dose in the last 3 monthsValid encounter within last 12 monthstiZANidine 4 mg tabletPossible duplicate: Kina to review recent actions on this medicationSig: TAKE ONE TABLET BY MOUTH EVERY 8 HOURS NEEDED FOR FOR MUSCLE SPASMSDisp: 90 tablet Refills: 0Start: 4Class: eRXNon-formulary For: Neuropathy, Chronic midline low back pain with right-sided sciaticaLast ordered: 2 months ago (12/09/2023) by Paige Gordillo Review Required Uphyow7302/12/2024 11:51 AMProtocol Details This refill cannot be delegatedValid encounter within last 12 monthsSERTraline 50 mg tabletPossible duplicate: Hover to review recent actions on this medicationSig: Take 1 tablet by mouth every morning.Disp: 30 tablet Refills: 0Start: 4Class: eRXFor: Anxiety; Adjustment insomnia; Severe episode of recurrent major depressive disorder, without psychotic featuresLast ordered: 2 months ago (12/09/2023) by ASPEN GordilloPPsychiatry: Antidepressants Xznsgq8402/12/2024 11:51 AMProtocol Details Manual Review: Verify no changes in dose in the last 3 monthsValid encounter within last 12 monthsTo be filled at: [facility] [id number] [address] Please schedule patient an appoitment for further refills. 53335-2Hvztufeww encounter DsuuLV3226-56-05G02:19:36Telephone encounter NoteTXT1.2.840.865244.1.13.104.2.7. 2.023409|[id number] for patient bcij38356-3BaqaOJNUXQNRTOUOnatobhot C-CDA narrative text[address] Yl[id number] 2KBFKBFEQKQGFTQUSEWGKPR6857-23-82J5 3:19:361.2.840.219449.1.72.3.15|1.2 .840.482614.1.13.104.2.7.2.727879_2 [id number] [facility] 2024-01-30 15:20:22 2780-60-77Y99:20:22F ormatting of this note is different from the original.Images from the original note were not included.Requested Renewalsgabapentin 800 mg tabletPossible duplicate: Hover to review recent actions on this medicationSig: N/ADisp: 90 tablet Refills: 0Start: 01/30/2024lass: eRXNon-formulary For: Type 2 diabetes mellitus with diabetic polyneuropathy, with long-term current use of insulinLast ordered: 1 month ago (12/09/2023) by Zora Thompson, FNPNeuropathic Pain Koyqrh6501/30/2024 03:17 PMProtocol Details Manual Review: Verify no changes in dose in the last 3 monthsValid encounter within last 12 monthsTo be filled at: [facility] [id number] [address] [id number] N/A 45248-2Bewjoptcl encounter UspaKV1723-82-68K24:21:06Telephone encounter NoteTXT1.2.840.292426.1.13.104.2.7. 2.877654|[id number] for patient gffx93770-5NbqmUSVHBEDUVJNBecswcmnt C-CDA narrative [employer] EnergyHomes87 [address]ara [id number] 0SROETWDUPKEHEVMYXYJPDB8011-66-86Q6 5:21:061.2.840.978418.1.72.3.15|1.2 .840.980303.1.13.104.2.7.2.727879_2 [id number] [facility] 2024-01-30 15:17:04 5080-80-13U35:17:04F ormatting of this note might be different from the original.Images from the original note were not included. 71568-5Xjqrvuetg encounter UbpeEX7203-10-26X27:17:45Telephone encounter NoteTXT1.2.840.621088.1.13.104.2.7. 2.895221|[id number] for patient vxzi16665-8JgrnCVPKLPIUWCNYhcftcnnt C-CDA narrative textbookjam87 [address] [id number] 5OVOSXQQFLCABVEVYOFMSVV0303-44-55R9 5:17:451.2.840.808741.1.72.3.15|1.2 .840.866328.1.13.104.2.7.2.727879_2 [id number] [facility] 2024-01-27 09:39:09 8134-76-35N15:39:09F ormatting of this note might be different from the original.Refused-Appt 01/27/24Pt must be seen first. 11280-7Jcufobjjy encounter JbjmUO7970-78-20F04:40:01Telephone encounter NoteTXT1.2.840.384547.1.13.104.2.7. 2.139788|[id number] for patient lcji82808-0PxypVPTKMIFRQZOMmprixrtb C-CDA narrative [id number] Bazan MA[address] Od[id number] 7CNHOKERWGBABHECMHLZRQS4007-93-66C6 9:40:011.2.840.769245.1.72.3.15|1.2 .840.483066.1.13.104.2.7.2.727879_2 [id number] Zora Bazan MA [facility] 2024-01-27 09:34:45 2416-35-65O13:34:45F ormatting of this note is different from the original.Images from the original note were not included.Notes:atorvastatin 10 mg tabletSig: Take 1 tablet by mouth at bedtime.Disp: 90 tablet Refills: 1Start: 4Class: eRXFor: DyslipidemiaLast ordered: 8 months ago (05/12/2023) by AFRICA Laughlinardiovascular: Antilipid - HMG-CoA Reductase Inhibitors Qobsxm5401/26/2024 03:19 PMProtocol Details Total Cholesterol within 360 daysLDL within 360 daysHDL within 360 daysTriglycerides within 360 daysAST in normal range and within 360 daysALT in normal range and within 360 daysValid encounter within last 12 monthsgabapentin 800 mg tabletSig: N/ADisp: 90 tablet Refills: 0Start: 4Class: eRXFor: Type 2 diabetes mellitus with diabetic polyneuropathy, with long-term current use of insulinLast ordered: 1 month ago (12/09/2023) by ASPEN GordilloPNeuropathic Pain Zqkqse9501/26/2024 03:19 PMProtocol Details Manual Review: Verify no changes in dose in the last 3 monthsValid encounter within last 12 monthstiZANidine 4 mg tabletSig: N/ADisp: 90 tablet Refills: 0Start: 4Class: eRXNon-formulary For: Neuropathy, Chronic midline low back pain with right-sided sciaticaLast ordered: 1 month ago (12/09/2023) by Joellen Gordillovizeina Review Required Iofcqw5601/26/2024 03:19 PMProtocol Details This refill cannot be delegatedValid encounter within last 12 monthsSERTraline 50 mg tabletSig: Take 1 tablet by mouth every morning.Disp: 30 tablet Refills: 0Start: 4Class: eRXFor: Anxiety; Adjustment insomnia; Severe episode of recurrent major depressive disorder, without psychotic featuresLast ordered: 1 month ago (12/09/2023) by RAFA Gordillosychiatry: Antidepressants Estrua2901/26/2024 03:19 PMProtocol Details Manual Review: Verify no changes in dose in the last 3 monthsValid encounter within last 12 monthsTo be filled at: [facility] [id number] [address] Refilled: see above for each.Pt has an appt today 01/27/24. Refills will be denied until she is seen and completes blood work.Recent VisitsDate Type Provider Dept03/07/23 Appointment Jamin Yin MD [facility] Rjqkivlw87/31/23 Office Visit Jamin Yin MD [facility] Ogwxeesr07/30/22 Office Visit Jamin Yin MD [facility] MedicineShowing recent visits within past 540 days with a meds authorizing provider and meeting all other requirementsToday's VisitsDate Type Provider Dept01/27/24 Appointment [facility] visits with a meds authorizing provider and meeting all other requirementsFuture AppointmentsNo visits were found meeting these conditions.Showing future appointments within next 150 days with a meds authorizing provider and meeting all other requirements 05324-1Wqelbbslf encounter RyyaHG8678-28-27F83:38:44Telephone encounter NoteTXT1.2.840.524525.1.13.104.2.7. 2.058272|[id number] for patient rdnj17694-7UtxhHIUVCSCCUXERbrmhyjfb C-CDA narrative [id number] Bazan MA[address] Oo[id number] 9FQRJAMEBWRMIPXGLXXFVIT6270-22-29J4 9:38:441.2.840.471323.1.72.3.15|1.2 .840.664092.1.13.104.2.7.2.727879_2 [id number] Zora Bazan MA [facility] 2024-01-26 09:17:23 3196-09-15V44:17:23F ormatting of this note is different from the original.Notes: Refill request for TramadolLast Refilled: 02/26/2023, last appt 03/07/2023. Refill denied. Pt has appt 01/27/2024.Recent VisitsDate Type Provider Dept03/07/23 Appointment Jamin Yin MD [facility] Bgyshvpt57/31/23 Office Visit Jamin Yin MD [facility]09/27/22 Office Visit [facility] recent visits within past 540 days with a meds authorizing provider and meeting all other requirementsFuture AppointmentsDate Type Provider Dept01/27/24 Appointment Jamin Yin MD [facility] MedicineShowing future appointments within next 150 days with a meds authorizing provider and meeting all other requirements 80498-2Eypkcniyn encounter DnotMY9719-40-66U92:19:11Telephone encounter NoteTXT1.2.840.665350.1.13.104.2.7. 2.597497|[id number] for patient sxil67273-2SjjbLKAIFHJKZNTNixcxgoet C-CDA narrative [id number] Ciaran Vidal RN[address] SkymAwp[id number] 5KFPYEONANLIBKFBLVYGIPM9623-18-46T7 9:19:111.2.840.315524.1.72.3.15|1.2 .840.569281.1.13.104.2.7.2.727879_2 [id number] Maggie Vidal RN [facility] 2023-12-08 13:15:28 6776-31-26C52:15:28F ormatting of this note is different from the original.Images from the original note were not included.Routed to provider for review. Unable to refill per ambulatory refill guidelines.Notes:Name from pharmacy: GABAPENTIN 800 MG TABLETWill file in chart as: GABAPENTIN 800 mg tabletSig: TAKE ONE TABLET BY MOUTH THREE TIMES A DAY (MORNING NOON AND EVENING)Disp: 90 tablet Refills: Not specifiedStart: 12/07/2023lass: eRXFor: Type 2 diabetes mellitus with diabetic polyneuropathy, with long-term current use of insulinLast ordered: 9 months ago (02/26/2023) by Jamin Yin MDLast refill: 4Rx #: [id number] Pain Dertyl1112/07/2023 12:52 PMProtocol Details Manual Review: Verify no changes in dose in the last 3 monthsValid encounter within last 12 monthsName from pharmacy: tiZANidine HCL 4MG TABLETWill file in chart as: TIZANIDINE 4 mg tabletSig: TAKE ONE TABLET BY MOUTH EVERY 8 HOURS NEEDED FOR FOR MUSCLE SPASMSDisp: 90 tablet Refills: 0 (Pharmacy requested: Not specified)Start: 12/07/2023lass: eRXNon-formulary For: Neuropathy, Chronic midline low back pain with right-sided sciaticaLast ordered: 2 months ago (09/28/2023) by Mi Laughlin refill: 4Rx #: [id number] Review Required Bryscg0612/07/2023 12:52 PMProtocol Details This refill cannot be delegatedValid encounter within last 12 monthsName from pharmacy: SERTRALINE HCL 50 MG TABLETWill file in chart as: SERTRALINE 50 mg tabletSig: TAKE 1 TABLET BY MOUTH EVERY MORNINGDisp: 30 tablet Refills: 0 (Pharmacy requested: Not specified)Start: 12/07/2023lass: eRXFor: Anxiety; Adjustment insomnia; Severe episode of recurrent major depressive disorder, without psychotic featuresLast ordered: 1 month ago (11/02/2023) by Mi Laughlin refill: 4Rx #: [id number]: Antidepressants Bdfjnv4212/07/2023 12:52 PMProtocol Details Manual Review: Verify no changes in dose in the last 3 monthsValid encounter within last 12 monthsTo be filled at: [facility] [id number] [address]Last Refilled: see aboveRecent VisitsDate Type Provider Dept03/07/23 Appointment Jamin Yin MD [facility] Kezylhmm79/31/23 Office Visit Jamin Yin MD [facility] Sycavock65/30/22 Office Visit Jamin Yin MD [facility] MedicineShowing recent visits within past 540 days with a meds authorizing provider and meeting all other requirementsFuture AppointmentsDate Type Provider Dept12/23/23 Appointment [facility] future appointments within next 150 days with a meds authorizing provider and meeting all other requirements 62747-2Uremyqajb encounter HjnmJR5133-69-63A27:16:15Telephone encounter NoteTXT1.2.840.010097.1.13.104.2.7. 2.669227|[id number] for patient sudz61664-9OcxyMQZHKUGSHMCXmmlrbzhp C-CDA narrative [id number] R Martinez [address] Bz[id number] 2HOMKEOCGZIUZGWCAPTIDUG4411-35-49I8 3:16:151.2.840.442103.1.72.3.15|1.2 .840.735362.1.13.104.2.7.2.727879_2 [id number] Zora Platt Beni [facility] 2023-10-31 07:42:01 0074-47-56X45:42:01F ormatting of this note is different from the original.Images from the original note were not included.Requested RenewalsName from pharmacy: SERTRALINE HCL 50 MG TABLETWill file in chart as: SERTRALINE 50 mg tabletSig: TAKE ONE TABLET BY MOUTH EVERY MORNINGDisp: 30 tablet Refills: Not specifiedStart: 10/31/2023lass: eRXFor: Anxiety; Adjustment insomnia; Severe episode of recurrent major depressive disorder, without psychotic featuresLast ordered: 8 months ago (02/26/2023) by Jamin Yin MDLasbrook refill: 09/25/2023Rx #: [id number]: Antidepressants Ysqpax7810/31/2023 05:09 AMProtocol Details Manual Review: Verify no changes in dose in the last 3 monthsValid encounter within last 12 monthsTo be filled at: [facility] [id number] [address]genevieve Amaya [id number] signed by Tiarra Aponte MA at 10/31/2023 7:42 AM EHK75689-8Saebzfisq encounter LuopGB8972-66-22X43:42:37Telephone encounter NoteTXT1.2.840.867451.1.13.104.2.7. 2.624075|[id number] for patient jpup32051-8BasfYHMVTKPLDBOHlpbgjfsi C-CDA narrative textUT[address] Sheo[id number] 1FMCOIUDBUNRFUHLWFCOZHF4559-83-00L1 7:42:371.2.840.782699.1.72.3.15|1.2 .840.598261.1.13.104.2.7.2.727879_2 [id number] [facility] 2023-09-25 11:13:14 4243-97-23F22:13:14F ormatting of this note is different from the original.Images from the original note were not included.Last OV: with Mi Laughlin Refill:08/21/23 prescribed by Mi [facility] Pertaining to Med:Future Appt:10/10/23 with Jamin Yin MDtiZANidine 4 mg tabletSig: N/ADisp: 90 tablet Refills: 0Start: 09/25/2023lass: eRXNon-formulary For: Neuropathy, Chronic midline low back pain with right-sided sciaticaLast ordered: 4 weeks ago (08/27/2023) by Jamin Yin MDPatiemre comment: I see the dr on oct 10 for a refill but i dont have enough medicine until thenProvider Review Required Pkjvzy6609/25/2023 10:37 AMProtocol Details This refill cannot be delegatedValid encounter within last 12 monthsTo be filled at: [facility] [id number] [address] 02371-7Fhcrfdwps encounter MurfTM5715-30-73R89:19:33Telephone encounter NoteTXT1.2.840.555660.1.13.104.2.7. 2.942299|[id number] for patient ugjq08199-3JnryTTGAFCWZZPCJejccxemx C-CDA narrative [id number] Davila [address] Cc[id number] 3DDNHPLVLYCMWWIHAWGSTOS6310-17-21T5 1:19:331.2.840.826362.1.72.3.15|1.2 .840.224482.1.13.104.2.7.2.727879_1 [id number] Ely [facility]ioUNC [facility]
[2024-04-04] MEDS ORDERED: ONDANSETRON 4 MG/2 ML VIAL ONE (20:06)
[2024-04-04] MEDS ORDERED: HYDROMORPHONE HCL 2 MG/ML inj ONE (20:07)
[2024-04-04] MEDS ORDERED: NA CHLORIDE 0.9% 1,000 ML ONE ×2 (20:07→23:02)
[2024-04-04 20:15] LABS: Absolute Eosinophils 0.3 K/uL (0-0.5); Absolute Lymphocytes (CBC) 1.8 K/uL (0.7-4.9); Absolute Monocytes 0.7 K/uL (0.1-1.3); Absolute Neutrophil 5.3 K/uL (1.8-8.0); Basophils % 0.5 % (0-1.3); Eosinophils % 3.6 % (0-4.4); Hematocrit 42.4 % (36.0-45.0); Hemoglobin 13.6 g/dL (12.0-15.0); Lymphocytes % 21.8 % (15.3-44.8); MCH 28.3 pg (27.0-35.0); MCHC 32.1 g/dL (32.0-36.0); MCV 88.1 fL (80-100); MPV 8.6 fL (7.6-11.3); Monocytes % 8.7 % (3.3-12.3); Neutrophils % 65.4 % (41.7-73.7); Platelets 298 thou/uL (152-406); RBC Red Blood Cell Count 4.81 M/uL (3.86-4.86); Red Cell Distribution Width 14.5 % (12.1-15.2)
[2024-04-04 20:24] LABS: ALT/SGPT 16 U/L (13-56); Albumin 3.4 g/dL (3.4-5.0); Albumin/Globulin Ratio 0.8 (1.1-1.8); Alkaline Phosphatase 123 U/L (45-117); Anion Gap 7.4 mEq/L (5.0-15.0); BUN Blood Urea Nitrogen 10 mg/dL (7-18); Bicarbonate 30 mEq/L (21-32); Bilirubin Total 0.8 mg/dL (0.2-1.0); Globulin 4.4 g/dL (2.3-3.5); Glomerular Filtration Rate 92 ml/min (=/>90); Glucose Level 208 mg/dL (74-106); Lipase 19 U/L (13-75); Potassium 3.4 mEq/L (3.5-5.1); Protein, Total 7.8 g/dL (6.4-8.2); Sodium Level 138 mEq/L (136-145)
[2024-04-04 20:31] LABS: AST/SGOT < 10 U/L (15-37)
[2024-04-04] MEDS ORDERED: PROMETHAZINE INJ 25 MG/ML AMP ONE (20:35)
--- NOTE | 2024-04-04 21:32 | RAD REPORT ---
EXAM DESCRIPTION: CT - Abdomen Pelvis W Contrast - 04/04/2024 9:09 pm CLINICAL HISTORY: Abdominal pain COMPARISON: 2018 TECHNIQUE: Computed axial tomography of the abdomen pelvis was obtained. 100 cc Isovue-300 was admin istered intravenously. Oral contrast was not requested which limits evaluation of bowel and appendix All CT scans are performed using dose optimization technique as appropriate and may include automated exposure control or mA/KV adjustment according to patient size. FINDINGS: Gastric lap band. Marked dilatation of weight presumably is distal esophagus. Liver, spleen, pancreas, adrenals and left kidney unremarkable. 4.2 centimeter right renal cyst. Right ventral hernia neck 6.3 centimeters. Contains the transverse and right colon. No obstruction. Postsurgical changes umbilical hernia repair. Chronic 7 centimeter fluid collection surrounds the mes h No evidence of diverticulitis. No adnexal mass Cholecystectomy IMPRESSION: Marked dilatation of the distal esophagus may be secondary to the gastric band being to tight
--- NOTE | 2024-04-04 22:01 | ER ---
Nurse's Notes [facility] Name: Sherly Babb Age: 54 yrs Sex: Female : 1970 Arrival Date: 04/04/2024 Time: 19:39 Bed 6 Private MD: Diagnosis: Esophageal dilatation secondary to gastric band Presentation: 04/04 19:52 Chief complaint: Patient states: I have been vomiting for the past 4 days and have not jb4 had a bowel movement in 4 days. the pain is in my right upper stomach. I think it is a complication with my lap band surgery. Coronavirus screen: At this time, the client does not indicate any symptoms associated with coronavirus-19. Ebola Screen: No symptoms or risks identified at this time. Initial Sepsis Screen: Does the patient meet any 2 criteria? No. Patient's initial sepsis screen is negative. Does the patient have a suspected source of infection? No. Patient's initial sepsis screen is negative. Risk Assessment: Do you want to hurt yourself or someone else? Patient reports no desire to harm self or others. Onset of symptoms was April 04, 2024. Transition of care: patient was not received from another setting of care. 19:52 Method Of Arrival: Ambulatory jb4 19:52 Acuity: BRITTANY 3 jb4 Triage Assessment: 19:56 General: Appears in no apparent distress. uncomfortable, Behavior is cooperative, jb4 appropriate for age, anxious. Pain: Complains of pain in right upper quadrant Pain does not radiate. Pain currently is 9 out of 10 on a pain scale. Quality of pain is described as stabbing, Pain began 4 days ago. EENT: No signs and/or symptoms were reported regarding the EENT system. Neuro: Level of Consciousness is awake, alert, obeys commands, Oriented to person, place, time, situation. Cardiovascular: Patient's skin is warm and dry. Respiratory: Airway is patent Respiratory effort is even, unlabored, Respiratory pattern is regular, symmetrical. GI: Abdomen is obese, Pt is actively vomiting bile, Reports upper abdominal pain, constipation, nausea. : No signs and/or symptoms were reported regarding the genitourinary system. Derm: Skin is intact, Skin is pink, warm \T\ dry. Musculoskeletal: Circulation, motion, and sensation intact. Range of motion: intact in all extremities. 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 - Infectious Disease History:: Denies. - Social history:: Smoking status: Patient denies any tobacco usage or history of. Screenin:46 [facility] ED Fall Risk Assessment (Adult) History of falling in the last 3 months, me1 including since admission No falls in past 3 months (0 pts) Confusion or Disorientation No (0 pts) Intoxicated or Sedated No (0 pts) Impaired Gait No (0 pts) Mobility Assist Device Used No (0 pt) Altered Elimination No (0 pt) Score/Fall Risk Level 0 - 2 = Low Risk Maintained a safe environment, Provided non-skid footwear, Hourly rounding (assess needs \T\ fall precautionary measures) done. Abuse screen: Denies threats or abuse. Nutritional screening: No deficits noted. Tuberculosis screening: No symptoms or risk factors identified. Assessment: 20:46 Reassessment: Patient appears in no apparent distress at this time. Patient and/or jb4 family updated on plan of care and expected duration. Pain level reassessed. Patient is alert, oriented x 3, equal unlabored respirations, skin warm/dry/pink. Patient states feeling better. Patient states symptoms have improved. 21:49 Reassessment: Patient appears in no apparent distress at this time. Patient and/or jb4 family updated on plan of care and expected duration. Pain level reassessed. Pt resting in bed with eyes closed, respirations are even and unlabored with no s/s of pain or distress noted. 22:23 Reassessment: Patient appears in no apparent distress at this time. Patient and/or jb4 family updated on plan of care and expected duration. Pain level reassessed. Patient is alert, oriented x 3, equal unlabored respirations, skin warm/dry/pink. 22:23 GI: Bowel sounds present X 4 quads. Abd is soft X 4 quads. me1 Vital Signs: 19:52 BP 143 / 91; Pulse 77; Resp 16; Temp 97(O); Pulse Ox 100% on R/A; Weight 136.08 kg (R); jb4 Height 5 ft. 8 in. (R); Pain 9/10; 20:46 BP 107 / 70; Pulse 74; Resp 16; Pulse Ox 95% on R/A; jb4 22:00 BP 125 / 79; Pulse 68; Resp 16; Pulse Ox 100% on 2 lpm NC; jb4 23:00 BP 130 / 72; Pulse 64; Resp 16; Pulse Ox 99% on 2 lpm NC; me1 23:00 BP 115 / 79; Pulse 63; Resp 15; Temp 98.4; Pulse Ox 98% on 2 lpm NC; me1 19:52 Body Mass Index 45.61 (136.08 kg, 172.72 cm) jb4 19:52 Pain Scale: Adult jb4 ED Course: 19:42 Patient arrived in ED. mr 19:45 Kyara Blair PA-C is PHCP. sb4 19:45 John Espinal MD is Attending Physician. sb4 19:54 Inserted saline lock: 20 gauge in right antecubital area, using aseptic technique. rc3 Blood collected. 19:56 Triage completed. jb4 19:56 Arm band placed on right wrist. jb4 20:46 No provider procedures requiring assistance completed. me1 20:46 Patient has correct armband on for positive identification. Bed in low position. Call wi1 light in reach. Side rails up X2. Provided Education on: POC. Verbalized understanding. . Client placed on continuous cardiac and pulse oximetry monitoring. NIBP monitoring applied. court recording monitor on. Pulse ox on. NIBP on. 21:11 CT Abd/Pelvis - IV Contrast Only In Process Unspecified. EDMS 22:03 initiated transfer with Saba Tim\[facility]. km 22:47 doc to doc. areli 23:07 hospitalist consult. [facility] 23:[address] [facility] room 1646. number for nurse to nurse report [phone]. Gloria Bedolla \T\5038. Admin approval given by Saba Tim\ 8153. [facility] to transfer pt eta 30 mins. 23:38 Daja Grant, RN is Primary Nurse. me1 23:54 Patient transferred, IV remains in place. me1 Administered Medications: 19:58 Not Given ([facility] morphineor iv 4 mg IVP once over 4 mins jb4 20:18 Drug: NS 0.9% IV 1000 ml IV at 1 bolus Per protocol; 1000 mL bolus Route: IV; Rate: 1 jb4 bolus; Site: right antecubital; 23:48 Follow up: Response: No adverse reaction; IV Status: Completed infusion; IV Intake: me1 1000ml 20:18 Drug: HYDROmorphone IVP 1 mg IVP once Route: IVP; Site: right antecubital; jb4 23:48 Follow up: Response: No adverse reaction; Pain is decreased me1 20:19 Drug: Ondansetron IVP 4 mg IVP once; over 2 minutes Route: IVP; Site: right antecubital;jb4 23:48 Follow up: Response: No adverse reaction; Nausea is decreased me1 20:39 Drug: Promethazine IVP 12.5 mg IVP once Route: IVP; Site: right antecubital; jb4 23:48 Follow up: Response: No adverse reaction; Nausea is decreased me1 23:10 Drug: NS 0.9% IV 1000 ml IV at 1 bolus Per protocol; 1000 mL bolus Route: IV; Rate: 1 me1 bolus; Site: right antecubital; 23:49 Follow up: IV Status: Infusion continued upon transfer me1 23:39 Drug: HYDROmorphone IVP 1 mg IVP once Route: IVP; Site: right antecubital; me1 23:48 Follow up: Response: No adverse reaction; Pain is decreased me1 Medication: 23:52 VIS not applicable for this client. me1 Intake: 23:48 IV: 1000ml; Total: 1000ml. me1 Outcome: 22:01 ER care complete, transfer ordered by sb4 23:54 Transferred by [facility] to [facility], Transfer form completed. me1 23:54 Condition: stable 23:54 Instructed on the need for transfer, 23:55 Patient left the ED. me1 Signatures: Dispatcher [employer] EDMary Tamez, Azam Nascimento mr Gibson Mejia, RN RN jb4 Kyara Blair PAEmanuelC PAMiranda bradford4 Daja Grant RN RN me1 Penelope Fischer [facility] Shama Olivares3 Corrections: (The following items were deleted from the chart) 20:46 20:46 Reassessment: Patient appears in no apparent distress at this time. Patient jb4 and/or family updated on plan of care and expected duration. Pain level reassessed. Patient is alert, oriented x 3, equal unlabored respirations, skin warm/dry/pink. jb4 23:54 23:54 GI: Bowel sounds present X 4 quads. Abd is soft X 4 quads me1 me1
--- NOTE | 2024-04-04 22:01 | EDPHYS ---
Physician Documentation [facility] Name: Sherly Babb Age: 54 yrs Sex: Female : 1970 Arrival Date: 04/04/2024 Time: 19:39 Bed 6 Private MD: ED Physician John Espinal HPI: 04/04 20:05 This 54 yrs old Female presents to ER via Ambulatory with complaints of Abdominal Pain, sb4 Vomiting. 20:05 The patient presents with abdominal pain in the upper abdomen. Onset: The sb4 symptoms/episode began/occurred 4 day(s) ago. The symptoms do not radiate. Associated signs and symptoms: Pertinent positives: nausea and vomiting. The patient has experienced a previous episode, many years ago, and the symptoms today are exactly the same. The patient has not recently seen a physician. 20:06 abdominal pain and intractable vomiting x 4 days. had gastric lap band in 2010, shortly sb4 after had a SBO, required NGT. states symptoms are exactly the same. no BMs, not passing gas. 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 - Infectious Disease History:: Denies. - Social history:: Smoking status: Patient denies any tobacco usage or history of. ROS: 22:01 Constitutional: Negative for fever, chills, and weight loss, sb4 22:01 Abdomen/GI: Positive for abdominal pain, nausea and vomiting, 22:01 All other systems are negative, Exam: 22:01 Cardiovascular: Regular rate and rhythm with a normal S1 and S2. Respiratory: Lungs sb4 have equal breath sounds bilaterally, clear to auscultation and percussion. No rales, rhonchi or wheezes noted. No increased work of breathing, no retractions or nasal flaring. Skin: Warm, dry with normal turgor. Normal color with no rashes, no lesions, and no evidence of cellulitis. 22:01 Constitutional: The patient appears alert, awake, obese, in obvious pain, uncomfortable, 22:01 Abdomen/GI: Inspection: obese Bowel sounds: diminished, in all quadrants, Palpation: soft, moderate abdominal tenderness, in the right upper quadrant and left upper quadrant, Vital Signs: 19:52 BP 143 / 91; Pulse 77; Resp 16; Temp 97(O); Pulse Ox 100% on R/A; Weight 136.08 kg (R); jb4 Height 5 ft. 8 in. (R); Pain 9/10; 20:46 BP 107 / 70; Pulse 74; Resp 16; Pulse Ox 95% on R/A; jb4 22:00 BP 125 / 79; Pulse 68; Resp 16; Pulse Ox 100% on 2 lpm NC; jb4 23:00 BP 130 / 72; Pulse 64; Resp 16; Pulse Ox 99% on 2 lpm NC; me1 23:00 BP 115 / 79; Pulse 63; Resp 15; Temp 98.4; Pulse Ox 98% on 2 lpm NC; me1 19:52 Body Mass Index 45.61 (136.08 kg, 172.72 cm) jb4 19:52 Pain Scale: Adult jb4 MDM: 19:45 Patient medically screened. sb4 22:02 Data reviewed: vital signs, nurses notes, lab test result(s), radiologic studies, I sb4 have discussed the patient's presentation/case with the attending Emergency Department Physician;. Care significantly affected by the following chronic conditions: Diabetes, Hypertension, Obesity. Counseling: I had a detailed discussion with the patient and/or guardian regarding the historical points, exam findings, and any diagnostic results supporting the discharge/admit diagnosis, lab results, radiology results, the need to transfer to another facility, [facility] does not immediately have the required specialist. 23:13 Management of patient was discussed with the following: Hospitalist: Dr. Awad, 4 accepts patient. Antique Furniture Restorer: Dr. Ace, bariatric surgeon, agrees to consult. 04/04 19:54 Order name: CBC with Diff; Complete Time: 20:22 [facility] 04/04 19:54 Order name: CMP; Complete Time: 20:32 4 04/04 19:54 Order name: Lipase; Complete Time: 20:32 [facility] 04/04 19:54 Order name: CT Abd/Pelvis - IV Contrast Only; Complete Time: 21:38 [facility] 04/04 19:54 Order name: IV Saline Lock; Complete Time: 19:55 [facility] 04/04 19:54 Order name: Labs collected and sent; Complete Time: 19:55 sb4 Administered Medications: 19:58 Not Given (Pt allergicc): morphineor iv 4 mg IVP once over 4 mins jb4 20:18 Drug: NS 0.9% IV 1000 ml IV at 1 bolus Per protocol; 1000 mL bolus Route: IV; Rate: 1 jb4 bolus; Site: right antecubital; 23:48 Follow up: Response: No adverse reaction; IV Status: Completed infusion; IV Intake: me1 1000ml 20:18 Drug: HYDROmorphone IVP 1 mg IVP once Route: IVP; Site: right antecubital; jb4 23:48 Follow up: Response: No adverse reaction; Pain is decreased me1 20:19 Drug: Ondansetron IVP 4 mg IVP once; over 2 minutes Route: IVP; Site: right antecubital;jb4 23:48 Follow up: Response: No adverse reaction; Nausea is decreased me1 20:39 Drug: Promethazine IVP 12.5 mg IVP once Route: IVP; Site: right antecubital; jb4 23:48 Follow up: Response: No adverse reaction; Nausea is decreased me1 23:10 Drug: NS 0.9% IV 1000 ml IV at 1 bolus Per protocol; 1000 mL bolus Route: IV; Rate: 1 me1 bolus; Site: right antecubital; 23:49 Follow up: IV Status: Infusion continued upon transfer me1 23:39 Drug: HYDROmorphone IVP 1 mg IVP once Route: IVP; Site: right antecubital; me1 23:48 Follow up: Response: No adverse reaction; Pain is decreased me1 Disposition: 04/05 02:08 Co-signature as Attending Physician, John Espinal MD I reviewed the patient's care rt provided by the Advanced Practice Provider and agree with the diagnosis and treatment plan. Disposition Summary: 04/04/24 22:01 Transfer Ordered Notes: Transfer Location: [facility] sb4 Reason: Higher level of care sb4 Condition: Fair sb4 Problem: new sb4 Symptoms: are unchanged sb4 Accepting Physician: Dr. Awad(04/04/24 23:55) me1 Diagnosis - Esophageal dilatation secondary to gastric band sb4 Forms: - Medication Reconciliation Form sb4 - SBAR form sb4 Signatures: Dispatcher [employer] Gibson Haines, RN RN jb4 Kyara Blair, SHARON PAMiranda sb4 John Espinal MD MD rt Daja Grant, RN RN me1 Corrections: (The following items were deleted from the chart) 04/04 22:14 20:06 abdominal pain and intractable vomiting x 4 days. had gastric bypass in 2010, sb4 shortly after had a SBO, required NGT. states symptoms are exactly the same. no BMs, not passing gas. sb4 23:13 22:01 bariatric surgery sb4 sb4 23:55 23:13 Dr. Awad sb4 me1
[2024-04-04] MEDS ORDERED: HYDROMORPHONE HCL 1 MG/ML INJ ONE (23:25)
[2024-04-05 00:19] VITALS: BP 115/79; TEMP 98.4; O2SAT 98
== END 2024-04-04 23:55 | disposition short-term general hospital (02) ==
LOC: ER 19:39
DX: K22.89 Other specified disease of esophagus (principal); Z98.84 Bariatric surgery status
CPT/HCPCS: 96361; 85025; 36415; 83690; 80053; 74177; 96375; 96374; 99285; Q9967; J2550; J1170 ×2; J2405; J7030 ×2

== ENCOUNTER 2025-07-18 10:49 | Day surgery (SDC) | payer OTHER ==
[2025-07-18 10:59] LABS: Absolute Lymphocytes (CBC) 1.6 K/uL (0.7-4.9); Hematocrit 38.3 % (36.0-45.0); Hemoglobin 12.7 g/dL (12.0-15.0); MCH 28.3 pg (27.0-35.0); MCHC 33.2 g/dL (32.0-36.0); MCV 85.4 fL (80-100); MPV 7.9 fL (7.6-11.3); Nucleated RBC Absolute Count 0.0 (0-0); Nucleated Red Blood Cells % 0.0 % (0-0); RBC Red Blood Cell Count 4.48 M/uL (3.86-4.86); White Blood Count 8.60 thou/uL (4.3-10.9)
[2025-07-18 11:09] LABS: Anion Gap 5.8 mEq/L (5.0-15.0); BUN Blood Urea Nitrogen 12.0 mg/dL (7-18); Glucose Level 162.0 mg/dL (74-106); Potassium 3.8 mEq/L (3.5-5.1)
[2025-07-18] MEDS: NA CHLORIDE 0.9% 1,000 ML ONE (11:20)
[2025-07-18] MEDS ORDERED: MIDAZOLAM HCL 2 MG/2 ML INJ ONE (11:26)
[2025-07-18] MEDS ORDERED: FENTANYL CITR 100 MCG/2 ML ONE (11:26)
[2025-07-18] MEDS ORDERED: ONDANSETRON 4 MG/2 ML VIAL ONE (11:26)
[2025-07-18] MEDS ORDERED: LIDOCAINE 1% MPF 5 ML VIAL ONE (11:26)
[2025-07-18] MEDS: CEFAZOLIN SODIUM 1 GM/VIAL ONE ×2 (12:15)
[2025-07-18] MEDS: LIDOCAINE HCL/EPINEPHRINE 20 ML MDV ONE (12:16)
--- NOTE | 2025-07-18 12:24 | P.OP ---
Preoperative diagnosis: RIGHT Foot Diabetic Ulcer Postoperative diagnosis: RIGHT Foot Diabetic Ulcer Primary procedure: Debridement of RIGHT Foot Diabetic Ulcer Anesthesia: GETA + Local Estimated blood loss: <1cc Specimen: Debridement Tissue, Cultures Findings: 2cm x 2cm x 0.3cm RIGHT Foot Diabetic Ulcer Complications: None Transferred to: Recovery Room Condition: Good
[2025-07-18] MEDS: HYDROCODONE/APAP 10/325 TAB ONE (13:30)
[2025-07-18 13:38] VITALS: BP 144/82; TEMP 97.5; O2SAT 96
--- NOTE | 2025-07-19 00:10 | OP ---
Date of Procedure: 07/18/2025 Surgeon: Alfredo Cesar MD, Preoperative Diagnosis: Right foot diabetic ulcer. Postoperative Diagnosis: Right foot diabetic ulcer. Procedure Performed: Debridement of right foot diabetic ulcer. Anesthesia: General endotracheal plus local 1% lidocaine. Estimated Blood Loss: 1 cc. Specimens: Debridement of tissue and cultures sent both for aerobic and anaerobic speciation. Findings: 2 cm x 2 cm x 0.2 cm right foot diabetic plantar foot ulcer. Complications: None. Disposition: The patient was transferred to recovery room in good condition. Procedure In Detail: After informed consent was obtained, the patient was prepped and draped in usua l sterile fashion. After adequate anesthesia was achieved, I used a 10 blade to take off a significa nt eschar circumferentially around an area of a right diabetic foot wound, which had a buildup callus circumferentially around this. I then curetted out nonviable tissue with significant slough into th e cavity of this plantar foot wound down to level 2 depth. Using a sharp curette, the area was copio usly irrigated. All nonviable tissue was trimmed back to allow for appropriate offloading to the [facility]. The wound was then packed with Vashe-soaked gauze and sterile dressing placed over top. The missy ent tolerated the procedure without incident or complication and transferred to PACU in good condition. All counts were correct at the end of the case. GEOFFREY/NABOR Voice ID: [id number] Report ID: [id number]
== END 2025-07-18 14:25 | disposition home or self-care (01) ==
LOC: OR 10:49
PROVIDERS: ATTEND Surgery
PROC: 0JDQ3ZZ Extraction of Right Foot Subcutaneous Tissue and Fascia, Percutaneous Approach (ICD-10-PCS; principal; 2025-07-18 12:00)
DX: E11.621 Type 2 diabetes mellitus with foot ulcer (principal); E78.00 Pure hypercholesterolemia, unspecified; F41.9 Anxiety disorder, unspecified; F32.A Depression, unspecified; I10 Essential (primary) hypertension
CPT/HCPCS: 93005; 87070; 85025; 80048; 36415; 87205; 82947; 88304; 87075; 11042; J2704; J2003; J2250; J2405; J7030; J0690 ×2; J3010